=== PATIENT | male | born 1945 | race African-American/Black ===

== ENCOUNTER 2017-12-14 11:56 | Inpatient (IN) | payer OTHER ==
--- OUTSIDE RECORDS SUMMARY | 2017-12-14 11:58 | XMS REPORT | Clinical Summary ---
:[address] [facility] Address [address] [place] [address] Phone Care Team Providers Name Role Phone Unavailable Primary Care Provider Unavailable Allergies Active Allergy Reactions Severity Noted Date Comments Ciprofloxacin Other (See Comments) 02/19/2016 Blood clots per family Current Medications Prescription Sig. Disp. Refills Start Date End Date Status apixaban (ELIQUIS) 5 Take 1 tablet 60 tablet 1 03/09/2016 Active mg Tab tablet (5 mg total) by mouth 2 (two) times daily. lisinopril Take 1 tablet 60 tablet 1 03/09/2016 Active (PRINIVIL,ZESTRIL) 10 (10 mg total) MG tablet by mouth daily. lacosamide 200 mg Tab Take 1 tablet 60 tablet 1 03/09/2016 Active (200 mg total) by mouth 2 (two) times daily. levETIRAcetam Take 20 mLs 1000 mL 1 03/09/2016 Active (KEPPRA) 500 mg/5 mL (2,000 mg (5 mL) Soln oral total) by mouth solution 2 (two) times daily. atorvastatin Take 1 tablet 60 tablet 1 03/09/2016 03/09/2017 (LIPITOR) 10 MG (10 mg total) tablet by mouth nightly. topiramate (TOPAMAX) Take 3 tablets 180 tablet 1 03/09/2016 03/09/2017 50 MG tablet (150 mg total) by mouth every 12 (twelve) hours. zonisamide (ZONEGRAN) Take 1 capsule 30 capsule 1 03/09/2016 03/09/2017 100 MG capsule (100 mg total) by mouth daily. allopurinol Take 1 tablet 60 tablet 1 03/09/2016 03/09/2017 (ZYLOPRIM) 100 MG (100 mg total) tablet by mouth daily. Active Problems Problem Noted Date Hypotension 02/24/2016 Essential hypertension with goal blood pressure less than 140/90 02/23/2016 Acute encephalopathy 02/22/2016 Status epilepticus (HCC) 02/19/2016 Social History Tobacco Use Types Packs/Day Years Used Date Never Smoker Alcohol Use Drinks/Week oz/Week Comments No Sex Assigned at Date Recorded Not on file Last Filed Vital Signs Not on file Plan of Treatment Not on file Results Not on fileafter 12/13/2016
[2017-12-14] MEDS ORDERED: ACETAMINOPHEN 325 MG TABLET ONE (12:51)
[2017-12-14 12:55] LABS: Absolute Lymphocytes (CBC) 1.7 K/uL (0.7-4.9); Absolute Monocytes 0.7 K/uL (0.1-1.3); Absolute Neutrophil 2.4 K/uL (1.8-8.0); Basophils % 1.4 % (0-1.3); Eosinophils % 1.3 % (0-4.4); Hematocrit 24.9 % (39.6-49.0); Lymphocytes % 34.1 % (15.3-44.8); MCH 23.1 pg (27.0-35.0); MCV 74.5 fL (80-100); MPV 8.9 fL (7.6-11.3); RBC Red Blood Cell Count 3.35 M/uL (4.33-5.43)
[2017-12-14 12:57] LABS: Protime INR 1.56
--- NOTE | 2017-12-14 13:00 | RAD REPORT ---
EXAM DESCRIPTION: RAD - Chest Single View - 12/14/2017 12:52 pm CLINICAL HISTORY: Cough and fever COMPARISON: 05/07/2016 FINDINGS: Portable technique limits examination quality. Opacity in the right lung base may represent atelectasis, developing pneumonia or a combination of lexus th. The lungs are underinflated. The heart is normal in size. No displaced fractures.Mildly tortuous thoracic aorta.
--- NOTE | 2017-12-14 13:23 | RAD REPORT ---
EXAM DESCRIPTION: VAS - Extremity Venous Uni Ltd - 12/14/2017 1:15 pm CLINICAL HISTORY: SWELLING Leg swelling and edema. COMPARISON: EXT VENOUS UNI LTD dated 08/20/2015 FINDINGS: Right lower extremity venous system was interrogated with Doppler technique. Normal flow, compressibility and augmentation was noted. There is no DVT present. IMPRESSION: No evidence of right lower extremity deep venous thrombosis.
[2017-12-14 13:26] LABS: Albumin 3.5 g/dL (3.2-5.5); Bilirubin Direct 0.2 mg/dL (0-0.2); Bilirubin Total 0.2 mg/dL (0.3-1.2); C-Reactive Protein 169.9 mg/L (<10.0); CKMB Creatine Kinase MB 1.3 ng/ml (0.3-4.0); Potassium 4.5 mEq/L (3.6-5.0); Protein, Total 8.5 g/dL (6.0-8.3)
[2017-12-14] MEDS ORDERED: PIPER/TAZO/NS 3.375gm 3.375 GM/100 ML BAG ONE (13:53)
[2017-12-14] MEDS ORDERED: NA CHLORIDE 0.9% 1,000 ML ONE (13:53)
--- NOTE | 2017-12-14 15:11 | EDPHYS ---
Physician Documentation [facility] Name: Jairo Samson Age: 72 yrs Sex: Male : 1945 Arrival Date: 12/14/2017 Time: 11:59 Bed 23 Private MD: Karen Macario H ED Physician Phillip Carroll HPI: 12/14 14:31 This 72 yrs old Black Male presents to ER via Wheelchair with complaints of Fever. snw 14:31 The patient reports fever, that was measured at 101 degrees Fahrenheit. Onset: The snw symptoms/episode began/occurred suddenly, 3 day(s) ago. Associated signs and symptoms: Pertinent positives: cough, decreased appetite, runny nose, sinus congestion. Severity of symptoms: At their worst the symptoms were moderate in the emergency department the symptoms are unchanged. The patient has not experienced similar symptoms in the past. It is unknown whether or not the patient has recently seen a physician, Pt sees Dr. Macario. Historical: - Allergies: 12:14 Cipro; aj - Home Meds: 12:14 acetaminophen 325 mg Oral tab 1 tab every 4-6 hours [Active]; allopurinol 100 mg Oral aj tab 1 tab once daily [Active]; Eliquis 5 mg Oral tab 1 tab 2 times per day [Active]; Keppra 100 mg/mL Oral soln 5 mL 2 times per day [Active]; lacosamide 200 mg Oral 1 tab 2 times per day [Active]; Lipitor 10 mg Oral tab 1 tab once daily [Active]; lisinopril 10 mg Oral tab 1 tab once daily [Active]; Milk of Magnesia 400 mg/5 mL Oral susp 30 mL once daily [Active]; multivitamin Oral [Active]; phenobarbital 32.4 mg Oral tab every morning and 64.8 mg at bedtime [Active]; Saline 3 % nasal mist daily [Active]; simvastatin 20 mg Oral tab 1 tab once daily [Active]; Topamax 50 mg Oral tab 1 tab 2 times per day [Active]; Vimpat 200 mg Oral tab 2 times per day [Active]; Zonegran 100 mg Oral cap 1 cap once daily [Active]; - PMHx: 12:14 CVA; Hyperlipidemia; Hypertension; PE; Seizures; aj - PSHx: 12:14 Appendectomy; aj - Immunization history:: Adult Immunizations up to date. - Social history:: Smoking status: Patient/guardian denies using tobacco. - Ebola Screening: : Patient negative for fever greater than or equal to 101.5 degrees Fahrenheit, and additional compatible Ebola Virus Disease symptoms Patient denies exposure to infectious person Patient denies travel to an Ebola-affected area in the 21 days before illness onset No symptoms or risks identified at this time. ROS: 13:13 Eyes: Negative for injury, pain, redness, and discharge, ENT: Negative for injury, snw pain, and discharge, Neck: Negative for injury, pain, and swelling, Cardiovascular: Negative for chest pain, palpitations, and edema. 13:13 Abdomen/GI: Negative for abdominal pain, nausea, vomiting, diarrhea, and constipation, Back: Negative for injury and pain, : Negative for injury, bleeding, discharge, and swelling, MS/Extremity: Negative for injury and deformity, Skin: Negative for injury, rash, and discoloration, Neuro: Negative for headache, weakness, numbness, tingling, and seizure. 13:13 Constitutional: Positive for body aches, fever, malaise. 13:13 Respiratory: Positive for cough. Exam: 13:10 Head/Face: Normocephalic, atraumatic. Eyes: Pupils equal round and reactive to light, snw extra-ocular motions intact. Lids and lashes normal. Conjunctiva and sclera are non-icteric and not injected. Cornea within normal limits. Periorbital areas with no swelling, redness, or edema. ENT: Nares patent. No nasal discharge, no septal abnormalities noted. Tympanic membranes are normal and external auditory canals are clear. Oropharynx with no redness, swelling, or masses, exudates, or evidence of obstruction, uvula midline. Mucous membranes moist. Neck: Trachea midline, no thyromegaly or masses palpated, and no cervical lymphadenopathy. Supple, full range of motion without nuchal rigidity, or vertebral point tenderness. No Meningismus. Chest/axilla: Normal chest wall appearance and motion. Nontender with no deformity. No lesions are appreciated. 13:10 Respiratory: Lungs have equal breath sounds bilaterally, clear to auscultation and percussion. No rales, rhonchi or wheezes noted. No increased work of breathing, no retractions or nasal flaring. Abdomen/GI: Soft, non-tender, with normal bowel sounds. No distension or tympany. No guarding or rebound. No evidence of tenderness throughout. Back: No spinal tenderness. No costovertebral tenderness. Full range of motion. 13:10 Constitutional: The patient appears alert, awake, frail. 13:10 Cardiovascular: Rate: tachycardic, Heart sounds: normal, Edema: pedal edema, that is moderate. 13:10 Skin: Appearance: normal except for affected area, duoderm to coccyx over abrasions, right elbow with dayami per secondary to right elbow pain. 13:10 Neuro: Orientation: appropriate for stated age, seizure activity, is not displayed by the patient, pt is s/p CVA with contractures, normal neuro for pt per Spouse. Vital Signs: 12:14 BP 111 / 62; Pulse 126; Resp 20; Temp 98.9; Pulse Ox 99% on R/A; Weight 73.94 kg; aj Height 5 ft. 11 in. (180.34 cm); 14:10 BP 130 / 94; Pulse 117; Resp 21; Pulse Ox 100% ; aj 14:28 BP 137 / 89; Pulse 111; Resp 21; Temp 98.9; Pulse Ox 99% on R/A; aj 15:36 BP 102 / 64; Pulse 103; Resp 20; Pulse Ox 100% on R/A; rk2 15:45 BP 93 / 58; Pulse 100; Resp 20; Pulse Ox 100% on R/A; rk2 16:30 BP 97 / 55; Pulse 92; Resp 19; Pulse Ox 100% on R/A; rk2 17:00 BP 108 / 64; Pulse 98; Resp 19; Pulse Ox 99% on R/A; rk2 17:56 BP 101 / 62; Pulse 86; Resp 18; Pulse Ox 100% on R/A; rk2 18:28 BP 111 / 61; Pulse 86; Resp 18; Pulse Ox 100% on R/A; rk2 12:14 Body Mass Index 22.73 (73.94 kg, 180.34 cm) aj MDM: 12:29 Patient medically screened. snw 14:30 Data reviewed: vital signs, nurses notes. Data interpreted: Pulse oximetry: on room air snw is 99 %. Interpretation: acceptable. Counseling: I had a detailed discussion with the patient and/or guardian regarding: the historical points, exam findings, and any diagnostic results supporting the discharge/admit diagnosis, the presence of at least one elevated blood pressure reading (>120/80) during this emergency department visit, lab results, radiology results, the need for further work-up and treatment in the hospital. Physician consultation: Didi Sanchez MD was called at 14:30, was contacted at 14:30, regarding admission, to the telemetry unit. Admission orders: after a detailed discussion of the patient's condition and case, the admit orders are written by me. Admission orders: after a detailed discussion of the patient's condition and case, the admit orders are written by me. 12/14 12:23 Order name: Basic Metabolic Panel; Complete Time: 13:42 12/14 12:23 Order name: Blood Culture Adult (2) 12/14 12:23 Order name: BNP; Complete Time: 13:42 12/14 12:23 Order name: C-Reactive Protein; Complete Time: 13:42 12/14 12:23 Order name: CBC with Diff; Complete Time: 13:12/14 12:23 Order name: Ckmb; Complete Time: 13:42 12/14 12:23 Order name: CPK; Complete Time: 13:42 12/14 12:23 Order name: Lactate; Complete Time: 13:08 12/14 12:23 Order name: LFT's; Complete Time: 13:42 12/14 12:23 Order name: Lipase; Complete Time: 13:42 12/14 12:23 Order name: Procalcitonin; Complete Time: 13:42 12/14 12:23 Order name: Protime (+inr); Complete Time: 13:08 12/14 12:23 Order name: Ptt, Activated; Complete Time: 13:12/14 12:23 Order name: Troponin (emerg Dept Use Only); Complete Time: 13:22 12/14 12:23 Order name: Chest Single View XRAY; Complete Time: 13:08 12/14 12:23 Order name: Accucheck; Complete Time: 14:12/14 12:23 Order name: Cardiac monitoring; Complete Time: 14:/14 12:23 Order name: Urine Culture snw 12/14 12:23 Order name: Urine Microscopic Only; Complete Time: 17:22 snw 12/14 12:53 Order name: Extremity Venous Uni Ltd US; Complete Time: 13:23 aj 12/14 13:08 Order name: TS snw 12/14 16:21 Order name: Bb Add On snw 12/14 16:26 Order name: Bb Add On snw 12/14 16:51 Order name: Urine Dipstick--Ancillary (enter results) bd 12/14 17:17 Order name: Urine Dipstick-Ancillary; Complete Time: 17:17 EDMS 12/14 12:23 Order name: EKG - Nurse/Tech; Complete Time: 16:52 snw 12/14 12:23 Order name: IV Saline Lock - Large Bore; Complete Time: 14:09 snw 12/14 12:23 Order name: Labs collected and sent; Complete Time: 14:09 snw 12/14 12:23 Order name: O2 Per Protocol; Complete Time: 14:09 snw 12/14 12:23 Order name: O2 Sat Monitoring; Complete Time: 14:09 snw 12/14 12:23 Order name: Urine Dipstick-Ancillary (obtain specimen); Complete Time: 14:09 snw 12/14 16:21 Order name: Transfuse; Complete Time: 19:13 snw 12/14 16:23 Order name: Consent for Blood Transfusion; Complete Time: 16:53 snw Administered Medications: 13:05 Drug: Tylenol 650 mg Route: PO; aj 14:28 Follow up: Response: Temperature is decreased aj 14:08 Drug: Zosyn 3.375 grams Route: IVPB; Infused Over: 60 mins; Site: left antecubital; aj 14:41 Follow up: Response: No adverse reaction; IV Status: Completed infusion; IV Intake: aj 100ml 14:08 Drug: NS 0.9% 1000 ml Route: IV; Rate: 100 ml/hr; Site: left antecubital; aj 18:45 Follow up: Response: No adverse reaction; IV Status: Completed infusion rk2 15:50 Drug: NS 0.9% 500 ml Route: IV; Rate: bolus; Site: left wrist; rk2 16:20 Follow up: Response: No adverse reaction; IV Status: Completed infusion rk2 Disposition: 19:13 Co-signature as Attending Physician, Phillip Carroll MD. rn Disposition: 12/14/17 15:10 Hospitalization ordered by Didi Sanchez for Inpatient Admission. Preliminary diagnosis are Pneumonia, unspecified organism, Anemia, unspecified. - Bed requested for Telemetry/MedSurg (Inpatient). - Status is Inpatient Admission. rk2 - Condition is Stable. - Problem is new. - Symptoms are unchanged. UTI on Admission? No Signatures: Dispatcher [employer] EDNM Tyshawn Danielle Nanette Lepe RN Janice Benavidez, SUPERVISOR [employer]-C SUPERVISOR [employer]SELING [employer]-Csnw Phillip Carroll MD MD rn Kidder, Rhonda, RN RN rk2 Corrections: (The following items were deleted from the chart) 13:00 12:53 Chest Single View+RAD.RAD.BRZ ordered. [facility] 16:32 15:10 Hospitalization Ordered by Didi Sanchez MD for Inpatient Admission. Preliminary bd diagnosis is Pneumonia, unspecified organism; Anemia, unspecified. Bed requested for Telemetry/MedSurg (Inpatient). Status is Inpatient Admission. Condition is Stable. Problem is new. Symptoms are unchanged. UTI on Admission? No. snw 19:13 16:32 12/14/2017 15:10 Hospitalization Ordered by Didi Sanchez MD for Inpatient rk2 Admission. Preliminary diagnosis is Pneumonia, unspecified organism; Anemia, unspecified. Bed requested for Telemetry/MedSurg (Inpatient). Status is Inpatient Admission. Condition is Stable. Problem is new. Symptoms are unchanged. UTI on Admission? No. bd
--- NOTE | 2017-12-14 15:11 | ER ---
Nurse's Notes [facility] Name: Jairo Samson Age: 72 yrs Sex: Male : 1945 Arrival Date: 12/14/2017 Time: 11:59 Bed 23 Private MD: Karen Macario H Diagnosis: Pneumonia, unspecified organism;Anemia, unspecified Presentation: 12/14 12:11 Presenting complaint: states: C/O runny nose, cough, and fever for a few days. aj Transition of care: patient was not received from another setting of care. Onset of symptoms was December 11, 2017. Risk Assessment: Do you want to hurt yourself or someone else? Patient reports no desire to harm self or others. Care prior to arrival: None. 12:11 Method Of Arrival: Wheelchair aj 12:11 Acuity: BIJAL 3 aj 19:12 Initial Sepsis Screen: Does the patient meet any 2 criteria? Yes Does the patient have rk2 a suspected source of infection? Yes:. Triage Assessment: 12:14 General: Appears in no apparent distress. comfortable, Behavior is calm, cooperative, aj appropriate for age. Pain: Denies pain. EENT: Reports nasal congestion nasal discharge. Neuro: Level of Consciousness is awake, alert, obeys commands. Respiratory: Reports cough that is Airway is patent Respiratory effort is even, unlabored, Respiratory pattern is regular, symmetrical. Derm: Skin is intact, is healthy with good turgor, Skin is pink, warm \T\ dry. normal. Historical: - Allergies: 12:14 Cipro; aj - Home Meds: 12:14 acetaminophen 325 mg Oral tab 1 tab every 4-6 hours [Active]; allopurinol 100 mg Oral aj tab 1 tab once daily [Active]; Eliquis 5 mg Oral tab 1 tab 2 times per day [Active]; Keppra 100 mg/mL Oral soln 5 mL 2 times per day [Active]; lacosamide 200 mg Oral 1 tab 2 times per day [Active]; Lipitor 10 mg Oral tab 1 tab once daily [Active]; lisinopril 10 mg Oral tab 1 tab once daily [Active]; Milk of Magnesia 400 mg/5 mL Oral susp 30 mL once daily [Active]; multivitamin Oral [Active]; phenobarbital 32.4 mg Oral tab every morning and 64.8 mg at bedtime [Active]; Saline 3 % nasal mist daily [Active]; simvastatin 20 mg Oral tab 1 tab once daily [Active]; Topamax 50 mg Oral tab 1 tab 2 times per day [Active]; Vimpat 200 mg Oral tab 2 times per day [Active]; Zonegran 100 mg Oral cap 1 cap once daily [Active]; - PMHx: 12:14 CVA; Hyperlipidemia; Hypertension; PE; Seizures; aj - PSHx: 12:14 Appendectomy; aj - Immunization history:: Adult Immunizations up to date. - Social history:: Smoking status: Patient/guardian denies using tobacco. - Ebola Screening: : Patient negative for fever greater than or equal to 101.5 degrees Fahrenheit, and additional compatible Ebola Virus Disease symptoms Patient denies exposure to infectious person Patient denies travel to an Ebola-affected area in the 21 days before illness onset No symptoms or risks identified at this time. Screenin:46 Abuse screen: Denies threats or abuse. Denies injuries from another. Nutritional aj screening: No deficits noted. Tuberculosis screening: No symptoms or risk factors identified. Fall Risk None identified. Assessment: 14:09 Reassessment: See triage. aj 15:50 Reassessment: Noted drop in pt. BP, notified provider Elyssa and was instructed to rk2 give pt. 500 ml bolus and re-evaluate. 17:00 Reassessment: Patient appears in no apparent distress at this time. No changes from rk2 previously documented assessment. Patient and/or family updated on plan of care and expected duration. Pain level reassessed. No needs voiced \T\ this time. 18:00 Reassessment: Patient appears in no apparent distress at this time. No changes from rk2 previously documented assessment. Patient and/or family updated on plan of care and expected duration. Pain level reassessed. Family \T\ bedside... no needs voiced \T\ this time. 19:10 Reassessment: Pt. transported to room 203 by RN and Tech... PRBC infusing. Blood rk2 checked off with receiving RN. Vital Signs: 12:14 BP 111 / 62; Pulse 126; Resp 20; Temp 98.9; Pulse Ox 99% on R/A; Weight 73.94 kg; aj Height 5 ft. 11 in. (180.34 cm); 14:10 BP 130 / 94; Pulse 117; Resp 21; Pulse Ox 100% ; aj 14:28 BP 137 / 89; Pulse 111; Resp 21; Temp 98.9; Pulse Ox 99% on R/A; aj 15:36 BP 102 / 64; Pulse 103; Resp 20; Pulse Ox 100% on R/A; rk2 15:45 BP 93 / 58; Pulse 100; Resp 20; Pulse Ox 100% on R/A; rk2 16:30 BP 97 / 55; Pulse 92; Resp 19; Pulse Ox 100% on R/A; rk2 17:00 BP 108 / 64; Pulse 98; Resp 19; Pulse Ox 99% on R/A; rk2 17:56 BP 101 / 62; Pulse 86; Resp 18; Pulse Ox 100% on R/A; rk2 18:28 BP 111 / 61; Pulse 86; Resp 18; Pulse Ox 100% on R/A; rk2 12:14 Body Mass Index 22.73 (73.94 kg, 180.34 cm) aj ED Course: 11:59 Patient arrived in ED. mr 12:00 Karen Macario DO is Private Physician. mr 12:12 Triage completed. aj 12:14 Arm band placed on right wrist. Patient placed in an exam room. aj 12:19 Janice Hernandez FNP-C [facility]. snw 12:19 Phillip Carroll MD is Attending Physician. snw 12:46 Nanette Vernon, EN is Primary Nurse. aj 12:47 Inserted saline lock: 20 gauge in left antecubital area, using aseptic technique. Blood aj collected. 12:51 X-ray completed. Portable x-ray completed in exam room. Patient tolerated procedure jb2 well. 12:52 Chest Single View XRAY In Process Unspecified. EDMS 13:13 Extremity Venous Uni Ltd US In Process Unspecified. EDMS 13:13 Ultrasound completed. Patient tolerated well. aa4 14:39 IV discontinued, bleeding controlled, No redness/swelling at site. Pressure dressing aj applied. 14:39 Inserted saline lock: 22 gauge in left wrist, using aseptic technique. Blood collected. aj 15:00 Patient has correct armband on for positive identification. Bed in low position. Call rk2 light in reach. Side rails up X2. 15:08 Didi Sanchez MD is Hospitalizing Provider. snw 16:55 EKG done, by accelerator technician. reviewed by Janice DE LA O. 3 19:11 No provider procedures requiring assistance completed. rk2 Administered Medications: 13:05 Drug: Tylenol 650 mg Route: PO; aj 14:28 Follow up: Response: Temperature is decreased aj 14:08 Drug: Zosyn 3.375 grams Route: IVPB; Infused Over: 60 mins; Site: left antecubital; aj 14:41 Follow up: Response: No adverse reaction; IV Status: Completed infusion; IV Intake: aj 100ml 14:08 Drug: NS 0.9% 1000 ml Route: IV; Rate: 100 ml/hr; Site: left antecubital; aj 18:45 Follow up: Response: No adverse reaction; IV Status: Completed infusion rk2 15:50 Drug: NS 0.9% 500 ml Route: IV; Rate: bolus; Site: left wrist; rk2 16:20 Follow up: Response: No adverse reaction; IV Status: Completed infusion rk2 Intake: 14:41 IV: 100ml; Total: 100ml. aj Outcome: 15:10 Decision to Hospitalize by Provider. snw 19:11 Admitted to Med/surg rk2 19:11 Condition: improved 19:11 Instructed on the need for admit. 19:13 Patient left the ED. rk2 Signatures: Dispatcher [employer] Nanette Sotelo, RN Janice Benavidez FNP-C FNP-[facility] MayorgaCathie David Prieto jb2 Nanette Muhammad aa4 Lyudmila Jang RN RN rk2 Anna Sullivan 3
[2017-12-14] MEDS ORDERED: ONDANSETRON 4 MG/2 ML VIAL IV PRN (16:46)
[2017-12-14 17:16] LABS: Urine Blood NEGATIVE (NEG); Urine Glucose NEGATIVE (NEG); Urine Protein NEGATIVE (NEG); Urine pH 5.5 (5.0-7.0)
[2017-12-14 17:17] LABS: Urine Bacteria <20 /HPF (NONE SEEN); Urine Culture Reflex Order NOT NEEDED; Urine RBC <5 /HPF (NONE SEEN)
--- NOTE | 2017-12-14 17:21 | P.HP ---
Certification for Inpatient Patient admitted to: Observation With expected LOS: <2 Midnights Patient will require the following post-hospital care: None Practitioner: I am a practitioner with admitting privileges, knowledge of patient current condition, hospital course, and medical plan of care. Services: Services provided to patient in accordance with Admission requirements found in Title 42 Section 412.3 of the Code of Federal Regulations Patient History Date of Service: 12/15/17 Primary Care Provider: Dr MONDRAGON Reason for admission: Sepsis History of Present Illness: This is a 72-year-old male with significant past medical history of polio, CKD, hypertension presented to the ED complaining of having some fever and chills. Patient's at bedside providing most of the history as patient is a phasic due to prior stroke. Patient's stated that patient started having a low- grade fever at home of about 99.9 and 30 are the patient is found to have sepsis and thus was referred over for admission due to tachycardia elevated temperature and elevated white count. Patient does have 2 sacral bruises that his concern for sacral ulcers along with swelling of the right lower extremity. X-ray was consistent with possible lady of pneumonia. Patient was thus admitted to the hospital under upon for sepsis with possible anemia as well. Allergies ciprofloxacin Allergy (Verified 12/15/15 22:39) UNKNOWN Home Medications: Lisinopril [Prinivil*] 10 mg PO DAILY 07/25/13 Apixaban [Eliquis] 5 mg PO BID 04/01/15 Lacosamide [Vimpat] 200 mg PO BID 05/05/16 Simvastatin 20 mg PO BEDTIME 05/05/16 Topiramate 50 mg PO BEDTIME 05/05/16 Zonisamide 100 mg PO DAILY 05/05/16 Levetiracetam [Keppra] 500 mg PO BID #60 tablet 05/09/16 PHENobarbital [Phenobarbital*] 32.4 mg PO DAILY #30 tab 05/09/16 PHENobarbital [Phenobarbital*] 64.8 mg PO BEDTIME #60 tab 05/09/16 Carisoprodol 350 mg PO BID PRN 12/14/17 Multivitamin [Multivitamins] 1 each PO DAILY 12/14/17 - Past Medical/Surgical History Diabetic: No -: CVA with deficits on right side -: HTN -: Pulmonary embolism -: Seizures -: 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 -: high cholesterol -: polio -: Appendectomy - Family History Father -: Hypertension Mother -: Hypertension Brother -: Hypertension Sister -: Hypertension, Cancer - Social History Alcohol use: No CD- Drugs: No Caffeine use: No Review of Systems General: As per HPI Physical Examination - Physical Exam General: Alert, Oriented x2 HEENT: Atraumatic Neck: Supple, 2+ carotid pulse no bruit Respiratory: Normal air movement, Crackles/rales Cardiovascular: Regular rate/rhythm, Normal S1 S2 Gastrointestinal: Normal bowel sounds, No tenderness Musculoskeletal: Swelling (Right LE ), Erythema Integumentary: Skin breakdown (Sacral breakdown ) Neurological: Normal speech Lymphatics: No axilla or inguinal lymphadenopathy - Studies Laboratory Data (last 24 hrs) 12/14/17 12:37: PT 18.5 H, INR 1.56, APTT 28.2 12/14/17 12:37: WBC 4.9, Hgb 7.7 L*, Hct 24.9 L, Plt Count 320 12/14/17 12:37: B-Natriuretic Peptide 14 12/14/17 12:37: Sodium 141, Potassium 4.5, BUN 44 H, Creatinine 1.32 H, Glucose 146 H, Total Bilirubin 0.2 L, AST 31, ALT 19, Alkaline Phosphatase 91, Lipase 30 Assessment and Plan - Problems (Diagnosis) (1) Sepsis Onset Date: 12/15/17 Current Visit: Yes Status: Acute Plan: Sepsis with Unknown Source. -Pt with 2 sacral wound, right leg swelling and possible PNA on the xray -Elevated CRP, WNL procal. -On IV vanc and zosyn -IV fluids -Urine culture, Blood culture and Sputum Culture pending Qualifiers: Sepsis type: sepsis due to unspecified organism Qualified Code(s): A41.9 - Sepsis, unspecified organism (2) Chronic kidney disease Onset Date: 12/15/17 Current Visit: Yes Status: Chronic Plan: Acute on CKD. - IV fluids Qualifiers: Chronic kidney disease stage: stage 2 (mild) Qualified Code(s): N18.2 - Chronic kidney disease, stage 2 (mild) (3) Polio Onset Date: 12/15/17 Current Visit: Yes Status: Chronic Plan: Stable for now (4) Anemia, iron deficiency Onset Date: 02/17/16 Current Visit: No Status: Acute Plan: Anemia 2.2 to chronic kidney disease vs acute loss. 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 Current Visit: No Status: Chronic Plan: Stable for now (6) Hyperlipidemia Onset Date: 02/17/16 Current Visit: No Status: Chronic Plan: restart Home medication Qualifiers: Hyperlipidemia type: mixed hyperlipidemia Qualified Code(s): E78.2 - Mixed hyperlipidemia (7) Hypertension Onset Date: 02/17/16 Current Visit: No Status: Chronic Plan: Restart home medication Qualifiers: Hypertension type: essential hypertension Qualified Code(s): I10 - Essential (primary) hypertension Discharge Plan: Home Plan to discharge in: 48 Hours - Advance Directives Does patient have a Living Will: No Does patient have a Durable POA for Healthcare: No - Code Status/Comfort Care Code Status Assessed: Yes Critical Care: No
[2017-12-14] MEDS ORDERED: NA CHLORIDE 0.9% 500 ML ONE (17:47)
[2017-12-14] MEDS ORDERED: VANCOMYCIN 2 GM in NA CHLORIDE 0.9% 500 ML IVPB ONE (18:00)
[2017-12-14] MEDS: NA CHLORIDE 0.9% 1,000 ML IV SCH (20:44)
[2017-12-14] MEDS: ATORVASTATIN 10 MG TAB PO SCH (22:27)
[2017-12-14] MEDS: levETIRAcetam 500 MG TAB PO SCH (22:27)
[2017-12-14] MEDS: TOPIRAMATE 25 MG TAB PO SCH (22:27)
[2017-12-14] MEDS: APIXABAN 5 MG TABLET PO SCH (22:28)
[2017-12-14] MEDS: LACOSAMIDE 50 MG TABLET PO SCH (22:35)
[2017-12-14] MEDS: PHENOBARBITAL 32.4 MG TABLET PO SCH (22:37)
[2017-12-14 23:00] LABS: Hematocrit 24.7 % (39.6-49.0)
[2017-12-14 23:34] VITALS: BMI 22.7
[2017-12-15] MEDS: PIPER/TAZO/NS 3.375gm 3.375 GM/100 ML BAG IVPB SCH ×2 (01:48→09:21)
[2017-12-15] MEDS: NA CHLORIDE 0.9% 1,000 ML IV SCH ×3 (05:29→23:45)
[2017-12-15 05:39] LABS: Absolute Lymphocytes (CBC) 1.2 K/uL (0.7-4.9); Absolute Monocytes 0.6 K/uL (0.1-1.3); Absolute Neutrophil 2.4 K/uL (1.8-8.0); Basophils % 1.2 % (0-1.3); Eosinophils % 2.8 % (0-4.4); Hematocrit 22.5 % (39.6-49.0); Lymphocytes % 27.4 % (15.3-44.8); MCV 73.7 fL (80-100); MPV 8.4 fL (7.6-11.3); Monocytes % 14.4 % (3.3-12.3); RBC Red Blood Cell Count 3.05 M/uL (4.33-5.43)
[2017-12-15 05:45] LABS: Albumin 2.7 g/dL (3.2-5.5); Bilirubin Total 0.5 mg/dL (0.3-1.2); Potassium 4.1 mEq/L (3.6-5.0); Protein, Total 6.6 g/dL (6.0-8.3)
--- NOTE | 2017-12-15 06:16 | EKG ---
Test Date: 2017-12-14 Test Time: 16:47:10 Returns Processor: YOSHI MEASUREMENT RESULTS: Intervals: Rate: 89 IN: 154 QRSD: 90 QT: 372 QTc: 452 [place]: P: 47 IN: 154 QRS: 14 T: 34 INTERPRETIVE STATEMENTS: Normal sinus rhythm Normal ECG Compared to ECG 05/06/2016 06:53:15 Sinus tachycardia no longer present Electronically Signed On 12-15-17 06:15:31 CDT by Guillermo Hernandez
[2017-12-15] MEDS: APIXABAN 5 MG TABLET PO SCH (09:00)
[2017-12-15] MEDS: LACOSAMIDE 50 MG TABLET PO SCH ×2 (09:20→20:36)
[2017-12-15] MEDS: levETIRAcetam 500 MG TAB PO SCH ×2 (09:21→20:37)
[2017-12-15] MEDS ORDERED: CARISOPRODOL 350 MG TAB PO PRN (10:46)
[2017-12-15] MEDS ORDERED: NA CHLORIDE 0.9% 250 ML ONE (10:56)
[2017-12-15] MEDS ORDERED: Levofloxacin500mg IV 500 MG/100 ML BAG IV SCH ×2 (11:00→15:00)
--- NOTE | 2017-12-15 12:36 | P.PN ---
Subjective Date of Service: 12/15/17 Primary Care Provider: Dr MONDRAGON Chief Complaint: Sepsis Pt seen and examined at bedside. Chart Reviewed. Case DW with Family and Nursing at bedside. No Complains to offer overnight. States feels better than before. hgb is 7.1 today. Swelling on the right extermity better than before Review of Systems General: As per HPI Physical Examination - Vital Signs Temperature: 98.3 F Blood Pressure: 178/84 Pulse: 92 Respirations: 16 Pulse Ox (%): 95 - Physical Exam General: Alert, Oriented x2, Demented HEENT: Atraumatic Neck: Supple, JVD not distended Respiratory: Normal air movement, Crackles/rales Cardiovascular: Regular rate/rhythm, Normal S1 S2 Gastrointestinal: Normal bowel sounds, No tenderness Musculoskeletal: Swelling (2+ Right LE) Integumentary: Skin breakdown Neurological: Normal speech, Normal tone, Normal affect Lymphatics: No axilla or inguinal lymphadenopathy - Studies Laboratory Data (last 24 hrs) 12/15/17 04:30: Sodium 143, Potassium 4.1, BUN 39 H, Creatinine 1.27 H, Glucose 93, Total Bilirubin 0.5, AST 17, ALT 17, Alkaline Phosphatase 80 12/15/17 04:30: WBC 4.4, Hgb 7.3 L*, Hct 22.5 L, Plt Count 234 D 12/14/17 22:33: Hgb 8.0 L, Hct 24.7 L 12/14/17 12:37: PT 18.5 H, INR 1.56, APTT 28.2 12/14/17 12:37: WBC 4.9, Hgb 7.7 L*, Hct 24.9 L, Plt Count 320 12/14/17 12:37: B-Natriuretic Peptide 14 12/14/17 12:37: Sodium 141, Potassium 4.5, BUN 44 H, Creatinine 1.32 H, Glucose 146 H, Total Bilirubin 0.2 L, AST 31, ALT 19, Alkaline Phosphatase 91, Lipase 30 Medications List Reviewed: Yes Assessment & Plan - Problems (Diagnosis) (1) Anemia, iron deficiency Onset Date: 02/17/16 Current Visit: No Status: Acute Plan: Anemia 2.2 to chronic kidney disease vs acute loss. -Stool occult pending -Transfuse 1 units PRBC -Hold anticoagulation for now Qualifiers: Iron deficiency anemia type: other iron deficiency (2) Sepsis Onset Date: 12/15/17 Current Visit: Yes Status: Acute Plan: Sepsis with Unknown Source. -Pt with 2 sacral wound, right leg swelling and possible PNA on the xray -Elevated CRP, WNL procal. -On IV vanc and zosyn. Switch to IV levaquin today -IV fluids for now -Urine culture, Blood culture and Sputum Culture pending Qualifiers: Sepsis type: sepsis due to unspecified organism Qualified Code(s): A41.9 - Sepsis, unspecified organism (3) Chronic kidney disease Onset Date: 12/15/17 Current Visit: Yes Status: Chronic Plan: Acute on CKD. 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
[2017-12-15 16:35] LABS: Hematocrit 26.5 % (39.6-49.0)
[2017-12-15] MEDS ORDERED: VANCOMYCIN 1.5 GM in NA CHLORIDE 0.9% 500 ML IVPB SCH (18:00)
[2017-12-15] MEDS: ACETAMINOPHEN 500 MG TAB PO PRN (20:36)
[2017-12-15] MEDS: ATORVASTATIN 10 MG TAB PO SCH (20:40)
[2017-12-15] MEDS: TOPIRAMATE 25 MG TAB PO SCH (20:40)
[2017-12-15] MEDS: PHENOBARBITAL 32.4 MG TABLET PO SCH (20:43)
[2017-12-15] MEDS: JUVEN PACKET PO SCH (20:47)
[2017-12-16] MEDS: ACETAMINOPHEN 500 MG TAB PO PRN ×2 (01:20→07:28)
[2017-12-16 05:35] LABS: Albumin 2.5 g/dL (3.2-5.5); Bilirubin Total 0.5 mg/dL (0.3-1.2); Potassium 3.6 mEq/L (3.6-5.0); Protein, Total 6.2 g/dL (6.0-8.3)
[2017-12-16 05:48] LABS: Hematocrit 23.5 % (39.6-49.0); MCH 24.7 pg (27.0-35.0); MCV 75.5 fL (80-100); MPV 8.5 fL (7.6-11.3); RBC Red Blood Cell Count 3.11 M/uL (4.33-5.43)
[2017-12-16 06:17] LABS: Anisocytosis 2+; Blood Morphology Comment NOTED (NOT SEEN); Burr Cells 3+; Ovalocytes 1+; Platelet Estimate ADEQ; Target Cells 2+
[2017-12-16] MEDS: LACOSAMIDE 50 MG TABLET PO SCH (08:54)
[2017-12-16] MEDS: levETIRAcetam 500 MG TAB PO SCH (08:56)
[2017-12-16] MEDS: JUVEN PACKET PO SCH (08:58)
[2017-12-16] MEDS ORDERED: PHENOBARBITAL 32.4 MG TABLET PO SCH (09:00)
[2017-12-16] MEDS ORDERED: MULTIVIT W/ MINERAL TAB PO SCH (09:00)
[2017-12-16 12:06] VITALS: O2SAT 94
[2017-12-16 12:42] VITALS: BP 138/70; TEMP 99
--- NOTE | 2017-12-16 13:29 | P.DS ---
Admission Date: 12/15/17 Discharge Date: 12/16/17 Primary Care Provider: Dr MACARIO Disposition: ROUTINE DISCHARGE Discharge Condition: GOOD Reason for Admission: Sepsis - Problems (1) Sepsis Onset Date: 12/15/17 Status: Acute Qualifiers: Sepsis type: sepsis due to unspecified organism Qualified Code(s): A41.9 - Sepsis, unspecified organism (2) Chronic kidney disease Onset Date: 12/15/17 Status: Chronic Qualifiers: Chronic kidney disease stage: stage 2 (mild) Qualified Code(s): N18.2 - Chronic kidney disease, stage 2 (mild) (3) Polio Onset Date: 12/15/17 Status: Chronic (4) Anemia, iron deficiency Onset Date: 02/17/16 Status: Acute Qualifiers: Iron deficiency anemia type: other iron deficiency Qualified Code(s): D50.8 - Other iron deficiency anemias (5) 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 Patient's at bedside providing most of the history as patient is a phasic due to prior stroke. Patient's stated that patient started having a low- grade fever at home of about 99.9 and 30 are the patient is found to have sepsis and thus was referred over for admission due to tachycardia elevated temperature and elevated white count. Patient does have 2 sacral bruises that his concern for sacral ulcers along with swelling of the right lower extremity. X-ray was consistent with possible lady of pneumonia. Patient was thus admitted to the hospital under upon for sepsis with possible anemia as well. Hospital Course: Overall during the hospital stay patient remained stable Patient was initially admitted to the hospital for sepsis most likely unknown etiology. Patient however does have left lower edema along with possible pneumonia along with sacral stage I ulcer. Patient was initially started on IV vancomycin and Zosyn here in the hospital which was switched over to IV Levaquin once all the blood cultures and urine culture was negative. Patient had marked improvement in his symptoms and then was discharged home under stable condition. Patient while here in the hospital also had acute anemia which is most likely secondary to chronic anemia secondary to his chronic kidney disease. Stool occult here in the hospital was negative. No concern for acute blood loss was noted. Patient did receive 1 unit of packed RBCs while here in the hospital. Patient was more alert and oriented day 2 of hospitalization and day 3 he was back to his baseline and thus was discharged home under stable condition with a prescription of p.o. Levaquin for possible pneumonia that was seen on the x-ray. Patient's family was educated extensively to follow up with primary care provider along with a neurologist and was asked to take the patient to a clerk carrier is well. Vital Signs/Physical Exam: Temp Pulse Resp BP Pulse Ox 99.0 F 96 H 18 138/70 99 12/16/17 12:00 12/16/17 12:00 12/16/17 12:00 12/16/17 12:00 12/16/17 12:00 General: Alert, In no apparent distress HEENT: Atraumatic, PERRLA, EOMI Neck: Supple, JVD not distended Respiratory: Clear to auscultation bilaterally, Normal air movement Cardiovascular: Regular rate/rhythm, Normal S1 S2 Gastrointestinal: Normal bowel sounds, No tenderness Musculoskeletal: No tenderness Integumentary: No rashes Neurological: Normal speech, Normal tone, Normal affect Lymphatics: No axilla or inguinal lymphadenopathy Laboratory Data at Discharge: WBC 5.3 K/uL (4.3-10.9) D 12/16/17 04:26 Hgb 7.7 g/dL (13.6-17.9) L* 12/16/17 04:26 Hct 23.5 % (39.6-49.0) L 12/16/17 04:26 Plt Count 211 K/uL (152-406) 12/16/17 04:26 PT 18.5 SECONDS (9.5-12.5) H 12/14/17 12:37 INR 1.56 12/14/17 12:37 APTT 28.2 SECONDS (24.3-36.9) 12/14/17 12:37 Sodium 142 mEq/L (135-145) 12/16/17 04:26 Potassium 3.6 mEq/L (3.6-5.0) 12/16/17 04:26 BUN 32 mg/dL (6-20) H 12/16/17 04:26 Creatinine 1.22 mg/dL (0.61-1.24) 12/16/17 04:26 Glucose 85 mg/dL (65-120) 12/16/17 04:26 Total Bilirubin 0.5 mg/dL (0.3-1.2) 12/16/17 04:26 AST 30 IU/L (10-42) 12/16/17 04:26 ALT 24 IU/L (10-60) 12/16/17 04:26 Alkaline Phosphatase 78 IU/L (42-121) 12/16/17 04:26 B-Natriuretic Peptide 14 pg/ml (<=100) 12/14/17 12:37 Lipase 30 U/L (22-51) 12/14/17 12:37 Home Medications: Apixaban [Eliquis] 5 mg PO BID 04/01/15 Lacosamide [Vimpat] 200 mg PO BID 05/05/16 Simvastatin 20 mg PO BEDTIME 05/05/16 Topiramate 50 mg PO BEDTIME 05/05/16 Zonisamide 100 mg PO DAILY 05/05/16 Levetiracetam [Keppra] 500 mg PO BID #60 tablet 05/09/16 PHENobarbital [Phenobarbital*] 32.4 mg PO DAILY #30 tab 05/09/16 PHENobarbital [Phenobarbital*] 64.8 mg PO BEDTIME #60 tab 05/09/16 Carisoprodol 350 mg PO BID PRN 12/14/17 Multivitamin [Multivitamins] 1 each PO DAILY 12/14/17 levoFLOXacin [Levaquin] 500 mg PO DAILY #7 tab 12/16/17 New Medications: levoFLOXacin [Levaquin] 500 mg PO DAILY #7 tab Patient Discharge Instructions: Please f.u with PCP in 1 to 2 week post discharge. Resume all medication as prescribed except Lisinopril, which you should stop for right now due to Acute kidney injury. New medication. levaquin 500mg daily for 7 day s Diet: Regular Activity: Ad leisa Followup: Jaun Ndiaye MD [ASSOCIATE-ACTIVE - CAN ADMIT] - 1-2 Weeks (Call for appointment) Karen Macario DO, DO [Primary Care Provider] - 1-2 Weeks (Call for appointment)
== END 2017-12-16 12:59 | disposition home or self-care (01) | DRG 871 ==
LOC: ER 11:56 → INTOOBSV 15:10 → ERHOLD 15:10 → 2ND 17:17 → OBSVTOIN 12-15 11:40
PROVIDERS: ADMIT Family Medicine; ATTEND Family Medicine
PROC: 30233N1 Transfusion of Nonautologous Red Blood Cells into Peripheral Vein, Percutaneous Approach (ICD-10-PCS; principal; 2017-12-15)
DX: A41.9 Sepsis, unspecified organism (principal); J18.9 Pneumonia, unspecified organism; I69.351 Hemiplegia and hemiparesis following cerebral infarction affecting right dominant side; L89.151 Pressure ulcer of sacral region, stage 1; I12.9 Hypertensive chronic kidney disease with stage 1 through stage 4 chronic kidney disease, or unspecified chronic kidney disease; N18.2 Chronic kidney disease, stage 2 (mild); D63.1 Anemia in chronic kidney disease; Z86.12 Personal history of poliomyelitis; D50.8 Other iron deficiency anemias; E78.2 Mixed hyperlipidemia; I69.320 Aphasia following cerebral infarction; Z79.02 Long term (current) use of antithrombotics/antiplatelets; Z86.711 Personal history of pulmonary embolism
CPT/HCPCS: 36415; 71045; 80048; 80053; 80076; 81003; 81015; 82550; 82553; 83605; 83690; 83880; 84145; 84484; 85014; 85018; 85025; 85610; 85730; 86140; 86850; 86900; 86901; 87040; 87086; 87088; 93005; 93971; 96361; 96365; 99285; J2543; J7030; P9016

== ENCOUNTER 2018-04-14 13:45 | Emergency (ER) | payer OTHER ==
--- OUTSIDE RECORDS SUMMARY | 2018-04-14 13:48 | XMS REPORT | Clinical Summary ---
:1945 Author Organization [facility] Address [address] [place] [address] Phone Care Team Providers Name Role Phone Unavailable Primary Care Provider Unavailable Allergies Active Allergy Reactions Severity Noted Date Comments Ciprofloxacin Other (See Comments) 02/19/2016 Blood clots per family Current Medications Prescription Sig. Disp. Refills Start Date End Date Status apixaban (ELIQUIS) 5 mg Take 1 tablet (5 60 tablet 1 03/09/2016 Active Tab tablet mg total) by mouth 2 (two) times daily. lisinopril Take 1 tablet 60 tablet 1 03/09/2016 Active (PRINIVIL,ZESTRIL) 10 MG (10 mg total) by tablet mouth daily. lacosamide 200 mg Tab Take 1 tablet 60 tablet 1 03/09/2016 Active (200 mg total) by mouth 2 (two) times daily. levETIRAcetam (KEPPRA) Take 20 mLs 1000 mL 1 03/09/2016 Active 500 mg/5 mL (5 mL) Soln (2,000 mg total) oral solution by mouth 2 (two) times daily. Active Problems Problem Noted Date Hypotension [...] Not on file Results Not on fileafter 04/13/2017
[2018-04-14] MEDS ORDERED: LACOSAMIDE 50 MG TABLET PO SCH (14:00)
--- NOTE | 2018-04-14 14:05 | ER ---
Nurse's Notes [facility] Name: Jairo Samson Age: 72 yrs Sex: Male : 1945 Arrival Date: 04/14/2018 Time: 13:48 Bed 23 Private MD: Karen Macario H Diagnosis: Encounter for issue of repeat prescription Presentation: 04/14 13:57 Presenting complaint: states: pt here for medication refill. Transition of care: tl3 patient was not received from another setting of care. Onset of symptoms is unknown. Risk Assessment: Do you want to hurt yourself or someone else? Patient reports no desire to harm self or others. Initial Sepsis Screen: Does the patient meet any 2 criteria? No. Patient's initial sepsis screen is negative. Does the patient have a suspected source of infection? No. Patient's initial sepsis screen is negative. Care prior to arrival: None. 13:57 Method Of Arrival: Wheelchair tl3 13:57 Acuity: BIJAL 5 tl3 Triage Assessment: 13:59 General: Appears in no apparent distress. comfortable, slender, well groomed, well tl3 developed, well nourished, Behavior is calm, cooperative, appropriate for age. Pain: Denies pain. Historical: - Allergies: 13:59 Cipro; tl3 - PMHx: 13:59 CVA; Hyperlipidemia; Hypertension; PE; Seizures; tl3 - Immunization history:: Adult Immunizations up to date. - Social history:: Smoking status: unknown. - Family history:: not pertinent. - Ebola Screening: : No symptoms or risks identified at this time. Screenin:00 Abuse screen: Denies threats or abuse. Nutritional screening: No deficits noted. tl3 Tuberculosis screening: No symptoms or risk factors identified. Fall Risk Secondary diagnosis (15 points) seizures, impaired mobility, CVA. Assessment: 14:00 Reassessment: No changes from previously documented assessment. tl3 Vital Signs: 13:59 BP 105 / 73; Pulse 87; Resp 16; Pulse Ox 100% on R/A; tl3 ED Course: 13:48 Patient arrived in ED. rg4 13:48 Karen Macario DO is Private Physician. rg4 13:53 Pipo Salcedo MD is Attending Physician. [facility] 13:57 Skyland, Ashley, RN is Primary Nurse. tl3 13:58 Triage completed. tl3 13:59 Arm band placed on left wrist. tl3 14:00 Patient has correct armband on for positive identification. pt in specialty wheel chair.tl3 14:00 No provider procedures requiring assistance completed. Patient did not have IV access tl3 during this emergency room visit. 14:04 Karen Macario DO is Referral Physician. amira Administered Medications: 14:09 Not Given (pt already had his dose today): Vimpat 200 mg PO once tl3 Outcome: 14:05 Discharge ordered by . amira 14:09 Discharged to home tl3 14:09 Condition: good 14:09 Discharge instructions given to family, Instructed on medication usage, Prescriptions given X 1. 14:17 Patient left the ED. tl3 Signatures: Pipo Salcedo MD MD cha Garcia, Rubi rg4 Ashley Marin, RN RN tl3
--- NOTE | 2018-04-14 14:05 | EDPHYS ---
Physician Documentation [facility] Name: Jairo Samson Age: 72 yrs Sex: Male : 1945 Arrival Date: 04/14/2018 Time: 13:48 Bed 23 Private MD: Karen Macario H ED Physician Pipo Salcedo HPI: 04/14 13:55 This 72 yrs old Black Male presents to ER via Unassigned with complaints of Medication amira Refill. 13:55 The patient presents to the emergency department requesting refill(s) for: vimpat. amira Historical: - Allergies: 13:59 Cipro; tl3 - PMHx: 13:59 CVA; Hyperlipidemia; Hypertension; PE; Seizures; tl3 - Immunization history:: Adult Immunizations up to date. - Social history:: Smoking status: unknown. - Family history:: not pertinent. - Ebola Screening: : No symptoms or risks identified at this time. ROS: 13:55 Constitutional: Negative for fever, chills, and weight loss, Eyes: Negative for injury, amira pain, redness, and discharge, ENT: Negative for injury, pain, and discharge, Neck: Negative for injury, pain, and swelling, Cardiovascular: Negative for chest pain, palpitations, and edema, Respiratory: Negative for shortness of breath, cough, wheezing, and pleuritic chest pain, Abdomen/GI: Negative for abdominal pain, nausea, vomiting, diarrhea, and constipation, Back: Negative for injury and pain, : Negative for injury, bleeding, discharge, and swelling, MS/Extremity: Negative for injury and deformity, Skin: Negative for injury, rash, and discoloration, Neuro: Negative for headache, weakness, numbness, tingling, and seizure, Psych: Negative for depression, anxiety, suicide ideation, homicidal ideation, and hallucinations, Allergy/Immunology: Negative for hives, rash, and allergies, Endocrine: Negative for neck swelling, polydipsia, polyuria, polyphagia, and marked weight changes, Hematologic/Lymphatic: Negative for swollen nodes, abnormal bleeding, and unusual bruising. Exam: 13:55 Constitutional: This is a well developed, well nourished patient who is awake, alert, amira and in no acute distress. Head/Face: Normocephalic, atraumatic. Eyes: Pupils equal round and reactive to light, extra-ocular motions intact. Lids and lashes normal. Conjunctiva and sclera are non-icteric and not injected. Cornea within normal limits. Periorbital areas with no swelling, redness, or edema. ENT: Nares patent. No nasal discharge, no septal abnormalities noted. Tympanic membranes are normal and external auditory canals are clear. Oropharynx with no redness, swelling, or masses, exudates, or evidence of obstruction, uvula midline. Mucous membranes moist. Neck: Trachea midline, no thyromegaly or masses palpated, and no cervical lymphadenopathy. Supple, full range of motion without nuchal rigidity, or vertebral point tenderness. No Meningismus. Chest/axilla: Normal chest wall appearance and motion. Nontender with no deformity. No lesions are appreciated. Cardiovascular: Regular rate and rhythm with a normal S1 and S2. No gallops, murmurs, or rubs. Normal PMI, no JVD. No pulse deficits. Respiratory: Lungs have equal breath sounds bilaterally, clear to auscultation and percussion. No rales, rhonchi or wheezes noted. No increased work of breathing, no retractions or nasal flaring. Abdomen/GI: Soft, non-tender, with normal bowel sounds. No distension or tympany. No guarding or rebound. No evidence of tenderness throughout. Back: No spinal tenderness. No costovertebral tenderness. Full range of motion. Male : Normal genitalia with no discharge or lesions. Skin: Warm, dry with normal turgor. Normal color with no rashes, no lesions, and no evidence of cellulitis. MS/ Extremity: Pulses equal, no cyanosis. Neurovascular intact. Full, normal range of motion. Neuro: Awake and alert, GCS 15, oriented to person, place, time, and situation. Cranial nerves II-XII grossly intact. Motor strength 5/5 in all extremities. Sensory grossly intact. Cerebellar exam normal. Normal gait. Psych: Awake, alert, with orientation to person, place and time. Behavior, mood, and affect are within normal limits. Vital Signs: 13:59 BP 105 / 73; Pulse 87; Resp 16; Pulse Ox 100% on R/A; tl3 MDM: 13:54 Patient medically screened. amira Administered Medications: 14:09 Not Given (pt already had his dose today): Vimpat 200 mg PO once tl3 Disposition: 10/13/18 14:05 Discharged to Home. Impression: Encounter for issue of repeat prescription. - Condition is Stable. - Discharge Instructions: Medicine Refill at the Emergency Department. - Prescriptions for Vimpat 200 mg Oral tablet - take 1 tablet by ORAL route 2 times per day; 60 tablet. - Medication Reconciliation Form, Thank You Letter, Antibiotic Education, Prescription Opioid Use form. - Follow up: Karen Macario DO; When: 2 - 3 days; Reason: Recheck today's complaints, Continuance of care, Re-evaluation by your physician. - Problem is new. - Symptoms have improved. Signatures: Pipo Salcedo MD MD cha Lowrey, Tammy RN RN tl3 Corrections: (The following items were deleted from the chart) 14:17 14:05 04/14/2018 14:05 Discharged to Home. Impression: Encounter for issue of repeat tl3 prescription. Condition is Stable. Forms are Medication Reconciliation Form, Thank You Letter, Antibiotic Education, Prescription Opioid Use. Follow up: Karen Macario; When: 2 - 3 days; Reason: Recheck today's complaints, Continuance of care, Re-evaluation by your physician. Problem is new. Symptoms have improved. amira
[2018-04-14 14:26] VITALS: BP 105/73; O2SAT 100
== END 2018-04-14 14:17 | disposition home or self-care (01) ==
LOC: ER 13:45
DX: Z76.0 Encounter for issue of repeat prescription (principal); Z88.1 Allergy status to other antibiotic agents
CPT/HCPCS: 99281

== ENCOUNTER 2018-10-08 02:24 | Inpatient (IN) | payer OTHER ==
--- OUTSIDE RECORDS SUMMARY | 2018-10-08 02:26 | XMS REPORT | Clinical Summary ---
:1945 Author Organization [facility] Address [address] [place] [address] Care Team Providers Name Role Phone Unavailable Primary Care Provider Unavailable Allergies Active Allergy Reactions Severity Noted Date Comments Ciprofloxacin Other (See Comments) 02/19/2016 Blood clots per family Medications Medication Sig Dispensed Refills Start Date End Date Status apixaban [...] 140/90 02/23/2016 Acute encephalopathy 02/22/2016 Status epilepticus 02/19/2016 Social History Tobacco Use Types Packs/Day Years Used Date Never Smoker Alcohol Use Drinks/Week oz/Week Comments No Sex Assigned at Date Recorded Not on file Job Start Date Occupation Industry Not on file Not on file Not on file Travel History Travel Start Travel End No recent travel history available. Last Filed Vital Signs Not on file Plan of Treatment Not on file Results Not on fileafter 10/07/2017 Insurance Payer Benefit Plan / Group Subscriber ID Type Phone Address MEDICARE MEDICARE A B xxxxxxxxxxx Medicare MEDICAID MEDICAID [facility] xxxxxxxxx Medicaid Advance Directives For more information, please contact:[address] [phone] Code Status Date Activated Date Inactivated Comments Full Code 02/19/2016 8:31 PM 03/09/2016 3:08 PM This code status was determined by: Patient
[2018-10-08 03:14] LABS: Hematocrit 27.9 % (39.6-49.0); MPV 8.2 fL (7.6-11.3)
[2018-10-08 03:17] LABS: Protime INR 1.5
[2018-10-08] MEDS ORDERED: CEFTRIAXONE 1000 MG/VIAL ONE (03:25)
[2018-10-08] MEDS ORDERED: NA CHLORIDE 0.9% 100 ML IV ONE (03:25)
[2018-10-08] MEDS ORDERED: ACETAMINOPHEN 325 MG TABLET ONE (03:25)
[2018-10-08] MEDS ORDERED: VANCOMYCIN 1 GM/VIAL ONE (03:25)
[2018-10-08] MEDS ORDERED: NA CHLORIDE 0.9% 250 ML ONE (03:26)
[2018-10-08 03:33] LABS: ALT/SGPT 18 U/L (12-78); AST/SGOT 16 U/L (15-37); Albumin 3.5 g/dL (3.4-5.0); Alkaline Phosphatase 129 U/L (45-117); BUN Blood Urea Nitrogen 28 mg/dL (7-18); Bicarbonate 21 mmol/L (21-32); Bilirubin Direct 0.1 mg/dL (0-0.2); Bilirubin Total 0.3 mg/dL (0.2-1.0); Glucose Level 114 mg/dL (74-106); Lipase 139 U/L (73-393); Potassium 4.1 mmol/L (3.5-5.1); Protein, Total 8.6 g/dL (6.4-8.2); Sodium Level 137 mmol/L (136-145); Troponin (Emerg Dept Use Only) < 0.02 ng/mL (0.0-0.045); Uric Acid 9.4 mg/dL (3.5-7.2)
[2018-10-08 03:47] LABS: Blood Morphology Comment NOT SEEN (NOT SEEN); Platelet Estimate ADEQ
--- NOTE | 2018-10-08 05:30 | P.HP ---
Certification for Inpatient Patient admitted to: Inpatient With expected LOS: >2 Midnights Practitioner: I am a practitioner with admitting privileges, knowledge of patient current condition, hospital course, and medical plan of care. Services: Services provided to patient in accordance with Admission requirements found in Title 42 Section 412.3 of the Code of Federal Regulations Patient History Date of Service: 10/08/18 Reason for admission: cellulitis History of Present Illness: Mr Samson is a 73 years old male with history of polio, quadriplegic, contracted , seizure disorder, who start yesterday with left and swelling and pain. He had fever at home 100.1 F. He denied cought, nausea, vomiting or diarrhea. At arrival he was febrile, 100.7 F, lab work shows normal WBC count, normal lactate and procalcitonin level. Allergies ciprofloxacin Allergy (Verified 12/15/15 22:39) UNKNOWN Home medications list reviewed: Yes Home Medications: Apixaban [Eliquis] 5 mg PO BID 04/01/15 Lacosamide [Vimpat] 200 mg PO BID 05/05/16 Simvastatin 20 mg PO BEDTIME 05/05/16 Topiramate 50 mg PO BEDTIME 05/05/16 Zonisamide 100 mg PO DAILY 05/05/16 Levetiracetam [Keppra] 500 mg PO BID #60 tablet 05/09/16 PHENobarbital [Phenobarbital*] 32.4 mg PO DAILY #30 tab 05/09/16 PHENobarbital [Phenobarbital*] 64.8 mg PO BEDTIME #60 tab 05/09/16 Carisoprodol 350 mg PO BID PRN 12/14/17 Multivitamin [Multivitamins] 1 each PO DAILY 12/14/17 levoFLOXacin [Levaquin] 500 mg PO DAILY #7 tab 12/16/17 - Past Medical/Surgical History Diabetic: No -: 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 moist/pink, EOMI, Sclerae nonicteric Neck: 2+ carotid pulse no bruit, No LAD, Without JVD or thyroid abnormality Respiratory: Clear to auscultation bilaterally, Normal air movement Cardiovascular: Regular rate/rhythm, Normal S1 S2 Gastrointestinal: Normal bowel sounds, No tenderness Musculoskeletal: No tenderness Integumentary: No rashes Neurological: Normal speech, Normal affect, Other (quadriplegic), Abnormal strength, Abnormal tone Lymphatics: No axilla or inguinal lymphadenopathy - Studies Laboratory Data (last 24 hrs) 10/08/18 02:44: PT 17.4 H, INR 1.50 10/08/18 02:44: WBC 6.7, Hgb 9.1 L, Hct 27.9 L, Plt Count 194 10/08/18 02:44: Sodium 137, Potassium 4.1, BUN 28 H, Creatinine 1.21, Glucose 114 H, Uric Acid 9.4 H, Total Bilirubin 0.3, AST 16, ALT 18, Alkaline Phosphatase 129 H, Lipase 139 Assessment and Plan - Problems (Diagnosis) (1) Cellulitis Current Visit: Yes Status: Acute Qualifiers: Site of cellulitis: extremity Site of cellulitis of extremity: finger Laterality: left Qualified Code(s): L03.012 - Cellulitis of left finger (2) Seizure disorder Current Visit: Yes Status: Acute (3) Hypertension Onset Date: 02/17/16 Current Visit: No Status: Chronic Qualifiers: Hypertension type: essential hypertension (4) Polio Onset Date: 12/15/17 Current Visit: No Status: Chronic - Plan Will admit the patient due to right hand cellulitis, no other obvious source of infection yet. UA pending, influenza screening pending. Will start empiric antibiotic treatment. Blood cultures in process. - Advance Directives Does patient have a Living Will: No Does patient have a Durable POA for Healthcare: No - Code Status/Comfort Care Code Status Assessed: Yes Code Status: Full Code
--- NOTE | 2018-10-08 05:55 | ER ---
Nurse's Notes [facility] Name: Jairo Samson Age: 73 yrs Sex: Male : 1945 Arrival Date: 10/08/2018 Time: 02:27 Bed 19 Private MD: Karen Macario H Diagnosis: Cellulitis of other sites;Fever, unspecified Presentation: 10/08 02:35 Presenting complaint: sister states: "fever and left hand swelling since 2 days". cc3 Transition of care: patient was not received from another setting of care. Onset of symptoms was October 06, 2018. Risk Assessment: Do you want to hurt yourself or someone else? Patient reports no desire to harm self or others. Initial Sepsis Screen: Does the patient meet any 2 criteria? RR > 20 per min. HR > 90 bpm. Does the patient have a suspected source of infection? No. Patient's initial sepsis screen is negative. Care prior to arrival: None. 02:35 Method Of Arrival: Wheelchair cc3 02:35 Acuity: BIJAL 3 cc3 Triage Assessment: 02:35 General: Appears in no apparent distress. uncomfortable, Behavior is calm, cooperative, cc3 appropriate for age. Pain: Complains of pain in generalized body pain. EENT: No signs and/or symptoms were reported regarding the EENT system. Neuro: Level of Consciousness is awake, alert, obeys commands, Oriented to person, place, time, situation, Appropriate for age. Cardiovascular: Patient's skin is warm and dry. Respiratory: Airway is patent Respiratory effort is even, unlabored, Respiratory pattern is regular, symmetrical, tachypnea. GI: Abdomen is flat. : No signs and/or symptoms were reported regarding the genitourinary system. Derm: No signs and/or symptoms reported regarding the dermatologic system. Musculoskeletal: Swelling present in left hand bilateral arm rigidity and flexed for patient had polio since childhood as per sister. Historical: - Allergies: 02:35 Cipro; cc3 - Home Meds: 02:35 acetaminophen 325 mg Oral tab 1 tab every 4-6 hours [Active]; allopurinol 100 mg Oral cc3 tab 1 tab once daily [Active]; Eliquis 5 mg Oral tab 1 tab 2 times per day [Active]; Keppra 100 mg/mL Oral soln 5 mL 2 times per day [Active]; lacosamide 200 mg Oral 1 tab 2 times per day [Active]; Lipitor 10 mg Oral tab 1 tab once daily [Active]; lisinopril 10 mg Oral tab 1 tab once daily [Active]; Milk of Magnesia 400 mg/5 mL Oral susp 30 mL once daily [Active]; multivitamin Oral [Active]; phenobarbital 32.4 mg Oral tab every morning and 64.8 mg at bedtime [Active]; Saline 3 % nasal mist daily [Active]; simvastatin 20 mg Oral tab 1 tab once daily [Active]; Topamax 50 mg Oral tab 1 tab 2 times per day [Active]; Vimpat 200 mg Oral tab 2 times per day [Active]; Zonegran 100 mg Oral cap 1 cap once daily [Active]; - PMHx: 02:35 CVA; Hyperlipidemia; Hypertension; PE; Seizures; cc3 02:35 polio; cc3 - Immunization history:: Adult Immunizations up to date. - Social history:: Smoking status: Patient/guardian denies using tobacco, never smoked. - Ebola Screening: : No symptoms or risks identified at this time. Screenin:35 Abuse screen: Denies threats or abuse. Denies injuries from another. Nutritional cc3 screening: No deficits noted. Tuberculosis screening: No symptoms or risk factors identified. Fall Risk Ambulatory Aid- None/Bed Rest/Nurse Assist (0 pts). Gait- Impaired (20 pts.). Mental Status- Oriented to own ability (0 pts). Assessment: 02:35 General: see triage assessment. cc3 03:18 Reassessment: Patient appears in no apparent distress at this time. Patient and/or cc3 family updated on plan of care and expected duration. Pain level reassessed. Patient is alert, oriented x 3, equal unlabored respirations, skin warm/dry/pink. 04:04 Reassessment: Patient appears in no apparent distress at this time. Patient and/or cc3 family updated on plan of care and expected duration. Pain level reassessed. Patient is alert, oriented x 3, equal unlabored respirations, skin warm/dry/pink. 05:05 Reassessment: Patient appears in no apparent distress at this time. Patient and/or cc3 family updated on plan of care and expected duration. Pain level reassessed. Patient is alert, oriented x 3, equal unlabored respirations, skin warm/dry/pink. 06:19 Reassessment: Patient appears in no apparent distress at this time. Patient and/or cc3 family updated on plan of care and expected duration. Pain level reassessed. Patient is alert, oriented x 3, equal unlabored respirations, skin warm/dry/pink. Patient for admission and seen by Dr. Slater at bedside, awaiting admission orders. 07:05 General: Appears in no apparent distress. uncomfortable, Behavior is calm, cooperative, hj appropriate for age. Pain: Complains of pain in left hand. Neuro: Level of Consciousness is awake, alert, obeys commands, Oriented to person, place, time, situation, Appropriate for age. Cardiovascular: Capillary refill < 3 seconds Patient's skin is warm and dry. Respiratory: Airway is patent Respiratory effort is even, unlabored, Respiratory pattern is regular, symmetrical. GI: No signs and/or symptoms were reported involving the gastrointestinal system. : No signs and/or symptoms were reported regarding the genitourinary system. EENT: No signs and/or symptoms were reported regarding the EENT system. Derm: No signs and/or symptoms reported regarding the dermatologic system. Musculoskeletal: polio. Vital Signs: 02:35 BP 135 / 80; Pulse 163; Resp 24 S; Temp 100.5(O); Pulse Ox 96% on R/A; Weight 76.2 kg cc3 (R); Height 5 ft. 11 in. (180.34 cm) (R); 03:50 BP 112 / 77; Pulse 130; Resp 21 S; Pulse Ox 96% on R/A; cc3 04:15 BP 93 / 63; Pulse 128; Resp 18 S; Temp 99.3(O); Pulse Ox 97% on R/A; cc3 05:05 BP 116 / 72; Pulse 119; Resp 20 S; Pulse Ox 97% on R/A; cc3 06:19 BP 103 / 59; Pulse 110; Resp 20 S; Temp 99.4(O); Pulse Ox 97% on R/A; cc3 07:05 BP 110 / 63; Pulse 100; Resp 18; Temp 99.4(O); Pulse Ox 100% on R/A; 02:35 Body Mass Index 23.43 (76.20 kg, 180.34 cm) cc3 ED Course: 02:27 Patient arrived in ED. es 02:28 Karen Macario DO is Private Physician. es 02:31 Mika Lind MD is Attending Physician. gs 02:35 Patient has correct armband on for positive identification. Bed in low position. Call cc3 light in reach. Side rails up X2. night monitor on. Pulse ox on. NIBP on. 02:35 Arm band placed on right wrist. EKG completed in triage. Results shown to MD. cc3 02:55 Mouna Ulloa is Primary Nurse. cc3 02:58 Inserted saline lock: 22 gauge in left forearm, using aseptic technique. Blood cc3 collected. inserted by ct mri technologist Marissa. 03:05 Triage completed. cc3 03:18 X-ray completed. Portable x-ray completed in exam room. Patient tolerated procedure kw well. 03:19 Chest Single View XRAY In Process Unspecified. EDMS 03:19 Hand Left 3 View XRAY In Process Unspecified. EDMS 05:54 Jaja French MD is Hospitalizing Provider. gs 07:00 Report given to EN Edward. cc3 07:11 Wagner Webb RN is Primary Nurse. hj 07:37 No provider procedures requiring assistance completed. Patient admitted, IV remains in hj place. intact. Administered Medications: 03:15 Drug: Tylenol 650 mg Route: PO; cc3 04:15 Follow up: Response: No adverse reaction; Temperature is decreased cc3 03:20 Drug: Rocephin - (cefTRIAXone) 1 grams Route: IVPB; Infused Over: 30 mins; Site: left cc3 forearm; 03:55 Follow up: Response: No adverse reaction; IV Status: Completed infusion; IV Intake: [id number] 04:00 Drug: vancoMYCIN 1 grams Route: IVPB; Infused Over: 2 hrs; Site: left forearm; cc3 06:40 Follow up: Response: No adverse reaction; IV Status: Completed infusion; IV Intake: cc3 250ml Point of Care Testing: Blood Glucose: 02:57 Blood Glucose: 119 mg/dL; cc3 Ranges: Intake: 03:55 IV: 50ml; Total: 50ml. cc3 06:40 IV: 250ml; Total: 300ml. cc3 Outcome: 05:54 Decision to Hospitalize by Provider. gs 07:37 Admitted to Tele accompanied by tech, room 420, with chart, Report called to kb Salgado/ EN Edward 07:37 Condition: stable 07:37 Instructed on the need for admit, Demonstrated understanding of instructions. 08:07 Patient left the ED. kb Signatures: Dispatcher [employer] EDAnita Elizabeth Kimberlee kw Joaquin, Henry, RN RN hj Starr, Gregory, MD MD gs Cordel, Charlene cc3 Corrections: (The following items were deleted from the chart) 06:31 06:19 BP 103 / 59; Pulse 110bpm; Resp 20bpm; Spontaneous; Pulse Ox 97% RA; cc3 cc3
--- NOTE | 2018-10-08 05:55 | EDPHYS ---
Physician Documentation [facility] Name: Jairo Samson Age: 73 yrs Sex: Male : 1945 Arrival Date: 10/08/2018 Time: 02:27 Bed 19 Private MD: Karen Macario H ED Physician Mika Lind HPI: 10/08 05:41 This 73 yrs old Black Male presents to ER via Wheelchair with complaints of Hand gs Swelling. 05:41 The patient or guardian reports pain, swelling, tenderness. The complaints affect the gs left hand diffusely. Onset: The symptoms/episode began/occurred 2 day(s) ago, and became worse and became persistent. Modifying factors: The symptoms are alleviated by nothing, the symptoms are aggravated by movement. Associated signs and symptoms: Pertinent positives: fever. Severity of symptoms: At their worst the symptoms were severe, in the emergency department the symptoms are unchanged. The patient has experienced a previous episode. Historical: - Allergies: 02:35 Cipro; cc3 - Home Meds: 02:35 acetaminophen 325 mg Oral tab 1 tab every 4-6 hours [Active]; allopurinol 100 mg Oral cc3 tab 1 tab once daily [Active]; Eliquis 5 mg Oral tab 1 tab 2 times per day [Active]; Keppra 100 mg/mL Oral soln 5 mL 2 times per day [Active]; lacosamide 200 mg Oral 1 tab 2 times per day [Active]; Lipitor 10 mg Oral tab 1 tab once daily [Active]; lisinopril 10 mg Oral tab 1 tab once daily [Active]; Milk of Magnesia 400 mg/5 mL Oral susp 30 mL once daily [Active]; multivitamin Oral [Active]; phenobarbital 32.4 mg Oral tab every morning and 64.8 mg at bedtime [Active]; Saline 3 % nasal mist daily [Active]; simvastatin 20 mg Oral tab 1 tab once daily [Active]; Topamax 50 mg Oral tab 1 tab 2 times per day [Active]; Vimpat 200 mg Oral tab 2 times per day [Active]; Zonegran 100 mg Oral cap 1 cap once daily [Active]; - PMHx: 02:35 CVA; Hyperlipidemia; Hypertension; PE; Seizures; cc3 02:35 polio; cc3 - Immunization history:: Adult Immunizations up to date. - Social history:: Smoking status: Patient/guardian denies using tobacco, never smoked. - Ebola Screening: : No symptoms or risks identified at this time. ROS: 05:41 All other systems are negative. gs Exam: 05:41 Head/Face: Normocephalic, atraumatic. Eyes: Pupils equal round and reactive to light, gs extra-ocular motions intact. Lids and lashes normal. Conjunctiva and sclera are non-icteric and not injected. Cornea within normal limits. Periorbital areas with no swelling, redness, or edema. ENT: Nares patent. No nasal discharge, no septal abnormalities noted. Tympanic membranes are normal and external auditory canals are clear. Oropharynx with no redness, swelling, or masses, exudates, or evidence of obstruction, uvula midline. Mucous membranes moist. Neck: Trachea midline, no thyromegaly or masses palpated, and no cervical lymphadenopathy. Supple, full range of motion without nuchal rigidity, or vertebral point tenderness. No Meningismus. Chest/axilla: Normal chest wall appearance and motion. Nontender with no deformity. No lesions are appreciated. 05:41 Abdomen/GI: Soft, non-tender, with normal bowel sounds. No distension or tympany. No guarding or rebound. No evidence of tenderness throughout. Back: No spinal tenderness. No costovertebral tenderness. Full range of motion. 05:41 Constitutional: The patient appears alert, awake. 05:41 Cardiovascular: Rate: tachycardic, Rhythm: regular, Pulses: no pulse deficits are appreciated. 05:41 ECG was reviewed by the Attending Physician. 05:41 Respiratory: the patient does not display signs of respiratory distress, Breath sounds: are clear throughout. 05:41 Musculoskeletal/extremity: Extremities: noted in the left hand: erythema, swelling, tenderness, the patient is contracted, diffusely, Circulation is intact in all extremities. Pulses: are normal with no appreciated deficits. 05:41 Skin: cellulitis, that is moderate, on the left hand. 05:41 Neuro: Exam negative for acute changes. Vital Signs: 02:35 BP 135 / 80; Pulse 163; Resp 24 S; Temp 100.5(O); Pulse Ox 96% on R/A; Weight 76.2 kg cc3 (R); Height 5 ft. 11 in. (180.34 cm) (R); 03:50 BP 112 / 77; Pulse 130; Resp 21 S; Pulse Ox 96% on R/A; cc3 04:15 BP 93 / 63; Pulse 128; Resp 18 S; Temp 99.3(O); Pulse Ox 97% on R/A; cc3 05:05 BP 116 / 72; Pulse 119; Resp 20 S; Pulse Ox 97% on R/A; cc3 06:19 BP 103 / 59; Pulse 110; Resp 20 S; Temp 99.4(O); Pulse Ox 97% on R/A; cc3 07:05 BP 110 / 63; Pulse 100; Resp 18; Temp 99.4(O); Pulse Ox 100% on R/A; hj 02:35 Body Mass Index 23.43 (76.20 kg, 180.34 cm) cc3 MDM: 02:47 Patient medically screened. 05:41 Differential diagnosis: cellulitis,sepsis,flu,pneumonia. Data reviewed: vital signs, nurses notes, lab test result(s), EKG, radiologic studies. Counseling: I had a detailed discussion with the patient and/or guardian regarding: the historical points, exam findings, and any diagnostic results supporting the discharge/admit diagnosis. Response to treatment: the patient's symptoms have mildly improved after treatment. 10/08 02:48 Order name: Basic Metabolic Panel 10/08 02:48 Order name: Blood Culture Adult (2) 10/08 02:48 Order name: CBC with Diff; Complete Time: 05:14 10/08 02:48 Order name: Lactate; Complete Time: 05:14 10/08 02:48 Order name: LFT's; Complete Time: 05:14 10/08 02:48 Order name: Lipase; Complete Time: 05:14 10/08 02:48 Order name: Procalcitonin; Complete Time: 05:14 10/08 02:48 Order name: Protime (+inr); Complete Time: 05:14 10/08 02:48 Order name: Troponin (emerg Dept Use Only); Complete Time: 05:14 10/08 02:48 Order name: Urine Microscopic Only 10/08 02:48 Order name: Uric Acid; Complete Time: 05:14 10/08 02:49 Order name: Basic Metabolic Panel; Complete Time: 05:14 EDMS 10/08 03:48 Order name: Manual Differential; Complete Time: 05:14 EDMS 10/08 05:14 Order name: Flu 10/08 02:48 Order name: Chest Single View XRAY 10/08 02:48 Order name: Accucheck; Complete Time: 02:57 gs 10/08 02:48 Order name: Cardiac monitoring; Complete Time: 02:58 10/08 02:48 Order name: EKG - Nurse/Tech; Complete Time: 02:56 10/08 02:48 Order name: IV Saline Lock - Large Bore; Complete Time: 02:58 10/08 02:48 Order name: Labs collected and sent; Complete Time: 03:28 10/08 02:48 Order name: O2 Per Protocol; Complete Time: 02:58 gs 10/08 02:48 Order name: O2 Sat Monitoring; Complete Time: 02:58 10/08 02:48 Order name: Urine Dipstick-Ancillary (obtain specimen); Complete Time: 07:24 10/08 02:48 Order name: Hand Left 3 View XRAY 10/08 05:21 Order name: Flu 10/08 07:43 Order name: Urine Dipstick--Ancillary (enter results) 10/08 07:52 Order name: Urine Dipstick-Ancillary EDMS EC:41 Rate is 141 beats/min. Rhythm is regular. KS interval is normal. QRS interval is gs normal. QT interval is normal. T waves are Inverted. Clinical impression: NSR w/ Non-specific ST/T Changes and Sinus tachycardia. Interpreted by me. Administered Medications: 03:15 Drug: Tylenol 650 mg Route: PO; cc3 04:15 Follow up: Response: No adverse reaction; Temperature is decreased cc3 03:20 Drug: Rocephin - (cefTRIAXone) 1 grams Route: IVPB; Infused Over: 30 mins; Site: left cc3 forearm; 03:55 Follow up: Response: No adverse reaction; IV Status: Completed infusion; IV Intake: [id number] 04:00 Drug: vancoMYCIN 1 grams Route: IVPB; Infused Over: 2 hrs; Site: left forearm; cc3 06:40 Follow up: Response: No adverse reaction; IV Status: Completed infusion; IV Intake: cc3 250ml Point of Care Testing: Blood Glucose: 02:57 Blood Glucose: 119 mg/dL; cc3 Ranges: Critical Glucose Levels:Adult <50 mg/dl or >400 mg/dl <40 mg/dl or >180 mg/dl Disposition: 10/08/18 05:54 Hospitalization ordered by Jaja French for Inpatient Admission. Preliminary diagnosis are Cellulitis of other sites, Fever, unspecified. - Bed requested for Telemetry/MedSurg (Inpatient). - Status is Inpatient Admission. hj - Condition is Stable. - Problem is new. - Symptoms have improved. UTI on Admission? No Signatures: Dispatcher [employer] EDMS Wagner Webb RN RN Michelle Decker RN RN Mika Lind MD MD gs Cordel, Charlene cc3 Corrections: (The following items were deleted from the chart) 06:29 05:54 Hospitalization Ordered by Jaja French MD for Inpatient Admission. Preliminary cg diagnosis is Cellulitis of other sites; Fever, unspecified. Bed requested for Telemetry/MedSurg (Inpatient). Status is Inpatient Admission. Condition is Stable. Problem is new. Symptoms have improved. UTI on Admission? No. gs 08:07 06:29 10/08/2018 05:54 Hospitalization Ordered by Jaja French MD for Inpatient hj Admission. Preliminary diagnosis is Cellulitis of other sites; Fever, unspecified. Bed requested for Telemetry/MedSurg (Inpatient). Status is Inpatient Admission. Condition is Stable. Problem is new. Symptoms have improved. UTI on Admission? No. cg
[2018-10-08 07:50] VITALS: BMI 23.4
[2018-10-08 07:52] LABS: Urine Blood NEGATIVE (NEG); Urine Glucose NEGATIVE (NEG); Urine Protein NEGATIVE (NEG); Urine Specific Gravity <1.005 (1.005-1.030)
[2018-10-08 07:56] LABS: Urine RBC <5 /HPF (NONE SEEN)
[2018-10-08 07:57] LABS: Urine Bacteria <20 /HPF (NONE SEEN); Urine Culture Reflex Order NOT NEEDED
--- NOTE | 2018-10-08 08:26 | RAD REPORT ---
EXAM DESCRIPTION: RAD - Hand Left 3 View - 10/08/2018 3:19 am CLINICAL HISTORY: Fever, left hand swelling COMPARISON: Left hand March 2015 FINDINGS: Acute fracture is not identified. Patient has a chronic hyperextension of the second middl e phalanx at the PIP joint. Second middle phalanx is dislocated to the dorsal margin of the second pr oximal phalanx head. This is not a new finding but the degree of dislocation has progressed. Addition ally, bone loss changes are present to the dorsal margin of the proximal phalanx head and the ventral margin of the middle phalanx base. The bone loss changes at the second PIP joint are probably related to altered mechanics of loading of this joint. Bone loss from osteomyelitis is not excluded but not likely without additional clinical exam findings at the second PIP joint. Patient has hyperextension at the fifth PIP joint and flexion at the DIP joint likely chronic. No bon e destructive change. No acute fracture changes are seen. No bone loss changes outside of the second PIP joint. No foreign body or other soft tissue abnormality. IMPRESSION: Worsening of the hyperextension and dorsal dislocation at the second PIP joint since 201 5. Bone loss changes in the second proximal phalanx head and middle phalanx base likely related to alter ed mechanics of loading of the joint. Osteomyelitis is unlikely without additional clinical findings at the PIP joint. Additional chronic changes are detailed in the body of the report.
--- NOTE | 2018-10-08 08:27 | RAD REPORT ---
EXAM DESCRIPTION: RAD - Chest Single View - 10/08/2018 3:19 am CLINICAL HISTORY: Fever, shortness of breath COMPARISON: December 2017 TECHNIQUE: AP portable chest image was obtained 0313 hours . FINDINGS: Lung volumes remain low. Stranding in the right base has not changed. No new or progressiv e lung parenchymal process. Heart and vasculature are normal. No measurable pleural effusion and no p neumothorax. No acute bony abnormality seen. No acute aortic finding. No free air under the diaphragm . IMPRESSION: Stable chest from December 2017
[2018-10-08] MEDS ORDERED: ONDANSETRON 4 MG/2 ML VIAL IV PRN (08:39)
[2018-10-08] MEDS ORDERED: VANCOMYCIN 1 GM in NA CHLORIDE 0.9% 500 ML IVPB SCH (09:00)
[2018-10-08] MEDS: ENOXAPARIN 40 MG/0.4 ML SQ SCH ×2 (09:00→09:30)
[2018-10-08] MEDS: NA CHLORIDE 0.9% 1,000 ML IV SCH ×2 (09:29→21:46)
[2018-10-08] MEDS: Levofloxacin500mg IV 500 MG/100 ML BAG IV SCH (09:30)
[2018-10-08] MEDS ORDERED: APIXABAN 2.5 MG TABLET PO SCH (10:14)
[2018-10-08] MEDS ORDERED: CARISOPRODOL 350 MG TAB PO PRN (10:14)
[2018-10-08] MEDS: levETIRAcetam 500 MG TAB PO SCH ×2 (10:46→21:49)
[2018-10-08] MEDS: LACOSAMIDE 50 MG TABLET PO SCH ×2 (10:47→21:47)
--- NOTE | 2018-10-08 18:24 | PN ---
Date of Progress Note: 10/08/2018 Subjective: Patient is seen and examined. Case discussed with RN and reviewed with RN. Brother at the bedside. Treatment plan explained, all questions answered. The patient reports some swelling of his left hand. Medications: List reviewed. Code Status: Full. Physical Examination: Vital Signs: Temperature 98.9, heart rate 119, blood pressure 130/80, respirations 18, O2 99% on flash m air. General: Awake, alert, and oriented x3, elderly male, in some mild distress. CV: S1, S2. Peripheral pulses present. Respiratory: Moving air well bilaterally, no wheezing. Gastrointestinal: Abdomen is soft, nontender , nondistended. Positive bowel sounds. Extremities: No clubbing, cyanosis, or edema. Neuro: The patient has altered speech, which is chronic. Has contractures of the right upper extrem ity, weakness of the lower extremity secondary to polio. Musculoskeletal: Left hand swelling, minimal erythema, mild tenderness to palpation. Laboratory Data: Sodium 137, potassium 4.1, chloride 107, CO2 21, BUN 28, creatinine 1.21, glucose 1 14, lactate 0.8. Procalcitonin less than 0.05. WBC 6.7, H and H 9.1 and 27.9. Influenza screen is negative. Blood culture is pending. Hand x-ray shows worsening of the hyperextension and dorsal dis location of the second PIP joint since 2015. Bone loss changes, second proximal phalanx head and mid dle phalanx base likely related to altered mechanics of loading of the joint. Osteomyelitis is unlik jason without additional clinical findings at the PIP joint. Additional chronic changes detailed in th e body of the report. Assessment And Plan: A 73-year-old male with; 1.Left hand cellulitis. We will continue with IV antibiotics. Follow up on cultures. X-ray does n ot show any free air, doubt osteomyelitis. Possible ID consultation if not improving. 2.Seizure disorder. We will resume anticonvulsants. 3.Essential hypertension, stable on home medications. 4.Polio with residual neurological deficits. The patient follows with Dr. Jay as an outpatient. 5.History of PE, on Eliquis. The patient already received Lovenox this morning. We will resume Janet diann dose tonight. 6.History of cerebrovascular accident with deficits on the right side. 7.Functional quadriplegia. 8.Deep vein thrombosis prophylaxis. The patient is already on Eliquis. Plan: We will continue with IV antibiotics, resume home medications as appropriate. Follow up on cu ltures. Consider ID consultation. MICHAEL Voice ID: [id number] Report ID: [id number]
[2018-10-08] MEDS ORDERED: APIXABAN 5 MG TABLET PO SCH (21:00)
--- NOTE | 2018-10-08 21:09 | CON ---
History Of Present Illness: This is a 73-year-old male with significant history of polio, coming in with low-grade fevers and left hand swelling. The patient also has stroke, seizure disorder, high bl ood pressure and elevated cholesterol. Denies any headache, nausea, vomiting, chest pain, abdominal pain, constipation, or diarrhea. Past Medical History: As per HPI. Social History: Nonsmoker, nondrinker. Lives with the family. Medications: Vancomycin, Levaquin. See MARS for other medication. Allergies: CIPRO. Review of Systems: A 10-point review was performed. Physical Examination: General: This is a 73-year-old male lying in bed, not in any acute cardiopulmonary distress. Vital signs: Temperature 98, earlier it was 99.4, pulse 119, respirations 18, blood pressure 130/80. HEENT: Unremarkable. Neck: Supple. Lungs: Basal crackles. Heart: S1, S2. Regular. Abdomen: Soft. Bowel sounds present. Extremity: Contractures and deformities are noted. Laboratory Data: Shows WBC 6.7, hemoglobin 9.1, platelets are 194. Chemistry shows sodium 137, pota ssium 4.1, chloride 107, bicarb 21, BUN 28, creatinine 1.2, glucose is 114. Uric acid level is 9.4. No cultures were sent. X-ray of the hand shows worsening of hyperextension and also dislocation of the second PIP joint since 2015. 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 Additional chronic changes are in detail in the b miguel of the report. Assessment And Plan: Low-grade fevers and swelling and increased warmth in the left hand, possible c ellulitis versus joint problems. We will continue antibiotics, can be switched to oral Levaquin and Zosyn. The patient even though esquivel s allergies to Cipro, but tolerating Levaquin without any problems. We will follow the patient close ly. Thank you for consult. NF/MODL Voice ID: [id number] Report ID: [id number]
[2018-10-08] MEDS: VANCOMYCIN 1.25 GM in NA CHLORIDE 0.9% 250 ML IVPB SCH (21:46)
[2018-10-08] MEDS: PHENOBARBITAL 32.4 MG TABLET PO SCH (21:46)
[2018-10-08] MEDS: ATORVASTATIN 10 MG TAB PO SCH (21:49)
[2018-10-08] MEDS: TOPIRAMATE 25 MG TAB PO SCH (21:49)
[2018-10-09 04:38] LABS: Magnesium 1.7 mg/dL (1.8-2.4); Potassium 4.2 mmol/L (3.5-5.1)
[2018-10-09 04:49] LABS: Hematocrit 24.3 % (39.6-49.0); MPV 8.1 fL (7.6-11.3); RBC Red Blood Cell Count 3.31 M/uL (4.33-5.43)
[2018-10-09] MEDS ORDERED: MAGNESIUM SULFATE 1 gm IVPB 1 GM/100 ML BAG IV ONE (05:08)
[2018-10-09 05:56] LABS: Blood Morphology Comment NOTED (NOT SEEN); Platelet Estimate ADEQ; Target Cells 1+
[2018-10-09] MEDS: levETIRAcetam 500 MG TAB PO SCH ×2 (08:16→21:32)
[2018-10-09] MEDS: LISINOPRIL 10 MG TAB PO SCH (08:17)
[2018-10-09] MEDS: LACOSAMIDE 50 MG TABLET PO SCH ×2 (09:17→21:32)
[2018-10-09] MEDS: Levofloxacin500mg IV 500 MG/100 ML BAG IV SCH (09:19)
[2018-10-09] MEDS ORDERED: NA CHLORIDE 0.9% 250 ML ONE (09:22)
[2018-10-09] MEDS ORDERED: ZONISAMIDE 100 MG PO SCH (10:14)
--- NOTE | 2018-10-09 11:34 | EKG ---
Test Date: 2018-10-08 Test Time: 02:47:12 Head Baggage Porter: EN MEASUREMENT RESULTS: Intervals: Rate: 141 WA: 174 QRSD: 94 QT: 274 QTc: 419 Jelm: P: 16 WA: 174 QRS: -22 T: 55 INTERPRETIVE STATEMENTS: Sinus tachycardia Minimal voltage criteria for LVH, may be normal variant Nonspecific ST and T wave abnormality Abnormal ECG Compared to ECG 12/14/2017 16:47:10 Left ventricular hypertrophy now present ST (T wave) deviation now present Sinus rhythm no longer present Electronically Signed On 10-08-18 10:48:40 CDT by Guillermo Hernandez
[2018-10-09] MEDS: NA CHLORIDE 0.9% 1,000 ML IV SCH ×2 (14:39→21:31)
[2018-10-09] MEDS: VANCOMYCIN 1.25 GM in NA CHLORIDE 0.9% 250 ML IVPB SCH (15:32)
[2018-10-09 16:14] LABS: Hematocrit 28.3 % (39.6-49.0)
--- NOTE | 2018-10-09 21:06 | PN ---
Subjective: The patient lying in bed. Not in any acute distress. The family is by the bedside. Objective: Vital Signs: Temperature 98, pulse 120, respiration 18, blood pressure 117/73. Lungs: Clear to auscultation. Heart: S1, S2. Regular. Extremities: Examination of hand shows slightly increased warmth and mild swelling, better than yest raay. Laboratory Data: Shows WBC 5.8, hemoglobin 7.8, platelets 129. Chemistry shows sodium 139, potassiu m 4.2, chloride 109, bicarb 21, BUN 34, creatinine 1.6, glucose is 103. Currently patient on Levaqui n and vancomycin. Microdata is negative for 24 hours. No blood cultures growth. Assessment And Plan: Currently on broad-spectrum antibiotic. Recommend to discontinue vancomycin. Cellulitis of left arm. Continue Levaquin. Monitor kidney function. Continue supportive care and w e will follow the patient as needed. NF/MODL Voice ID: [id number] Report ID: [id number]
[2018-10-09] MEDS: ATORVASTATIN 10 MG TAB PO SCH (21:32)
[2018-10-09] MEDS: PHENOBARBITAL 32.4 MG TABLET PO SCH (21:33)
[2018-10-09] MEDS: TOPIRAMATE 25 MG TAB PO SCH (21:33)
[2018-10-09] MEDS: ACETAMINOPHEN 500 MG TAB PO PRN (21:36)
--- NOTE | 2018-10-09 23:21 | P.PN ---
Subjective Date of Service: 10/09/18 Chief Complaint: cellulitis Patient is seen and examined. Case discussed with RN and reviewed with RN. Family at the bedside. Treatment plan explained, all questions answered. The patient reports some swelling of his left hand. Pain has improved. Review of Systems 10-point ROS is otherwise unremarkable Physical Examination - Vital Signs Temperature: 100.5 F Blood Pressure: 126/69 Pulse: 116 Respirations: 20 Pulse Ox (%): 96 - Physical Exam General: Alert, In no apparent distress HEENT: Atraumatic, PERRLA, EOMI Neck: Supple, JVD not distended Respiratory: Clear to auscultation bilaterally, Normal air movement Cardiovascular: Regular rate/rhythm, Normal S1 S2 Gastrointestinal: Normal bowel sounds, No tenderness Musculoskeletal: No tenderness Integumentary: No rashes Neurological: Other (The patient has altered speech, which is chronic. Has contractures of the right upper extremity, weakness of the lower extremity secondary to polio. ) Assessment And Plan - Plan A 73-year-old male with; 1. Left hand cellulitis. We will continue with IV antibiotics. Follow up on cultures. X-ray does not show any free air, doubt osteomyelitis. ID consulted. Recommendations appreciated. 2. Seizure disorder. We will resume anticonvulsants. 3. Essential hypertension, stable on home medications. 4. Polio with residual neurological deficits. The patient follows with Dr. Jay as an outpatient. 5. History of PE, on Eliquis. The patient already received Lovenox this morning. We will resume Eliquis dose tonight. 6. History of cerebrovascular accident with deficits on the right side. 7. Functional quadriplegia. 8. Deep vein thrombosis prophylaxis. The patient is already on Eliquis. Plan: We will continue with IV antibiotics, resume home medications as appropriate. Follow up on cultures. Pending symptomatic improvement.
[2018-10-10] MEDS: LACOSAMIDE 50 MG TABLET PO SCH ×2 (09:00→21:00)
[2018-10-10] MEDS: LISINOPRIL 10 MG TAB PO SCH (09:23)
[2018-10-10] MEDS: levETIRAcetam 500 MG TAB PO SCH ×2 (09:24→21:24)
[2018-10-10] MEDS: Levofloxacin500mg IV 500 MG/100 ML BAG IV SCH (09:25)
[2018-10-10] MEDS: ZONISAMIDE 100 MG PO SCH (09:25)
[2018-10-10] MEDS: NA CHLORIDE 0.9% 1,000 ML IV SCH ×3 (10:39→20:39)
--- NOTE | 2018-10-10 16:53 | PN ---
Subjective: The patient is lying in bed. No new acute event. Chart reviewed. Objective: Vital Signs: Temperature 98.4, pulse 94, respiration 18, blood pressure 130/64. Lungs: Clear to auscultation. Heart: S1 and S2, regular. Abdomen: Soft and nontender. Bowel sounds present. Extremities: Left hand edema is resolving. Laboratory Data: No new lab data is available at this time. Assessment And Plan: Left hand cellulitis. Continue antibiotic. Can be switched to oral on dischar ge to Levaquin 500 mg p.o. q.24 hours, total course of 2 weeks. Continue supportive care and monitor the patient kidney function. NF/MODL Voice ID: [id number] Report ID: [id number]
--- NOTE | 2018-10-10 18:07 | P.PN ---
Subjective Date of Service: 10/10/18 Chief Complaint: cellulitis Subjective: Improving Patient is seen and examined. Case discussed with RN and reviewed with RN. Family at the bedside. Treatment plan explained, all questions answered. The patient reports some swelling of his left hand. Pain has improved. Patient doing better. Redness and pain improves. Swelling also improved Review of Systems 10-point ROS is otherwise unremarkable Physical Examination - Vital Signs Temperature: 99.7 F Blood Pressure: 142/66 Pulse: 96 Respirations: 24 Pulse Ox (%): 98 - Physical Exam General: In no apparent distress HEENT: Atraumatic, PERRLA, EOMI Neck: Supple, JVD not distended Respiratory: Clear to auscultation bilaterally, Normal air movement Cardiovascular: Regular rate/rhythm, Normal S1 S2 Gastrointestinal: Normal bowel sounds, No tenderness Musculoskeletal: Swelling, Contractures, Erythema Integumentary: No rashes Neurological: Normal speech, Normal tone, Normal affect Lymphatics: No axilla or inguinal lymphadenopathy Assessment And Plan - Plan A 73-year-old male with; 1. Left hand cellulitis. We will switch to oral antibiotics. Oral Levaquin 500 q 12 for 12 weeks. X-ray does not show any free air, doubt osteomyelitis. ID consulted. Recommendations appreciated. 2. Seizure disorder. We will resume anticonvulsants. 3. Essential hypertension, stable on home medications. 4. Polio with residual neurological deficits. The patient follows with Dr. Jay as an outpatient. 5. History of PE, on Eliquis. The patient already received Lovenox this morning. We will resume Eliquis dose tonight. 6. History of cerebrovascular accident with deficits on the right side. 7. Functional quadriplegia. 8. Deep vein thrombosis prophylaxis. The patient is already on Eliquis. Plan: We will switch to oral antibiotics, continue home medications as appropriate. Likely discharge home in the next 24 hr on oral antibiotics.
[2018-10-10] MEDS: TOPIRAMATE 25 MG TAB PO SCH (21:24)
[2018-10-10] MEDS: ATORVASTATIN 10 MG TAB PO SCH (21:24)
[2018-10-10] MEDS: PHENOBARBITAL 32.4 MG TABLET PO SCH (21:24)
[2018-10-11 04:39] LABS: Absolute Lymphocytes (CBC) 0.5 K/uL (0.7-4.9); Absolute Monocytes 1.4 K/uL (0.1-1.3); Absolute Neutrophil 5.1 K/uL (1.8-8.0); Basophils % 0.7 % (0-1.3); Eosinophils % 0.8 % (0-4.4); Hematocrit 23.1 % (39.6-49.0); Lymphocytes % 7.2 % (15.3-44.8); Monocytes % 19.1 % (3.3-12.3); RBC Red Blood Cell Count 3.11 M/uL (4.33-5.43)
[2018-10-11] MEDS: NA CHLORIDE 0.9% 1,000 ML IV SCH ×3 (05:25→20:33)
[2018-10-11] MEDS: ZONISAMIDE 100 MG PO SCH (08:50)
[2018-10-11] MEDS: levoFLOXacin 500 MG TAB PO SCH (08:51)
[2018-10-11] MEDS: LACOSAMIDE 50 MG TABLET PO SCH ×2 (08:51→20:30)
[2018-10-11] MEDS: levETIRAcetam 500 MG TAB PO SCH ×2 (08:52→20:32)
[2018-10-11] MEDS: LISINOPRIL 10 MG TAB PO SCH (08:52)
[2018-10-11] MEDS ORDERED: NA CHLORIDE 0.9% 250 ML ONE (14:58)
--- NOTE | 2018-10-11 17:01 | P.PN ---
Subjective Date of Service: 10/11/18 Chief Complaint: cellulitis Subjective: No C/O voiced Patient is seen and examined. Case discussed with RN and reviewed with RN. Family at the bedside. Treatment plan explained, all questions answered. The patient reports some swelling of his left hand. Pain has improved. Patient doing better. Redness and pain improves. Swelling also improved Review of Systems 10-point ROS is otherwise unremarkable Physical Examination - Vital Signs Temperature: 99.3 F Blood Pressure: 130/69 Pulse: 101 Respirations: 16 Pulse Ox (%): 97 - Physical Exam General: In no apparent distress HEENT: Atraumatic, PERRLA, EOMI Neck: Supple, JVD not distended Respiratory: Clear to auscultation bilaterally, Normal air movement Cardiovascular: Regular rate/rhythm, Normal S1 S2 Gastrointestinal: Normal bowel sounds, No tenderness Musculoskeletal: No tenderness Integumentary: Tenderness/swelling (Improved), Erythema Neurological: Normal speech, Normal tone, Normal affect Lymphatics: No axilla or inguinal lymphadenopathy Assessment And Plan - Plan A 73-year-old male with; 1. Left hand cellulitis. Continue Oral Levaquin 500 q 12 for 12 weeks. X- ray does not show any free air, doubt osteomyelitis. ID consulted. Recommendations appreciated. 2. Seizure disorder. We will resume anticonvulsants. 3. Essential hypertension, stable on home medications. 4. Polio with residual neurological deficits. The patient follows with Dr. Jay as an outpatient. 5. Anemia: Chronic disease vs acute blood loss; occult blood pending though family states no evidence of active bleed. Hold anticoagulation at this time. He is s/p 1 units PRBC. Pending another unit this am. 2 hr post transfusion check. 6. History of PE, on Eliquis. Hold elliquis at this time d/t possible acute blood loss anemia 7. History of cerebrovascular accident with deficits on the right side. 8. Functional quadriplegia. 9. Deep vein thrombosis prophylaxis: Hold at this time. Plan: We will switch to oral antibiotics, continue home medications as appropriate. Likely discharge home in the next 24-48 hr on oral antibiotics.
[2018-10-11] MEDS: PHENOBARBITAL 32.4 MG TABLET PO SCH (20:31)
[2018-10-11] MEDS: ACETAMINOPHEN 500 MG TAB PO PRN (20:31)
[2018-10-11] MEDS: TOPIRAMATE 25 MG TAB PO SCH (20:31)
[2018-10-11] MEDS: ATORVASTATIN 10 MG TAB PO SCH (20:32)
[2018-10-12] MEDS: NA CHLORIDE 0.9% 1,000 ML IV SCH ×2 (02:39→22:39)
[2018-10-12 08:30] LABS: Absolute Lymphocytes (CBC) 0.6 K/uL (0.7-4.9); Absolute Monocytes 1.2 K/uL (0.1-1.3); Absolute Neutrophil 4.6 K/uL (1.8-8.0); Basophils % 0.6 % (0-1.3); Eosinophils % 0.8 % (0-4.4); Hematocrit 25.2 % (39.6-49.0); Lymphocytes % 9.1 % (15.3-44.8); MPV 8.3 fL (7.6-11.3); Monocytes % 18.9 % (3.3-12.3); RBC Red Blood Cell Count 3.29 M/uL (4.33-5.43)
[2018-10-12 08:49] LABS: Potassium 3.8 mmol/L (3.5-5.1)
[2018-10-12] MEDS: ZONISAMIDE 100 MG PO SCH (09:00)
[2018-10-12] MEDS: levoFLOXacin 500 MG TAB PO SCH (09:43)
[2018-10-12] MEDS: levETIRAcetam 500 MG TAB PO SCH ×2 (09:43→20:20)
[2018-10-12] MEDS: LACOSAMIDE 50 MG TABLET PO SCH ×2 (09:44→20:17)
[2018-10-12] MEDS: LISINOPRIL 10 MG TAB PO SCH (09:44)
--- NOTE | 2018-10-12 16:04 | PN ---
Subjective: The patient had low-grade fever of 100. Feeling much better now, temperature 98.8. Con tinue to have a little bit of swelling and warmth on his left hand. Otherwise, good appetite. No ot her complaints. Objective: Vital Signs: Temperature 98.8, pulse 89, respiration 18, blood pressure 107/78. Lungs: Clear to auscultation. Heart: S1, S2. Regular. Abdomen: Soft, nontender. Extremities: Left hand with slightly increased warmth and swelling noted. Laboratory Data: WBC 6.6, hemoglobin 8.2, platelets 233. Chemistries showed sodium 146, potassium 3 .8, chloride 117, bicarb 19, BUN 33, creatinine 1.1, glucose is 80. Medication: Include the patient currently on Levaquin oral. Assessment And Plan: Left hand cellulitis, fevers. Repeat blood cultures if temperature goes 100 x2 . Continue supportive care. Antibiotic for total course of 2 more weeks. AURORA/KOREY Voice ID: [id number] Report ID: [id number]
--- NOTE | 2018-10-12 16:49 | P.PN ---
Subjective Date of Service: 10/12/18 Chief Complaint: cellulitis Subjective: No C/O voiced Patient is seen and examined. Case discussed with RN and reviewed with RN. Family at the bedside. Treatment plan explained, all questions answered. Swelling and pain of the hands improved The patient stasis doing well. No acute events noted overnight Review of Systems 10-point ROS is otherwise unremarkable Physical Examination - Vital Signs Temperature: 98.0 F Blood Pressure: 117/64 Pulse: 91 Respirations: 18 Pulse Ox (%): 96 - Physical Exam General: Alert, In no apparent distress Musculoskeletal: Contractures (Chronic) Integumentary: Tenderness/swelling (Improved), Erythema Assessment And Plan - Plan A 73-year-old male with; 1. Left hand cellulitis. Continue Oral Levaquin 500 q 12 for 2 weeks. X-ray does not show any free air, doubt osteomyelitis. ID consulted. Recommendations appreciated. 2. Seizure disorder. We will resume anticonvulsants. 3. Essential hypertension, stable on home medications. 4. Polio with residual neurological deficits. The patient follows with Dr. Jay as an outpatient. 5. Anemia: Chronic disease vs acute blood loss; occult blood negative. Hold anticoagulation at this time. He is s/p 2 units PRBC. Appropriate response to transfusion. Will repeat CBC in the morning. If hemoglobin remained stable, will discharge home. 6. History of PE, on Eliquis. Hold elliquis at this time d/t possible acute blood loss anemia 7. History of cerebrovascular accident with deficits on the right side. 8. Functional quadriplegia. 9. Deep vein thrombosis prophylaxis: Hold at this time. Plan: We will switch to oral antibiotics, continue home medications as appropriate. Likely discharge home in the next 24-48 hr on oral antibiotics.
[2018-10-12] MEDS: PHENOBARBITAL 32.4 MG TABLET PO SCH (20:17)
[2018-10-12] MEDS: TOPIRAMATE 25 MG TAB PO SCH (20:18)
[2018-10-12] MEDS: ATORVASTATIN 10 MG TAB PO SCH (20:18)
[2018-10-13] MEDS: ACETAMINOPHEN 500 MG TAB PO PRN ×3 (00:04→23:50)
[2018-10-13] MEDS: Levofloxacin500mg IV 500 MG/100 ML BAG IV SCH (01:45)
[2018-10-13 01:55] LABS: Magnesium 1.6 mg/dL (1.8-2.4); Potassium 3.7 mmol/L (3.5-5.1)
[2018-10-13] MEDS ORDERED: POTASSIUM CL SA 10 MEQ TAB PO ONE (05:00)
[2018-10-13] MEDS ORDERED: MAGNESIUM SULFATE 1 gm IVPB 1 GM/100 ML BAG IV ONE (05:00)
[2018-10-13 06:20] LABS: Absolute Lymphocytes (CBC) 0.6 K/uL (0.7-4.9); Absolute Neutrophil 4.2 K/uL (1.8-8.0); Basophils % 0.4 % (0-1.3); Eosinophils % 0.5 % (0-4.4); Hematocrit 23.9 % (39.6-49.0); Lymphocytes % 9.5 % (15.3-44.8); MPV 7.6 fL (7.6-11.3); Monocytes % 17.8 % (3.3-12.3); RBC Red Blood Cell Count 3.12 M/uL (4.33-5.43)
[2018-10-13] MEDS: NA CHLORIDE 0.9% 1,000 ML IV SCH ×3 (08:39→20:30)
[2018-10-13] MEDS: LISINOPRIL 10 MG TAB PO SCH (09:50)
[2018-10-13] MEDS: levETIRAcetam 500 MG TAB PO SCH ×2 (09:50→20:30)
[2018-10-13] MEDS: ZONISAMIDE 100 MG PO SCH (09:52)
[2018-10-13] MEDS: LACOSAMIDE 50 MG TABLET PO SCH ×2 (09:53→20:28)
[2018-10-13] MEDS ORDERED: NA CHLORIDE 0.9% 250 ML ONE (13:36)
[2018-10-13] MEDS: PHENOBARBITAL 32.4 MG TABLET PO SCH (20:27)
[2018-10-13] MEDS: ATORVASTATIN 10 MG TAB PO SCH (20:30)
[2018-10-13] MEDS: TOPIRAMATE 25 MG TAB PO SCH (20:30)
--- NOTE | 2018-10-13 22:37 | P.PN ---
Subjective Date of Service: 10/13/18 Chief Complaint: cellulitis Patient is seen and examined. Case discussed with RN and reviewed with RN. Family at the bedside. Treatment plan explained, all questions answered. Swelling and pain of the hands improved The patient stasis doing well. No acute events noted overnight His hemoglobin was low, the 2 units of PRBCs ordered. Have not been started yet sister wanted to wait to speak to physician prior to getting transfusion. Review of Systems 10-point ROS is otherwise unremarkable Physical Examination - Vital Signs Temperature: 101.3 F Blood Pressure: 114/58 Pulse: 98 Respirations: 20 Pulse Ox (%): 98 - Physical Exam General: In no apparent distress Neck: Supple, JVD not distended Respiratory: Clear to auscultation bilaterally, Normal air movement Cardiovascular: Regular rate/rhythm, Normal S1 S2 Musculoskeletal: Contractures Integumentary: No tenderness/swelling (Tenderness/swelling resolved), No erythema - Studies Microbiology Data (last 24 hrs): 10/08/18 03:30 Blood - Blood Aerobic Blood Culture - Final No growth in 5 days. 10/08/18 02:44 Blood - Blood Aerobic Blood Culture - Final No growth in 5 days. 10/08/18 02:44 Blood - Blood Anaerobic Blood Culture - Final No growth in 5 days. Assessment And Plan - Plan A 73-year-old male with; 1. Left hand cellulitis. Continue Oral Levaquin 500 q 12 for 2 weeks. X-ray does not show any free air, doubt osteomyelitis. ID consulted. Recommendations appreciated. 2. Seizure disorder. We will resume anticonvulsants. 3. Essential hypertension, stable on home medications. 4. Polio with residual neurological deficits. The patient follows with Dr. Jay as an outpatient. 5. Anemia: Chronic disease vs acute blood loss; occult blood negative. Hold anticoagulation at this time. He is s/p 4 units PRBC during this stay. Appropriate response to transfusion. We will start iron. He will need a prescription for this upon discharge. 6. History of PE, on Eliquis. Hold elliquis at this time d/t possible acute blood loss anemia 7. History of cerebrovascular accident with deficits on the right side. 8. Functional quadriplegia. 9. Deep vein thrombosis prophylaxis: Hold at this time. Plan: We will switch to oral antibiotics, continue home medications as appropriate. Likely discharge home in the next 24-48 hr on oral antibiotics.
[2018-10-13 22:47] VITALS: O2SAT 99
[2018-10-14] MEDS: Levofloxacin500mg IV 500 MG/100 ML BAG IV SCH (02:04)
[2018-10-14] MEDS ORDERED: NA CHLORIDE 0.9% 250 ML ONE (02:11)
[2018-10-14] MEDS: NA CHLORIDE 0.9% 1,000 ML IV SCH (02:19)
[2018-10-14 07:45] LABS: Hematocrit 28.8 % (39.6-49.0)
[2018-10-14 07:56] LABS: Magnesium 1.7 mg/dL (1.8-2.4); Potassium 3.8 mmol/L (3.5-5.1)
[2018-10-14] MEDS: ZONISAMIDE 100 MG PO SCH (09:25)
[2018-10-14] MEDS: levETIRAcetam 500 MG TAB PO SCH (09:26)
[2018-10-14] MEDS: LISINOPRIL 10 MG TAB PO SCH (09:26)
[2018-10-14] MEDS: LACOSAMIDE 50 MG TABLET PO SCH (09:27)
[2018-10-14 12:02] VITALS: BP 114/58; TEMP 101.3
--- NOTE | 2018-10-14 12:08 | P.DS ---
Admission Date: 10/08/18 Discharge Date: 10/14/18 Disposition: ROUTINE DISCHARGE Discharge Condition: FAIR Reason for Admission: cellulitis Consultations: Infectious disease Brief History of Present Illness: Mr Samson is a 73 years old male with history of polio, quadriplegic, contracted , seizure disorder, who start yesterday with left and swelling and pain. He had fever at home 100.1 F. He denied cought, nausea, vomiting or diarrhea. At arrival he was febrile, 100.7 F, lab work shows normal WBC count, normal lactate and procalcitonin level. Hospital Course: Patient was admitted to the floor. He was started on IV antibiotics for his left hand cellulitis. X-ray was done, which did not show any free air or osteomyelitis. ID was consulted. He was eventually switched to oral antibiotics. It was recommended by ID that antibiotics be continued for 2 weeks. He he was recommended to follow up with infectious disease in 2 weeks. He did have a fever. Prior to discharge, afebrile, vital signs were stable and the patient and family wanting to go home. For his seizure disorder, his home medications were continued. He did not have any active seizures at this hospitalization. He does have a history of polio with residual neurological deficits for which he follows up Dr. Jay. He was recommended to follow up with Dr. Jay as an outpatient. Throughout the stay, patient did have a drop in hemoglobin. He has had previous episodes like this before. It is possible that this anemia may be secondary to chronic kidney disease versus acute blood loss. A blood alcohol was done, which was negative. His anticoagulation was held. He did receive 4 units of PRBCs throughout the stay. He had adequate response to transfusion. At the time of discharge, his hemoglobin was stable. He was recommended to follow up with his primary care physician in 2-3 days for repeat blood work. He was also provided with a prescription for iron. He was also recommended that he follow up with outpatient GI for possible GI workup with a EGD/ colonoscopy. It would also be beneficial for the patient to follow up with nephrology as an outpatient. His Eliquis was to be held at discharge until further follow up with primary care physician. He otherwise remained hemodynamically stable throughout the stay. Follow up: Primary care physician in 2-3 days. GI in 1-2 weeks. Nephrology in 1-2 weeks. Infectious disease in 2 weeks. New Discharge medications: Iron, Levaquin Vital Signs/Physical Exam: Temp Pulse Resp BP Pulse Ox 98.0F 98 H 20 114/58 L 98 10/14/18 12:01 10/14/18 12:01 10/14/18 12:01 10/14/18 12:01 10/14/18 12:01 General: Alert, In no apparent distress HEENT: Atraumatic, PERRLA, EOMI Neck: Supple, JVD not distended Respiratory: Clear to auscultation bilaterally, Normal air movement Cardiovascular: Regular rate/rhythm, Normal S1 S2 Musculoskeletal: Contractures Integumentary: No tenderness/swelling, No erythema, No warmth Laboratory Data at Discharge: WBC 5.8 K/uL (4.3-10.9) 10/13/18 05:59 Hgb 9.6 g/dL (13.6-17.9) L 10/14/18 07:26 Hct 28.8 % (39.6-49.0) L D 10/14/18 07:26 Plt Count 220 K/uL (152-406) 10/13/18 05:59 PT 17.4 SECONDS (9.5-12.5) H 10/08/18 02:44 INR 1.50 10/08/18 02:44 Sodium 143 mmol/L (136-145) 10/14/18 07:26 Potassium 3.8 mmol/L (3.5-5.1) 10/14/18 07:26 BUN 28 mg/dL (7-18) H 10/14/18 07:26 Creatinine 1.03 mg/dL (0.55-1.3) 10/14/18 07:26 Glucose 89 mg/dL (74-106) 10/14/18 07:26 Uric Acid 9.4 mg/dL (3.5-7.2) H 10/08/18 02:44 Magnesium 1.7 mg/dL (1.8-2.4) L 10/14/18 07:26 Total Bilirubin 0.3 mg/dL (0.2-1.0) 10/08/18 02:44 AST 16 U/L (15-37) 10/08/18 02:44 ALT 18 U/L (12-78) 10/08/18 02:44 Alkaline Phosphatase 129 U/L (45-117) H 10/08/18 02:44 Lipase 139 U/L (73-393) 10/08/18 02:44 Home Medications: Carisoprodol [Soma*] 350 mg PO BID PRN 10/08/18 Lacosamide [Vimpat*] 200 mg PO BID 10/08/18 Levetiracetam [Keppra] 500 mg PO BID 10/08/18 Lisinopril [Zestril] 10 mg PO DAILY 10/08/18 Multivit-Min/Folic/Vit K/Lycop [Men's 50 Plus Multivitamin Tab] 1 each PO DAILY 10/08/18 PHENobarbital [Phenobarbital*] 64.8 mg PO BEDTIME 10/08/18 Simvastatin 20 mg PO BEDTIME 10/08/18 Topiramate 50 mg PO BEDTIME 10/08/18 Zonisamide [Zonegran] 100 mg PO DAILY 10/08/18 Ferrous Gluconate [Iron] 236 mg PO BID #60 tablet 10/14/18 levoFLOXacin [Levaquin] 500 mg PO DAILY #14 tab 10/14/18 New Medications: Ferrous Gluconate [Iron] 236 mg PO BID #60 tablet levoFLOXacin [Levaquin] 500 mg PO DAILY #14 tab Patient Discharge Instructions: Please follow up with your primary care physician in 2-3 days. Please follow up with Gastroenterology in 1-2 weeks. Information provided to you. Please follow up with Nephrology in 1-2 weeks. Information provided to you. Also follow up with infectious disease doctor in 2 -3 weeks. Please return to the emergency room for worsening symptoms. Diet: AHA Activity: Ad leisa Followup: Aries Norris DO [ACTIVE - CAN ADMIT] - Karen Macario DO, DO [Primary Care Provider] - Raymundo Sims MD [ACTIVE - CAN ADMIT] - Rene Miles MD [ASSOCIATE-ACTIVE - CAN ADMIT] - Time spent managing pt's care (in minutes): 55
== END 2018-10-14 13:50 | disposition home or self-care (01) | DRG 602 ==
LOC: ER 02:24 → ERHOLD 05:18 → 4TH 07:38
PROVIDERS: ADMIT Internal Medicine; ATTEND Family Medicine
PROC: 30233N1 Transfusion of Nonautologous Red Blood Cells into Peripheral Vein, Percutaneous Approach (ICD-10-PCS; principal; 2018-10-09)
DX: L03.114 Cellulitis of left upper limb (principal); R53.2 Functional quadriplegia; I69.351 Hemiplegia and hemiparesis following cerebral infarction affecting right dominant side; G40.909 Epilepsy, unspecified, not intractable, without status epilepticus; I10 Essential (primary) hypertension; A80.9 Acute poliomyelitis, unspecified; Z86.711 Personal history of pulmonary embolism; Z79.01 Long term (current) use of anticoagulants; D63.8 Anemia in other chronic diseases classified elsewhere; R29.818 Other symptoms and signs involving the nervous system
CPT/HCPCS: 36415; 36430; 71045; 80048; 80076; 81003; 81015; 82274; 82962; 83605; 83690; 83735; 84145; 84484; 84550; 85014; 85018; 85025; 85610; 86850; 86900; 86901; 87040; 87205; 87804; 93005; 96365; 96366; 96367; 99285; J1650; J3475; J7030; P9016

== ENCOUNTER 2018-10-29 12:14 | Observation (INO) | payer OTHER ==
--- OUTSIDE RECORDS SUMMARY | 2018-10-29 12:16 | XMS REPORT | Clinical Summary ---
:1945 Author Organization [facility] Address [address] [place] [address] Care Team Providers Name Role Phone Unavailable [...] Not on file Results Not on fileafter 10/28/2017 Insurance Payer Benefit Plan / Group Subscriber ID Type Phone Address MEDICARE MEDICARE A B xxxxxxxxxxx Medicare MEDICAID MEDICAID [facility] xxxxxxxxx Medicaid Advance Directives For more information, please contact:[address] [phone] Code Status Date Activated Date Inactivated Comments Full Code 02/19/2016 8:31 PM 03/09/2016 3:08 PM This code status was determined by: Patient
[2018-10-29] MEDS ORDERED: Nicardipine/NS 25 MG/250 ML KIT IV ONE ×2 (13:11→14:33)
--- NOTE | 2018-10-29 13:18 | RAD REPORT ---
EXAM DESCRIPTION: RAD - Chest Single View - 10/29/2018 1:12 pm CLINICAL HISTORY: FEVER Chest pain. COMPARISON: Chest Single View dated 10/08/2018; Chest Single View dated 12/14/2017; Chest Single View d ated 05/07/2016; Chest Single View dated 05/06/2016 FINDINGS: Portable technique limits examination quality. The lungs are underinflated resulting in vascular crowding. Atelectasis is present in right lung base . The heart is normal in size. Tortuous thoracic aorta. IMPRESSION: Underinflated lungs.
[2018-10-29 13:19] LABS: Absolute Lymphocytes (CBC) 0.5 K/uL (0.7-4.9); Absolute Monocytes 0.5 K/uL (0.1-1.3); Absolute Neutrophil 2.8 K/uL (1.8-8.0); Basophils % 1.6 % (0-1.3); Eosinophils % 0.7 % (0-4.4); Hematocrit 36.3 % (39.6-49.0); Lymphocytes % 13.1 % (15.3-44.8); MPV 7.5 fL (7.6-11.3); Monocytes % 13.4 % (3.3-12.3); RBC Red Blood Cell Count 4.71 M/uL (4.33-5.43)
[2018-10-29 13:22] LABS: Protime INR 1.31
[2018-10-29 13:36] LABS: Urine Blood NEGATIVE (NEG); Urine Glucose NEGATIVE (NEG); Urine Protein NEGATIVE (NEG); Urine Specific Gravity 1.015 (1.005-1.030)
[2018-10-29 13:36] LABS: ALT/SGPT 21 U/L (12-78); AST/SGOT 22 U/L (15-37); Albumin 3.3 g/dL (3.4-5.0); Alkaline Phosphatase 118 U/L (45-117); BUN Blood Urea Nitrogen 40 mg/dL (7-18); Bicarbonate 25 mmol/L (21-32); Bilirubin Direct 0.1 mg/dL (0-0.2); Bilirubin Total 0.3 mg/dL (0.2-1.0); Glucose Level 106 mg/dL (74-106); Lipase 208 U/L (73-393); Potassium 4.4 mmol/L (3.5-5.1); Protein, Total 8.8 g/dL (6.4-8.2); Sodium Level 139 mmol/L (136-145); Troponin (Emerg Dept Use Only) < 0.02 ng/mL (0.0-0.045)
[2018-10-29 15:22] LABS: Urine Bacteria <20 /HPF (NONE SEEN); Urine Culture Reflex Order NOT NEEDED; Urine RBC NONE SEEN /HPF (NONE SEEN)
[2018-10-29] MEDS ORDERED: NA CHLORIDE 0.9% 500 ML ONE (16:47)
[2018-10-29] MEDS ORDERED: ACETAMINOPHEN 325 MG TABLET ONE (18:01)
--- NOTE | 2018-10-29 18:38 | ER ---
Nurse's Notes [facility] Name: Jairo Samson Age: 73 yrs Sex: Male : 1945 Arrival Date: 10/29/2018 Time: 12:17 Bed 5 Private MD: Karen Macario H Diagnosis: Fever, unspecified;Tachycardia, unspecified;Dehydration Presentation: 10/29 12:24 Presenting complaint: Pt's caregiver states "his temperature went up to 99.8 and his aa5 heart rate was up to 140 and it would go up and down". Pt's caregiver reports symptoms began today, reports pt was seen here and admitted recently. Transition of care: patient was not received from another setting of care. Onset of symptoms was October 29, 2018. Care prior to arrival: None. 12:24 Method Of Arrival: Wheelchair aa5 12:24 Acuity: BIJAL 2 aa5 12:44 Initial Sepsis Screen: Does the patient meet any 2 criteria? HR > 90 bpm. No. Patient's hb initial sepsis screen is negative. Does the patient have a suspected source of infection? No. Patient's initial sepsis screen is negative. 13:00 Risk Assessment: Do you want to hurt yourself or someone else? Patient reports no hb desire to harm self or others. Historical: - Allergies: 12:25 Cipro; aa5 - Home Meds: 18:58 acetaminophen 325 mg Oral tab 1 tab every 4-6 hours [Active]; allopurinol 100 mg Oral hb tab 1 tab once daily [Active]; Eliquis 5 mg Oral tab 1 tab 2 times per day [Active]; Keppra 100 mg/mL Oral soln 5 mL 2 times per day [Active]; lacosamide 200 mg Oral 1 tab 2 times per day [Active]; Lipitor 10 mg Oral tab 1 tab once daily [Active]; lisinopril 10 mg Oral tab 1 tab once daily [Active]; Milk of Magnesia 400 mg/5 mL Oral susp 30 mL once daily [Active]; multivitamin Oral [Active]; phenobarbital 32.4 mg Oral tab every morning and 64.8 mg at bedtime [Active]; Saline 3 % nasal mist daily [Active]; simvastatin 20 mg Oral tab 1 tab once daily [Active]; Topamax 50 mg Oral tab 1 tab 2 times per day [Active]; Vimpat 200 mg Oral tab 2 times per day [Active]; Zonegran 100 mg Oral cap 1 cap once daily [Active]; - PMHx: 12:25 CVA; Hyperlipidemia; Hypertension; PE; Polio; Seizures; aa5 - Immunization history:: Adult Immunizations up to date. - Social history:: Smoking status: Patient/guardian denies using tobacco. - Ebola Screening: : No symptoms or risks identified at this time. Screenin:44 Abuse screen: Denies threats or abuse. Denies injuries from another. Nutritional hb screening: No deficits noted. Tuberculosis screening: No symptoms or risk factors identified. Fall Risk Total Friedman Fall Scale indicates Low Risk Score (25-44 pts). Fall prevention measures have been instituted. Side Rails Up X 2 Frequent Obs/Assesments occuring Family Present and informed to notify staff if they need to leave bedside As available Patient and Family Educated on Fall Prevention Program and strategies. Assessment: 12:45 General: Appears in no apparent distress. Behavior is calm, cooperative. Pain: Denies hb pain. Neuro: Level of Consciousness is awake, alert, obeys commands, Oriented to person, place, time, situation. Cardiovascular: Heart tones S1 S2 present Capillary refill < 3 seconds Patient's skin is warm and dry. Rhythm is sinus tachycardia. Respiratory: Airway is patent Respiratory effort is even, unlabored, Respiratory pattern is regular, symmetrical, Breath sounds are clear bilaterally. GI: No signs and/or symptoms were reported involving the gastrointestinal system. : No signs and/or symptoms were reported regarding the genitourinary system. EENT: No signs and/or symptoms were reported regarding the EENT system. Derm: Skin is intact, is healthy with good turgor. Musculoskeletal: No signs and/or symptoms reported regarding the musculoskeletal system. 13:45 Reassessment: Patient appears in no apparent distress at this time. No changes from hb previously documented assessment. Patient and/or family updated on plan of care and expected duration. Pain level reassessed. Patient is alert, oriented x 3, equal unlabored respirations, skin warm/dry/pink. 14:45 Reassessment: Patient appears in no apparent distress at this time. No changes from hb previously documented assessment. Patient and/or family updated on plan of care and expected duration. Pain level reassessed. Patient is alert, oriented x 3, equal unlabored respirations, skin warm/dry/pink. 15:32 Reassessment: Patient appears in no apparent distress at this time. No changes from hb previously documented assessment. Patient and/or family updated on plan of care and expected duration. Pain level reassessed. Patient is alert, oriented x 3, equal unlabored respirations, skin warm/dry/pink. 16:30 Reassessment: Patient appears in no apparent distress at this time. Patient and/or hb family updated on plan of care and expected duration. Pain level reassessed. Patient is alert, oriented x 3, equal unlabored respirations, skin warm/dry/pink. 17:30 Reassessment: Patient appears in no apparent distress at this time. No changes from hb previously documented assessment. Patient and/or family updated on plan of care and expected duration. Pain level reassessed. Patient is alert, oriented x 3, equal unlabored respirations, skin warm/dry/pink. 18:05 Reassessment: T100.3, DR LIND NOTIFIED AT BEDSIDE, TYLENOL ADMINISTERED ORDERED. hb 18:30 Reassessment: Patient appears in no apparent distress at this time. Patient and/or hb family updated on plan of care and expected duration. Pain level reassessed. Patient is alert, oriented x 3, equal unlabored respirations, skin warm/dry/pink. 19:15 General: Appears in no apparent distress. comfortable, Behavior is calm, cooperative. tl2 Pain: Denies pain. Neuro: Level of Consciousness is awake, alert, obeys commands, Oriented to person, place, time, situation. Cardiovascular: Denies chest pain, Heart tones S1 S2 present Rhythm is sinus tachycardia. Respiratory: Airway is patent Respiratory effort is even, unlabored, Respiratory pattern is regular, symmetrical. GI: No signs and/or symptoms were reported involving the gastrointestinal system. : No signs and/or symptoms were reported regarding the genitourinary system. Derm: Skin is pink, warm \\T\\ dry. Vital Signs: 12:25 BP 120 / 74; Pulse 132; Resp 16 S; Temp 98.8(O); Pulse Ox 100% on R/A; Pain 0/10; aa5 13:45 BP 118 / 71; Pulse 104; Resp 16; Pulse Ox 100% on R/A; Pain 0/10; hb 15:34 BP 111 / 72; Pulse 106; Resp 15; Pulse Ox 100% on R/A; hb 16:43 BP 123 / 76; Pulse 130; Resp 15; Pulse Ox 100% ; hb 17:41 BP 120 / 89; Pulse 118; Resp 18; Pulse Ox 100% on R/A; hb 17:42 Temp 100.3(O); hb 19:24 BP 108 / 70; Pulse 122; Resp 20; Temp 99.3(O); Pulse Ox 98% on R/A; tl2 ED Course: 12:17 Patient arrived in ED. as 12:17 Karen Macario DO is Private Physician. as 12:24 Arm band placed on. aa5 12:25 Triage completed. aa5 12:28 EKG completed in triage. Results shown to MD. aa5 12:33 Mika Lind MD is Attending Physician. gs 12:54 Alexia Real, EN is Primary Nurse. hb 12:55 Patient has correct armband on for positive identification. Call light in reach. hb 13:05 Initial lab(s) drawn, by me, sent to lab. First set of blood cultures drawn by me. dh3 Inserted saline lock: 22 gauge in left forearm, using aseptic technique. Blood collected. 13:11 X-ray completed. Portable x-ray completed in exam room. Patient tolerated procedure sw well. 13:12 Chest Single View XRAY In Process Unspecified. EDMS 13:20 Second set of blood cultures drawn by me. dh3 18:37 Jaja French MD is Hospitalizing Provider. gs 19:15 IV is patent, with good blood return. tl2 20:19 No provider procedures requiring assistance completed. Patient admitted, IV remains in tl2 place. Administered Medications: 13:22 Drug: NS 0.9% 1000 ml Route: IV; Rate: 1 bolus; Site: left forearm; hb 14:32 Follow up: Response: No adverse reaction; IV Status: Completed infusion; IV Intake: hb 1000ml 16:30 Drug: NS 0.9% 500 ml Route: IV; Rate: bolus; Site: left hand; sg 17:15 Follow up: Response: No adverse reaction; IV Status: Completed infusion; IV Intake: hb 500ml 18:00 Drug: Tylenol 650 mg Route: PO; hb 19:24 Follow up: Response: No adverse reaction; Temperature is decreased tl2 Intake: 14:32 IV: 1000ml; Total: 1000ml. hb 17:15 IV: 500ml; Total: 1500ml. hb Outcome: 18:38 Decision to Hospitalize by Provider. gs 20:19 Admitted to Tele accompanied by tech, via stretcher, room 428, with chart, Report tl2 called to EN Mariano 20:19 Condition: stable 20:19 Discharge instructions given to patient, family, Instructed on the need for admit. 20:48 Patient left the ED. tl2 Signatures: Dispatcher [employer] EDMS Nelson Anderson RN RN Janay Gonsalves Audri, RN RN aa5 Myra Evans Heather, RN RN Dianne Sinhg RN RN tl2 Liliana Jc [facility] Mika Lind MD MD gs
--- NOTE | 2018-10-29 18:39 | EDPHYS ---
Physician Documentation [facility] Name: Jairo Samson Age: 73 yrs Sex: Male : 1945 Arrival Date: 10/29/2018 Time: 12:17 Bed 5 Private MD: Karen Macario H ED Physician Mika Lind HPI: 10/29 20:41 This 73 yrs old Black Male presents to ER via Wheelchair with complaints of Fever, gs Elevated Heart Rate. 20:41 Onset: The symptoms/episode began/occurred today. Modifying factors: there are no gs obvious modifying factors. Associated signs and symptoms: Pertinent negatives: abdominal pain, altered mental status, chest pain, chills, cough, runny nose, sinus congestion, shortness of breath, vomiting. Severity of symptoms: At their worst the symptoms were moderate in the emergency department the symptoms are unchanged. The patient has experienced similar episodes in the past, a few times. The patient has been recently been admitted at [facility], was discharged a couple of weeks ago. Historical: - Allergies: 12:25 Cipro; aa5 - Home Meds: 18:58 acetaminophen 325 mg Oral tab 1 tab every 4-6 hours [Active]; allopurinol 100 mg Oral hb tab 1 tab once daily [Active]; Eliquis 5 mg Oral tab 1 tab 2 times per day [Active]; Keppra 100 mg/mL Oral soln 5 mL 2 times per day [Active]; lacosamide 200 mg Oral 1 tab 2 times per day [Active]; Lipitor 10 mg Oral tab 1 tab once daily [Active]; lisinopril 10 mg Oral tab 1 tab once daily [Active]; Milk of Magnesia 400 mg/5 mL Oral susp 30 mL once daily [Active]; multivitamin Oral [Active]; phenobarbital 32.4 mg Oral tab every morning and 64.8 mg at bedtime [Active]; Saline 3 % nasal mist daily [Active]; simvastatin 20 mg Oral tab 1 tab once daily [Active]; Topamax 50 mg Oral tab 1 tab 2 times per day [Active]; Vimpat 200 mg Oral tab 2 times per day [Active]; Zonegran 100 mg Oral cap 1 cap once daily [Active]; - PMHx: 12:25 CVA; Hyperlipidemia; Hypertension; PE; Polio; Seizures; aa5 - Immunization history:: Adult Immunizations up to date. - Social history:: Smoking status: Patient/guardian denies using tobacco. - Ebola Screening: : No symptoms or risks identified at this time. ROS: 20:41 All other systems are negative. gs Exam: 20:13 ECG was reviewed by the Attending Physician. gs 20:41 Head/Face: Normocephalic, atraumatic. Eyes: Pupils equal round and reactive to light, gs extra-ocular motions intact. Lids and lashes normal. Conjunctiva and sclera are non-icteric and not injected. Cornea within normal limits. Periorbital areas with no swelling, redness, or edema. ENT: Nares patent. No nasal discharge, no septal abnormalities noted. Tympanic membranes are normal and external auditory canals are clear. Oropharynx with no redness, swelling, or masses, exudates, or evidence of obstruction, uvula midline. Mucous membranes moist. Neck: Trachea midline, no thyromegaly or masses palpated, and no cervical lymphadenopathy. Supple, full range of motion without nuchal rigidity, or vertebral point tenderness. No Meningismus. Chest/axilla: Normal chest wall appearance and motion. Nontender with no deformity. No lesions are appreciated. Respiratory: Lungs have equal breath sounds bilaterally, clear to auscultation and percussion. No rales, rhonchi or wheezes noted. No increased work of breathing, no retractions or nasal flaring. 20:41 Abdomen/GI: Soft, non-tender, with normal bowel sounds. No distension or tympany. No guarding or rebound. No evidence of tenderness throughout. Back: No spinal tenderness. No costovertebral tenderness. Full range of motion. Skin: Warm, dry with normal turgor. Normal color with no rashes, no lesions, and no evidence of cellulitis. 20:41 Constitutional: The patient appears alert, awake. 20:41 Cardiovascular: Rate: tachycardic, Rhythm: regular, Pulses: no pulse deficits are appreciated. 20:41 Musculoskeletal/extremity: Exam is negative for acute changes. 20:41 Neuro: Exam negative for acute changes. Vital Signs: 12:25 BP 120 / 74; Pulse 132; Resp 16 S; Temp 98.8(O); Pulse Ox 100% on R/A; Pain 0/10; aa5 13:45 BP 118 / 71; Pulse 104; Resp 16; Pulse Ox 100% on R/A; Pain 0/10; hb 15:34 BP 111 / 72; Pulse 106; Resp 15; Pulse Ox 100% on R/A; hb 16:43 BP 123 / 76; Pulse 130; Resp 15; Pulse Ox 100% ; hb 17:41 BP 120 / 89; Pulse 118; Resp 18; Pulse Ox 100% on R/A; hb 17:42 Temp 100.3(O); hb 19:24 BP 108 / 70; Pulse 122; Resp 20; Temp 99.3(O); Pulse Ox 98% on R/A; tl2 MDM: 12:48 Patient medically screened. gs 20:41 Differential diagnosis: viral Infection, bacterial infection, URI, pneumonia. Data gs reviewed: vital signs, nurses notes, old medical records, lab test result(s), EKG, radiologic studies. Counseling: I had a detailed discussion with the patient and/or guardian regarding: the historical points, exam findings, and any diagnostic results supporting the discharge/admit diagnosis, lab results, radiology results, the need for further work-up and treatment in the hospital. Response to treatment: the patient's symptoms have mildly improved after treatment, and as a result, I will admit patient. 10/29 12:50 Order name: Basic Metabolic Panel; Complete Time: 13:39 10/29 12:50 Order name: Blood Culture Adult (2) 10/29 12:50 Order name: CBC with Diff; Complete Time: 13:39 10/29 12:50 Order name: Lactate; Complete Time: 13:39 10/29 12:50 Order name: LFT's; Complete Time: 13:39 10/29 12:50 Order name: Lipase; Complete Time: 13:39 10/29 12:50 Order name: Procalcitonin; Complete Time: 14:20 10/29 12:50 Order name: Protime (+inr); Complete Time: 13:39 10/29 12:50 Order name: Troponin (emerg Dept Use Only); Complete Time: 13:39 10/29 12:50 Order name: Urine Microscopic Only; Complete Time: 15:40 10/29 13:22 Order name: Glucose, Ancillary Testing; Complete Time: 13:39 EDAL 10/29 13:25 Order name: Urine Dipstick--Ancillary (enter results); Complete Time: 13:39 bd 10/29 16:43 Order name: TSH; Complete Time: 18:38 10/29 16:43 Order name: Urine Drug Screen 10/29 12:50 Order name: Chest Single View XRAY; Complete Time: 13:39 10/29 12:50 Order name: Accucheck; Complete Time: 12:56 10/29 12:50 Order name: Cardiac monitoring; Complete Time: 12:56 10/29 12:50 Order name: EKG - Nurse/Tech; Complete Time: 12:56 10/29 12:50 Order name: IV Saline Lock - Large Bore; Complete Time: 13:11 10/29 12:50 Order name: Labs collected and sent; Complete Time: 13:11 10/29 12:50 Order name: O2 Per Protocol; Complete Time: 12:56 10/29 12:50 Order name: O2 Sat Monitoring; Complete Time: 12:56 10/29 12:50 Order name: Urine Dipstick-Ancillary (obtain specimen); Complete Time: 13:23 10/29 13:53 Order name: EKG Electrocardiogram [facility] 10/29 17:43 Order name: Flu; Complete Time: 18:28 hb EC:13 Rate is 136 beats/min. Rhythm is regular, Sinus tachycardia. CA interval is normal. QRS gs interval is normal. QT interval is normal. Clinical impression: Abnormal EKG without significant change. Interpreted by me. Administered Medications: 13:22 Drug: NS 0.9% 1000 ml Route: IV; Rate: 1 bolus; Site: left forearm; hb 14:32 Follow up: Response: No adverse reaction; IV Status: Completed infusion; IV Intake: hb 1000ml 16:30 Drug: NS 0.9% 500 ml Route: IV; Rate: bolus; Site: left hand; sg 17:15 Follow up: Response: No adverse reaction; IV Status: Completed infusion; IV Intake: hb 500ml 18:00 Drug: Tylenol 650 mg Route: PO; hb 19:24 Follow up: Response: No adverse reaction; Temperature is decreased tl2 Disposition: 10/29/18 18:38 Hospitalization ordered by Divinski, Ianir for Observation. Preliminary diagnosis are Fever, unspecified, Tachycardia, unspecified, Dehydration. - Bed requested for Telemetry/MedSurg (observation). - Status is Observation. tl2 - Condition is Stable. - Problem is new. - Symptoms have improved. UTI on Admission? No Signatures: Dispatcher [employer] EDAL Angelqiue Martin RN RN Nelson Anderson, RN RN Carrie Kay, RN RN aa5 Alexia Real RN EN Dianne Mazariegos RN RN tl2 Mika Lind MD MD Corrections: (The following items were deleted from the chart) 17:45 17:44 Influenza Screen (A \T\ B)+[id number].LAB.BRZ ordered. EDAL EDAL 19:44 18:38 Hospitalization Ordered by Jaja French MD for Observation. Preliminary diagnosis is Fever, unspecified; Tachycardia, unspecified; Dehydration. Bed requested for Telemetry/MedSurg (observation). Status is Observation. Condition is Stable. Problem is new. Symptoms have improved. UTI on Admission? No. gs 20:48 19:44 10/29/2018 18:38 Hospitalization Ordered by Jaja French MD for Observation. tl2 Preliminary diagnosis is Fever, unspecified; Tachycardia, unspecified; Dehydration. Bed requested for Telemetry/MedSurg (observation). Status is Observation. Condition is Stable. Problem is new. Symptoms have improved. UTI on Admission? No. mw
--- NOTE | 2018-10-29 19:51 | P.HP ---
Certification for Inpatient Patient admitted to: Observation With expected LOS: <2 Midnights Practitioner: I am a practitioner with admitting privileges, knowledge of patient current condition, hospital course, and medical plan of care. Services: Services provided to patient in accordance with Admission requirements found in Title 42 Section 412.3 of the Code of Federal Regulations Patient History Date of Service: 10/29/18 Reason for admission: fever, acute renal injury History of Present Illness: Mr Samson is a 73 years old male with history of Polio, CVA, PE, seizure disorder , wheelchair bound, who start complaining this morning with weakness and malaise. His caregiver, checked his temp and it was 99.5 F, HR was elevated up to 140's bpm. He denied any SOB, cough, chest pain, nausea,vomiting, diarrhea, abdominal pain or painful urination. He has a stage 1 pressure ulcer in his bottom, without changes. At arrival temp was normal, but then spike to 100.3 F. EKG shows sinus tachycardia at 140 bpm, O2 sat 100% on RA. Lab work remarkable for WBC 3.9, BUN 40 and creatinine 1.39. CXR shows no acute infiltrate. Allergies ciprofloxacin Allergy (Verified 12/15/15 22:39) UNKNOWN Home Medications: Carisoprodol [Soma*] 350 mg PO BID PRN 10/08/18 Lacosamide [Vimpat*] 200 mg PO BID 10/08/18 Levetiracetam [Keppra] 500 mg PO BID 10/08/18 Lisinopril [Zestril] 10 mg PO DAILY 10/08/18 Multivit-Min/Folic/Vit K/Lycop [Men's 50 Plus Multivitamin Tab] 1 each PO DAILY 10/08/18 PHENobarbital [Phenobarbital*] 64.8 mg PO BEDTIME 10/08/18 Simvastatin 20 mg PO BEDTIME 10/08/18 Topiramate 50 mg PO BEDTIME 10/08/18 Zonisamide [Zonegran] 100 mg PO DAILY 10/08/18 Ferrous Gluconate [Iron] 236 mg PO BID #60 tablet 10/14/18 levoFLOXacin [Levaquin] 500 mg PO DAILY #14 tab 10/14/18 - Past Medical/Surgical History Diabetic: No -: CVA with deficits on right side -: HTN -: Pulmonary embolism -: Seizures -: 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 moist/pink, EOMI, Sclerae nonicteric Neck: Supple, 2+ carotid pulse no bruit, No LAD, Without JVD or thyroid abnormality Respiratory: Clear to auscultation bilaterally, Normal air movement Cardiovascular: Regular rate/rhythm, Normal S1 S2 Gastrointestinal: Normal bowel sounds, No tenderness Musculoskeletal: Swelling (left leg ) Integumentary: No rashes Neurological: Normal speech, Normal affect, Other (quadriplegic), Abnormal tone (contracted) Lymphatics: No axilla or inguinal lymphadenopathy - Studies Laboratory Data (last 24 hrs) 10/29/18 13:05: PT 15.3 H, INR 1.31 10/29/18 13:05: WBC 3.9 L, Hgb 11.6 L, Hct 36.3 L, Plt Count 347 10/29/18 13:05: Sodium 139, Potassium 4.4, BUN 40 H, Creatinine 1.39 H, Glucose 106, Total Bilirubin 0.3, AST 22, ALT 21, Alkaline Phosphatase 118 H, Lipase 208 Microbiology Data (last 24 hrs): 10/29/18 17:50 Nasopharnyx Influenza Type A Antigen Screen - Final 10/29/18 17:50 Nasopharnyx Influenza Type B Antigen Screen - Final Assessment and Plan - Problems (Diagnosis) (1) Acute renal injury Current Visit: Yes Status: Acute (2) Dehydration Current Visit: No Status: Active (3) Seizure disorder Current Visit: No Status: Acute (4) Tachycardia Onset Date: 04/02/15 Current Visit: No Status: Acute (5) Weakness Onset Date: 12/16/15 Current Visit: No Status: Acute (6) Polio Onset Date: 12/15/17 Current Visit: No Status: Chronic - Plan The patient will be admitted to the hospital due to weakness and fever, without obvious source. CXR and UA without acute abnormalities. Differential diagnosis are broad including viral infection, thrombotic episode, cultures in process. Continue monitoring. Will order lower extremity venous doppler. - Advance Directives Does patient have a Living Will: Yes Does patient have a Durable POA for Healthcare: No - Code Status/Comfort Care Code Status Assessed: Yes Code Status: Full Code
[2018-10-29] MEDS ORDERED: ONDANSETRON 4 MG/2 ML VIAL IV PRN (20:56)
[2018-10-29] MEDS: NA CHLORIDE 0.9% 1,000 ML IV SCH (22:21)
[2018-10-30 00:23] LABS: Barbiturates POSITIVE (NEGATIVE); Benzodiazepines NEGATIVE (NEGATIVE); Cocaine NEGATIVE (NEGATIVE); METHAMPHETAM NEGATIVE (NEGATIVE); Methadone NEGATIVE (NEGATIVE); Opiates NEGATIVE (NEGATIVE); Phencyclidine NEGATIVE (NEGATIVE); THC Cannibis NEGATIVE (NEGATIVE)
[2018-10-30 00:32] VITALS: BMI 21.8
[2018-10-30 05:02] LABS: Absolute Lymphocytes (CBC) 0.3 K/uL (0.7-4.9); Absolute Monocytes 0.7 K/uL (0.1-1.3); Absolute Neutrophil 3.2 K/uL (1.8-8.0); Basophils % 0.5 % (0-1.3); Eosinophils % 0.4 % (0-4.4); Hematocrit 33.8 % (39.6-49.0); Lymphocytes % 8.1 % (15.3-44.8); MPV 7.9 fL (7.6-11.3); Monocytes % 16.3 % (3.3-12.3); RBC Red Blood Cell Count 4.39 M/uL (4.33-5.43)
[2018-10-30 05:08] LABS: Magnesium 1.9 mg/dL (1.8-2.4); Potassium 4.1 mmol/L (3.5-5.1)
--- NOTE | 2018-10-30 06:36 | RAD REPORT ---
EXAM DESCRIPTION: US - Extrem Venous W Compress Silvio - 10/29/2018 9:45 pm CLINICAL HISTORY: Bilateral leg pain and swelling COMPARISON: None. TECHNIQUE: Real-time sonographic evaluation of the bilateral lower extremity common femoral, superfi cial femoral, popliteal and posterior tibial veins was performed. FINDINGS: Normal compressibility, flow augmentation, phasic flow and spontaneous flow are identified in the left and right lower extremity common femoral, superficial femoral, popliteal and posterior t ibial veins. No intraluminal filling defects seen. IMPRESSION: No DVT in either lower extremity.
[2018-10-30] MEDS: NA CHLORIDE 0.9% 1,000 ML IV SCH (06:38)
--- NOTE | 2018-10-30 07:15 | EKG ---
Test Date: 2018-10-29 Test Time: 12:24:[address]: [place] MEASUREMENT RESULTS: Intervals: Rate: 136 NC: 144 QRSD: 88 QT: 276 QTc: 415 [place]: P: 46 NC: 144 QRS: -15 T: 68 INTERPRETIVE STATEMENTS: Sinus tachycardia Possible Left atrial enlargement Borderline ECG Compared to ECG 10/08/2018 02:47:12 Left ventricular hypertrophy no longer present ST (T wave) deviation no longer present Electronically Signed On 10-30-18 07:14:50 CDT by Guillermo Hernandez
[2018-10-30] MEDS ORDERED: CARISOPRODOL 350 MG TAB PO PRN (07:42)
[2018-10-30] MEDS ORDERED: PNEUMOCOCCAL VACCINE 0.5 ML IMVAC ONE (08:00)
[2018-10-30] MEDS ORDERED: ENOXAPARIN 40 MG/0.4 ML SQ SCH (09:00)
[2018-10-30] MEDS: ZONISAMIDE 100 MG PO SCH (09:00)
[2018-10-30] MEDS: levETIRAcetam 500 MG TAB PO SCH ×2 (09:11→20:46)
[2018-10-30] MEDS: METOPROLOL TAR 25 MG TAB PO SCH ×2 (09:11→20:47)
[2018-10-30] MEDS: FERROUS GLUCONATE 324 MG TAB PO SCH ×2 (09:11→20:47)
[2018-10-30] MEDS: MULTIVIT W/ MINERAL TAB PO SCH (09:11)
[2018-10-30] MEDS: LACOSAMIDE 50 MG TABLET PO SCH ×2 (09:11→20:46)
[2018-10-30] MEDS: APIXABAN 2.5 MG TABLET PO SCH ×2 (09:12→20:46)
--- NOTE | 2018-10-30 13:44 | P.PN ---
Subjective Date of Service: 10/30/18 Chief Complaint: fever, acute renal injury Subjective: Improving Physical Examination - Vital Signs Temperature: 99.1 F Blood Pressure: 119/66 Pulse: 88 Respirations: 18 Pulse Ox (%): 98 - Physical Exam General: Alert, Cooperative HEENT: Atraumatic Neck: Supple Respiratory: Clear to auscultation bilaterally, Normal air movement Cardiovascular: Normal pulses, Regular rate/rhythm Gastrointestinal: Normal bowel sounds, Soft and benign, Non-distended Musculoskeletal: Contractures (the upper and lower extremity), Other (Mild swelling to the left upper extremity. No significant erythema. No warmth.) Neurological: Other (Patient wheelchair-bound.) - Studies Microbiology Data (last 24 hrs): 10/29/18 17:50 Nasopharnyx Influenza Type A Antigen Screen - Final 10/29/18 17:50 Nasopharnyx Influenza Type B Antigen Screen - Final Medications List Reviewed: Yes Assessment & Plan Discharge Plan: Home Plan to discharge in: 24 Hours Physician Review Additional Text: Impression: Fever likely viral illness with acute renal injury secondary to dehydration Hypertension History of polio History of seizure disorder Hyperlipidemia History of pulmonary embolus on chronic anti coagulation therapy Swelling to the left upper extremity Anemia likely of chronic disease and iron deficiency Plan: Fever likely viral illness with acute renal injury secondary to dehydration: Continue IV fluids. Will monitor closely. Will recheck lab. Anticipate discharge in the next 24 hr once fever has resolved. Hypertension: Medications adjusted. Will discontinue lisinopril due to acute renal injury. Will add metoprolol for better blood pressure control. Patient with slightly tachycardic. Improved with metoprolol. History of polio: Continue with his medication. Patient is wheelchair-bound. History of seizure disorder: Continue medication Hyperlipidemia: Continue medication. History of pulmonary embolus on chronic anti coagulation therapy: Continue and verify home medication. Swelling to the left upper extremity: This is likely from IV infiltration. Will remove IV fluids. Will check venous Doppler to rule out DVT. Anemia of chronic disease and likely iron deficiency: Will check iron and B12 levels. Will monitor hemoglobin. Time Spent Managing Pts Care (In Minutes): 55
--- NOTE | 2018-10-30 19:46 | RAD REPORT ---
EXAM DESCRIPTION: - UPPER EXTREMITY VENOUS UNILATE - 10/30/2018 7:38 pm US - UPPER EXTREMITY VENOUS UNILATE - 10/30/2018 7:38 pm CLINICAL HISTORY: Left arm pain and swelling COMPARISON: None. TECHNIQUE: Real-time sonographic evaluation of the left upper extremity deep venous systems was perf ormed. FINDINGS: Normal compressibility, flow augmentation, phasic flow and spontaneous flow are identified in the left upper extremity deep venous system. No intraluminal filling defects seen. Internal jugul ar and subclavian veins are normal as well. IMPRESSION: No DVT in the left upper extremity.
[2018-10-30] MEDS: PHENOBARBITAL 32.4 MG TABLET PO SCH (20:45)
[2018-10-30] MEDS: TOPIRAMATE 25 MG TAB PO SCH (20:46)
[2018-10-30] MEDS: ATORVASTATIN 10 MG TAB PO SCH (20:47)
[2018-10-30] MEDS: ACETAMINOPHEN 500 MG TAB PO PRN (20:48)
[2018-10-31 04:23] LABS: MPV 7.2 fL (7.6-11.3); RBC Red Blood Cell Count 4.27 M/uL (4.33-5.43)
[2018-10-31 04:35] LABS: Magnesium 1.9 mg/dL (1.8-2.4); Potassium 4.5 mmol/L (3.5-5.1)
[2018-10-31 05:12] LABS: Blood Morphology Comment NOTED (NOT SEEN); Burr Cells 1+; Platelet Estimate ADEQ
[2018-10-31] MEDS: MULTIVIT W/ MINERAL TAB PO SCH (08:18)
[2018-10-31] MEDS: FERROUS GLUCONATE 324 MG TAB PO SCH ×2 (08:18→21:32)
[2018-10-31] MEDS: levETIRAcetam 500 MG TAB PO SCH ×2 (08:19→21:32)
[2018-10-31] MEDS: APIXABAN 2.5 MG TABLET PO SCH ×2 (08:19→21:34)
[2018-10-31] MEDS: LACOSAMIDE 50 MG TABLET PO SCH ×2 (08:19→21:00)
[2018-10-31] MEDS: METOPROLOL TAR 25 MG TAB PO SCH ×2 (08:20→21:33)
[2018-10-31] MEDS: ZONISAMIDE 100 MG PO SCH (08:24)
--- NOTE | 2018-10-31 09:01 | RAD REPORT ---
EXAM DESCRIPTION: RAD - Chest Single View - 10/31/2018 8:54 am CLINICAL HISTORY: Atelectasis, shortness of breath COMPARISON: October 29October 08 TECHNIQUE: AP portable chest image was obtained 0851 hours . FINDINGS: Lung volumes remain low. Interstitial opacification appears slightly increased probably du e to a more shallow inspiratory effort. Mild interstitial edema or infiltrate are possible. Right hem idiaphragm elevation again noted. Heart size and vasculature are stable. No measurable pleural effusi on and no pneumothorax. No acute bony abnormality seen. No acute aortic findings suspected. IMPRESSION: Suspect slight increase in interstitial edema or infiltrate. No dense consolidation or m ass.
[2018-10-31] MEDS: NA CHLORIDE 0.9% 1,000 ML IV SCH ×2 (11:44→21:45)
--- NOTE | 2018-10-31 14:13 | P.PN ---
Subjective Date of Service: 10/31/18 Primary Care Provider: Dr. Macario Chief Complaint: fever, acute renal injury Subjective: Other (Patient had fever last night. Patient with poor oral intake. ) Physical Examination - Vital Signs Temperature: 99.4 F Blood Pressure: 123/72 Pulse: 89 Respirations: 18 Pulse Ox (%): 98 - Physical Exam General: Alert, In no apparent distress, Oriented x3, Cooperative HEENT: Atraumatic Neck: Supple Respiratory: Clear to auscultation bilaterally, Normal air movement Cardiovascular: Normal pulses, Regular rate/rhythm Gastrointestinal: Normal bowel sounds, Soft and benign, Non-distended Neurological: Normal affect - Studies Medications List Reviewed: Yes Assessment & Plan Discharge Plan: Home Plan to discharge in: 24 Hours Physician Review Additional Text: Impression: Fever likely viral illness with acute renal injury secondary to dehydration Hypertension History of polio History of seizure disorder Hyperlipidemia History of pulmonary embolus on chronic anti coagulation therapy Swelling to the left upper extremity Anemia likely of chronic disease and iron deficiency Plan: Fever likely viral illness with acute renal injury secondary to dehydration: Restart IV fluids. Encourage oral intake. Will provide incentive spirometer. Still suspect viral illness. Will continue to monitor. Await blood culture results. Anticipate discharge once patient without fever for at least 24 hr, due to his multiple medical issues. Hypertension: Medications adjusted. Blood pressure better controlled. Lisinopril discontinued due to acute renal injury. Now on metoprolol, continue to adjust. History of polio: Continue with his medication. Patient is wheelchair-bound. History of seizure disorder: Continue medication Hyperlipidemia: Continue medication. History of pulmonary embolus on chronic anti coagulation therapy: Continue and verify home medication. Swelling to the left upper extremity: This has improved. Venous Doppler negative Anemia of chronic disease and likely iron deficiency: Will check iron and B12 levels. Will monitor hemoglobin. Time Spent Managing Pts Care (In Minutes): 55
[2018-10-31] MEDS: ACETAMINOPHEN 500 MG TAB PO PRN ×2 (15:42→23:39)
[2018-10-31 15:59] LABS: Ferritin 1155.1 ng/mL (26-388)
[2018-10-31] MEDS: PHENOBARBITAL 32.4 MG TABLET PO SCH (21:31)
[2018-10-31] MEDS: TOPIRAMATE 25 MG TAB PO SCH (21:32)
[2018-10-31] MEDS: ATORVASTATIN 10 MG TAB PO SCH (21:32)
[2018-11-01 04:47] LABS: Magnesium 1.6 mg/dL (1.8-2.4); Potassium 3.9 mmol/L (3.5-5.1)
[2018-11-01 04:48] LABS: Absolute Lymphocytes (CBC) 0.3 K/uL (0.7-4.9); Absolute Monocytes 0.3 K/uL (0.1-1.3); Absolute Neutrophil 2.2 K/uL (1.8-8.0); Basophils % 1.2 % (0-1.3); Hematocrit 30.4 % (39.6-49.0); Lymphocytes % 11.5 % (15.3-44.8); MPV 7.5 fL (7.6-11.3); Monocytes % 10.2 % (3.3-12.3); RBC Red Blood Cell Count 3.94 M/uL (4.33-5.43)
[2018-11-01 05:01] LABS: Blood Morphology Comment NOT SEEN (NOT SEEN); Platelet Estimate ADEQ; Urine White Blood Cell Casts OK
[2018-11-01] MEDS ORDERED: MAGNESIUM SULFATE 1 gm IVPB 1 GM/100 ML BAG IV ONE (05:29)
[2018-11-01] MEDS ORDERED: POTASSIUM 25 MEQ EFFERV TAB PO ONE (05:29)
[2018-11-01] MEDS: NA CHLORIDE 0.9% 1,000 ML IV SCH ×2 (08:00→15:35)
[2018-11-01] MEDS: ZONISAMIDE 100 MG PO SCH (08:40)
[2018-11-01] MEDS: METOPROLOL TAR 25 MG TAB PO SCH ×2 (08:40→20:43)
[2018-11-01] MEDS: FERROUS GLUCONATE 324 MG TAB PO SCH (08:41)
[2018-11-01] MEDS: APIXABAN 2.5 MG TABLET PO SCH ×2 (08:41→20:45)
[2018-11-01] MEDS: MULTIVIT W/ MINERAL TAB PO SCH (08:41)
[2018-11-01] MEDS: levETIRAcetam 500 MG TAB PO SCH ×2 (08:41→20:51)
[2018-11-01] MEDS: LACOSAMIDE 50 MG TABLET PO SCH ×2 (08:43→20:56)
--- NOTE | 2018-11-01 09:21 | RAD REPORT ---
EXAM DESCRIPTION: RAD - Chest Single View - 11/01/2018 8:44 am CLINICAL HISTORY: follow up, suspect pneumonia. Has fever Chest pain. COMPARISON: Chest Single View dated 10/31/2018; Chest Single View dated 10/29/2018; Chest Single View d ated 10/08/2018; Chest Single View dated 12/14/2017 FINDINGS: Portable technique limits examination quality. Elevated right hemidiaphragm is seen with right lung base atelectasis again noted. Early pneumonia in this region cannot be ruled out. The heart is normal in size. Tortuous thoracic aorta.
[2018-11-01 10:20] VITALS: O2SAT 98
--- NOTE | 2018-11-01 11:00 | P.PN ---
Subjective Date of Service: 11/01/18 Primary Care Provider: Dr. Macario Chief Complaint: fever, acute renal injury Subjective: Other (Still with fever. Tmax 101.9. Slight fatigue) Physical Examination - Vital Signs Temperature: 100 F Blood Pressure: 118/62 Pulse: 89 Respirations: 20 Pulse Ox (%): 97 - Physical Exam General: Alert, In no apparent distress, Cooperative HEENT: Atraumatic Neck: Supple Respiratory: Other (decreased to the right side with poor effort) Cardiovascular: Normal pulses, Regular rate/rhythm Gastrointestinal: Normal bowel sounds, Soft and benign, Non-distended Musculoskeletal: Contractures - Studies Medications List Reviewed: Yes Assessment & Plan Discharge Plan: Home Plan to discharge in: 48 Hours Physician Review Additional Text: Impression: Fever likely related to early right lower lobe pneumonia with acute renal injury and dehydration Hypertension History of polio History of seizure disorder Hyperlipidemia History of pulmonary embolus on chronic anti coagulation therapy Swelling to the left upper extremity Anemia likely of chronic disease and iron deficiency Plan: Fever likely related to early right lower lobe pneumonia with acute renal injury and dehydration: Continue IV fluids. Encourage oral intake. Patient still with fever. T-max 101.9. Repeat x-ray shows possible early pneumonia. Will start Rocephin and Zithromax. Encourage incentive spirometer. Continue to reassess. Likely discharge once patient is without fever for over 24 hr. Will check sputum culture. Blood cultures so far negative. Influenza test negative. Will also evaluate for wounds or ulcers. Hypertension: Blood pressure improved with adjustment in medication. Lisinopril discontinued due to acute renal injury. Now on metoprolol, continue to adjust. History of polio: Continue with his medication. Patient is wheelchair-bound. History of seizure disorder: Continue medication Hyperlipidemia: Continue medication. History of pulmonary embolus on chronic anti coagulation therapy: Continue medication. Swelling to the left upper extremity: This has resolved. Venous Doppler negative Anemia of chronic disease and likely iron deficiency: Patient with iron deficiency. Will start iron supplementation.. Time Spent Managing Pts Care (In Minutes): 55
[2018-11-01] MEDS: AZITHROMYCIN IV 500 MG in NA CHLORIDE 0.9% 250 ML IVPB SCH (11:30)
[2018-11-01] MEDS: CEFTRIAXONE/SWI 1gm 1 GM/10 ML SYR IV SCH (12:26)
[2018-11-01] MEDS: ACETAMINOPHEN 500 MG TAB PO PRN ×2 (16:36→23:49)
--- NOTE | 2018-11-01 17:16 | ECHO ---
HEIGHT: 5 ft 9 in WEIGHT: 147 lb 9.6 oz DATE OF STUDY: 11/01/[address]: Jaja Slater MD 2-DIMENSIONAL: YES M.MODE: YES DOPPLER: YES COLOR FLOW: YES TDS: PORTABLE: DEFINITY: BUBBLE STUDY: DIAGNOSIS: RULE OUT VEGETATION CARDIAC HISTORY: CATHERIZATION: NO SURGERY: NO PROSTHETIC VALVE: NO PACEMAKER: NO MEASUREMENTS (cm) DIASTOLIC (NORMALS) SYSTOLIC (NORMALS) IVSd 0.9 (0.6-1.2) LA Diam 4.2 (1.9-4.0) LVEF 66% LVIDd 4.0 (3.5-5.7) LVIDs 2.6 (2.0-3.5) %FS 36% LVPWd 0.9 (0.6-1.2) Ao Diam 3.4 (2.0-3.7) 2 DIMENSIONAL ASSESSMENT: RIGHT ATRIUM: NORMAL LEFT ATRIUM: DILATED RIGHT VENTRICLE: NORMAL LEFT VENTRICLE: NORMAL TRICUSPID VALVE: NORMAL MITRAL VALVE: NORMAL PULMONIC VALVE: NORMAL AORTIC VALVE: 3 LEAFLET PERICARDIAL EFFUSION: NONE AORTIC ROOT: NORMAL LEFT VENTRICULAR WALL MOTION: NORMAL DOPPLER/COLOR FLOW: MILD AORTIC REGURGITATION, MITRAL REGURGITATION AND TRICUSPID REGURGITATION. MILD PULMONARY HYPERTENSION. ESTIMATED RIGHT VENTRICULAR SYSTOLIC PRESSURE 40 mmHg. COMMENTS: NORMAL LEFT VENTRICULAR EJECTION FRACTION. DILATED LEFT ATRIUM. MILD AORTIC REGURGITATION, MITRAL REGURGITATION AND TRICUSPID REGURGITATION. MILD PULMONARY HYPERTENSION. TECHNOLOGIST: FAHAD ABBOTT
[2018-11-01] MEDS: PHENOBARBITAL 32.4 MG TABLET PO SCH (20:44)
[2018-11-01] MEDS: ATORVASTATIN 10 MG TAB PO SCH (20:44)
[2018-11-01] MEDS: TOPIRAMATE 25 MG TAB PO SCH (20:45)
[2018-11-02] MEDS: NA CHLORIDE 0.9% 1,000 ML IV SCH (03:32)
[2018-11-02 06:25] LABS: Absolute Lymphocytes (CBC) 0.8 K/uL (0.7-4.9); Absolute Monocytes 0.3 K/uL (0.1-1.3); Absolute Neutrophil 1.4 K/uL (1.8-8.0); Hematocrit 29.3 % (39.6-49.0); Lymphocytes % 33.7 % (15.3-44.8); MPV 7.7 fL (7.6-11.3); Monocytes % 10.8 % (3.3-12.3); RBC Red Blood Cell Count 3.86 M/uL (4.33-5.43)
[2018-11-02 06:33] LABS: Magnesium 1.7 mg/dL (1.8-2.4); Potassium 3.8 mmol/L (3.5-5.1)
[2018-11-02] MEDS: APIXABAN 2.5 MG TABLET PO SCH (08:53)
[2018-11-02] MEDS: MULTIVIT W/ MINERAL TAB PO SCH (08:54)
[2018-11-02] MEDS: levETIRAcetam 500 MG TAB PO SCH (08:54)
[2018-11-02] MEDS: METOPROLOL TAR 25 MG TAB PO SCH (08:54)
[2018-11-02] MEDS: ZONISAMIDE 100 MG PO SCH (08:55)
[2018-11-02] MEDS: AZITHROMYCIN IV 500 MG in NA CHLORIDE 0.9% 250 ML IVPB SCH (08:56)
[2018-11-02] MEDS: CEFTRIAXONE/SWI 1gm 1 GM/10 ML SYR IV SCH (08:57)
[2018-11-02] MEDS ORDERED: MAGNESIUM SULFATE 1 gm IVPB 1 GM/100 ML BAG IV ONE (09:00)
[2018-11-02] MEDS ORDERED: SOD FERRIC GLUC COMPLX/SUCROSE 125 MG in NA CHLORIDE 0.9% 100 ML IV SCH (09:00)
[2018-11-02] MEDS ORDERED: POTASSIUM 25 MEQ EFFERV TAB PO ONE (09:00)
[2018-11-02] MEDS ORDERED: CEFTRIAXONE 1 GM/NS 50 ML 1 GM/50 ML BAG IV SCH (09:00)
[2018-11-02] MEDS ORDERED: AZITHROMYCIN IV 500 MG in NA CHLORIDE 0.9% 250 ML IVPB SCH (09:00)
[2018-11-02] MEDS: LACOSAMIDE 50 MG TABLET PO SCH (10:12)
--- NOTE | 2018-11-02 12:06 | P.DS ---
Admission Date: 10/29/18 Discharge Date: 11/02/18 Primary Care Provider: Dr. Macario Disposition: DC HOME/HOME HEALTH CARE Discharge Condition: GOOD Reason for Admission: fever, acute renal injury Consultations: none Procedures: ECHO: EF 56% LEFT VENTRICULAR WALL MOTION: NORMAL DOPPLER/COLOR FLOW: MILD AORTIC REGURGITATION, MITRAL REGURGITATION AND TRICUSPID REGURGITATION. MILD PULMONARY HYPERTENSION. ESTIMATED RIGHT VENTRICULAR SYSTOLIC PRESSURE 40 mmHg. COMMENTS: NORMAL LEFT VENTRICULAR EJECTION FRACTION. DILATED LEFT ATRIUM. MILD AORTIC REGURGITATION, MITRAL REGURGITATION AND TRICUSPID REGURGITATION. MILD PULMONARY HYPERTENSION. Follow up CXR: COMPARISON: Chest Single View dated 10/31/2018; Chest Single View dated 10/29/2018 ; Chest Single View dated 10/08/2018; Chest Single View dated 12/14/2017 FINDINGS: Portable technique limits examination quality. Elevated right hemidiaphragm is seen with right lung base atelectasis again noted. Early pneumonia in this region cannot be ruled out. The heart is normal in size. Tortuous thoracic aorta. Medical Problem List: Fever likely related to early right lower lobe pneumonia with acute renal injury and dehydration Mild pulmonary Hypertension History of polio History of seizure disorder Hyperlipidemia History of pulmonary embolus on chronic anti coagulation therapy Swelling to the left upper extremity due to IV infiltration Anemia likely of chronic disease and iron deficiency Brief History of Present Illness: 73-year-old male presented to the emergency room with fatigue. Caregiver noted fever. Patient appeared to be dehydrated. Patient was admitted for further evaluation and treatment. Hospital Course: Patient presented with fever, fatigue. Initial evaluation indicated acute renal injury likely from dehydration. No clear evidence of infection initially. Influenza test negative. Pro calcitonin negative. Blood cultures negative. Urinalysis unremarkable. Patient continued to have fevers. Repeat x -ray showed possible atelectasis versus pneumonia. Patient was monitored closely. Due to recurrent fever patient was placed on antibiotic therapy. Patient seemed to have improved. At discharge suspect right lower lobe pneumonia. Patient without significant shortness of breath. At discharge patient will continue with Augmentin 500 mg 1 pill twice daily for 7 days. Recommend to follow up with his PCP in 1 week to follow up this hospitalization. Recommend recheck chest x-ray in 2-4 weeks to monitor resolution. Recommend to continue with incentive spirometer. Encourage oral intake. Patient with hypertension. Medications adjusted during his stay. Lisinopril was discontinued due to acute renal insufficiency. Patient was also slightly tachycardic. Patient was transition to metoprolol with good improvement. At discharge patient will continue with metoprolol 12.5 mg 1 pill twice daily. Further adjustment can be done by his PCP. Patient with history of polio and seizure disorder. Patient is wheelchair- bound. Patient will continue with his medications-Vimpat 200 mg 1 pill twice daily, Keppra 500 mg 1 pill twice daily, phenobarbital 64.8 mg 1 p.o. every bedtime, Zonegran 100 mg once daily, and Topamax 50 mg 1 pill at bedtime. Recommend to follow up with neurology as directed. Patient with history of hyperlipidemia. Patient will continue with his medication-Zocor 20 mg daily. Patient with history of pulmonary embolism on chronic anti coagulation therapy. Patient had mild swelling to the left upper extremity. Venous Doppler negative. This was related to infiltrated IV. This was removed. Patient has done well. At discharge patient will continue with his medication-Eliquis 2.5 mg 1 pill twice daily. Patient with anemia of chronic disease and iron deficiency. At discharge he will continue with iron supplementation-iron 325 mg 1 pill twice daily. Recommend to recheck CBC in 2-4 weeks to monitor his progress. Vital Signs/Physical Exam: Temp Pulse Resp BP Pulse Ox 98.5 F 74 20 120/57 L 98 11/02/18 08:00 11/02/18 08:54 11/02/18 08:00 11/02/18 08:54 11/02/18 08:00 General: Alert, In no apparent distress, Oriented x3, Cooperative HEENT: Atraumatic Neck: Supple Respiratory: Clear to auscultation bilaterally, Normal air movement Cardiovascular: Normal pulses, Regular rate/rhythm Gastrointestinal: Normal bowel sounds, Soft and benign, Non-distended, No masses , No rebound, No guarding Musculoskeletal: Contractures Neurological: Normal speech Laboratory Data at Discharge: WBC 2.5 K/uL (4.3-10.9) L 11/02/18 06:10 Hgb 9.7 g/dL (13.6-17.9) L 11/02/18 06:10 Hct 29.3 % (39.6-49.0) L 11/02/18 06:10 Plt Count 174 K/uL (152-406) 11/02/18 06:10 PT 15.3 SECONDS (9.5-12.5) H 10/29/18 13:05 INR 1.31 10/29/18 13:05 Sodium 138 mmol/L (136-145) 11/02/18 06:10 Potassium 3.8 mmol/L (3.5-5.1) 11/02/18 06:10 BUN 35 mg/dL (7-18) H 11/02/18 06:10 Creatinine 1.10 mg/dL (0.55-1.3) 11/02/18 06:10 Glucose 81 mg/dL (74-106) 11/02/18 06:10 Magnesium 1.7 mg/dL (1.8-2.4) L 11/02/18 06:10 Total Bilirubin 0.3 mg/dL (0.2-1.0) 10/29/18 13:05 AST 22 U/L (15-37) 10/29/18 13:05 ALT 21 U/L (12-78) 10/29/18 13:05 Alkaline Phosphatase 118 U/L (45-117) H 10/29/18 13:05 Lipase 208 U/L (73-393) 10/29/18 13:05 Home Medications: Carisoprodol [Soma*] 350 mg PO BID PRN 10/08/18 Lacosamide [Vimpat*] 200 mg PO BID 10/08/18 Levetiracetam [Keppra] 500 mg PO BID 10/08/18 Multivit-Min/Folic/Vit K/Lycop [Men's 50 Plus Multivitamin Tab] 1 each PO DAILY 10/08/18 PHENobarbital [Phenobarbital*] 64.8 mg PO BEDTIME 10/08/18 Simvastatin 20 mg PO BEDTIME 10/08/18 Topiramate 50 mg PO BEDTIME 10/08/18 Zonisamide [Zonegran] 100 mg PO DAILY 10/08/18 Apixaban [Eliquis *] 1 tab PO BID 10/30/18 Ferrous Gluconate [Iron] 240 mg PO BID 10/30/18 Amoxicillin/Potassium Clav [Augmentin 500-125 Tablet] 1 each PO BID #14 tablet 11/02/18 Metoprolol Tartrate [Lopressor*] 12.5 mg PO BID #60 tab 11/02/18 New Medications: Amoxicillin/Potassium Clav [Augmentin 500-125 Tablet] 1 each PO BID #14 tablet Metoprolol Tartrate [Lopressor*] 12.5 mg PO BID #60 tab Patient Discharge Instructions: 1. Recommend to follow up with his PCP in 1 week to follow up this hospitalization. 2. Patient presented with fever, fatigue. Initial evaluation indicated acute renal injury likely from dehydration. No clear evidence of infection initially. Influenza test negative. Pro calcitonin negative. Blood cultures negative. Urinalysis unremarkable. Patient continued to have fevers. Repeat x-ray showed possible atelectasis versus pneumonia. Patient was monitored closely. Due to recurrent fever patient was placed on antibiotic therapy. Patient seemed to have improved. At discharge suspect right lower lobe pneumonia. Patient without significant shortness of breath. At discharge patient will continue with Augmentin 500 mg 1 pill twice daily for 7 days. Recommend to follow up with his PCP in 1 week to follow up this hospitalization. Recommend recheck chest x- ray in 2-4 weeks to monitor resolution. Recommend to continue with incentive spirometer. Encourage oral intake. 3. Patient with hypertension. Medications adjusted during his stay. Lisinopril was discontinued due to acute renal insufficiency. Patient was also slightly tachycardic. Patient was transition to metoprolol with good improvement. At discharge patient will continue with metoprolol 12.5 mg 1 pill twice daily. Further adjustment can be done by his PCP. 4. Patient with history of polio and seizure disorder. Patient is wheelchair-bound. Patient will continue with his medications-Vimpat 200 mg 1 pill twice daily, Keppra 500 mg 1 pill twice daily, phenobarbital 64.8 mg 1 p.o. every bedtime, Zonegran 100 mg once daily, and Topamax 50 mg 1 pill at bedtime. Recommend to follow up with neurology as directed. 5. Patient with history of hyperlipidemia. Patient will continue with his medication- Zocor 20 mg daily. 6. Patient with history of pulmonary embolism on chronic anti coagulation therapy. Patient had mild swelling to the left upper extremity. Venous Doppler negative. This was related to infiltrated IV. This was removed. Patient has done well. At discharge patient will continue with his medication-Eliquis 2.5 mg 1 pill twice daily. 7. Patient with anemia of chronic disease and iron deficiency. At discharge he will continue with iron supplementation-iron 325 mg 1 pill twice daily. Recommend to recheck CBC in 2- 4 weeks to monitor his progress. Diet: AHA Activity: Fall precautions Time spent managing pt's care (in minutes): 55
[2018-11-02 12:50] VITALS: BP 119/62; TEMP 98.9
== END 2018-11-02 15:53 | disposition home or self-care (01) ==
LOC: ER 12:14 → ERHOLD 19:39 → 4TH 20:13
PROVIDERS: ADMIT Internal Medicine; ATTEND Internal Medicine
DX: R50.9 Fever, unspecified (principal); N17.9 Acute kidney failure, unspecified; E86.0 Dehydration; I27.20 Pulmonary hypertension, unspecified; G40.909 Epilepsy, unspecified, not intractable, without status epilepticus; D50.9 Iron deficiency anemia, unspecified; R00.0 Tachycardia, unspecified; E78.5 Hyperlipidemia, unspecified; Z99.3 Dependence on wheelchair; Z86.12 Personal history of poliomyelitis; Z79.01 Long term (current) use of anticoagulants; Z86.711 Personal history of pulmonary embolism
CPT/HCPCS: 96361; 93005; 93306; 87040 ×2; 85025 ×5; 80048 ×5; 36415 ×4; 83735 ×4; 85610; 82962; 80076; 80307 ×8; 83605 ×3; 85652; 84443; 84484; 82728; 82607; 83690; 83540; 84145 ×3; 84466; 86140; 87804 ×2; 71045 ×3; 93971; 93970; 94760 ×7; 96360; 99285; J0456; J3475 ×2; J2916; J0696 ×2; J7030 ×5; G0378 ×2; 81003; 81015; J1650

== ENCOUNTER 2019-07-19 10:23 | Emergency (ER) | payer OTHER ==
--- OUTSIDE RECORDS SUMMARY | 2019-07-19 10:25 | XMS REPORT ---
:1945 Author Organization [employer] Care Team Providers Name Role Phone SanchezSheldon Provider Role Unavailable Allergies, Adverse Reactions, Alerts Substance Reaction Event Type N.K.D.A. Info Not Available Non Drug Allergy Problems Problem Type Condition Code Onset Dates Condition Status Problem Sinus problem J34.9 Active Problem Anticoagulant long-term use Z79.01 Active Problem Seasonal allergies J30.2 Active Problem Essential hypertension I10 Active Assessment History of pulmonary embolism Z86.711 Active Problem Stroke I63.9 Active Assessment Long-term (current) use of Z79.01 Active anticoagulants, INR goal 2.0-3.0 Assessment History of poliomyelitis Z86.12 Active Problem Wheelchair confinement Z99.3 Active Problem History of CVA (cerebrovascular Z86.73 Active accident) Problem Seizures R56.9 Active Problem Seizure disorder G40.909 Active Problem History of pulmonary embolism Z86.711 Active Assessment Hyperlipidemia, unspecified E78.5 Active hyperlipidemia type Assessment Essential hypertension I10 Active Assessment History of CVA (cerebrovascular Z86.73 Active accident) Assessment Seizure disorder G40.909 Active Problem High blood pressure I10 Active Problem Hyperlipidemia, unspecified E78.5 Active hyperlipidemia type Problem History of poliomyelitis Z86.12 Active Assessment Wheelchair confinement Z99.3 Active Problem Long-term (current) use of Z79.01 Active anticoagulants, INR goal 2.0-3.0 Problem High cholesterol E78.00 Active Medications Medication Code Code Instructions Start End Status Dosage System Date Date Stool Softener ND 68653224718 100 MG Orally Active 1 capsule as Twice a day needed Triamcinolone ND 17605626981 0.5 % Sept Active 1 application Acetonide Externally 12, to affected Twice a day 2019 area Levetiracetam ND 35506959497 500 MG Orally Active 1 tablet Twice a day Metoprolol ND 06613612266 25 MG Orally Inactive 1 tablet Succinate ER twice a day Centrum Silver [facility] 91130592139 - Orally Active as directed 50+Men Topiramate [facility] 59925264508 50 MG Orally Active 1 tablet Once a day Iron 27 [facility] 09318648107 240 (27 Fe) MG Active 1 tablet with Orally Once a water or day juice between meals Lisinopril [facility] 56555754230 10 MG Orally Active 1 tablet Once a day Eliquis [facility] 97120970462 5 MG Orally Active 1 tablet BID Zonisamide [facility] 47348811480 100 MG Orally Active 1 capsule Once a day Metoprolol [facility] 91311459103 25 MG Orally May 02, Active 1 tablet with Tartrate Twice a day 2018 food Keppra [facility] 58837494813 500 MG Orally Active 1 tablet Twice a day Phenobarbital [facility] 19264253847 64.8 MG Orally Active 1 tablet Once a day Vimpat [facility] 31522488506 200 MG Orally Active 1 tablet Twice a day Simvastatin [facility] 57769818838 20 MG Orally Active 1 tablet in Once a day the evening Results No Known Results Summary Purpose [employer] Submission
--- OUTSIDE RECORDS SUMMARY | 2019-07-19 10:25 | XMS REPORT ---
:1945 Author Organization eClinicalWorks Care Team Providers Name Role Phone DanielSheldon Provider Role Unavailable Allergies, Adverse Reactions, Alerts Substance Reaction Event Type N.K.D.A. Info Not Available Non Drug Allergy Problems Problem Type Condition Code Onset Dates Condition Status Assessment Hemiparesis affecting right side as I69.351 Active late effect of cerebrovascular accident (CVA) Assessment Chronic anemia D64.9 Active Assessment Wheelchair confinement Z99.3 Active Assessment History of poliomyelitis Z86.12 Active Assessment Long-term (current) use of Z79.01 Active anticoagulants, INR goal 2.0-3.0 Problem History of pulmonary embolism Z86.711 Active Assessment History of pulmonary embolism Z86.711 Active Problem Seizure disorder G40.909 Active Assessment History of CVA (cerebrovascular Z86.73 Active accident) Problem Stroke I63.9 Active Problem High blood pressure I10 Active Problem Essential hypertension I10 Active Problem History of CVA with residual I69.30 Active deficit Problem Hemiparesis affecting right side as I69.351 Active late effect of cerebrovascular accident (CVA) Assessment Medicare annual wellness visit, Z00.00 Active subsequent Assessment Hyperlipidemia, unspecified E78.5 Active hyperlipidemia type Problem Chronic anemia D64.9 Active Assessment Seizure disorder G40.909 Active Problem History of poliomyelitis Z86.12 Active Problem Hyperlipidemia, unspecified E78.5 Active hyperlipidemia type Problem Wheelchair confinement Z99.3 Active Problem Long-term (current) use of Z79.01 Active anticoagulants, INR goal 2.0-3.0 Problem High cholesterol E78.00 Active Problem Sinus problem J34.9 Active Assessment Essential hypertension I10 Active Problem Seizures R56.9 Active Problem History of CVA (cerebrovascular Z86.73 Active accident) Problem Seasonal allergies J30.2 Active Problem Anticoagulant long-term use Z79.01 Active Medications Medication Code Code Instructions Start End Status Dosage System Date Date Centrum Silver [facility] 59504333133 - Orally Active as directed 50+Men Keppra [facility] 46611306442 500 MG Orally Active 1 tablet Twice a day Metoprolol [facility] 69095779867 25 MG Orally Oct 31, Active 1 tablet with Tartrate Twice a day 2019 food Metoprolol [facility] 37228311828 25 MG Orally Active 1 tablet with Tartrate Twice a day food Levetiracetam [facility] 64656465364 500 MG Orally Active 1 tablet Twice a day Eliquis [facility] 39464280100 5 MG Orally BID Active 1 tablet Topiramate [facility] 75898337685 50 MG Orally Active 1 tablet Once a day Iron 27 [facility] 49599435925 240 (27 Fe) MG Active 1 tablet with Orally Once a water or day juice between meals Stool Softener [facility] 09710332049 100 MG Orally Active 1 capsule as Twice a day needed Triamcinolone [facility] 92460605250 0.5 % Sept Active 1 application Acetonide Externally 12, to affected Twice a day 2018 area Simvastatin [facility] 00476528693 20 MG Orally Active 1 tablet in Once a day the evening Vimpat [facility] 95617532344 200 MG Orally Active 1 tablet Twice a day Zonisamide [facility] 22281832815 100 MG Orally Active 1 capsule Once a day Phenobarbital [facility] 25451437197 64.8 MG Orally Active 1 tablet Once a day Results No Known Results Summary Purpose eClinicalWorks Submission
--- OUTSIDE RECORDS SUMMARY | 2019-07-19 10:26 | XMS REPORT ---
:1945 Author Organization [employer]Works Care Team Providers Name Role Phone Daniel Sheldon Provider Role Unavailable Allergies No Known Allergies Problems Problem Type Condition Code Onset Dates Condition Status Problem Stroke I63.9 Active Problem High blood pressure I10 Active Problem Essential hypertension I10 Active Problem History of CVA with residual I69.30 Active deficit Problem Hemiparesis affecting right side as I69.351 Active late effect of cerebrovascular accident (CVA) Problem Chronic anemia D64.9 Active Problem History of poliomyelitis Z86.12 Active Problem Hyperlipidemia, unspecified E78.5 Active hyperlipidemia type Problem Wheelchair confinement Z99.3 Active Problem Long-term (current) use of Z79.01 Active anticoagulants, INR goal 2.0-3.0 Problem High cholesterol E78.00 Active Problem Sinus problem J34.9 Active Problem Seizures R56.9 Active Problem History of CVA (cerebrovascular Z86.73 Active accident) Problem Seasonal allergies J30.2 Active Problem History of pulmonary embolism Z86.711 Active Problem Anticoagulant long-term use Z79.01 Active Problem Seizure disorder G40.909 Active Medications Medication Code Code Instructions Start End Status Dosage System Date Date Eliquis [facility] 12948210017 5 MG Orally BID Active 1 tablet Keppra [facility] 61304243364 500 MG Orally Active 1 tablet Twice a day Iron 27 [facility] 65[address]-154[address] 240 (27 Fe) MG Active 1 tablet with Orally twice a water or day juice between meals Metoprolol ND 24301420406 25 MG Orally Active 1 tablet with Tartrate Twice a day food Zonisamide ND 86948625146 100 MG Orally Active 1 capsule Once a day Centrum Silver [facility] 27101396137 - Orally Active as directed 50+Men Topiramate [facility] 87034456197 50 MG Orally Active 1 tablet Once a day Triamcinolone [facility] 17627545660 0.5 % Sept Active 1 application Acetonide Externally 12, to affected Twice a day 2019 area Stool Softener [facility] 57938761238 100 MG Orally Active 1 capsule as Twice a day needed Metoprolol [facility] 93586299507 25 MG Orally May 02, Active 1 tablet with Tartrate Twice a day 2018 food Simvastatin [facility] 79959971888 20 MG Orally Active 1 tablet in Once a day the evening Vimpat [facility] 09857339329 200 MG Orally Active 1 tablet Twice a day Levetiracetam [facility] 68669007333 500 MG Orally Active 1 tablet Twice a day Phenobarbital [facility] 90042141588 64.8 MG Orally Active 1 tablet Once a day Results No Known Results Summary Purpose eClinicalWorks Submission
--- NOTE | 2019-07-19 12:22 | RAD REPORT ---
EXAM DESCRIPTION: US - UPPER EXTREMITY VENOUS UNILATE - 07/19/2019 12:15 pm CLINICAL HISTORY: left arm swelling. COMPARISON: None. FINDINGS: Left internal jugular vein, left subclavian vein, left axillary vein, left brachial vein, left cephalic, left basilic, left ulnar and left radial veins demonstrate phasic signal. The veins ar e compressible. Doppler demonstrates good flow. . IMPRESSION: No sonographic evidence of thrombus involving the left upper extremity veins.
--- NOTE | 2019-07-19 13:28 | RAD REPORT ---
EXAM DESCRIPTION: RAD -Hand Left 3 View - 07/19/2019 1:20 pm CLINICAL HISTORY: Left hand pain and swelling FINDINGS: The bones are osteoporotic. No fracture seen Chronic dislocation involves the second middle phalanx. Flexion and extension deformities involve sev eral phalanges without significant change. Erosions involve fifth PIP joint.
--- NOTE | 2019-07-19 13:41 | RAD REPORT ---
EXAM DESCRIPTION: RAD - Elbow Left 3 View - 07/19/2019 1:28 pm CLINICAL HISTORY: Left elbow pain FINDINGS: No fracture or dislocation is seen. The bones are osteoporotic. Mild osteoarthritis is noted
--- NOTE | 2019-07-19 13:47 | EDPHYS ---
Physician Documentation [facility] Name: Jairo Samson Age: 74 yrs Sex: Male : 1945 Arrival Date: 07/19/2019 Time: 10:27 Bed 2 Private MD: Diego Sanchezh ED Physician Pipo Salcedo HPI: 07/19 12:48 This 74 yrs old Black Male presents to ER via Wheelchair with complaints of Hand pm1 Swelling. 12:48 This 74 yrs old Black Male presents to ER via Wheelchair with complaints of Left Hand pm1 Swelling and Left Elbow Pain. 12:48 The patient or guardian reports swelling. The complaints affect the left hand. Context: pm1 The problem was sustained at home, resulted from an unknown cause. Onset: The symptoms/episode began/occurred yesterday. Modifying factors: The symptoms are alleviated by nothing, the symptoms are aggravated by nothing. Associated signs and symptoms: Pertinent negatives: cyanosis distally, decreased sensation distally, fever, numbness distally, tingling distally. Severity of symptoms: in the emergency department the symptoms are unchanged. once in the past but the swelling was th whole left arm when he was diagnosed with DVT. It is unknown whether or not the patient has recently seen a physician. 12:48 No chest pain or shortness of breath. pm1 Historical: - Allergies: 10:57 Cipro; aj1 - Home Meds: 10:57 acetaminophen 325 mg Oral tab 1 tab every 4-6 hours [Active]; allopurinol 100 mg Oral aj1 tab 1 tab once daily [Active]; Eliquis 5 mg Oral tab 1 tab 2 times per day [Active]; Keppra 100 mg/mL Oral soln 5 mL 2 times per day [Active]; lacosamide 200 mg Oral 1 tab 2 times per day [Active]; Lipitor 10 mg Oral tab 1 tab once daily [Active]; lisinopril 10 mg Oral tab 1 tab once daily [Active]; Milk of Magnesia 400 mg/5 mL Oral susp 30 mL once daily [Active]; multivitamin Oral [Active]; phenobarbital 32.4 mg Oral tab every morning and 64.8 mg at bedtime [Active]; Saline 3 % nasal mist daily [Active]; simvastatin 20 mg Oral tab 1 tab once daily [Active]; Topamax 50 mg Oral tab 1 tab 2 times per day [Active]; Vimpat 200 mg Oral tab 2 times per day [Active]; Zonegran 100 mg Oral cap 1 cap once daily [Active]; - PMHx: 10:57 CVA; Hyperlipidemia; Hypertension; PE; Polio; Seizures; DVT; aj1 - Immunization history:: Flu vaccine is up to date. - Social history:: Smoking status: Patient/guardian denies using tobacco. - Ebola Screening: : Patient denies travel to an Ebola-affected area in the 21 days before illness onset. ROS: 12:48 Constitutional: Negative for fever, chills, and weight loss, Eyes: Negative for injury, pm1 pain, redness, and discharge, ENT: Negative for injury, pain, and discharge, Neck: Negative for injury, pain, and swelling, Cardiovascular: Negative for chest pain, palpitations, and edema, Respiratory: Negative for shortness of breath, cough, wheezing, and pleuritic chest pain, Abdomen/GI: Negative for abdominal pain, nausea, vomiting, diarrhea, and constipation, Back: Negative for injury and pain. 12:48 Skin: Negative for injury, rash, and discoloration, Neuro: Negative for headache, weakness, numbness, tingling, and seizure. 12:48 MS/extremity: Positive for Pain to left elbow. Swelling to left hand. Exam: 12:48 Constitutional: This is a well developed, well nourished patient who is awake, alert, pm1 and in no acute distress. Head/Face: Normocephalic, atraumatic. Chest/axilla: Normal chest wall appearance and motion. Nontender with no deformity. No lesions are appreciated. Cardiovascular: Regular rate and rhythm with a normal S1 and S2. No gallops, murmurs, or rubs. Normal PMI, no JVD. No pulse deficits. Respiratory: Lungs have equal breath sounds bilaterally, clear to auscultation and percussion. No rales, rhonchi or wheezes noted. No increased work of breathing, no retractions or nasal flaring. Back: No spinal tenderness. No costovertebral tenderness. Full range of motion. Skin: Warm, dry with normal turgor. Normal color with no rashes, no lesions, and no evidence of cellulitis. 12:48 Musculoskeletal/extremity: Extremities: grossly normal except: noted in the left elbow: tenderness, There is no evidence of decreased ROM, deformity, swelling, noted in the left hand: swelling, no evidence of tenderness, noted in the forearm: no evidence of pain, swelling, tenderness. Vital Signs: 10:57 BP 142 / 86; Pulse 73; Resp 18; Temp 99.1; Pulse Ox 100% on R/A; Weight 61.69 kg (R); aj1 Height 5 ft. 9 in. (175.26 cm) (R); 13:15 BP 140 / 85; Pulse 70; Resp 16 S; Pulse Ox 100% on R/A; jl7 10:57 Body Mass Index 20.08 (61.69 kg, 175.26 cm) aj1 MDM: 11:01 Patient medically screened. pm1 13:44 Data reviewed: vital signs. Data interpreted: Pulse oximetry: on room air is 100 %. pm1 Interpretation: normal. Counseling: I had a detailed discussion with the patient and/or guardian regarding: the historical points, exam findings, and any diagnostic results supporting the discharge/admit diagnosis, radiology results, the need for outpatient follow up, to return to the emergency department if symptoms worsen or persist or if there are any questions or concerns that arise at home. 07/19 11:17 Order name: UPPER EXTREMITY VENOUS UNILATE; Complete Time: 12:25 EDMS 07/19 12:44 Order name: Elbow Left 3 View XRAY; Complete Time: 13:44 pm1 07/19 12:47 Order name: Hand Left 3 View XRAY; Complete Time: 13:44 pm1 Administered Medications: No medications were administered Disposition: 15:15 Co-signature as Attending Physician, Pipo Salcedo MD I agree with the assessment and amira plan of care. Disposition: 07/19/19 13:45 Discharged to Home. Impression: Localized swelling, mass and lump, left upper limb - left hand swelling, Pain in left elbow. - Condition is Stable. - Discharge Instructions: Joint Pain, Peripheral Edema. - Medication Reconciliation Form, Thank You Letter, Antibiotic Education, Prescription Opioid Use form. - Follow up: Emergency Department; When: As needed; Reason: Worsening of condition. Follow up: Private Physician; When: 2 - 3 days; Reason: Recheck today's complaints, Continuance of care, Re-evaluation by your physician. - Problem is new. - Symptoms have improved. Signatures: Dispatcher [employer] EDTN Diane Wasserman RN RN aj1 Pipo Salcedo MD MD cha Marinas, Patrick, PIERCER PIERCER pm1 Merle Mai, RN RN jl7 Corrections: (The following items were deleted from the chart) 11:17 11:06 Extremity Venous [employer]+US.RAD.BRZ ordered. [facility] 13:54 13:45 07/19/2019 13:45 Discharged to Home. Impression: Localized swelling, mass and jl7 lump, left upper limb - left hand swellingPain in left elbow. Condition is Stable. Forms are Medication Reconciliation Form, Thank You Letter, Antibiotic Education, Prescription Opioid Use. Follow up: Emergency Department; When: As needed; Reason: Worsening of condition. Follow up: Private Physician; When: 2 - 3 days; Reason: Recheck today's complaints, Continuance of care, Re-evaluation by your physician. Problem is new. Symptoms have improved. pm1
--- NOTE | 2019-07-19 13:47 | ER ---
Nurse's Notes [facility] Name: Jairo Samson Age: 74 yrs Sex: Male : 1945 Arrival Date: 07/19/2019 Time: 10:27 Bed 2 Private MD: Sheldon Sanchez Diagnosis: Pain in left elbow;Localized swelling, mass and lump, left upper limb-left hand swelling Presentation: 07/19 10:45 Presenting complaint: Significant other states: She noticed swelling in his left hand aj1 last night. Patient is reporting pain to left elbow, states that he has a history of blood clots in that arm and he currently is taking Eliquis. Transition of care: patient was not received from another setting of care. Onset of symptoms was July 19, 2019. Risk Assessment: Do you want to hurt yourself or someone else? Patient reports no desire to harm self or others. Initial Sepsis Screen: Does the patient meet any 2 criteria? No. Patient's initial sepsis screen is negative. Does the patient have a suspected source of infection? No. Patient's initial sepsis screen is negative. Care prior to arrival: None. 10:45 Method Of Arrival: Wheelchair aj1 10:45 Acuity: BIJAL 3 aj1 Triage Assessment: 10:57 General: Appears in no apparent distress. comfortable, Behavior is calm, cooperative, aj1 appropriate for age. Pain: Complains of pain in left elbow. Neuro: Level of Consciousness is awake, alert, obeys commands. Cardiovascular: Patient's skin is warm and dry. Respiratory: Airway is patent Respiratory effort is even, unlabored, Respiratory pattern is regular, symmetrical. Historical: - Allergies: 10:57 Cipro; aj1 - Home Meds: 10:57 acetaminophen 325 mg Oral tab 1 tab every 4-6 hours [Active]; allopurinol 100 mg Oral aj1 tab 1 tab once daily [Active]; Eliquis 5 mg Oral tab 1 tab 2 times per day [Active]; Keppra 100 mg/mL Oral soln 5 mL 2 times per day [Active]; lacosamide 200 mg Oral 1 tab 2 times per day [Active]; Lipitor 10 mg Oral tab 1 tab once daily [Active]; lisinopril 10 mg Oral tab 1 tab once daily [Active]; Milk of Magnesia 400 mg/5 mL Oral susp 30 mL once daily [Active]; multivitamin Oral [Active]; phenobarbital 32.4 mg Oral tab every morning and 64.8 mg at bedtime [Active]; Saline 3 % nasal mist daily [Active]; simvastatin 20 mg Oral tab 1 tab once daily [Active]; Topamax 50 mg Oral tab 1 tab 2 times per day [Active]; Vimpat 200 mg Oral tab 2 times per day [Active]; Zonegran 100 mg Oral cap 1 cap once daily [Active]; - PMHx: 10:57 CVA; Hyperlipidemia; Hypertension; PE; Polio; Seizures; DVT; aj1 - Immunization history:: Flu vaccine is up to date. - Social history:: Smoking status: Patient/guardian denies using tobacco. - Ebola Screening: : Patient denies travel to an Ebola-affected area in the 21 days before illness onset. Screenin:07 Abuse screen: Denies threats or abuse. Denies injuries from another. Nutritional jl7 screening: No deficits noted. Tuberculosis screening: No symptoms or risk factors identified. 13:15 Fall Risk None identified. jl7 Assessment: 11:07 General: Appears in no apparent distress. uncomfortable, Behavior is calm, cooperative, jl7 appropriate for age. Pain: Complains of pain in left elbow. Neuro: Level of Consciousness is awake, alert, obeys commands. Cardiovascular: Patient's skin is warm and dry. Respiratory: Airway is patent Respiratory effort is even, unlabored, Respiratory pattern is regular, symmetrical. Derm: Skin is dry, Skin is normal, Skin temperature is warm. Musculoskeletal: Swelling present in left hand. 12:10 Reassessment: Patient appears in no apparent distress at this time. No changes from jl7 previously documented assessment. Patient and/or family updated on plan of care and expected duration. Pain level reassessed. Patient is alert, oriented x 3, equal unlabored respirations, skin warm/dry/pink. Pt returned from US. 13:15 Reassessment: Patient appears in no apparent distress at this time. No changes from jl7 previously documented assessment. Patient and/or family updated on plan of care and expected duration. Pain level reassessed. Patient is alert, oriented x 3, equal unlabored respirations, skin warm/dry/pink. Vital Signs: 10:57 BP 142 / 86; Pulse 73; Resp 18; Temp 99.1; Pulse Ox 100% on R/A; Weight 61.69 kg (R); aj1 Height 5 ft. 9 in. (175.26 cm) (R); 13:15 BP 140 / 85; Pulse 70; Resp 16 S; Pulse Ox 100% on R/A; jl7 10:57 Body Mass Index 20.08 (61.69 kg, 175.26 cm) aj1 ED Course: 10:27 Patient arrived in ED. mr 10:28 Sheldon Sanchez DO is Private Physician. mr 10:54 Triage completed. aj1 10:57 Arm band placed on Patient placed in an exam room. aj1 11:00 Vic Harrell, BETINA is PHCP. pm1 11:00 Pipo Salcedo MD is Attending Physician. pm1 11:03 Merle Mai, EN is Primary Nurse. jl7 11:07 Patient has correct armband on for positive identification. Call light in reach. pt jl7 remains in personal wheelchair with sitting in the chair near him. 12:15 UPPER EXTREMITY VENOUS UNILATE In Process Unspecified. EDMS 13:20 Elbow Left 3 View XRAY In Process Unspecified. EDMS 13:20 Hand Left 3 View XRAY In Process Unspecified. EDMS 13:53 No provider procedures requiring assistance completed. Patient did not have IV access jl7 during this emergency room visit. Administered Medications: No medications were administered Outcome: 13:45 Discharge ordered by MD. pm1 13:53 Discharged to home via wheelchair, with family. jl7 13:53 Condition: stable 13:53 Discharge instructions given to patient, family, Instructed on discharge instructions, follow up and referral plans. Demonstrated understanding of instructions, follow-up care. 13:54 Patient left the ED. jl7 Signatures: Dispatcher [employer] EDMS Diane Wasserman, EN RN [employer] Sow mr Vic Harrell, BETINA FURNITURE REST[employer]ER pm1 Merle Mai, EN [email or web address]
[2019-07-19 13:59] VITALS: TEMP 99.1; O2SAT 100
[2019-07-19 14:00] VITALS: BP 140/85
== END 2019-07-19 13:54 | disposition home or self-care (01) ==
LOC: ER 10:23
DX: M25.522 Pain in left elbow (principal); I10 Essential (primary) hypertension; E78.5 Hyperlipidemia, unspecified; G40.909 Epilepsy, unspecified, not intractable, without status epilepticus; Z79.01 Long term (current) use of anticoagulants; Z88.1 Allergy status to other antibiotic agents; Z86.718 Personal history of other venous thrombosis and embolism
CPT/HCPCS: 93971; 99283

== ENCOUNTER 2021-11-25 12:11 | Observation (INO) | payer OTHER ==
--- OUTSIDE RECORDS SUMMARY | 2021-11-25 12:14 | XMS REPORT | Continuity of Care Document ---
:1945 Author Organization [facility] t Address [address] [place] [address] Care Team Providers Name Role Phone Darlene Sanchez Attending Clinician Unavailable Problems This patient has no known problems. Allergies, Adverse Reactions, Alerts This patient has no known allergies or adverse reactions. Medications Ordered Filled Start Stop Current Ordering Indication Dosage Frequency Signature Comments Components Source Medication Medication Date Date Medication? Clinician (SIG) Name Name Metoprolol Metoprolol 2018-07 Yes Sheldon 1 tablet Common Tartrate Tartrate 0-31 Sanchez with food S pirit 00:00: - [facility] 00 [facility] Yes Sheldon 1 Common ne ne 9-12 Sanchez applicatio Spirit Acetonide Acetonide 00:00: n to - C HI 00 affected [facility] Topiramate Topiramate Yes Sheldon 1 tablet Common Sanchez [facility] Stool Stool Yes Sheldon 1 capsule Common Softener Softener Sanchez as needed S pirit [facility] Keppra Keppra Yes Sheldon 1 tablet Commo n Sanchez [facility] Simvastatin Simvastatin Yes Sheldon 1 tablet Common Sanchez in the [facility] evening [facility] Zonisamide Zonisamide Yes Sheldon 1 capsule Common Sanchez [facility] Eliquis Eliquis Yes Sheldon 1 tablet Com mon Sanchez [facility] Phenobarbit Phenobarbit Yes Sheldon 1 tablet Common al al Sanchez [facility] Centrum Centrum Yes Sheldon as Common Silver Silver Sanchez directed Spirit 50+Men 50+Men - [facility] Iron 27 Iron 27 Yes Sheldon 1 tablet Com mon Sanchez with water Spirit or juice - [facility] between [facility] Levetiracet Levetiracet Yes Sheldon 1 tablet Common am am Sanchez [facility] Vimpat Vimpat Yes Sheldon 1 tablet Commo n Sanchez [facility] Procedures This patient has no known procedures. Encounters Start End Encounter Admission Attending Care Care Encounter Source Date/Time Date/Time Type Type Clinicians Facility Department ID 2021-09-06 Outpatient Sanchez, STLMLC [facility] [id number] Common 11:37:00 Sheldon [facility] 2021-08-03 Outpatient Sanchez, STLMLC [facility] [id number] Common 13:38:01 Sheldon [facility] 2021-07-28 Outpatient Sanchez, STLC [facility] [id number] Common 14:19:15 Sheldon 24856 [facility] 2021-07-28 Outpatient Sanchez, STLC [facility] [id number] Common 13:47:30 Sheldon 34471 [facility] 2021-07-28 Outpatient Sanchez, STLMLC [facility] Common 12:53:49 Sheldon 41813 [facility] 2021-07-28 Outpatient Sanchez, STLMLC [facility] [id number] Common 12:22:30 Sheldon 58327 [facility] 2021-07-28 Outpatient Sanchez, STLMLC [facility] [id number] Common 11:53:43 Sheldon 56568 [facility] 2021-07-28 Outpatient Sanchez, STLMLC [facility] [id number] Common 11:53:10 Sheldon 413[address] [facility] 2021-07-28 Outpatient Sanchez, STLMLC [facility] [id number] Common 11:37:14 Sheldon 536[address] [facility] 2021-07-28 Outpatient Sanchez, STLC [facility] [id number] Common 11:17:26 [facility] [address] [facility] 2021-07-28 Outpatient Sanchez, STLMLC [facility] [id number] Common 11:17:06 [facility] [address] [facility] 2021-09-07 2021-09-07 ambulatory STLMLC ST[facility] [id number] Common 00:00:00 00:00:00 [facility] 2021-09-07 2021-09-07 ambulatory STLMLC STL[facility]C [id number] Common 00:00:00 00:00:00 [facility] 2021-09-02 2021-09-02 ambulatory STLMLC STL[facility] [id number] Common 00:00:00 00:00:00 [facility] 2021-06-09 2021-06-09 ambulatory STLMLC STL[facility]C [id number] Common 00:00:00 00:00:00 [facility] 2021-06-04 2021-06-04 ambulatory STLMLC STLMLC [id number] Common 00:00:00 00:00:00 [facility] 2021-06-02 2021-06-02 ambulatory STLMLC STLMLC [id number] Common 00:00:00 00:00:00 [facility] 2021-06-02 2021-06-02 ambulatory STLMLC STLMLC [id number] Common 00:00:00 00:00:00 [facility] 2021-05-24 2021-05-24 ambulatory STLMLC STLMLC [id number] Common 00:00:00 00:00:00 [facility] 2021-03-11 2021-03-11 Outpatient STLMLC STL[facility] [id number] Common 00:00:00 00:00:00 [facility] 2021-01-08 2021-01-08 Outpatient STLMLC STL[facility]C [id number] Common 00:00:00 00:00:00 [facility] 2020-10-19 2020-10-19 Outpatient STLMLC STLMLC [id number] Common 00:00:00 00:00:00 [facility] 2020-07-23 2020-07-23 Outpatient STLMLC STLMLC [id number] Common 00:00:00 00:00:00 [facility] 2020-07-21 2020-07-21 Outpatient STLMLC STLMLC [id number] Common 00:00:00 00:00:00 [facility] 2020-07-10 2020-07-10 Outpatient STLMLC STLMLC [id number] Common 00:00:00 00:00:00 [facility] 2020-04-22 2020-04-22 Outpatient STLMLC STLMLC [id number] Common 00:00:00 00:00:00 [facility] 2020-04-16 2020-04-16 Outpatient STLMLC STLMLC [id number] Common 00:00:00 00:00:00 [facility] 2020-04-10 2020-04-10 Outpatient STLMLC STLMLC [id number] Common 00:00:00 00:00:00 [facility] 2020-04-09 2020-04-09 Outpatient STLMLC STLMLC [id number] Common 00:00:00 00:00:00 [facility] 2020-03-30 2020-03-30 Outpatient STLMLC STLMLC [id number] Common 00:00:00 00:00:00 [facility] 2020-02-12 2020-02-12 [id number] Common 15:30:00 15:30:00 [place] [address] [facility] 2020-01-07 2020-01-07 [facility] [id number] Common 09:30:00 09:30:00 [place] [address] [facility] 2019-11-26 2019-11-26 [facility] [id number] Common 10:50:00 10:50:00 [place] [address] [facility] 2019-11-05 2019-11-05 [facility] [id number] Common 09:35:00 09:35:00 [place] [address] [facility] 2019-10-07 2019-10-07 [facility] [id number] Common 14:30:00 14:30:00 [place] [address] [facility] 2019-08-22 2019-08-22 [facility] [id number] Common 08:12:00 08:12:00 [place] [address] [facility] 2019-08-12 2019-08-12 [facility] [id number] Common 16:46:00 16:46:00 [place] [address] [facility] 2019-06-17 2019-06-17 [facility] [id number] Common 09:27:00 09:27:00 [place] [address] [facility] 2019-06-13 2019-06-13 [facility] [id number] Common 09:45:00 09:45:00 [place] [address] [facility] 2019-05-02 2019-05-02 [facility] [id number] Common 10:14:00 10:14:00 [place] [address] [facility] 2019-05-02 2019-05-02 [facility] [id number] Common 08:30:00 08:30:00 [place] [address] [facility] 2019-04-19 2019-04-19 [facility] [id number] Common 11:53:00 11:53:00 t [facility] [address] [facility] 2019-03-07 2019-03-07 [facility] [id number] Common 14:00:00 14:00:[address] [facility] Results This patient has no known results.
[2021-11-25 13:16] LABS: Absolute Lymphocytes (CBC) 1.4 K/uL (0.7-4.9); Lymphocytes % 24.2 % (15.3-44.8); MPV 7.7 fL (7.6-11.3); RBC Red Blood Cell Count 3.43 M/uL (4.33-5.43)
[2021-11-25] MEDS ORDERED: ACETAMINOPHEN 325 MG TABLET ONE (13:21)
[2021-11-25] MEDS ORDERED: NA CHLORIDE 0.9% 100 ML ONE ×3 (13:22→22:23)
[2021-11-25] MEDS ORDERED: NA CHLORIDE 0.9% 1,000 ML ONE (13:22)
[2021-11-25] MEDS ORDERED: PIPERACIL/TAZO 3.375 GM VIAL IV ONE ×3 (13:22→22:23)
[2021-11-25 13:26] LABS: Protime INR 1.64
[2021-11-25 13:34] LABS: Albumin 2.7 g/dL (3.4-5.0); Bilirubin Total 0.3 mg/dL (0.2-1.0); Potassium 3.9 mmol/L (3.5-5.1); Protein, Total 8.6 g/dL (6.4-8.2)
[2021-11-25 13:57] LABS: Urine Appearance Cloudy (Clear); Urine Bilirubin Negative (Negative); Urine Blood 2+ (Negative); Urine Color Yellow (Yellow); Urine Glucose Negative (Negative); Urine Protein 2+ (Negative); Urine Urobilinogen 0.2 mg/dL (0.2-1.0); Urine pH 5.5 (5.0-7.0)
[2021-11-25 14:00] LABS: Urine Microscopic Reflex NO UMIC
[2021-11-25 14:03] LABS: Urine Bacteria >50 /HPF (NONE SEEN)
[2021-11-25] MEDS ORDERED: PANTOPRAZOLE 40 MG INJ ONE (14:13)
--- NOTE | 2021-11-25 14:34 | RAD REPORT ---
EXAM DESCRIPTION: Feliberto Single View11/25/2021 2:02 pm CLINICAL HISTORY: Fever COMPARISON: 2018 FINDINGS: Chronic elevation of the right hemidiaphragm with mild right basilar atelectasis/scarring. Remainder of the lungs appear clear of acute infiltrate. The heart is normal size. Aorta is tortuous/ectatic
--- NOTE | 2021-11-25 14:51 | ER ---
Nurse's Notes [facility] Name: Jairo Samson Age: 76 yrs Sex: Male : 1945 Arrival Date: 11/25/2021 Time: 12:14 Bed 25 Private MD: Diagnosis: Fever, unspecified;UTI/ Urinary tract infection, site not specified;Anemia, unspecified;Tachycardia, unspecified Presentation: 11/25 12:34 Chief complaint: Spouse and/or significant other states: BP was low and heart rate was iw 100 this morning, is not acting like his normal self , [id number] in triage. Coronavirus screen: Client presents with at least one sign or symptom that may indicate coronavirus-19. Ebola Screen: Patient negative for fever greater than or equal to 101.5 degrees Fahrenheit, and additional compatible Ebola Virus Disease symptoms Patient denies exposure to infectious person. Patient denies travel to an Ebola-affected area in the 21 days before illness onset. No symptoms or risks identified at this time. Initial Sepsis Screen: Does the patient meet any 2 criteria? Temp <36.0*C (96.8*F)) or > 38.3*C (100.9*F). HR > 90 bpm. Does the patient have a suspected source of infection? No. Patient's initial sepsis screen is negative. Risk Assessment: Do you want to hurt yourself or someone else? Patient reports no desire to harm self or others. Onset of symptoms was November 25, 2021. 12:34 Method Of Arrival: Wheelchair iw 12:34 Acuity: BIJAL 3 iw Historical: - Allergies: 13:14 Cipro; ll1 - PMHx: 13:14 Hyperlipidemia; PE; Polio; Hypertension; DVT; Seizures; CVA; ll1 - Immunization history:: Adult Immunizations up to date. - Family history:: not pertinent. - Social history:: Smoking status: Patient denies any tobacco usage or history of. Screenin:37 Abuse screen: Denies threats or abuse. Nutritional screening: No deficits noted. ll1 Tuberculosis screening: No symptoms or risk factors identified. Fall Risk IV access (20 points). Ambulatory Aid- Crutches/Cane/Walker (15 pts). Gait- Impaired (20 pts.). Total Friedman Fall Scale indicates High Risk Score (45 or more points). Fall prevention measures have been instituted. Side Rails Up X 2 Placed Close to Nursing Station Frequent Obs/Assessments Occuring Family Present and informed to notify staff if the need to leave the bedside As available patient and family educated on Fall Prevention Program and Strategies. Assessment: 12:35 General: Appears ill, Behavior is cooperative, appropriate for age. General: fever. ll1 Pain: Denies pain. Cardiovascular: Parent/caregiver reports patient has had chest pain, fatigue, palpitations, high BP. Respiratory: No deficits noted. EENT: Reports nasal congestion. 13:30 Reassessment: No changes from previously documented assessment. Patient and/or family ll1 updated on plan of care and expected duration. Pain level reassessed. Patient is alert, oriented x 3, equal unlabored respirations, skin warm/dry/pink. 14:31 Reassessment: No changes from previously documented assessment. Patient and/or family ll1 updated on plan of care and expected duration. Pain level reassessed. Patient is alert, oriented x 3, equal unlabored respirations, skin warm/dry/pink. 15:30 Reassessment: Patient appears in no apparent distress at this time. No changes from ll1 previously documented assessment. Patient and/or family updated on plan of care and expected duration. Pain level reassessed. 16:30 Reassessment: No changes from previously documented assessment. Patient and/or family ll1 updated on plan of care and expected duration. Pain level reassessed. Patient is alert, oriented x 3, equal unlabored respirations, skin warm/dry/pink. 17:30 Reassessment: No changes from previously documented assessment. Patient and/or family ll1 updated on plan of care and expected duration. Pain level reassessed. Patient is alert, oriented x 3, equal unlabored respirations, skin warm/dry/pink. Vital Signs: 12:34 BP 116 / 56; Pulse 117; Resp 18 S; Temp 101.5(O); Pulse Ox 97% on R/A; iw 13:13 BP 176 / 76; Pulse 110; Resp 18; Pulse Ox 98% on R/A; ll1 14:31 BP 179 / 65; Pulse 102; Resp 17; Pulse Ox 100% ; ll1 16:07 BP 141 / 56; Pulse 104; Resp 19; Temp 98.0; Pulse Ox 97% on R/A; ll1 18:06 BP 156 / 62; Pulse 93; Resp 18; Temp 97.5; Pulse Ox 99% on R/A; Pain 0/10; ll1 16:07 1st unit of blood started ll1 ED Course: 12:14 Patient arrived in ED. rg4 12:36 Triage completed. iw 12:37 Marcella Machado, RN is Primary Nurse. ll1 12:37 Arm band placed on Patient placed in an exam room, on a stretcher. ll1 12:40 Pipo Salcedo MD is Attending Physician. amira 13:13 Patient has correct armband on for positive identification. Bed in low position. Call ll1 light in reach. Side rails up X2. Pulse ox on. NIBP on. 14:04 Chest Single View XRAY In Process Unspecified. EDMS 14:50 Lizandro Carroll MD is Hospitalizing Provider. amira 18:06 No provider procedures requiring assistance completed. Patient admitted, IV remains in ll1 place. Administered Medications: 13:23 Drug: NS 0.9% 1000 ml Route: IV; Rate: 1 bolus; Site: left forearm; ll1 14:28 Follow up: Response: No adverse reaction; IV Status: Completed infusion; IV Intake: ll1 1000ml 13:23 Drug: Tylenol Suppository 650 mg Route: HI; ll1 14:28 Follow up: Response: No adverse reaction; Temperature is decreased ll1 13:48 Drug: Zosyn (piperacillin-tazobactam) 3.375 grams Route: IVPB; Infused Over: 60 mins; ll1 Site: left antecubital; 14:28 Follow up: Response: No adverse reaction; IV Status: Completed infusion; IV Intake: ll1 100ml 14:24 Drug: ProTONIX (pantoprazole) 40 mg Route: IVP; Site: left forearm; ll1 14:29 Follow up: Response: No adverse reaction ll1 16:20 Drug: NS 0.9% 1000 ml Route: IV; Rate: 125 ml/hr; Site: left forearm; iw 18:07 Follow up: Response: No adverse reaction; IV Status: Completed infusion; IV Intake: ll1 200ml Medication: 12:38 VIS not applicable for this client. ll1 Intake: 14:28 IV: 100ml; Total: 100ml. ll1 14:28 IV: 1000ml; Total: 1100ml. ll1 18:07 IV: 200ml; Total: 1300ml. ll1 Outcome: 14:51 Decision to Hospitalize by Provider. amira 18:06 Admitted to ER Hold. Please see [facility] for further documentation. 1 18:06 Condition: stable 18:06 Instructed on the need for admit. 11/26 14:36 Patient left the ED. Signatures: Dispatcher [employer] Pipo Coles MD MD cha Williams, Irene, RN RN Jamila Isidro Lynsay, RN RN [facility]
--- NOTE | 2021-11-25 14:51 | EDPHYS ---
Physician Documentation [facility] Name: Jairo Samson Age: 76 yrs Sex: Male : 1945 Arrival Date: 11/25/2021 Time: 12:14 Bed 25 Private MD: ED Physician Pipo Salcedo HPI: 11/25 13:06 This 76 yrs old Black Male presents to ER via Wheelchair with complaints of amira Palpitations, Blood Pressure Problem. 13:06 The patient presents with a history of irregular heart beat, heart racing. Context: The amira symptoms occur at rest, during sleep. Onset: The symptoms/episode began/occurred today. Duration: The patient or guardian reports a single episode, that is still ongoing. Modifying factors: The symptoms are aggravated by nothing. The symptoms are alleviated by nothing. Associated signs and symptoms: Pertinent positives: cough, fever. Severity of symptoms: At their worst the symptoms were mild in the emergency department the symptoms are unchanged. The patient has not experienced similar symptoms in the past. Historical: - Allergies: 13:14 Cipro; ll1 - PMHx: 13:14 Hyperlipidemia; PE; Polio; Hypertension; DVT; Seizures; CVA; ll1 - Immunization history:: Adult Immunizations up to date. - Family history:: not pertinent. - Social history:: Smoking status: Patient denies any tobacco usage or history of. ROS: 13:06 Eyes: Negative for injury, pain, redness, and discharge, ENT: Negative for injury, amira pain, and discharge, Neck: Negative for injury, pain, and swelling, Cardiovascular: Negative for chest pain, palpitations, and edema, Respiratory: Negative for shortness of breath, cough, wheezing, and pleuritic chest pain, Abdomen/GI: Negative for abdominal pain, nausea, vomiting, diarrhea, and constipation, Back: Negative for injury and pain, : Negative for injury, bleeding, discharge, and swelling, MS/Extremity: Negative for injury and deformity, Skin: Negative for injury, rash, and discoloration, Neuro: Negative for headache, weakness, numbness, tingling, and seizure, Psych: Negative for depression, anxiety, suicide ideation, homicidal ideation, and hallucinations, Allergy/Immunology: Negative for hives, rash, and allergies, Endocrine: Negative for neck swelling, polydipsia, polyuria, polyphagia, and marked weight changes, Hematologic/Lymphatic: Negative for swollen nodes, abnormal bleeding, and unusual bruising. 13:06 Constitutional: Positive for body aches, chills, fatigue, poor PO intake. Exam: 13:06 Head/Face: Normocephalic, atraumatic. Eyes: Pupils equal round and reactive to light, amira extra-ocular motions intact. Lids and lashes normal. Conjunctiva and sclera are non-icteric and not injected. Cornea within normal limits. Periorbital areas with no swelling, redness, or edema. ENT: Nares patent. No nasal discharge, no septal abnormalities noted. Tympanic membranes are normal and external auditory canals are clear. Oropharynx with no redness, swelling, or masses, exudates, or evidence of obstruction, uvula midline. Mucous membranes moist. Neck: Trachea midline, no thyromegaly or masses palpated, and no cervical lymphadenopathy. Supple, full range of motion without nuchal rigidity, or vertebral point tenderness. No Meningismus. Chest/axilla: Normal chest wall appearance and motion. Nontender with no deformity. No lesions are appreciated. Cardiovascular: Regular rate and rhythm with a normal S1 and S2. No gallops, murmurs, or rubs. Normal PMI, no JVD. No pulse deficits. Respiratory: Lungs have equal breath sounds bilaterally, clear to auscultation and percussion. No rales, rhonchi or wheezes noted. No increased work of breathing, no retractions or nasal flaring. Abdomen/GI: Soft, non-tender, with normal bowel sounds. No distension or tympany. No guarding or rebound. No evidence of tenderness throughout. Back: No spinal tenderness. No costovertebral tenderness. Full range of motion. Male : Normal genitalia with no discharge or lesions. Skin: Warm, dry with normal turgor. Normal color with no rashes, no lesions, and no evidence of cellulitis. 13:06 Constitutional: The patient appears febrile. 13:06 Cardiovascular: Rate: tachycardic, Rhythm: regular, Pulses: Pulses are 4+ in bilateral radial, brachial, femoral, popliteal, posterior tibial and and dorsalis pedis arteries.. Heart sounds: murmur, Edema: 1+ edema to level of right forearm, left midcalf, left forearm and right midcalf. 13:06 ECG was reviewed by the Attending Physician. 14:45 Abdomen/GI: Rectal exam: is unremarkable, Prostate: normal, rectal tone normal, Stool: amira guaiac negative, hemorrhoid(s), are not appreciated, mass, is not appreciated, swelling, is not appreciated. Vital Signs: 12:34 BP 116 / 56; Pulse 117; Resp 18 S; Temp 101.5(O); Pulse Ox 97% on R/A; iw 13:13 BP 176 / 76; Pulse 110; Resp 18; Pulse Ox 98% on R/A; ll1 14:31 BP 179 / 65; Pulse 102; Resp 17; Pulse Ox 100% ; ll1 16:07 BP 141 / 56; Pulse 104; Resp 19; Temp 98.0; Pulse Ox 97% on R/A; ll1 18:06 BP 156 / 62; Pulse 93; Resp 18; Temp 97.5; Pulse Ox 99% on R/A; Pain 0/10; ll1 16:07 1st unit of blood started ll1 MDM: 12:41 Patient medically screened. amira 13:09 JAMES Risk Score: 1 - Patient's age is greater or equal to 65, 1 - 3 or more CAD risk amira factors, 1 - Known CAD, 1 - ASA use in past 7 days, Total Score = 4. Differential diagnosis: arrythmia, dehydration, stress disorder. Data reviewed: vital signs, nurses notes, lab test result(s), EKG, radiologic studies, doppler, plain films. Data interpreted: Pulse oximetry: on room air is 97 %. Test interpretation: by ED physician or midlevel provider: ECG, plain radiologic studies. Counseling: I had a detailed discussion with the patient and/or guardian regarding: the historical points, exam findings, and any diagnostic results supporting the discharge/admit diagnosis, lab results, radiology results, the need for further work-up and treatment in the hospital. 11/25 12:48 Order name: Blood Culture Adult (2) formerly [facility] 11/25 12:48 Order name: CBC with Diff; Complete Time: 13:58 [facility] 11/25 12:48 Order name: CMP; Complete Time: 13:58 [facility] 11/25 12:48 Order name: Lactate; Complete Time: 13:58 [facility] 11/25 12:48 Order name: Protime (+inr); Complete Time: 13:58 [facility] 11/25 12:48 Order name: Ptt, Activated; Complete Time: 13:58 [facility] 11/25 12:48 Order name: Urine Culture [facility] 11/25 12:48 Order name: Urine Microscopic Only; Complete Time: 14:46 [facility] 11/25 12:50 Order name: Troponin HS; Complete Time: 13:58 [facility] 11/25 12:53 Order name: SARS-COV-2 RT PCR (Document "Date of Onset" if Symptomatic); Complete Time: [facility] 14:46 11/25 12:53 Order name: Flu; Complete Time: 13:58 [facility] 11/25 13:09 Order name: Glucose, Ancillary Testing; Complete Time: 13:58 [facility] 11/25 12:48 Order name: Chest Single View XRAY; Complete Time: 14:46 [facility] 11/25 12:48 Order name: Accucheck; Complete Time: 13:23 [facility] 11/25 12:50 Order name: EKG; Complete Time: 12:51 [facility] 11/25 13:57 Order name: Urinalysis; Complete Time: 14:46 [facility] 11/25 13:59 Order name: Type And Screen [facility] 11/25 15:03 Order name: Packed RBC Leukored [facility] 11/25 17:58 Order name: Diet Heart Healthy; Complete Time: 17:59 ll1 11/26 04:26 Order name: CBC with Automated Diff [facility] 11/26 04:38 Order name: Basic Metabolic Panel [facility] 11/26 04:38 Order name: Magnesium [facility] 11/26 07:46 Order name: Gram Stain--Aerobic Bottle [facility] 11/25 12:48 Order name: Cardiac monitoring; Complete Time: 13:23 [facility] 11/25 12:48 Order name: EKG - Nurse/Tech; Complete Time: 13:24 [facility] 11/25 12:48 Order name: IV Saline Lock - Large Bore; Complete Time: 12:53 [facility] 11/25 12:48 Order name: Labs collected and sent; Complete Time: 12:53 [facility] 11/25 12:48 Order name: O2 Per Protocol; Complete Time: 12:53 [facility] 11/25 12:48 Order name: O2 Sat Monitoring; Complete Time: 12:53 [facility] 11/25 12:48 Order name: Urine Dipstick-Ancillary (obtain specimen); Complete Time: 13:48 3 11/25 12:50 Order name: IV Saline Lock; Complete Time: 12:53 amira 11/25 12:50 Order name: Cath; Complete Time: 13:38 dh3 EC:06 Rate is 116 beats/min. Rhythm is regular. QRS [place] is Normal. [place] interval is normal. amira QRS interval is normal. QT interval is normal. No Q waves. T waves are Normal. No ST changes noted. Clinical impression: Sinus tachycardia. Interpreted by me. Reviewed by me. Administered Medications: 13:23 Drug: NS 0.9% 1000 ml Route: IV; Rate: 1 bolus; Site: left forearm; ll1 14:28 Follow up: Response: No adverse reaction; IV Status: Completed infusion; IV Intake: ll1 1000ml 13:23 Drug: Tylenol Suppository 650 mg Route: UT; ll1 14:28 Follow up: Response: No adverse reaction; Temperature is decreased [facility] 13:48 Drug: Zosyn (piperacillin-tazobactam) 3.375 grams Route: IVPB; Infused Over: 60 mins; 1 Site: left antecubital; 14:28 Follow up: Response: No adverse reaction; IV Status: Completed infusion; IV Intake: ll1 100ml 14:24 Drug: ProTONIX (pantoprazole) 40 mg Route: IVP; Site: left forearm; ll1 14:29 Follow up: Response: No adverse reaction 1 16:20 Drug: NS 0.9% 1000 ml Route: IV; Rate: 125 ml/hr; Site: left forearm; iw 18:07 Follow up: Response: No adverse reaction; IV Status: Completed infusion; IV Intake: ll1 200ml Disposition Summary: 11/25/21 14:51 Hospitalization Ordered Hospitalization Status: Inpatient Admission amira Provider: Lizandro Carroll amira Condition: Fair amira Problem: new amira Symptoms: have improved amira Bed/Room Type: Standard amira Location: Telemetry/MedSurg (Inpatient)(11/26/21 11:03) delia Room Assignment: (11/26/21 11:52) jaCamilla Diagnosis - Fever, unspecified amira - UTI/ Urinary tract infection, site not specified amira - Anemia, unspecified amira - Tachycardia, unspecified amira Forms: - Medication Reconciliation Form amira - SBAR form amira Signatures: Dispatcher [employer] EDMS Pipo Salcedo MD MD cha Williams, Irene, RN RN Michelle Decker, RN RN Liliana Jc 3 Felipe Rubio RN RN Marcella Rizzo RN RN ll1 Ashley Samson, AMY PA sb3 Corrections: (The following items were deleted from the chart) 13:15 12:51 BASIC METABOLIC PANEL+C.LAB.BRZ ordered. EDMS EDMS 14:03 13:39 URINALYSIS+U.LAB.BRZ ordered. EDMS EDMS 19:18 14:51 Telemetry/MedSurg (Inpatient) [facility] 19:18 14:51 [facility] 11/26 11:03 11/25 19:18 [facility] ER HOLD [facility] 11/26 11:03 11/25 19:18 ERHOLD- c[facility] 11/26 11:52 11:[address] [place] [address]
[2021-11-25] MEDS ORDERED: DIPHENHYDRAMINE 50 MG/ML VIAL ONE (15:56)
[2021-11-25] MEDS ORDERED: NA CHLORIDE 0.9% 500 ML ONE (15:56)
--- NOTE | 2021-11-25 16:34 | P.HP ---
Certification for Inpatient Patient admitted to: Inpatient With expected LOS: <2 Midnights Patient will require the following post-hospital care: None Practitioner: I am a practitioner with admitting privileges, knowledge of patient current condition, hospital course, and medical plan of care. 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 Patient was noted to be febrile during triage at 101.5 and slightly tachycardic but normotensive. Workup revealed UTI, hgb 7.9, hct 25. He was given Tylenol, Z osyn, Protonix in the ED. 2 units of PRBC ordered. Patient is nonverbal and cannot answer questions but is alert and in no apparent distress during my assessment. ED provider wishes to admit patient for further evaluation and treatment. Allergies ciprofloxacin Allergy (Verified 12/15/15 22:39) UNKNOWN Home medications list reviewed: Yes Home Medications: Lacosamide [Vimpat*] 200 mg PO BID 10/08/18 Levetiracetam [Keppra] 500 mg PO BID 10/08/18 Multivit-Min/Folic/Vit K/Lycop [Men's 50 Plus Multivitamin Tab] 1 each PO DAILY 10/08/18 PHENobarbitaL [Phenobarbital*] 64.8 mg PO BEDTIME 10/08/18 Simvastatin 20 mg PO BEDTIME 10/08/18 Topiramate 50 mg PO BEDTIME 10/08/18 Zonisamide [Zonegran] 100 mg PO DAILY 10/08/18 carisoprodoL [Soma*] 350 mg PO BID PRN 10/08/18 Apixaban [Eliquis *] 1 tab PO BID 10/30/18 Ferrous Gluconate [Iron] 240 mg PO BID 10/30/18 Amoxicillin/Potassium Clav [Augmentin 500-125 Tablet] 1 each PO BID #14 tablet 11/02/18 Metoprolol Tartrate [Lopressor*] 12.5 mg PO BID #60 tab 11/02/18 - Past Medical/Surgical History Diabetic: No -: CVA with deficits on right side -: HTN -: Pulmonary embolism -: Seizures -: 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 - Family History Father -: Hypertension Mother -: Hypertension Brother -: Hypertension Sister -: Hypertension, Cancer - Social History Smoking Status: Never smoker Alcohol use: No CD- Drugs: No Caffeine use: No Place of Residence: Home Review of Systems is unable to be obtained Physical Examination - Physical Exam General: Alert, In no apparent distress HEENT: Atraumatic, Normocephalic, Sclerae nonicteric Neck: Supple, 2+ carotid pulse no bruit, No LAD, Without JVD or thyroid abnormality Respiratory: Clear to auscultation bilaterally, Normal air movement Cardiovascular: Regular rate/rhythm, Normal S1 S2 Gastrointestinal: Normal bowel sounds, No tenderness Musculoskeletal: No tenderness, Contractures Integumentary: No rashes Neurological: Sensation intact, Abnormal speech, Abnormal strength, Abnormal tone - Studies Laboratory Data (last 24 hrs) 11/25/21 12:50: Sodium Cancelled, Potassium Cancelled, BUN Cancelled, Creatinine Cancelled, Glucose Cancelled 11/25/21 12:50: PT 18.2 H, INR 1.64, APTT 41.7 H 11/25/21 12:50: Sodium 139, Potassium 3.9, BUN 38 H, Creatinine 1.13, Glucose 13 5 H, Total Bilirubin 0.3, AST 46 H, ALT 48, Alkaline Phosphatase 136 H 11/25/21 12:50: WBC 5.9 D, Hgb 7.9 L, Hct 25.0 L, Plt Count 273 D Microbiology Data (last 24 hrs): 11/25/21 13:11 Nasopharnyx Influenza Type A Antigen Screen - Final 11/25/21 13:11 Nasopharnyx Influenza Type B Antigen Screen - Final Assessment and Plan - Problems (Diagnosis) (1) UTI (urinary tract infection) Current Visit: Yes Status: Acute Qualifiers: Urinary tract infection type: acute cystitis Hematuria presence: with hematuria Qualified Code(s): N30.01 - Acute cystitis with hematuria (2) Acute anemia Current Visit: Yes Status: Acute (3) Fever Onset Date: 02/17/16 Current Visit: Yes Status: Acute Qualifiers: Fever type: due to other condition Qualified Code(s): R50.81 - Fever presenting with conditions classified elsewhere (4) Hemiparesis 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 -2 units PRBC ordered for anemia. Patient has chronic anemia but is below his baseline and is on chemotherapy for MDS. Monitor CBC. -Continue tylenol as needed for fever. -Blood and urine cultures sent. -Reconcile and continue home medications. -SCDs for VTE ppx Discharge Plan: Home Plan to discharge in: 48 Hours - Advance Directives Does patient have a Living Will: No Does patient have a Durable POA for Healthcare: No - Code Status/Comfort Care Code Status Assessed: Yes (Full) Critical Care: No Time Spent Managing Pts Care (In Minutes): 50
[2021-11-25] MEDS ORDERED: ACETAMINOPHEN 500 MG TAB PO PRN (18:01)
[2021-11-25] MEDS ORDERED: ONDANSETRON 4 MG/2 ML VIAL IV PRN (18:01)
[2021-11-25 18:15] VITALS: BMI 20.9
[2021-11-25] MEDS: LACOSAMIDE 50 MG TABLET PO SCH (21:33)
[2021-11-25] MEDS ORDERED: LACOSAMIDE 50 MG TABLET ONE (21:35)
[2021-11-25] MEDS: PIPER TAZO 3.375 GM in NA CHLORIDE 0.9% 100 ML IV SCH (22:30)
[2021-11-26] MEDS: PIPER TAZO 3.375 GM in NA CHLORIDE 0.9% 100 ML IV SCH ×2 (01:00→09:00)
[2021-11-26 02:32] VITALS: O2SAT 99
[2021-11-26 04:24] LABS: Absolute Lymphocytes (CBC) 1.3 K/uL (0.7-4.9); Hematocrit 27.5 % (39.6-49.0); Lymphocytes % 20.5 % (15.3-44.8); MPV 7.2 fL (7.6-11.3); RBC Red Blood Cell Count 3.61 M/uL (4.33-5.43)
[2021-11-26 04:37] LABS: Potassium 3.5 mmol/L (3.5-5.1)
[2021-11-26 07:35] VITALS: BP 140/64; TEMP 98.6
[2021-11-26] MEDS ORDERED: LACOSAMIDE 50 MG TABLET ONE (07:58)
[2021-11-26] MEDS ORDERED: NA CHLORIDE 0.9% 100 ML ONE (07:59)
[2021-11-26] MEDS ORDERED: PIPERACIL/TAZO 3.375 GM VIAL IV ONE (07:59)
[2021-11-26] MEDS: LACOSAMIDE 50 MG TABLET PO SCH (09:00)
--- NOTE | 2021-11-26 10:45 | P.DS ---
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 Patient was noted to be febrile during triage at 101.5 and slightly tachycardic but normotensive. Workup revealed UTI, hgb 7.9, hct 25. He was given Tylenol, Zosyn, Protonix in the ED. 2 units of PRBC ordered. Patient is nonverbal and cannot answer questions but is alert and in no apparent distress during my assessment. ED provider wishes to admit patient for further evaluation and treatment. Allergies ciprofloxacin Allergy (Verified 12/15/15 22:39) UNKNOWN Home medications list reviewed: Yes Home Medications: Lacosamide [Vimpat*] 200 mg PO BID 10/08/18 Levetiracetam [Keppra] 500 mg PO BID 10/08/18 Multivit-Min/Folic/Vit K/Lycop [Men's 50 Plus Multivitamin Tab] 1 each PO DAILY 10/08/18 PHENobarbitaL [Phenobarbital*] 64.8 mg PO BEDTIME 10/08/18 Simvastatin 20 mg PO BEDTIME 10/08/18 Topiramate 50 mg PO BEDTIME 10/08/18 Zonisamide [Zonegran] 100 mg PO DAILY 10/08/18 carisoprodoL [Soma*] 350 mg PO BID PRN 10/08/18 Apixaban [Eliquis *] 1 tab PO BID 10/30/18 Ferrous Gluconate [Iron] 240 mg PO BID 10/30/18 Amoxicillin/Potassium Clav [Augmentin 500-125 Tablet] 1 each PO BID #14 tablet 11/02/18 Metoprolol Tartrate [Lopressor*] 12.5 mg PO BID #60 tab 11/02/18 - Past Medical/Surgical History Diabetic: No -: CVA with deficits on right side -: HTN -: Pulmonary embolism -: Seizures -: 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 He received 2 unit PRBC for his history of MDS. His hemoglobin improved from 7.9-9.1. Patient initial tachycardia subsequently improved. He was also noted with UTI with high urine bacteria and leukocyturia. He was started on empiric antibiotics with Augmentin. He remained afebrile during hospitalization. He will be discharged home today to continue antibiotic regimen for 7 days. If urine culture grow any resistant bacteria patient will be called to adjust antibiotics. His blood culture shows no growth to date. Of note during hospitalization patient mental status also subsequently improved. has been taking care of patient and declined option of home health help - Physical Exam General: Alert, In no apparent distress HEENT: Atraumatic, Normocephalic, Sclerae nonicteric Neck: Supple, 2+ carotid pulse no bruit, No LAD, Without JVD or thyroid abnormality Respiratory: Clear to auscultation bilaterally, Normal air movement Cardiovascular: Regular rate/rhythm, Normal S1 S2 Gastrointestinal: Normal bowel sounds, No tenderness Musculoskeletal: No tenderness, Contractures Integumentary: No rashes Neurological: Sensation intact, Abnormal speech, Abnormal strength, Abnormal tone Vital Signs/Physical Exam: Temp Pulse Resp BP Pulse Ox 98.6 F 80 18 140/64 95 11/26/21 07:31 11/26/21 07:31 11/26/21 07:31 11/26/21 07:31 11/26/21 07:31 Laboratory Data at Discharge: WBC 6.1 K/uL (4.3-10.9) 11/26/21 04:05 Hgb 9.0 g/dL (13.6-17.9) L 11/26/21 04:05 Hct 27.5 % (39.6-49.0) L 11/26/21 04:05 Plt Count 228 K/uL (152-406) 11/26/21 04:05 PT 18.2 SECONDS (9.5-12.5) H 11/25/21 12:50 INR 1.64 11/25/21 12:50 APTT 41.7 SECONDS (24.3-36.9) H 11/25/21 12:50 Sodium 138 mmol/L (136-145) 11/26/21 04:05 Potassium 3.5 mmol/L (3.5-5.1) 11/26/21 04:05 BUN 34 mg/dL (7-18) H 11/26/21 04:05 Creatinine 0.97 mg/dL (0.55-1.3) 11/26/21 04:05 Glucose 95 mg/dL (74-106) 11/26/21 04:05 Magnesium 2.0 mg/dL (1.8-2.4) 11/26/21 04:05 Total Bilirubin 0.3 mg/dL (0.2-1.0) 11/25/21 12:50 AST 46 U/L (15-37) H 11/25/21 12:50 ALT 48 U/L (12-78) 11/25/21 12:50 Alkaline Phosphatase 136 U/L (45-117) H 11/25/21 12:50 Home Medications: Lacosamide [Vimpat*] 200 mg PO BID 10/08/18 Levetiracetam [Keppra] 500 mg PO BID 10/08/18 Multivit-Min/Folic/Vit K/Lycop [Men's 50 Plus Multivitamin Tab] 1 each PO DAILY 10/08/18 PHENobarbitaL [Phenobarbital*] 64.8 mg PO BEDTIME 10/08/18 Simvastatin 20 mg PO BEDTIME 10/08/18 Topiramate 50 mg PO BEDTIME 10/08/18 Zonisamide [Zonegran] 100 mg PO DAILY 10/08/18 carisoprodoL [Soma*] 350 mg PO BID PRN 10/08/18 Apixaban [Eliquis *] 5 tab PO BID 10/30/18 Ferrous Gluconate [Iron] 240 mg PO BID 10/30/18 Amoxicillin/Potassium Clav [Augmentin 500-125 Tablet] 1 each PO BID #14 tablet 11/02/18 Metoprolol Tartrate [Lopressor*] 25 mg PO BID 11/25/21 Diet: Low sodium Activity: Ad leisa Followup: Sheldon Sanchez DO [Primary Care Provider] - Time spent managing pt's care (in minutes): 35
--- NOTE | 2021-11-26 18:00 | EKG ---
Test Date: 2021-11-25 Test Time: 12:49:25 Mechanical Project Engineer: CINDY MEASUREMENT RESULTS: Intervals: Rate: 116 AK: 152 QRSD: 84 QT: 322 QTc: 447 [place]: P: 52 AK: 152 QRS: 11 T: 46 INTERPRETIVE STATEMENTS: Sinus tachycardia Nonspecific T wave abnormality Abnormal ECG Compared to ECG 10/29/2018 12:24:28 T-wave abnormality now present Electronically Signed On 11-26-21 17:57:45 CDT by Giovany Herman
== END 2021-11-26 14:35 | disposition home or self-care (01) ==
LOC: ER 12:11 → ERHOLD 16:13 → INTOOBSV 16:13 → OBSVTOIN 16:13
PROVIDERS: ADMIT Internal Medicine; ATTEND Internal Medicine
PROC: 30233N1 Transfusion of Nonautologous Red Blood Cells into Peripheral Vein, Percutaneous Approach (ICD-10-PCS; principal; 2021-11-25)
DX: N30.01 Acute cystitis with hematuria (principal); D50.9 Iron deficiency anemia, unspecified; G93.41 Metabolic encephalopathy; D46.9 Myelodysplastic syndrome, unspecified; I69.951 Hemiplegia and hemiparesis following unspecified cerebrovascular disease affecting right dominant side; I10 Essential (primary) hypertension; E78.5 Hyperlipidemia, unspecified; I95.9 Hypotension, unspecified; G40.909 Epilepsy, unspecified, not intractable, without status epilepticus; E78.00 Pure hypercholesterolemia, unspecified; Z86.12 Personal history of poliomyelitis; Z86.718 Personal history of other venous thrombosis and embolism; Z86.711 Personal history of pulmonary embolism; Z79.01 Long term (current) use of anticoagulants; Z79.899 Other long term (current) drug therapy; Z88.1 Allergy status to other antibiotic agents; Z82.49 Family history of ischemic heart disease and other diseases of the circulatory system; Z80.9 Family history of malignant neoplasm, unspecified
CPT/HCPCS: 96365; 96361; 93005; 87040 ×2; 87088; 85025 ×2; 87086; 80048; 36415; 86900; 83735; 86850; 87205 ×2; 85610; 86901; 82947; 83605; 85730; 87077 ×2; 87186 ×2; 84484; 80053; 87804 ×2; 71045; 96375; 99285; 36430; U0003; J1200; J2543 ×3; C9113; G0378 ×2; P9016 ×2; J7040; J7030; 81003; 81015

== ENCOUNTER 2023-05-15 19:00 | Inpatient (IN) | payer OTHER ==
--- OUTSIDE RECORDS SUMMARY | 2023-05-15 19:12 | XMS REPORT | Continuity of Care Document ---
:1945 Author Organization [facility] t Address [address] [place] [address] Care Team Providers Name Role Phone Sheldon Sanchez Attending Clinician Unavailable Mio Jay Attending Clinician Payers Payer Name Policy Type Policy Number Effective Date Expiration Date S tristin MEDICAID MC [id number] [facility] MEDICARE MB [id number] [facility] MEDICAID MC [id number] [facility] MEDICARE MB [id number] [facility] MEDICARE MB [id number] [facility] MEDICAID MC [id number] [facility] MEDICAID MC [id number] [facility] MEDICARE MB [id number] [facility] MEDICAID MC [id number] [facility] MEDICARE MB [id number] [facility] Problems Condition Condition Condition Status Onset Resolution Last Treating Co mments Source Name Details Category Date Date Treatment Clinician Date Hypotensio Hypotensio Disease Active C HI St n n 02-23 [facility] 00 Center Essential Essential Disease Recurre [facility] I [facility] hypertensi hypertensi nce 02-22 Dilcia kes on with on with 00:00: Medical goal blood goal blood 00 Ce nter pressure pressure less than less than 140/90 140/90 Acute Acute Disease Recurre [facility] encephalop encephalop nce 02-21 Dilcia kes athy athy 00:00: Medical 00 Center Status Status Disease Recurre [facility] epilepticu epilepticu nce 02-18 Dilcia kes s s 00:00: Medical 00 Tiger [id number] Leukopenia Problem Com mon , Spirit unspecifie - [facility] d type [facility] 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 Medica l jugular jugular Center vein vein Anemia of Anemia of Problem Com mon chronic other Spirit disease chronic - CHI disease [facility] Iron Iron Problem Common deficiency deficiency Sp courtney anemia due anemia due - CHI to chronic to chronic St blood loss blood loss [facility] [id number] Swallowing Problem Co mmon dysfunctio Spirit n [facility] [id number] Metabolic Problem Comm on encephalop Spirit athy [facility] Seasonal Seasonal Problem Commo n allergy allergies [facility] Sinus Sinus Problem Common problem problem [facility] Seizure Seizures Problem Common [facility] [id number] Long-term Problem Com mon (current) Spirit use of - CHI anticoagul St ants, INR [facility] goal Medical 2.0-3.0 Center Decreased Other Problem Common blood decreased Spirit leucocyte white [facility] number blood cell St (WBC) [facility] count [facility] [id number] History of Problem Co mmon pulmonary Spirit embolism [facility] [id number] History of Problem Co mmon CVA Spirit (cerebrova - [facility] scular St accident) [facility] Stroke Stroke Problem Common [facility] [id number] Seizure Problem Commo n disorder Spirit [facility] [id number] History of Problem Co mmon poliomyeli Spirit tis [facility] [id number] Iron Problem Common deficiency Spirit anemia, - CHI unspecifie St d iron [facility] deficiency Medica l anemia Center type [id number] +5th digit Problem Co mmon eff Spirit 04/02/20*St - CHI age 5 chronic [facility] kidney Medical disease Center High High Problem Common cholestero cholestero Sp courtney l l - CHI [facility] [id number] Wheelchair Problem Co mmon confinemen Spirit t - CHI [facility] [id number] 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 - CHI right side St as late kes effect of Medical cerebrovas Center cular accident (CVA) [id number] History 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 [facility] Chronic Chronic Problem Common anemia anemia Spirit - CHI [facility] [id number] Stage 3a Problem Comm on chronic Spirit kidney - CHI disease [facility] 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 13:44:30 l (disorder) (disorder) He rmann Active Problem 05/14/2023 [facility] Hypertensi Hypertens Problem Active 2023-05-14 Memoria ve rene 13:44:30 l disorder, disorder, Herm clovis systemic systemic arterial arterial (disorder) (disorder) Active Problem 05/14/2023 [facility] Hyperlipid Hyperlipi Problem Active 2023-05-14 Memoria emia demia 13:44:30 l (disorder) (disorder) He rmann Active Problem 05/14/2023 [facility] 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 13:44:30 l with with Prim impairment impairment of of consciousn consciousn ess ess (disorder) (disorder) Active Problem 05/14/2023 [facility] Pulmonary Pulmonary Problem Active 2023-05-14 Memoria embolism embolism 13:44:30 l (disorder) (disorder) He rmann Active Problem 05/14/2023 [facility] Allergies, Adverse Reactions, Alerts Allergy Allergy Status Severity Reaction(s) Onset Inactive Treating Comm ents Source Name Type Date Date Clinician Ciproflo Propensi Active Other (See 2016-[address] xacin ty to Comments) 8-19 clots per Luke s adverse 00:00: family Medical reaction Center s No Known No Known Active Memori a Medicati Medicati l on on Ramin Allergie Allergie s s Social History Social Habit Start Date Stop Date Quantity Comments Source History of Tobacco Common Spirit - Use [facility] Sexual orientation [facility] Alcohol intake 2016-03-09 2016-03-09 Current [facility] 00:00:00 00:00:00 non-drinker of Medical Ce nter alcohol (finding) Sex Assigned At [birth year] [facility] 00:00:00 00:00:00 Medical Center Smoking Status Start Date Stop Date Source Never smoked tobacco [facility] Medications Ordered Filled Start Stop Current Ordering Indication Dosage Frequency Signature Comments Components Source Medication Medication Date Date Medication? Clinician (SIG) Name Name PHENobarbit Yes 64.8 mg = M emoria al 64.8 mg 9-19 1 tab, PO, l oral tablet 21:00: Daily, # He rmann 00 30 tab, 3 Refill(s), Pharmacy: [id number] topiramate Yes = 1 tab, Mem oria 50 mg oral 6-12 PO, l tablet 18:13: Bedtime, # Etelvina nn 00 90 tab, 2 Refill(s), Pharmacy: [facility] Vimpat 200 Yes 200 mg = 1 M emoria mg oral 6-12 tab, PO, l tablet 18:13: BID, X 30 Stephen n 00 day, # 60 tab, 5 Refill(s), Pharmacy: [facility] levETIRAcet Yes = 1 tab, Me moria am 500 mg 5-10 PO, BID, # l oral tablet 17:30: 180 tab, 2 Ramin 00 Refill(s), Pharmacy: [facility] zonisamide Yes = 1 cap, Mem oria 100 mg oral 4-11 PO, Daily, l capsule 17:31: # 90 Ramin 00 unknown unit, 2 Refill(s), Pharmacy: [facility] Vimpat 200 2021-07 Yes 200 mg = 1 M emoria mg oral 2-16 tab, PO, l tablet 19:14: BID, # 180 Etelvina nn 00 tab, 1 Refill(s), Pharmacy: [facility] Vimpat 200 2021-07 Yes 200 mg = 1 M emoria mg oral 0-20 tab, PO, l tablet 19:25: BID, # 60 Stephen n 00 tab, 5 Refill(s), Pharmacy: [facility], 180.34, cm, 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, 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, 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, kg, 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, Weight zonisamide 2021-07 Yes = 1 cap, Mem oria 100 mg oral 0-12 PO, Daily, l capsule 23:05: # 90 Ramin 00 unknown unit, 1 Refill(s), Pharmacy: [facility], 180.34, cm, 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, kg, 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, Weight topiramate Yes = 1 tab, Mem oria 50 mg oral 3-25 PO, l tablet 22:14: Bedtime, # Etelvina nn 00 90 tab, 2 Refill(s), Pharmacy: [facility] #[id number], 180.34, cm, 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, 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, 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, kg, 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, Weight topiramate 2019- Yes 50 mg = 1 Me moria 50 mg oral 1-06 tab, PO, l tablet 16:14: Bedtime, # Etelvina nn 00 30 tab, 6 Refill(s), Pharmacy: [facility] #[id number], 180.34, cm, 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, 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, 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, kg, 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, Weight lacosamide 2019- Yes 200 mg = 1 M emoria 200 MG Oral 1-06 tab, PO, l Tablet 16:13: BID, # 60 Stephen n [Vimpat] 00 tab, 5 Refill(s), Pharmacy: [facility] #[id number], 180.34, cm, 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, 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, 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, kg, 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, Weight PHENobarbit 2019-07 Yes See Memori a al 64.8 mg 1-06 Instructio l oral tablet 16:13: ns, TAKE 1 Prim 00 TABLET BY MOUTH DAILY., # 30 tab, 5 Refill(s), Pharmacy: [facility] #[id number], 180.34, cm, 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, 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, 74.091, kg, 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, Weight zonisamide 2019-0 Yes 100 mg = 1 M emoria 100 mg oral 5-06 cap, PO, l capsule 14:53: Daily, # Stephen n 00 90 cap, 3 Refill(s), Pharmacy: [facility] #[id number] Levetiracet 2020-0 Yes See Memori a am 500 MG 5-06 Instructio l Oral Tablet 14:53: ns, TAKE 1 Ramin 00 TABLET BY MOUTH TWICE DAILY, # 180 tab, 6 Refill(s), Pharmacy: [facility] #[id number] topiramate 2020-0 Yes 50 mg = 1 Me moria 50 mg oral 5-06 tab, PO, l tablet 14:52: Bedtime, # Etelvina nn 00 30 tab, 6 Refill(s), Pharmacy: [facility] #[id number] PHENobarbit Yes See Memori a al 64.8 mg 5-06 Instructio l oral tablet 14:52: ns, TAKE 1 Ramin 00 TABLET BY MOUTH DAILY., # 30 tab, 5 Refill(s), Pharmacy: [facility] #[id number] lacosamide Yes 200 mg = 1 M emoria 200 MG Oral 5-06 tab, PO, l Tablet 14:51: BID, # 60 Stephen n [Vimpat] 00 tab, 5 Refill(s), Pharmacy: [facility] #[id number] PHENobarbit No See Memori a al 64.8 mg 4-06 Instructio l oral tablet 17:38: ns, # 30 He rmann 14 tab, Refill(s) 5, TAKE 1 TABLET BY MOUTH DAILY., Pharmacy: [facility] #[id number] topiramate 2018-07 Yes 50 mg = 1 Me moria 50 mg oral -07 tab, PO, l tablet 16:45: Bedtime, # Etelvina nn 16 30 tab, 6 Refill(s), Pharmacy: [facility] #[id number] zonisamide 2018-07 Yes 100 mg = 1 M emoria 100 mg oral -07 cap, PO, l capsule 16:44: Daily, # Stephen n 55 90 cap, 3 Refill(s), Pharmacy: [facility] #[id number] PHENobarbit 2018-07 Yes 64.8 mg = M emoria al 64.8 mg -07 1 tab, PO, l oral tablet 16:44: Daily, # He rmann 40 30 tab, 5 Refill(s) Levetiracet 2018-07 Yes See Memori a am 500 MG 1-07 Instructio l Oral Tablet 16:44: ns, TAKE 1 Prim 36 TABLET BY MOUTH TWICE DAILY, # 180 tab, 6 Refill(s), Pharmacy: [facility] #[id number] lacosamide 2018-07 Yes 200 mg = 1 M emoria 200 MG Oral 1-07 tab, PO, l Tablet 16:44: BID, # 60 Stephen n [Vimpat] 31 tab, 5 Refill(s) Metoprolol Metoprolol 2018-07 Yes Sheldon 1 tablet Common Tartrate Tartrate 0-31 Sanchez with food S pirit 00:00: - [facility] 00 [facility] lacosamide No 200 mg = 1 M emoria 200 MG Oral 9-23 tab, PO, l Tablet 17:21: BID, # 60 Stephen hu [Vimpat] 58 tab, 2 Refill(s[facility] Sheldon 1 Common ne ne 9-12 Sanchez applicatio Spirit Acetonide Acetonide 00:00: n to - C HI 00 affected [facility] Triamcinolo Triamcinolo No 1{appli BID Triamcinol ne ne 9-12 cation_ one Acetonide Acetonide 00:00: to_affe Acetonide 0.5 % 0.5 % 00 cted_ar 0.5 % ea} Triamcinolo Triamcinolo No 1{appli BID Triamcinol ne ne 9-12 cation_ one Acetonide Acetonide 00:00: to_affe Acetonide 0.5 % 0.5 % 00 cted_ar 0.5 % ea} Triamcinolo Triamcinolo 2018- No 1{appli BID Triamcinol ne ne 9-12 cation_ one Acetonide Acetonide 00:00: to_affe Acetonide 0.5 % 0.5 % 00 cted_ar 0.5 % ea} Triamcinolo Triamcinolo 2018- No 1{appli BID Triamcinol ne ne 9-12 cation_ one Acetonide Acetonide 00:00: to_affe Acetonide 0.5 % 0.5 % 00 cted_ar 0.5 % ea} Triamcinolo Triamcinolo 2018- No 1{appli BID Triamcinol ne ne 9-12 cation_ one Acetonide Acetonide 00:00: to_affe Acetonide 0.5 % 0.5 % 00 cted_ar 0.5 % ea} Triamcinolo Triamcinolo 2019- No 1{appli BID Triamcinol ne ne 9-12 cation_ one Acetonide Acetonide 00:00: to_affe Acetonide 0.5 % 0.5 % 00 cted_ar 0.5 % ea} Triamcinolo Triamcinolo No 1{appli BID Triamcinol ne ne 9-12 cation_ one Acetonide Acetonide 00:00: to_affe Acetonide 0.5 % 0.5 % 00 cted_ar 0.5 % ea} Triamcinolo Triamcinolo No 1{appli BID Triamcinol ne ne 9-12 cation_ one Acetonide Acetonide 00:00: to_affe Acetonide 0.5 % 0.5 % 00 cted_ar 0.5 % ea} topiramate No 50 mg = 1 Me moria 50 mg oral 6-12 tab, PO, l tablet 20:49: Bedtime, # Etelvina nn 59 30 tab, 6 Refill(s), Pharmacy: [facility] PHENobarbit Yes 64.8 mg = M emoria al 64.8 mg 5-07 1 tab, PO, l oral tablet 15:14: Daily, # eJre dinero 50 30 tab, 5 Refill(s) Levetiracet Yes See Memori a am 500 MG 5-07 Instructio l Oral Tablet 15:14: ns, TAKE 1 Prim 35 TABLET BY MOUTH TWICE DAILY, # 180 tab, 6 Refill(s), Pharmacy: [facility] lacosamide Yes 200 mg = 1 M emoria 200 MG Oral 5-07 tab, PO, l Tablet 15:14: BID, # 60 Stephen n [Vimpat] 32 tab, 5 Refill(s) metoprolol Yes 12.5 mg, Mem oria tartrate 5-07 PO, BID, 0 l 14:58: Refill(s) Prim 00 zonisamide Yes 100 mg = 1 M emoria 100 mg oral 1-11 cap, PO, l capsule 15:16: Daily, # Stephen n 41 90 cap, 3 Refill(s), Pharmacy: [facility] Levetiracet 2017-07 No See Memori a am 500 MG 1-07 Instructio l Oral Tablet 21:44: ns, TAKE 1 Ramin 15 TABLET BY MOUTH TWICE DAILY, # 180 tab, 6 Refill(s), Pharmacy: [facility] lacosamide 2017-07 No 200 mg = 1 M emoria 200 MG Oral -07 tab, PO, l Tablet 21:44: BID, # 60 Stephen n [Vimpat] 08 tab, 5 Refill(s) PHENobarbit 2017-07 No 64.8 mg = M emoria al 64.8 mg 07-09 1 tab, PO, l oral tablet 21:44: Daily, # He rmann 00 30 tab, 5 Refill(s) topiramate 2017-07 Yes 50 mg = 1 Me moria 50 mg oral -07 tab, PO, l tablet 21:44: Bedtime, # Etelvina nn 00 30 tab, 6 Refill(s), Pharmacy: [facility] zonisamide 2017-07 No 100 mg = 1 M emoria 100 mg oral 07-09 cap, PO, l capsule 21:44: Daily, X Stephen n 00 30 day, # 30 cap, 6 Refill(s), Pharmacy: [facility] lacosamide 2017-07 No 200 mg = 1 M emoria 200 MG Oral 0-15 tab, PO, l Tablet 19:06: BID, # 60 Stephen n [Vimpat] 48 tab, 3 Refill(s), called to pharmacy simvastatin Yes 20 mg = 1 M emoria 20 mg oral 3-20 tab, PO, l tablet 15:35: Bedtime, # Etelvina nn 00 30 tab, 1 Refill(s) carisoprodo Yes 350 mg = 1 Memoria l 350 mg 3-20 tab, PO, l oral tablet 15:35: TID, PRN He rmann 00 Muscle Spasms, # 42 tab, 0 Refill(s) Eliquis 5 2018- Yes 5 mg, PO, Mem oria mg oral 3-20 Q12H, 0 l tablet 15:32: Refill(s) Stephen n 00 apixaban 2016-0 Yes 5mg Q.5D Take [address] (ELIQUIS) 5 9-07 tablet (5 Cathy es mg Tab 00:00: mg total) Medica l tablet 00 by mouth 2 Center (two) times daily. lisinopril 2016-0 Yes 10mg QD Take 1 [facility] S t (PRINIVIL,Z 03-09 tablet (10 Dilcia kes ESTRIL) 10 00:00: mg total) Me dical MG tablet 00 by mouth Center daily. lacosamide Yes 200mg Q.5D Take [address] 200 mg Tab 03-09 tablet [facility] 00:[facility]: (200 mg Medical 00 total) by Center mouth 2 (two) times daily. levETIRAcet Yes 2000mg Q.5D Take [address] am (KEPPRA) 03-09 mLs (2,000 Dilcia kes 500 mg/5 mL 00:00: mg total) M edical (5 mL) Soln 00 by mouth 2 Ce nter oral (two) solution times daily. Topiramate Topiramate Yes Sheldon 1 tablet Common Sanchez [facility] Stool Stool Yes Sheldon 1 capsule Common Softener Softener Sanchez as needed S pirit [facility] Keppra Keppra Yes Sheldon 1 tablet Commo n [facility] Simvastatin Simvastatin Yes Sheldon 1 tablet Common Sanchez in the Spirit evening [facility] Zonisamide Zonisamide Yes Sheldon 1 capsule Common Sanchez Spirit [facility] Eliquis Eliquis Yes Sheldon 1 tablet Com mon Sanchez Spirit [facility] Phenobarbit Phenobarbit Yes Sheldon 1 tablet Common al al Sanchez [facility] Centrum Centrum Yes Sheldon as Common Silver Silver Sanchez directed Spirit 50+Men 50+Men [facility] Iron 27 Iron 27 Yes Sheldon 1 tablet Com mon Sanchez with water Spirit or juice - CHI between [facility] Levetiracet Levetiracet Yes Sheldon 1 tablet Common am am Sanchez [facility] Vimpat Vimpat Yes Sheldon 1 tablet Commo n [facility] Stool Stool No 1{capsu BID Stool Softener Softener le_as_n Softener 100 MG 100 MG eeded} 100 MG Keppra 500 Keppra 500 No 1{table BID Keppra 500 MG MG t} MG Metoprolol Metoprolol No 1{table BID Metoprolol Tartrate 25 Tartrate 25 t_with_ Tartrate MG MG food} 25 MG levETIRAcet levETIRAcet No 1{table BID levETIRAce am 500 MG am 500 MG t} steen 500 MG Simvastatin Simvastatin No 1{table QD Simvastati 20 MG 20 MG t_in_th n 20 MG e_eveni ng} Zonisamide Zonisamide No 1{capsu QD Zonisamide 100 MG 100 MG le} 100 MG Iron 27 240 Iron 27 240 No BID Iron 27 (27 Fe) MG (27 Fe) MG 240 (27 Fe) MG Simvastatin Simvastatin No Simvastati 20 MG 20 MG n 20 MG Eliquis 5 Eliquis 5 No 1{table BID Eliquis 5 MG MG t} MG Metoprolol Metoprolol No Metoprolol Tartrate 25 Tartrate 25 Tartrate MG MG 25 MG Topiramate Topiramate No 1{table QD Topiramate 50 MG 50 MG t} 50 MG Centrum Centrum No Centrum Silver Silver Silver 50+Men - 50+Men - 50+Men - Vimpat 200 Vimpat 200 No 1{table BID Vimpat 200 MG MG t} MG PHENobarbit PHENobarbit No 1{table QD PHENobarbi al 64.8 MG al 64.8 MG t} hiwot 64.8 MG Simvastatin Simvastatin No 1{table QD Simvastati 20 MG 20 MG t_in_th n 20 MG e_eveni ng} Eliquis 5 Eliquis 5 No 1{table BID Eliquis 5 MG MG t} MG Iron 27 240 Iron 27 240 No BID Iron 27 (27 Fe) MG (27 Fe) MG 240 (27 Fe) MG Stool Stool No 1{capsu BID Stool Softener Softener le_as_n Softener 100 MG 100 MG eeded} 100 MG Simvastatin Simvastatin No Simvastati 20 MG 20 MG n 20 MG Topiramate Topiramate No 1{table QD Topiramate 50 MG 50 MG t} 50 MG PHENobarbit PHENobarbit No 1{table QD PHENobarbi al 64.8 MG al 64.8 MG t} hiwot 64.8 MG Centrum Centrum No Centrum Silver Silver Silver 50+Men - 50+Men - 50+Men - Zonisamide Zonisamide No 1{capsu QD Zonisamide 100 MG 100 MG le} 100 MG Metoprolol Metoprolol No 1{table BID Metoprolol Tartrate 25 Tartrate 25 t_with_ Tartrate MG MG food} 25 MG Vimpat 200 Vimpat 200 No 1{table BID Vimpat 200 MG MG t} MG Metoprolol Metoprolol No Metoprolol Tartrate 25 Tartrate 25 Tartrate MG MG 25 MG Keppra 500 Keppra 500 No 1{table BID Keppra 500 MG MG t} MG levETIRAcet levETIRAcet No 1{table BID levETIRAce am 500 MG am 500 MG t} steen 500 MG Simvastatin Simvastatin No 1{table QD Simvastati 20 MG 20 MG t_in_th n 20 MG e_eveni ng} Eliquis 5 Eliquis 5 No 1{table BID Eliquis 5 MG MG t} MG Iron 27 240 Iron 27 240 No BID Iron 27 (27 Fe) MG (27 Fe) MG 240 (27 Fe) MG Stool Stool No 1{capsu BID Stool Softener Softener le_as_n Softener 100 MG 100 MG eeded} 100 MG Simvastatin Simvastatin No Simvastati 20 MG 20 MG n 20 MG Topiramate Topiramate No 1{table QD Topiramate 50 MG 50 MG t} 50 MG PHENobarbit PHENobarbit No 1{table QD PHENobarbi al 64.8 MG al 64.8 MG t} hiwot 64.8 MG Centrum Centrum No Centrum Silver Silver Silver 50+Men - 50+Men - 50+Men - Zonisamide Zonisamide No 1{capsu QD Zonisamide 100 MG 100 MG le} 100 MG Metoprolol Metoprolol No 1{table BID Metoprolol Tartrate 25 Tartrate 25 t_with_ Tartrate MG MG food} 25 MG Vimpat 200 Vimpat 200 No 1{table BID Vimpat 200 MG MG t} MG Metoprolol Metoprolol No Metoprolol Tartrate 25 Tartrate 25 Tartrate MG MG 25 MG Keppra 500 Keppra 500 No 1{table BID Keppra 500 MG MG t} MG levETIRAcet levETIRAcet No 1{table BID levETIRAce am 500 MG am 500 MG t} steen 500 MG PHENobarbit PHENobarbit No 1{table QD PHENobarbi al 64.8 MG al 64.8 MG t} hiwot 64.8 MG Centrum Centrum No Centrum Silver Silver Silver 50+Men - 50+Men - 50+Men - Stool Stool No 1{capsu BID Stool Softener Softener le_as_n Softener 100 MG 100 MG eeded} 100 MG Iron 27 240 Iron 27 240 No BID Iron 27 (27 Fe) MG (27 Fe) MG 240 (27 Fe) MG Vimpat 200 Vimpat 200 No 1{table BID Vimpat 200 MG MG t} MG Topiramate Topiramate No 1{table QD Topiramate 50 MG 50 MG t} 50 MG Eliquis 5 Eliquis 5 No 1{table BID Eliquis 5 MG MG t} MG levETIRAcet levETIRAcet No 1{table BID levETIRAce am 500 MG am 500 MG t} steen 500 MG Metoprolol Metoprolol No 1{table BID Metoprolol Tartrate 25 Tartrate 25 t_with_ Tartrate MG MG food} 25 MG Zonisamide Zonisamide No 1{capsu QD Zonisamide 100 MG 100 MG le} 100 MG Metoprolol Metoprolol No Metoprolol Tartrate 25 Tartrate 25 Tartrate MG MG 25 MG Keppra 500 Keppra 500 No 1{table BID Keppra 500 MG MG t} MG Simvastatin Simvastatin No Simvastati 20 MG 20 MG n 20 MG PHENobarbit PHENobarbit No 1{table QD PHENobarbi al 64.8 MG al 64.8 MG t} hiwot 64.8 MG Centrum Centrum No Centrum Silver Silver Silver 50+Men - 50+Men - 50+Men - Stool Stool No 1{capsu BID Stool Softener Softener le_as_n Softener 100 MG 100 MG eeded} 100 MG Iron 27 240 Iron 27 240 No BID Iron 27 (27 Fe) MG (27 Fe) MG 240 (27 Fe) MG Vimpat 200 Vimpat 200 No 1{table BID Vimpat 200 MG MG t} MG Topiramate Topiramate No 1{table QD Topiramate 50 MG 50 MG t} 50 MG Eliquis 5 Eliquis 5 No 1{table BID Eliquis 5 MG MG t} MG levETIRAcet levETIRAcet No 1{table BID levETIRAce am 500 MG am 500 MG t} steen 500 MG Metoprolol Metoprolol No 1{table BID Metoprolol Tartrate 25 Tartrate 25 t_with_ Tartrate MG MG food} 25 MG Zonisamide Zonisamide No 1{capsu QD Zonisamide 100 MG 100 MG le} 100 MG Metoprolol Metoprolol No Metoprolol Tartrate 25 Tartrate 25 Tartrate MG MG 25 MG Keppra 500 Keppra 500 No 1{table BID Keppra 500 MG MG t} MG Simvastatin Simvastatin No Simvastati 20 MG 20 MG n 20 MG Vimpat 200 Vimpat 200 No 1{table BID Vimpat 200 MG MG t} MG Eliquis 5 Eliquis 5 No 1{table BID Eliquis 5 MG MG t} MG Iron 27 240 Iron 27 240 No BID Iron 27 (27 Fe) MG (27 Fe) MG 240 (27 Fe) MG Centrum Centrum No Centrum Silver Silver Silver 50+Men - 50+Men - 50+Men - Stool Stool No 1{capsu BID Stool Softener Softener le_as_n Softener 100 MG 100 MG eeded} 100 MG levETIRAcet levETIRAcet No 1{table BID levETIRAce am 500 MG am 500 MG t} steen 500 MG Zonisamide Zonisamide No 1{capsu QD Zonisamide 100 MG 100 MG le} 100 MG Keppra 500 Keppra 500 No 1{table BID Keppra 500 MG MG t} MG Simvastatin Simvastatin No Simvastati 20 MG 20 MG n 20 MG Topiramate Topiramate No 1{table QD Topiramate 50 MG 50 MG t} 50 MG Metoprolol Metoprolol No Metoprolol Tartrate 25 Tartrate 25 Tartrate MG MG 25 MG PHENobarbit PHENobarbit No 1{table QD PHENobarbi al 64.8 MG al 64.8 MG t} hiwot 64.8 MG Vimpat 200 Vimpat 200 No 1{table BID Vimpat 200 MG MG t} MG Metoprolol Metoprolol No 1{table BID Metoprolol Tartrate 25 Tartrate 25 t_with_ Tartrate MG MG food} 25 MG Simvastatin Simvastatin No 1{table QD Simvastati 20 MG 20 MG t_in_th n 20 MG e_eveni ng} PHENobarbit PHENobarbit No 1{table QD PHENobarbi al 64.8 MG al 64.8 MG t} hiwot 64.8 MG Zonisamide Zonisamide No 1{capsu QD Zonisamide 100 MG 100 MG le} 100 MG Topiramate Topiramate No 1{table QD Topiramate 50 MG 50 MG t} 50 MG levETIRAcet levETIRAcet No 1{table BID levETIRAce am 500 MG am 500 MG t} steen 500 MG Eliquis 5 Eliquis 5 No 1{table BID Eliquis 5 MG MG t} MG Vimpat 200 Vimpat 200 No 1{table BID Vimpat 200 MG MG t} MG Metoprolol Metoprolol No 1{table BID Metoprolol Tartrate 25 Tartrate 25 t_with_ Tartrate MG MG food} 25 MG Simvastatin Simvastatin No 1{table QD Simvastati 20 MG 20 MG t_in_th n 20 MG e_eveni ng} PHENobarbit PHENobarbit No 1{table QD PHENobarbi al 64.8 MG al 64.8 MG t} hiwot 64.8 MG Zonisamide Zonisamide No 1{capsu QD Zonisamide 100 MG 100 MG le} 100 MG Topiramate Topiramate No 1{table QD Topiramate 50 MG 50 MG t} 50 MG levETIRAcet levETIRAcet No 1{table BID levETIRAce am 500 MG am 500 MG t} steen 500 MG Eliquis 5 Eliquis 5 No 1{table BID Eliquis 5 MG MG t} MG Vimpat 200 Vimpat 200 No 1{table BID Vimpat 200 MG MG t} MG Eliquis 5 Eliquis 5 No 1{table BID Eliquis 5 MG MG t} MG Metoprolol Metoprolol No Metoprolol Tartrate 25 Tartrate 25 Tartrate MG MG 25 MG Simvastatin Simvastatin No Simvastati 20 MG 20 MG n 20 MG Zonisamide Zonisamide No 1{capsu QD Zonisamide 100 MG 100 MG le} 100 MG Topiramate Topiramate No 1{table QD Topiramate 50 MG 50 MG t} 50 MG levETIRAcet levETIRAcet No 1{table BID levETIRAce am 500 MG am 500 MG t} steen 500 MG PHENobarbit PHENobarbit No 1{table QD PHENobarbi al 64.8 MG al 64.8 MG t} hiwot 64.8 MG Simvastatin Simvastatin No 1{table QD Simvastati 20 MG 20 MG t_in_th n 20 MG e_eveni ng} Eliquis 5 Eliquis 5 No 1{table BID Eliquis 5 MG MG t} MG PHENobarbit PHENobarbit No 1{table QD PHENobarbi al 64.8 MG al 64.8 MG t} hiwot 64.8 MG Metoprolol Metoprolol No Metoprolol Tartrate 25 Tartrate 25 Tartrate MG MG 25 MG Vimpat 200 Vimpat 200 No 1{table BID Vimpat 200 MG MG t} MG Metoprolol Metoprolol No 1{table BID Metoprolol Tartrate 25 Tartrate 25 t_with_ Tartrate MG MG food} 25 MG Zonisamide Zonisamide No 1{capsu QD Zonisamide 100 MG 100 MG le} 100 MG levETIRAcet levETIRAcet No 1{table BID levETIRAce am 500 MG am 500 MG t} steen 500 MG Topiramate Topiramate No 1{table QD Topiramate 50 MG 50 MG t} 50 MG Simvastatin Simvastatin No Simvastati 20 MG 20 MG n 20 MG Simvastatin Simvastatin No 1{table QD Simvastati 20 MG 20 MG t_in_th n 20 MG e_eveni ng} Eliquis 5 Eliquis 5 No 1{table BID Eliquis 5 MG MG t} MG PHENobarbit PHENobarbit No 1{table QD PHENobarbi al 64.8 MG al 64.8 MG t} hiwot 64.8 MG Metoprolol Metoprolol No Metoprolol Tartrate 25 Tartrate 25 Tartrate MG MG 25 MG Vimpat 200 Vimpat 200 No 1{table BID Vimpat 200 MG MG t} MG Metoprolol Metoprolol No 1{table BID Metoprolol Tartrate 25 Tartrate 25 t_with_ Tartrate MG MG food} 25 MG Zonisamide Zonisamide No 1{capsu QD Zonisamide 100 MG 100 MG le} 100 MG levETIRAcet levETIRAcet No 1{table BID levETIRAce am 500 MG am 500 MG t} steen 500 MG Topiramate Topiramate No 1{table QD Topiramate 50 MG 50 MG t} 50 MG Simvastatin Simvastatin No Simvastati 20 MG 20 MG n 20 MG Metoprolol Metoprolol No 1{table BID Metoprolol Tartrate 25 Tartrate 25 t_with_ Tartrate MG MG food} 25 MG Metoprolol Metoprolol No Metoprolol Tartrate 25 Tartrate 25 Tartrate MG MG 25 MG Simvastatin Simvastatin No Simvastati 20 MG 20 MG n 20 MG Eliquis 5 Eliquis 5 No Eliquis 5 MG MG MG levETIRAcet levETIRAcet No 1{table BID levETIRAce am 500 MG am 500 MG t} steen 500 MG Zonisamide Zonisamide No 1{capsu QD Zonisamide 100 MG 100 MG le} 100 MG Vimpat 200 Vimpat 200 No 1{table BID Vimpat 200 MG MG t} MG Eliquis 5 Eliquis 5 No 1{table BID Eliquis 5 MG MG t} MG PHENobarbit PHENobarbit No 1{table QD PHENobarbi al 64.8 MG al 64.8 MG t} hiwot 64.8 MG Simvastatin Simvastatin No 1{table QD Simvastati 20 MG 20 MG t_in_th n 20 MG e_eveni ng} Topiramate Topiramate No 1{table QD Topiramate 50 MG 50 MG t} 50 MG Metoprolol Metoprolol No 1{table BID Metoprolol Tartrate 25 Tartrate 25 t_with_ Tartrate MG MG food} 25 MG Metoprolol Metoprolol No Metoprolol Tartrate 25 Tartrate 25 Tartrate MG MG 25 MG Simvastatin Simvastatin No Simvastati 20 MG 20 MG n 20 MG Eliquis 5 Eliquis 5 No Eliquis 5 MG MG MG levETIRAcet levETIRAcet No 1{table BID levETIRAce am 500 MG am 500 MG t} steen 500 MG Zonisamide Zonisamide No 1{capsu QD Zonisamide 100 MG 100 MG le} 100 MG Vimpat 200 Vimpat 200 No 1{table BID Vimpat 200 MG MG t} MG Eliquis 5 Eliquis 5 No 1{table BID Eliquis 5 MG MG t} MG PHENobarbit PHENobarbit No 1{table QD PHENobarbi al 64.8 MG al 64.8 MG t} hiwot 64.8 MG Simvastatin Simvastatin No 1{table QD Simvastati 20 MG 20 MG t_in_th n 20 MG e_eveni ng} Topiramate Topiramate No 1{table QD Topiramate 50 MG 50 MG t} 50 MG Eliquis 5 Eliquis 5 No Eliquis 5 MG MG MG Metoprolol Metoprolol No Metoprolol Tartrate 25 Tartrate 25 Tartrate MG MG 25 MG levETIRAcet levETIRAcet No 1{table BID levETIRAce am 500 MG am 500 MG t} steen 500 MG Vimpat 200 Vimpat 200 No 1{table BID Vimpat 200 MG MG t} MG Simvastatin Simvastatin No Simvastati 20 MG 20 MG n 20 MG PHENobarbit PHENobarbit No 1{table QD PHENobarbi al 64.8 MG al 64.8 MG t} hiwot 64.8 MG Zonisamide Zonisamide No 1{capsu QD Zonisamide 100 MG 100 MG le} 100 MG Topiramate Topiramate No 1{table QD Topiramate 50 MG 50 MG t} 50 MG Vimpat 200 Vimpat 200 No 1{table BID Vimpat 200 MG MG t} MG Metoprolol Metoprolol No 1{table BID Metoprolol Tartrate 25 Tartrate 25 t_with_ Tartrate MG MG food} 25 MG PHENobarbit PHENobarbit No 1{table QD PHENobarbi al 64.8 MG al 64.8 MG t} hiwot 64.8 MG Eliquis 5 Eliquis 5 No 1{table BID Eliquis 5 MG MG t} MG levETIRAcet levETIRAcet No 1{table BID levETIRAce am 500 MG am 500 MG t} steen 500 MG Simvastatin Simvastatin No Simvastati 20 MG 20 MG n 20 MG Simvastatin Simvastatin No 1{table QD Simvastati 20 MG 20 MG t_in_th n 20 MG e_eveni ng} Eliquis 5 Eliquis 5 No Eliquis 5 MG MG MG Topiramate Topiramate No 1{table QD Topiramate 50 MG 50 MG t} 50 MG Zonisamide Zonisamide No 1{capsu QD Zonisamide 100 MG 100 MG le} 100 MG Metoprolol Metoprolol No Metoprolol Tartrate 25 Tartrate 25 Tartrate MG MG 25 MG levETIRAcet levETIRAcet No 1{table BID levETIRAce am 500 MG am 500 MG t} steen 500 MG Topiramate Topiramate No 1{table QD Topiramate 50 MG 50 MG t} 50 MG Vimpat 200 Vimpat 200 No 1{table BID Vimpat 200 MG MG t} MG Metoprolol Metoprolol No 1{table BID Metoprolol Tartrate 25 Tartrate 25 t_with_ Tartrate MG MG food} 25 MG Simvastatin Simvastatin No Simvastati 20 MG 20 MG n 20 MG Metoprolol Metoprolol No Metoprolol Tartrate 25 Tartrate 25 Tartrate MG MG 25 MG Multivitami Multivitami No Multivitam n n in Zonisamide Zonisamide No 1{capsu QD Zonisamide 100 MG 100 MG le} 100 MG Eliquis 5 Eliquis 5 No Eliquis 5 MG MG MG PHENobarbit PHENobarbit No 1{table QD PHENobarbi al 64.8 MG al 64.8 MG t} hiwot 64.8 MG levETIRAcet levETIRAcet No 1{table BID levETIRAce am 500 MG am 500 MG t} steen 500 MG Topiramate Topiramate No 1{table QD Topiramate 50 MG 50 MG t} 50 MG Vimpat 200 Vimpat 200 No 1{table BID Vimpat 200 MG MG t} MG Metoprolol Metoprolol No 1{table BID Metoprolol Tartrate 25 Tartrate 25 t_with_ Tartrate MG MG food} 25 MG Simvastatin Simvastatin No Simvastati 20 MG 20 MG n 20 MG Metoprolol Metoprolol No Metoprolol Tartrate 25 Tartrate 25 Tartrate MG MG 25 MG Multivitami Multivitami No Multivitam n n in Zonisamide Zonisamide No 1{capsu QD Zonisamide 100 MG 100 MG le} 100 MG Eliquis 5 Eliquis 5 No Eliquis 5 MG MG MG PHENobarbit PHENobarbit No 1{table QD PHENobarbi al 64.8 MG al 64.8 MG t} hiwot 64.8 MG Keppra 500 Keppra 500 No 1{table BID Keppra 500 MG MG t} MG Topiramate Topiramate No 1{table QD Topiramate 50 MG 50 MG t} 50 MG PHENobarbit PHENobarbit No 1{table QD PHENobarbi al 64.8 MG al 64.8 MG t} hiwot 64.8 MG Vimpat 200 Vimpat 200 No 1{table BID Vimpat 200 MG MG t} MG Zonisamide Zonisamide No 1{capsu QD Zonisamide 100 MG 100 MG le} 100 MG Simvastatin Simvastatin No 1{table QD Simvastati 20 MG 20 MG t_in_th n 20 MG e_eveni ng} Centrum Centrum No Centrum Silver Silver Silver 50+Men - 50+Men - 50+Men - Metoprolol Metoprolol No Metoprolol Tartrate 25 Tartrate 25 Tartrate MG MG 25 MG Stool Stool No 1{capsu BID Stool Softener Softener le_as_n Softener 100 MG 100 MG eeded} 100 MG Eliquis 5 Eliquis 5 No 1{table BID Eliquis 5 MG MG t} MG Iron 27 240 Iron 27 240 No BID Iron 27 (27 Fe) MG (27 Fe) MG 240 (27 Fe) MG levETIRAcet levETIRAcet No 1{table BID levETIRAce am 500 MG am 500 MG t} steen 500 MG Stool Stool No 1{capsu BID Stool Softener Softener le_as_n Softener 100 MG 100 MG eeded} 100 MG Zonisamide Zonisamide No 1{capsu QD Zonisamide 100 MG 100 MG le} 100 MG Eliquis 5 Eliquis 5 No 1{table BID Eliquis 5 MG MG t} MG Metoprolol Metoprolol No Metoprolol Tartrate 25 Tartrate 25 Tartrate MG MG 25 MG Metoprolol Metoprolol No 1{table BID Metoprolol Tartrate 25 Tartrate 25 t_with_ Tartrate MG MG food} 25 MG Simvastatin Simvastatin No 1{table QD Simvastati 20 MG 20 MG t_in_th n 20 MG e_eveni ng} levETIRAcet levETIRAcet No 1{table BID levETIRAce am 500 MG am 500 MG t} steen 500 MG PHENobarbit PHENobarbit No 1{table QD PHENobarbi al 64.8 MG al 64.8 MG t} hiwot 64.8 MG Centrum Centrum No Centrum Silver Silver Silver 50+Men - 50+Men - 50+Men - Vimpat 200 Vimpat 200 No 1{table BID Vimpat 200 MG MG t} MG Keppra 500 Keppra 500 No 1{table BID Keppra 500 MG MG t} MG Simvastatin Simvastatin No Simvastati 20 MG 20 MG n 20 MG Topiramate Topiramate No 1{table QD Topiramate 50 MG 50 MG t} 50 MG Iron 27 240 Iron 27 240 No BID Iron 27 (27 Fe) MG (27 Fe) MG 240 (27 Fe) MG Immunizations Ordered Filled Immunization Date Status Comments [facility] e Immunization Name Name FluAD FluAD 2021-09-07 [facility]pleted [facility] - [facility] FluAD FluAD 2021-09-07 Completed [facility] 16:32:00 - [facility] FluAD FluAD 2021-09-07 Completed [facility] 16[facility]32:00 - [facility] FluAD FluAD 2021-09-07 Completed [facility] 16:32:00 - [facility] FluAD FluAD 2021-09-07 Completed [facility] 16[facility]32:00 - [facility] FluAD FluAD 2021-09-07 Completed [facility] 16:32:00 - [facility] FluAD FluAD 2021-09-07 Completed [facility] 16[facility]32:00 - [facility] FluAD FluAD 2021-09-07 Completed [facility] 16:32:00 - [facility] FluAD FluAD 2021-09-07 Completed [facility] 16:32:00 - [facility] Moderna COVID-19 Moderna COVID-19 2021-06-02 Completed [facility] 11:33:00 - [facility] Moderna COVID-19 Moderna COVID-19 2021-06-02 Completed [facility] 11:33:00 - [facility] Moderna COVID-19 Moderna COVID-19 2021-06-02 Completed [facility] 11:33:00 - [facility] Moderna COVID-19 Moderna COVID-19 2021-06-02 Completed [facility] 11:33:00 - [facility] Moderna COVID-19 Moderna COVID-19 2021-06-02 Completed [facility] 11:33:00 - [facility] Moderna COVID-19 Moderna COVID-19 2021-06-02 Completed [facility] Vacc[facility] 11:33:00 - [facility] Moderna COVID-19 Moderna COVID-19 2021-06-02 Completed [facility] Vacc[facility] 11:33:00 - [facility] Moderna COVID-19 Moderna COVID-19 2021-06-02 Completed [facility] 11:33:00 - [facility] Moderna COVID-19 Moderna COVID-19 2021-06-02 Completed [facility] 11:33:00 - [facility] Moderna COVID-19 Moderna COVID-19 2021-06-02 Completed [facility] 11:33:00 - [facility] Moderna COVID-19 Moderna COVID-19 2021-06-02 Completed [facility] Vacc[facility] 11:33:00 - [facility] Moderna COVID-19 Moderna COVID-19 2021-06-02 Completed [facility] Vacc[facility] 11:33:00 - [facility] Moderna COVID-19 Moderna COVID-19 2021-06-02 Completed [facility] Vacc[facility] 11:33:00 - [facility] Moderna COVID-19 Moderna COVID-19 2021-06-02 Completed [facility] Vacc[facility] 11:33:00 - [facility] Pfizer COVID-19 Pfizer COVID-19 2020-08-20 [facility] 11:41:00 - [facility] Pfizer COVID-19 Pfizer COVID-19 2020-08-20 Completed [facility] 11:41:00 [facility] Pfizer COVID-19 Pfizer COVID-19 2020-08-20 Completed [facility] 11:41:00 [facility] Pfizer COVID-19 Pfizer COVID-19 2020-08-20 Completed [facility] 11:41:00 - [facility] Pfizer COVID-19 Pfizer COVID-19 2020-08-20 Completed [facility] 11:41:00 - [facility] Pfizer COVID-19 Pfizer COVID-19 2020-08-20 Completed [facility] 11:41:00 [facility] Pfizer COVID-19 Pfizer COVID-19 2020-08-20 Completed [facility] 11:41:00 - [facility] Pfizer COVID-19 Pfizer COVID-19 2020-08-20 Completed [facility] 11:41:00 - [facility] Pfizer COVID-19 Pfizer COVID-19 2020-08-20 Completed [facility] 11:41:00 [facility] Pfizer COVID-19 Pfizer COVID-19 2020-08-20 Completed [facility] 11:41:00 - [facility] Pfizer COVID-19 Pfizer COVID-19 2020-08-20 Completed [facility] 11:41:00 - [facility] Pfizer COVID-19 Pfizer COVID-19 2020-08-20 Completed [facility] 11:41:00 - [facility] Pfizer COVID-19 Pfizer COVID-19 2020-08-20 Completed [facility] 11:41:00 [facility] Pfizer COVID-19 Pfizer COVID-19 2020-08-20 Completed [facility] 11:41:00 [facility] Pfizer COVID-19 Pfizer COVID-19 2020-07-30 Completed [facility] 11:40:00 [facility] Pfizer COVID-19 Pfizer COVID-19 2020-07-30 Completed [facility] 11:40:00 [facility] Pfizer COVID-19 Pfizer COVID-19 2020-07-30 Completed [facility] 11:40:00 [facility] Pfizer COVID-19 Pfizer COVID-19 2020-07-30 Completed [facility] Vacc[facility] 11:40:00 [facility] Pfizer COVID-19 Pfizer COVID-19 2020-07-30 Completed [facility] 11:40:00 - [facility] Pfizer COVID-19 Pfizer COVID-19 2020-07-30 Completed [facility] 11:40:00 - [facility] Pfizer COVID-19 Pfizer COVID-19 2020-07-30 Completed [facility] 11:40:00 - [facility] Pfizer COVID-19 Pfizer COVID-19 2020-07-30 Completed [facility] 11:40:00 - [facility] Pfizer COVID-19 Pfizer COVID-19 2020-07-30 Completed [facility] 11:40:00 - [facility] Pfizer COVID-19 Pfizer COVID-19 2020-07-30 Completed [facility] 11:40:00 - [facility] Pfizer COVID-19 Pfizer COVID-19 2020-07-30 Completed [facility] 11:40:00 - [facility] Pfizer COVID-19 Pfizer COVID-19 2020-07-30 Completed [facility] 11:40:00 - [facility] Pfizer COVID-19 Pfizer COVID-19 2020-07-30 [facility]pleted [facility] 11:40:00 - [facility] Pfizer COVID-19 Pfizer COVID-19 2020-07-30 [facility]pleted [facility] 11:40:00 - [facility] FluAD FluAD 2020-04-16 Completed [facility] 14:31:00 - [facility] FluAD FluAD 2020-04-16 Completed [facility] 14:31:00 - [facility] FluAD FluAD 2020-04-16 Completed [facility] 14[facility]31:00 [facility] FluAD FluAD 2020-04-16 Completed [facility] 14:31:00 - [facility] FluAD FluAD 2020-04-16 Completed [facility] 14:31:00 - [facility] FluAD FluAD 2020-04-16 Completed [facility] 14:31:00 - [facility] FluAD FluAD 2020-04-16 Completed [facility] 14:31:00 - [facility] FluAD FluAD 2020-04-16 Completed [facility] 14:31: - [facility] FluAD FluAD 2020-04-16 [facility] 14:: [facility] FluAD FluAD 2020-04-16 Com[facility] 14:: [facility] FluAD FluAD 2020-04-16 Com[facility] 14:: [facility] FluAD FluAD 2020-04-16 Com[facility] 14:: [facility] FluAD FluAD 2020-04-16 Completed [facility] 14:: - [facility] FluAD FluAD 2020-04-16 Completed [facility] 14:: [facility] FluAD FluAD 2020-04-16 Completed [facility] 14:: [facility] FluAD FluAD 2020-04-16 Completed [facility] 14:: [facility] FluAD FluAD 2020-04-16 Completed [facility] 14:: [facility] Pfizer COVID-19 Pfizer COVID-19 Unknown Completed [facility] Vaccine Vaccine [facility] Pfizer COVID-19 Pfizer COVID-19 Unknown Completed [facility] Vaccine Vaccine [facility] Moderna COVID-19 Moderna COVID-19 Unknown Completed [facility] Vaccine Vaccine [facility] FluAD FluAD Unknown Completed [facility] FluAD FluAD Unknown Completed [facility] Pfizer COVID-19 Pfizer COVID-19 Unknown Completed [facility] Vaccine Vaccine [facility] Pfizer COVID-19 Pfizer COVID-19 Unknown Completed [facility] Vaccine Vaccine [facility] Moderna COVID-19 Moderna COVID-19 Unknown Completed [facility] Vaccine Vaccine [facility] FluAD FluAD Unknown Completed [facility] FluAD FluAD Unknown Completed [facility] Vital Signs Vital Name Observation Time Observation Value Comments Source height 2022-09-09 10:10:00 71.00 [in_i] [facility] weight 2022-09-09 10:10:00 138.0 [lb_av] [facility] temperature 2022-09-09 10:10:00 98.2 [degF] [facility] bmi 2022-09-09 10:10:00 19.24 kg/m2 [facility] oximetry 2022-09-09 10:10:00 95 % [facility] respiratory rate 2022-09-09 10:10:00 17 /min [facility] blood pressure 2022-09-09 10:10:00 132 mm[Hg] [facility] - systolic [facility] blood pressure 2022-09-09 10:10:00 72 mm[Hg] [facility] - diastolic [facility] height 2022-09-09 10:20:00 71.00 [in_i] [facility] weight 2022-09-09 10:20:00 138 [lb_av] [facility] temperature 2022-09-09 10:20:00 98.2 [degF] [facility] bmi 2022-09-09 10:20:00 19.24 kg/m2 [facility] oximetry 2022-09-09 10:20:00 95 % [facility] respiratory rate 2022-09-09 10:20:00 17 /min [facility] blood pressure 2022-09-09 10:20:00 132 mm[Hg] [facility] - systolic [facility] blood pressure 2022-09-09 10:20:00 72 mm[Hg] [facility] - diastolic [facility] height 2022-05-10 10:20:00 71.00 [in_i] [facility] weight 2022-05-10 10:20:00 138 [lb_av] [facility] temperature 2022-05-10 10:20:00 97.2 [degF] [facility] bmi 2022-05-10 10:20:00 19.24 kg/m2 [facility] oximetry 2022-05-10 10:20:00 94 % [facility] respiratory rate 2022-05-10 10:20:00 16 /min [facility] blood pressure 2022-05-10 10:20:00 114 mm[Hg] [facility] - systolic [facility] blood pressure 2022-05-10 10:20:00 55 mm[Hg] [facility] - diastolic [facility] height 2022-01-07 10:40:00 71.00 [in_i] [facility] weight 2022-01-07 10:40:00 138.0 [lb_av] [facility] temperature 2022-01-07 10:40:00 98.4 [degF] [facility] bmi 2022-01-07 10:40:00 19.24 kg/m2 [facility] oximetry 2022-01-07 10:40:00 65 % [facility] respiratory rate 2022-01-07 10:40:00 15 /min [facility] blood pressure 2022-01-07 10:40:00 136 mm[facility] blood pressure 2022-01-07 10:40:00 59 mm[Hg] [facility] - diastolic [facility] height 2021-12-03 11:50:00 71.00 [in_i] [facility] weight 2021-12-03 11:50:00 138 [lb_av] [facility] temperature 2021-12-03 11:50:00 98 [degF] [facility] bmi 2021-12-03 11:50:00 19.24 kg/m2 [facility] blood pressure 2021-12-03 11:50:00 127 mm[Hg] [facility] - systolic [facility] blood pressure 2021-12-03 11:50:00 67 mm[Hg] [facility] - diastolic [facility] height 2021-09-07 15:20:00 71.00 [in_i] [facility] weight 2021-09-07 15:20:00 138.0 [lb_av] [facility] temperature 2021-09-07 15:20:00 98.1 [degF] [facility] bmi 2021-09-07 15:20:00 19.24 kg/m2 [facility] oximetry 2021-09-07 15:20:00 98 % [facility] respiratory rate 2021-09-07 15:20:00 17 /min [facility] blood pressure 2021-09-07 15:20:00 137 mm[Hg] [facility] - systolic [facility] blood pressure 2021-09-07 15:20:00 70 mm[Hg] [facility] - diastolic [facility] height 2021-09-07 16:20:00 71.00 [in_i] [facility] weight 2021-09-07 16:20:00 138 [lb_av] [facility] temperature 2021-09-07 16:20:00 98.1 [degF] [facility] bmi 2021-09-07 16:20:00 19.24 kg/m2 [facility] oximetry 2021-09-07 16:20:00 98 % [facility] respiratory rate 2021-09-07 16:20:00 17 /min [facility] blood pressure 2021-09-07 16:20:00 137 mm[Hg] [facility] Center - systolic [facility] blood pressure 2021-09-07 16:20:00 70 mm[Hg] [facility] - diastolic [facility] height 2021-05-24 09:40:00 71.00 [in_i] Common [facility] weight 2021-05-24 09:40:00 138.0 [lb_av] [facility] temperature 2021-05-24 09:40:00 97.7 [degF] [facility] bmi 2021-05-24 09:40:00 19.24 kg/m2 [facility] oximetry 2021-05-24 09:40:00 95 % [facility] respiratory rate 2021-05-24 09:40:00 16 /min Comm on [facility] blood pressure 2021-05-24 09:40:00 132 mm[Hg] Common [facility] - systolic [facility] blood pressure 2021-05-24 09:40:00 76 mm[Hg] Common [facility] - diastolic [facility] Systolic (mm Hg) 2023-05-11 15:54:00 David rial Prim Diastolic (mm Hg) 2023-05-11 15:54:00 Mem orial [facility] Heart Rate 2023-05-11 15:54:00 [facility] Systolic (mm Hg) 2022-05-11 16:08:00 David rial Prim Diastolic (mm Hg) 2022-05-11 16:08:00 Mem orial Prim Heart Rate 2022-05-11 16:08:00 [facility] Systolic (mm Hg) 2020-05-08 15:56:00 David rial Prim Diastolic (mm Hg) 2020-05-08 15:56:00 Mem orial [facility]amin Heart Rate 2020-05-08 15:56:00 [facility] Respitory Rate 2020-05-08 15:56:00 Memori al [facility] Height 2020-05-08 15:56:00 180.34 cm [facility] Weight 2020-05-08 15:56:00 [facility] BMI Calculated 2020-05-08 15:56:00 Mem[facility] Prim Systolic (mm Hg) 2019-05-09 16:07:00 David rial Ramin Diastolic (mm Hg) 2019-05-09 16:07:00 Mem orial Ramin Heart Rate 2019-05-09 16:07:00 [facility] Respitory Rate 2019-05-09 16:07:00 Memori al [facility]amin Height 2019-05-09 16:07:00 175.26 cm [facility] Weight 2019-05-09 16:07:00 [facility] BMI Calculated 2019-05-09 16:07:00 Mem[facility] al Prim BMI Calculated 2018-11-06 14:49:00 [facility] Height 2018-11-06 14:49:00 175.26 cm [facility] Respitory Rate 2018-11-06 14:49:00 Memori al Prim Heart Rate 2018-11-06 14:49:00 [facility] Systolic (mm Hg) 2018-11-06 14:49:00 David rial Ramin Diastolic (mm Hg) 2018-11-06 14:49:00 Mem orial Prim Weight 2018-11-06 14:49:00 [facility] Height 2018-05-09 21:15:00 175.26 cm [facility] Weight 2018-05-09 21:15:00 [facility] BMI Calculated 2018-05-09 21:15:00 Mem[facility] Prim Systolic (mm Hg) 2018-05-09 21:15:00 David rial Prim Diastolic (mm Hg) 2018-05-09 21:15:00 Mem orial Prim Heart Rate 2018-05-09 21:15:00 [facility] Procedures This patient has no known procedures. Encounters Start End Encounter Admission Attending Care Care Encounter Source Date/Time Date/Time Type Type Clinicians Facility Department ID 2023-05-15 Outpatient Sanchez, STLMLC [facility] [id number] Common 11:54:00 Sheldon 58694 [facility] 2022-05-06 Outpatient Sanchez, STLMLC STLC [id number] Common 10:30:01 Sheldon 36854 [facility] 2021-11-26 Outpatient Sanchez, STLMLC STLC [id number] Common 16:44:00 Sheldon [facility] 2021-09-06 [facility] [id number] Common 11:37:00 Sheldon [facility] 2021-08-03 Outpatient Sanchez, STLMLC STLMLC [id number] Common 13:38:01 Sheldon [facility] 2021-07-28 Outpatient Sanchez, STLMLC STLMLC [id number] Common 14:19:15 Sheldon 82637 [facility] 2021-07-28 Outpatient Sanchez, STLMLC STLMLC [id number] Common 13:47:30 Sheldon 05261 [facility] 2021-07-28 Outpatient Sanchez, STLMLC STLMLC [id number] Common 12:53:49 Sheldon 91950 [facility] 2021-07-28 Outpatient Sanchez, STLMLC STLMLC [id number] Common 12:22:30 Sheldon 73500 [facility] 2021-07-28 Outpatient Sanchez, STLMLC STLMLC [id number] Common 11:53:43 Sheldon 60810 [facility] 2021-07-28 Outpatient Sanchez, STLMLC STLMLC [id number] Common 11:53:10 Sheldon 03328 [facility] 2021-07-28 Outpatient Sanchez, STLMLC STLMLC [id number] Common 11:37:14 Sheldon 33790 [facility] 2021-07-28 Outpatient Sanchez, STLMLC STLMLC [id number] Common 11:17:26 Sheldon 53879 [facility] 2021-07-28 Outpatient Sanchez, STLMLC STLMLC [id number] Common 11:17:06 Sheldon 08010 [facility] 2024-05-16 2024-05-16 Outpatient MHIE MHIE [id number] [facility] 10:00:00 10:00:00 12 emely Faustin 2023-05-11 2023-05-12 Outpatient MHIE MNA [id number] [facility] 16:00:00 05:59:59 Neurology 11 emely Faustin 2023-05-11 2023-05-11 Outpatient CONG Jay [id number] 10:00:00 23:59:59 Mio Nevin López 2023-05-11 2023-05-11 Outpatient MHIE MHIE [id number] [facility] 10:00:00 10:00:00 11 emely Faustin 2022-09-09 2022-09-09 OFFICE STLMLC STLMLC [id number] Co mmon 00:00:00 00:00:00 VISIT [facility] ESTAB PT - CHI LEVEL 4 [facility] 2022-09-09 2022-09-09 SUB ANNUAL STLMLC STLMLC [id number] Common 00:00:00 00:00:00 MCR [facility] WELLNESS - CHI VISIT [facility] 2022-05-11 2022-05-12 Outpatient nullFlavo MNA [id number] [facility] 16:00:00 05:59:59 r Neurology 10 emely Faustin 2022-05-11 2022-05-11 Outpatient EVIN JayMISCHER MHMISCHER [id number] 10:00:00 23:59:59 Mio Jhonatan López 2022-05-11 2022-05-11 Outpatient MHIE MHIE [id number] [facility] 10:00:00 10:00:00 10 emely Faustin 2022-05-10 2022-05-10 OFFICE STLMLC STLMLC [id number] Co mmon 00:00:00 00:00:00 VISIT [facility] ESTAB PT - CHI LEVEL 4 [facility] 2022-05-06 2022-05-06 (TEL) STLMLC STLMLC [id number] Co mmon 00:00:00 00:00:00 [facility] - [facility] 2022-01-07 2022-01-07 OFFICE STLMLC STLMLC [id number] Co mmon 00:00:00 00:00:00 VISIT Spirit ESTAB PT - CHI LEVEL 4 [facility] 2022-01-07 2022-01-07 (TEL) STLMLC STLMLC [id number] Co mmon 00:00:00 00:00:00 [facility] - [facility] 2021-12-03 2021-12-03 (EST. STLMLC STLMLC [id number] Co mmon 00:00:00 00:00:00 VIDEO) EST Spi rit VIRTUAL - CHI VIDEO [facility] 2021-12-01 2021-12-01 (TEL) STLMLC STLMLC [id number] Co mmon 00:00:00 00:00:00 [facility] 2021-11-26 2021-11-26 (TEL) STLMLC STLMLC [id number] Co mmon 00:00:00 00:00:00 [facility] 2021-11-02 2021-11-03 Between nullFlavo MNA [id number] [facility] 16:18:00 16:18:00 Visit r Neurology 06 l [facility] 2021-11-02 2021-11-03 Outpatient MHMISCHER MHMISCHER [id number] 11:18:00 11:18:00 06 2021-09-07 2021-09-07 OFFICE STLMLC STLMLC [id number] Co mmon 00:00:00 00:00:00 VISIT [facility] ESTAB PT - CHI LEVEL 4 [facility] 2021-09-07 2021-09-07 SUB ANNUAL STLMLC STLMLC [id number] Common 00:00:00 00:00:00 MCR [facility] WELLNESS - CHI VISIT [facility] 2021-09-02 2021-09-02 (TEL) STLMLC STLMLC [id number] Co mmon 00:00:00 00:00:00 [facility] 2021-06-09 2021-06-09 (TEL) STLMLC STLMLC [id number] Co mmon 00:00:00 00:00:00 [facility] 2021-06-04 2021-06-04 (TEL) STLMLC STLMLC [id number] Co mmon 00:00:00 00:00:00 [facility] 2021-06-02 2021-06-02 (COVID STLMLC STLMLC [id number] Co mmon 00:00:00 00:00:00 Inj) COVID Spi rit Injection - [facility] 2021-06-02 2021-06-02 (TEL) STLMLC STLMLC [id number] Co mmon 00:00:00 00:00:00 Spirit [facility] 2021-05-24 2021-05-24 OFFICE STLMLC STLMLC [id number] Co mmon 00:00:00 00:00:00 VISIT [facility] 4 [facility] 2021-05-11 2021-05-12 Outpatient nullFlavo MNA [id number] [facility] 15:45:00 05:59:59 r Neurology 09 l Alecia Faustin 2021-05-11 2021-05-11 Outpatient CONG Jay MISCHER [id number] 09:45:00 23:59:59 Mio 09 Rene 2021-05-11 2021-05-11 Outpatient MHIE MHIE [id number] [facility] 09:45:00 09:45:00 09 emely Faustin 2021-03-11 2021-03-11 (TEL) STLMLC STLMLC [id number] Co mmon 00:00:00 00:00:00 [facility] 2021-01-08 2021-01-08 (TEL) STLMLC STLMLC [id number] Co mmon 00:00:00 00:00:00 [facility] 2020-10-19 2020-10-19 Outpatient STLMLC STLMLC [id number] Common 00:00:00 00:00:00 [facility] 2020-07-23 2020-07-23 Outpatient STLMLC STLMLC [id number] Common 00:00:00 00:00:00 [facility] 2020-07-21 2020-07-21 Outpatient STLMLC STLMLC [id number] Common 00:00:00 00:00:00 [facility] 2020-07-10 2020-07-10 Outpatient STLMLC STLMLC [id number] Common 00:00:00 00:00:00 [facility] 2020-05-08 2020-05-09 Outpatient nullFlavo MNA [id number] [facility] 15:45:00 05:59:59 r Neurology 08 l Alecia Faustin 2020-05-08 2020-05-08 Outpatient SHIKHA JaySCHER MHMISCHER [id number] 09:45:00 23:59:59 Mio 08 Rene 2020-05-08 2020-05-08 Ambulatory nullFlavo MNA [id number] [facility] 15:45:00 15:45:00 Pre-Reg r Neurology 07 l Alecia Bailonann 2020-05-08 2020-05-08 Outpatient MHIE MHIE [id number] [facility] 09:45:00 09:45:00 07 l Ramin 2020-05-08 2020-05-08 Outpatient MHIE MHIE [id number] [facility] 09:45:00 09:45:00 08 emely Faustin 2020-05-08 2020-05-08 Outpatient [facility] [id number] 09:45:00 09:45:00 Mio López 2020-04-22 2020-04-22 Outpatient STLMLC STLMLC [id number] Common 00:00:00 00:00:00 [facility] 2020-04-16 2020-04-16 Outpatient STLMLC STLMLC [id number] Common 00:00:00 00:00:00 [facility] 2020-04-10 2020-04-10 Outpatient STLMLC STLMLC [id number] Common 00:00:00 00:00:00 [facility] 2020-04-09 2020-04-09 Outpatient STLMLC STLMLC [id number] Common 00:00:00 00:00:00 [facility] 2020-03-30 2020-03-30 Outpatient STLMLC STLMLC [id number] Common 00:00:00 00:00:00 [facility] 2020-02-12 2020-02-12 [facility] [id number] Common 15:30:00 15:30:[address] [facility] [facility] [address] [facility] 2020-01-07 2020-01-07 [facility] [id number] Common 09:30:00 09:30:[address] [facility] [facility] 2019-11-26 2019-11-26 [facility] [id number] Common 10:50:00 10:50:[address] [facility] [facility] 2019-11-06 2019-11-07 Outpatient nullFlavo MNA [id number] [facility] 14:45:00 04:59:59 r Neurology 06 l Alecia Faustin 2019-11-06 2019-11-06 Outpatient Krell, MHMISCHER MHMISCHER [id number] 09:45:00 23:59:59 Mio 06 Rene 2019-11-06 2019-11-06 Outpatient MHIE MHIE [id number] [facility] 09:45:00 09:45:00 06 l Ramin 2019-11-05 2019-11-05 Ambulatory nullFlavo MNA [id number] [facility] 15:00:00 15:00:00 Pre-Reg r Neurology 05 l Alecia Faustin 2019-11-05 2019-11-05 Outpatient MHIE MHIE [id number] [facility] 10:00:00 10:00:00 05 l Ramin 2019-11-05 2019-11-05 Outpatient Pierre, MHMISCHER MHMISCHER [id number] 10:00:00 10:00:00 Mio 05 Rene 2019-11-05 2019-11-05 [facility] [id number] Common 09:35:00 09:35:[address] [facility] [facility] 2019-10-07 2019-10-07 [facility] [id number] Common 14:30:00 14:30:[address] [facility] 2019-08-22 2019-08-22 [facility] [id number] Common 08:12:00 08:12:[address] [facility] [facility] 2019-08-12 2019-08-12 [facility] [id number] Common 16:46:00 16:46:[address] [facility] [facility] 2019-06-17 2019-06-17 [facility] [id number] Common 09:27:00 09:27:[address] [facility] [facility] 2019-06-13 2019-06-13 Out[facility] [id number] Common 09:45:00 09:45:[address] [facility] [facility] 2019-05-09 2019-05-10 Outpatient nullFlavo MNA [id number] [facility] 16:00:00 05:59:59 r Neurology 04 l Alecia Faustin 2019-05-09 2019-05-09 Outpatient Krechristian, MHMISCHER MHMISCHER [id number] 10:00:00 23:59:59 Mio Kenzie López 2019-05-09 2019-05-09 Outpatient MHIE MHIE [id number] [facility] 10:00:00 10:00:00 04 emely Faustin 2019-05-02 2019-05-02 [facility] [id number] Common 10:14:00 10:14:[address] [facility] 2019-05-02 2019-05-02 Out[facility] [id number] Common 08:30:00 08:30:[address] [facility] 2019-04-19 2019-04-19 Out[facility] [id number] Common 11:53:00 11:53:[address] [facility] [address] [facility] 2019-03-07 2019-03-07 Out[facility] [id number] Common 14:00:00 14:00:[address] [facility] [address] [facility] 2018-11-06 2018-11-07 Outpatient nullFlavo MNA [id number] [facility] 15:15:00 04:59:59 r Neurology 03 l Sutterailyn Bailonann 2018-11-06 2018-11-06 Outpatient Pierre, MHMISCHER MHMISCHER [id number] 10:15:00 23:59:59 Mio Too López 2018-11-06 2018-11-06 Outpatient MHIE MHIE [id number] [facility] 10:15:00 10:15:00 03 emely Prim 2018-07-12 2018-07-14 Phone nullFlavo MNA [id number] [facility] 21:55:00 05:59:59 Message r Neurology 04 l [facility] 2018-07-12 2018-07-13 Outpatient MHMISCHER MHMISCHER [id number] 15:55:00 23:59:59 04 2018-06-05 2018-06-07 Phone nullFlavo MNA [id number] [facility] 22:38:00 05:59:59 Message r Neurology 03 emely Faustin 2018-06-05 2018-06-06 Outpatient MHMISCHER MHMISCHER [id number] 16:38:00 23:59:59 03 2018-05-09 2018-05-10 Outpatient nullFlavo MNA [id number] [facility] 20:45:00 05:59:59 r Neurology 02 emely Faustin 2018-05-09 2018-05-09 Outpatient Pierre, MHMISCHER MHMISCHER [id number] 14:45:00 23:59:59 Mio Bryant López 2018-05-09 2018-05-09 Outpatient MHIE MHIE [id number] [facility] 14:45:00 14:45:00 02 emely BailonPrim 2018-04-16 2018-04-18 Phone nullFlavo MNA [id number] [facility] 19:03:00 04:59:59 Message r Neurology 02 emely Faustin 2018-04-16 2018-04-18 Phone nullFlavo MNA [id number] [facility] 18:49:00 04:59:59 Message r Neurology 01 emely Faustin 2018-04-16 2018-04-18 Phone nullFlavo MNA [id number] [facility] 18:42:00 04:59:59 Message r Neurology 00 emely Faustin 2018-04-16 2018-04-17 Outpatient MHMISCHER MHMISCHER [id number] 14:03:00 23:59:59 02 2018-04-16 2018-04-17 Outpatient MHMISCHER MHMISCHER [id number] 13:49:00 23:59:59 01 2018-04-16 2018-04-17 Outpatient MHMISCHER MHMISCHER [id number] 13:42:00 23:59:59 00 2017-09-25 2017-09-25 Outpatient MHIE MHIE [id number] [facility] 10:00:00 10:00:00 01 emely Faustin 2017-09-19 2017-09-19 Outpatient MHIE MHIE [id number] [facility] 09:45:00 09:45:00 00 emely Faustin Results Test Description Test Time Test Comments Results Result Comments Source PATHOLOGIST SMEAR REVIEW 2023-01-05 00:00:00 Test Item Value Reference Range Interpretation Comme nts BASOPHILS (test code = 0.3 % 45451-3) DIAGNOSIS: (test code = (NOTE) 51136-7) COMMENTS (test code = (NOTE) 94162-9) EOSINOPHILS (test code = 4.3 % 99052-1) HEMATOCRIT (test code = 28.0 % See_Comment L [Au tomated message] The ) system which [employer] nerated this result transmit pari reference range: 40.0-51. 0 %. The reference range was not used to interpret th is result as normal/abnormal . HEMOGLOBIN (test code = 8.5 G/DL See_Comment L [Au tomated message] The 8) system which [employer] nerated this result transmit pari reference range: 13.5-17. 0 G/DL. The reference range was not used to interpret th is result as normal/abnormal . LYMPHOCYTES (test code = 50.2 % 62604-3) MCH (test code = 26387-3) 22.8 PG See_Comment L [ Automated message] The system which [employer] nerated this result transmit pari reference range: 25.0-33. 0 PG. The reference range was not used to interpret th is result as normal/abnormal . MCHC (test code = 75485-4) 30.4 G/DL See_Comment L [Automated message] The system which [employer] nerated this result transmit pari reference range: 31.0-36. 0 G/DL. The reference range was not used to interpret th is result as normal/abnormal . MCV (test code = 84881-7) 75.1 fL See_Comment L [ Automated message] The system which [employer] nerated this result transmit pari reference range: 80.0-99. 0 fL. The reference range was not used to interpret th is result as normal/abnormal . MICROSCOPIC DESCRIPTION: (NOTE) (test code = 39922-1) MONOCYTES (test code = 13.0 % 09515-3) NEUTROPHILS (test code = 32.2 % 02944-2) NUCLEATED RBCS (test code = 0.0 /100 WBC'S See_Comment [Automated message] The 79376-5) system which [employer] nerated this result transmit pari reference range: 0.0 /100 WBC'S. The reference range was not used to interpret th is result as normal/abnormal . PATHOLOGIST: (test code = (NOTE) 36219-6) PLATELET COUNT (test code = 212 K/UL See_Comment [Automated message] The 71971-2) system which [employer] nerated this result transmit pari reference range: 130-400 K/UL. The reference range was not used to interpret th is result as normal/abnormal . RBC (test code = 68993-4) 3.73 M/UL See_Comment L [ Automated message] The system which [employer] nerated this result transmit pari reference range: 4.50-6.1 0 M/UL. The reference range was not used to interpret th is result as normal/abnormal . RDW (test code = 06807-5) 16.6 % See_Comment H [ Automated message] The system which [employer] nerated this result transmit pari reference range: 11.5-15. 0 %. The reference range was not used to interpret th is result as normal/abnormal . WBC (test code = 75396-7) 3.0 K/UL See_Comment L [ Automated message] The system which [employer] nerated this result transmit pari reference range: 3.5-11.0 K/UL. The reference range was not used to interpret th is result as normal/abnormal . LIPID PANEL WITH REFLEX DIRECT [id number] 00:00:00 Test Item Value Reference Range Interpretation Comments CALC LDL CHOL (test 99 MG/DL See_Comment [Automa pari message] code = 22143-9) The system [facility] generated this result transmit pari reference range : <100 MG/DL. The reference range was not used to interpret this result as normal/abnormal . CHOLESTEROL (test code 167 MG/DL See_Comment [Aut omated message] = 3-3) The system [facility] generated this result transmit pari reference range : <200 MG/DL. The reference range was not used to interpret this result as normal/abnormal . HDL CHOLESTEROL (test 54 MG/DL See_Comment [Auto mated message] code = 5-9) The system [facility] generated this result transmit pari reference range : >39 MG/DL. The refe rence range was not u sed to interpret th is result as normal/abnormal . RISK RATIO LDL/HDL 1.83 RATIO See_Comment [Automat ed message] (test code = 69361-9) The sy stem which generated this result transmit pari reference range : <3.55 RATIO. Th e reference range was not used to interpret this result as normal/abnormal . TRIGLYCERIDES (test 57 MG/DL See_Comment [Automa pari message] code = 2571-8) The system [employer] generated this result transmit pari reference range : <150 MG/DL. The reference range was not used to interpret this result as normal/abnormal . COMPREHENSIVE METABOLIC [id number] 00:00:00 Test Item Value Reference Range Interpretation Comments ALBUMIN (test code = 4.2 G/DL See_Comment [Autom ated message] 1751-7) The system [employer] generated this result transmit pari reference range : 3.5-5.2 G/DL. T he reference range was not used to interpret this result as normal/abnormal . ALKALINE PHOSPHATASE 166 U/L See_Comment H [Autom ated message] (test code = 6768-6) The sys tem which generated this result transmit pari reference range : 40-125 U/L. The reference range was not used to interpret this result as normal/abnormal . BILIRUBIN, TOTAL <0.2 MG/DL See_Comment [Automated message] (test code = 1975-2) The sys tem which generated this result transmit pari reference range : <=1.2 MG/DL. Th e reference range was not used to interpret this result as normal/abnormal . BUN (test code = 49 MG/DL See_Comment H [Automated message] 3094-0) The system [employer] generated this result transmit pari reference range : 8-23 MG/DL. The reference range was not used to interpret this result as normal/abnormal . CALCIUM (test code = 9.3 MG/DL See_Comment [Autom ated message] 70435-7) The system [employer] generated this result transmit pari reference range : 8.5-10.5 MG/DL. The reference range was not used to interpret this result as normal/abnormal . CALC A/G RATIO (test 1.1 RATIO See_Comment [Autom ated message] code = 1759-0) The system [employer] generated this result transmit pari reference range : 1.0-2.6 RATIO. The reference range was not used to interpret this result as normal/abnormal . CALC BUN/CREAT (test 48 RATIO See_Comment H [Autom ated message] code = 3097-3) The system [facility] generated this result transmit pari reference range : 6-28 RATIO. The reference range was not used to interpret this result as normal/abnormal . CALC GLOBULIN (test 3.7 G/DL See_Comment [Automa pari message] code = 75876-9) The system [facility] generated this result transmit pari reference range : 1.9-3.7 G/DL. T he reference range was not used to interpret this result as normal/abnormal . CARBON DIOXIDE (test 22 MEQ/L See_Comment [Autom ated message] code = 1963-8) The system [facility] generated this result transmit pari reference range : 19-31 MEQ/L. Th e reference range was not used to interpret this result as normal/abnormal . CHLORIDE (test code 105 MEQ/L See_Comment [Automa pari message] = 4045-0) The system [facility] generated this result transmit pari reference range : 95-107 MEQ/L. T he reference range was not used to interpret this result as normal/abnormal . CREATININE (test 1.02 MG/DL See_Comment [Automated message] code = 2160-0) The system [facility] generated this result transmit pari reference range : 0.80-1.40 MG/DL . The reference range was not used to interpret this result as normal/abnormal . eGFR (2020 CKD-EPI) 77 ML/MIN/1.73 See_Comment [Auto mated message] (test code = The system [facility] 03670-4) generated this result transmit pari reference range : >60 ML/MIN/1.73. Th e reference range was not used to interpret this result as normal/abnormal . GLUCOSE (test code = 83 MG/DL See_Comment [Autom ated message] 1558-6) The system [facility] generated this result transmit pari reference range : 70-99 MG/DL. Th e reference range was not used to interpret this result as normal/abnormal . POTASSIUM (test code 5.0 MEQ/L See_Comment [Autom ated message] = 2713-3) The system [facility] generated this result transmit pari reference range : 3.5-5.4 MEQ/L. The reference range was not used to interpret this result as normal/abnormal . PROTEIN, TOTAL (test 7.9 G/DL See_Comment [Autom ated message] code = 2885-2) The system [facility] generated this result transmit pari reference range : 6.1-8.3 G/DL. T he reference range was not used to interpret this result as normal/abnormal . AST (test code = 18 U/L See_Comment [Automated message] 1920-8) The system [email or web address] generated this result transmit pari reference range : 9-50 U/L. The reference range was not used to interpret this result as normal/abnormal . ALT (test code = 13 U/L See_Comment [Automated message] 1742-6) The system [employer] generated this result transmit pari reference range : 5-50 U/L. The reference range was not used to interpret this result as normal/abnormal . SODIUM (test code = 139 MEQ/L See_Comment [Automa pari message] 1181-2) The system [email or web address] generated this result transmit pari reference range : 133-146 MEQ/L. The reference range was not used to interpret this result as normal/abnormal .
--- NOTE | 2023-05-15 20:02 | RAD REPORT ---
EXAM DESCRIPTION: [facility] Single View05/15/2023 7:48 pm CLINICAL HISTORY: Cough COMPARISON: 2021 FINDINGS: Subsegmental atelectasis or scarring within right lung base. There has been development mild patchy left lung opacities suspicious for pneumonia. Heart is mildly enlarged
--- NOTE | 2023-05-15 20:05 | RAD REPORT ---
EXAM DESCRIPTION: CT - Head Brain Wo Cont - 05/15/2023 7:50 pm CLINICAL HISTORY: Alteration of awareness/confusion COMPARISON: 2017 TECHNIQUE: Computed axial tomography of the head was obtained. IV contrast was not requested. All CT scans are performed using dose optimization technique as appropriate and may include automated exposure control or mA/KV adjustment according to patient size. FINDINGS: An intracranial bleed is not seen No hydrocephalus No extra-axial fluid collection is noted. 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 Cerebellar atrophy Sphenoid sinusitis IMPRESSION: No acute intracranial abnormality is seen If patient's symptoms persist MRI of the brain would be recommended
[2023-05-15 20:40] LABS: Absolute Lymphocytes (CBC) 0.9 K/uL (0.7-4.9); Lymphocytes % 22.6 % (15.3-44.8); MCV 72.8 fL (80-100); MPV 7.8 fL (7.6-11.3); Platelets 367 thou/uL (152-406); RBC Red Blood Cell Count 3.02 M/uL (4.33-5.43)
[2023-05-15] MEDS ORDERED: ACETAMINOPHEN 650MG/RECT SUPP PR ONE (20:51)
[2023-05-15] MEDS ORDERED: CEFTRIAXONE 2000 MG/VIAL ONE (20:51)
[2023-05-15] MEDS ORDERED: AZITHROMYCIN 500 MG INJ IVPB ONE (20:52)
[2023-05-15 20:55] LABS: Protime INR 1.85
[2023-05-15 20:59] LABS: Albumin 2.6 g/dL (3.4-5.0); Bilirubin Total 0.5 mg/dL (0.2-1.0); Protein, Total 9.5 g/dL (6.4-8.2); Troponin High Sensitivity 55.1 pg/mL (<58.9)
[2023-05-15 21:18] LABS: Specific Gravity 1.015 (1.005-1.030); Urine Bacteria None Seen /HPF (<20); Urine Bilirubin NEGATIVE (Negative); Urine Blood Negative (Negative); Urine Clarity Turbid (Clear); Urine Color Yellow (Yellow); Urine Crystals Unidentified Few /HPF (None Seen); Urine Glucose NEGATIVE (Negative); Urine Mucus Slight /HPF (None Seen); Urine Protein 2+ (Negative); Urine Urobilinogen Normal (Normal)
--- NOTE | 2023-05-15 21:32 | EDPHYS ---
[facility] Name: Jairo Samson Age: 77 yrs Sex: Male : 1945 Arrival Date: 05/15/2023 Time: 19:00 Bed 5 Private MD: Daniel [facility] ED Physician Phillip Carroll HPI: 05/15 19:25 This 77 yrs old Black Male presents to ER via Wheelchair with complaints of Weakness, cp Altered Mental Status. 19:25 The patient presents with decreased responsiveness. Onset: The symptoms/episode cp began/occurred yesterday. Possible causes: sepsis. 19:25 Associated signs and symptoms: Pertinent positives: weakness. Current symptoms: In the cp emergency department the patient's symptoms are unchanged from the initial presentation, despite EMS interventions. Patient's baseline: Neuro: alert and fully oriented, Motor: right-sided weakness, left-sided weakness, Ambulation: unable to walk, uses wheelchair, The patient has a previous history of CVA. Unable to obtain HPI due to altered mental status. Historical: - Allergies: 19:14 Cipro; vc1 - PMHx: 19:14 CVA; DVT; Hyperlipidemia; Hypertension; PE; Polio; Seizures; vc1 - Immunization history:: Client reports receiving the 2nd dose of the Covid vaccine. - Social history:: Smoking status: Patient denies any tobacco usage or history of. ROS: 19:30 Constitutional: Positive for fever, poor PO intake, cp 19:30 Neuro: Positive for altered mental status, weakness, cp 19:30 Unable to obtain ROS due to altered mental status, Exam: 19:35 Constitutional: The patient appears in no acute distress, alert, awake, cp non-diaphoretic, well developed, well nourished, obviously ill, 19:35 Head/Face: Normocephalic, atraumatic. cp 19:35 Eyes: Periorbital structures: appear normal, Conjunctiva: normal, no exudate, no injection, Sclera: no appreciated abnormality, Lids and lashes: appear normal, bilaterally, 19:35 ENT: External ear(s): are unremarkable, Nose: is normal, Mouth: Lips: dry, Oral mucosa: dry, Posterior pharynx: Airway: no evidence of obstruction, patent, 19:35 Neck: ROM/movement: Meningeal signs: are not present, nuchal rigidity, is not appreciated, 19:35 Chest/axilla: Inspection: normal, Palpation: is normal, no crepitus, no tenderness, 19:35 Cardiovascular: Rate: tachycardic, Rhythm: regular, Edema: is not appreciated, JVD: is not appreciated, 19:35 Respiratory: the patient does not display signs of respiratory distress, Respirations: labored breathing, is not present, shallow respirations, that is mild, Breath sounds: bronchial sounds, that are mild, are heard diffusely, 19:35 Abdomen/GI: Inspection: abdomen appears normal, Bowel sounds: active, all quadrants, Palpation: abdomen is soft and non-tender, in all quadrants, 19:35 Neuro: Orientation: Not oriented to person, place, situation, Mentation: slow to respond, Motor: the patient is contracted, 21:50 ECG was reviewed by the Attending Physician. cp Vital Signs: 19:14 BP 143 / 112; Pulse 144; Resp 23; Temp 102.8; Pulse Ox 96% ; vc1 20:59 BP 125 / 71; Pulse 129; Resp 21; Pulse Ox 96% on R/A; lg3 21:49 BP 122 / 75; Pulse 113; Resp 20; Temp 99(O); Pulse Ox 100% on R/A; lg3 21:54 Temp 99(O); lg3 23:05 BP 117 / 68; Pulse 105; Resp 19 S; Pulse Ox 100% on R/A; lg3 NIH Stroke Scale Scores: 20:13 NIHSS Score: 32 lg3 MDM: 19:17 Patient medically screened. cp 20:00 Differential Diagnosis: CVA, electrolyte abnormality, pneumonia, seizure, sepsis, cp volume depletion. 21:35 Data reviewed: vital signs, nurses notes, lab test result(s), EKG, radiologic studies, cp CT scan, plain films. 21:35 Consideration of Admission/Observation Patient was admitted/placed on observation. cp Management of patient was discussed with the following: Hospitalist: Elyssa Barker [employer], will admit after discussion. Independent interpretation of the following test(s) in the Emergency Department EKG: See my EKG interpretation above. 05/15 19:23 Order name: Blood Culture Adult (2) 05/15 19:23 Order name: CBC with Diff; Complete Time: 20:51 cp 05/15 20:51 Interpretation: Normal except: WBC 4.00; RBC 3.02; HGB 7.1; HCT 22.0; MCV 72.8; MCH cp 23.5; BASO% 1.4. 05/15 19:23 Order name: CMP; Complete Time: 21:07 cp 05/15 21:07 Interpretation: Normal except: NA 148; CL 117; GLUC 139; BUN 50; CRE 1.42; GFR 52; AST cp 55; ALK 131; TP 9.5; ALB 2.6; GLOB 6.9; A/G 0.4. 05/15 19:23 Order name: Lactate w/ 2H reflex if indic.; Complete Time: 21:07 cp 05/15 21:08 Interpretation: Within normal limits: LAC 1.6. cp 05/15 19:23 Order name: Protime (+inr); Complete Time: 21:07 cp 05/15 21:07 Interpretation: Abnormal: PT 20.4. cp 05/15 19:23 Order name: Ptt, Activated; Complete Time: 21:07 cp 05/15 21:08 Interpretation: Abnormal: PTT 42.3. cp 05/15 19:23 Order name: Urinalysis w/ reflexes cp 05/15 19:23 Order name: Influenza Screen (a \T\ B); Complete Time: 21:07 cp 05/15 19:23 Order name: COVID-19 SARS RT PCR; Complete Time: 21:22 cp 05/15 19:23 Order name: Troponin High Sensitivity; Complete Time: 21:07 cp 05/15 21:08 Interpretation: Within normal limits: Troponin HS 55.1. cp 05/15 19:23 Order name: BNP; Complete Time: 21:07 cp 05/15 21:07 Interpretation: Abnormal: NT PRO-BNP 1056. cp 05/15 20:18 Order name: Urinalysis W/Microscopic; Complete Time: 21:22 cp 05/15 21:23 Interpretation: Normal except: [facility] Turbid; UPROT 2+; UESTR 25; URBC 5-10. cp 05/15 20:47 Order name: Glucose, Ancillary Testing; Complete Time: 20:51 EDMS 05/15 22:09 Order name: BB Add On EDMS 05/15 22:09 Order name: Type and Screen EDMS 05/15 22:09 Order name: CBC with Automated Diff EDMS 05/15 22:09 Order name: Comprehensive Metabolic Panel EDNM 05/15 22:09 Order name: Magnesium EDNM 05/15 22:09 Order name: Phosphorus EDNM 05/15 22:09 Order name: Troponin High Sensitivity EDNM 05/15 22:09 Order name: Troponin High Sensitivity EDNM 05/15 22:09 Order name: Troponin High Sensitivity [facility] 05/15 19:23 Order name: CT Head Brain wo Cont; Complete Time: 20:51 cp 05/15 19:23 Order name: Chest Single View XRAY; Complete Time: 20:51 cp 05/15 19:23 Order name: EKG; Complete Time: 19:24 cp 05/15 22:09 Order name: CONS Physician Consult EDNM 05/15 19:23 Order name: Accucheck; Complete Time: 20:32 cp 05/15 19:23 Order name: Cardiac monitoring; Complete Time: 20:12 cp 05/15 19:23 Order name: EKG - Nurse/Tech; Complete Time: 20:12 cp 05/15 19:23 Order name: IV Saline Lock - Large Bore; Complete Time: 20:32 cp 05/15 19:23 Order name: Labs collected and sent; Complete Time: 20:32 cp 05/15 19:23 Order name: O2 Per Protocol; Complete Time: 20:32 cp 05/15 19:23 Order name: O2 Sat Monitoring; Complete Time: 20:32 cp 05/15 19:23 Order name: Vital Signs; Complete Time: 21:04 cp 05/15 20:18 Order name: Matthews; Complete Time: 20:58 cp 05/15 21:39 Order name: EKG - Nurse/Tech; Complete Time: 21:49 lg3 05/15 21:48 Order name: Recheck VS; Complete Time: 21:53 snw EC:50 Rate is 113 beats/min. Rhythm is regular. TN interval is normal. QRS interval is cp normal. QT interval is normal. Interpreted by me. Reviewed by me. Administered Medications: 20:58 Drug: Acetaminophen TN Suppository 975 mg TN once Route: TN; lg3 21:54 Follow up: Temp 99 Oral; Response: No adverse reaction; Marked relief of symptoms; lg3 Temperature is decreased 20:58 Drug: Rocephin IV 2 grams IV at calculated rate once; Given slow IV push per pharmarcy lg3 instructions Route: IV; Rate: calculated rate; Site: left forearm; 23:06 Follow up: Response: No adverse reaction; IV Status: Completed infusion; IV Intake: [id number] 20:58 Drug: Zithromax IVPB 500 mg IVPB once over 1 hrs; mix in 250 mL NS Route: IVPB; Infused lg3 Over: 1 hrs; Site: left forearm; 21:53 Follow up: Response: No adverse reaction; IV Status: Completed infusion; IV Intake: lg3 250ml 21:13 Drug: NS 0.9% IV 1000 ml IV at 1 bolus Per protocol; 1000 mL bolus Route: IV; Rate: 1 lg3 bolus; Site: left forearm; 23:06 Follow up: Response: No adverse reaction; IV Status: Completed infusion; IV Intake: lg3 1000ml Point of Care Testing: Blood Glucose: 21:01 Blood Glucose: 121 mg/dL; lg3 Ranges: Critical Glucose Levels:Adult <50 mg/dl or >400 mg/dl <40 mg/dl or >180 mg/dl Disposition Summary: 05/15/23 21:32 Hospitalization Ordered Notes: Hospitalization Status: Inpatient Admission cp Condition: Serious cp Problem: new cp Symptoms: have improved cp Bed/Room Type: Standard cp Location: Intensive Care Unit(05/15/23 22:06) cp Room Assignment: 1-(05/15/23 23:27) Provider: Nik Fuentes(05/16/23 00:28) cp Diagnosis - Other pneumonia, unspecified organism cp - Sepsis, unspecified organism cp - Altered mental status, unspecified cp Forms: - Medication Reconciliation Form cp - SBAR form cp - Leadership Thank You Letter cp NIH Stroke Scale - NIH Stroke Score Date: 05/15/2023 Time: 20:13 Total Score = 32 10. Dysarthria (speech clarity - read or repeat words) - 2(Severe) 11. Extinction and Inattention (visual/tactile/auditory/spatial/personal) - 2(Profound) 1a. Level of Consciousness (LOC) - 3(Unresponsive) 1b. Level of Consciousness (LOC) (Month \T\ Age) - 2(Neither) 1c. LOC Commands (Open \T\ Closes Eyes/Senior Nurse Manager) - 2(Neither) 2. Best Gaze (Lateral Gaze Paresis) - 0(Normal) 3. Visual Field Loss - 0(No visual loss) 4. Facial Palsy - 1(Minor Paralysis) 5a. Left Arm: Motor (10-second hold) - 4(No movement) 5b. Right Arm: Motor (10-second hold) - 4(No movement) 6a. Left Leg: Motor (5-second hold - always test supine) - 4(No movement) 6b. Right Leg: Motor (5-second hold - always test supine) - 4(No movement) 7. Limb Ataxia (finger/nose \T\ heel/montero - test with eyes open) - Notes: bilateral paralysis 8. Sensory Loss (pinprick arms/legs/face) - 1(Mild to moderate loss) 9. Best Language: Aphasia (description/naming/reading) - 3(Mute, global aphasia) Initials: lg3 Addendum: 05/19/2023 08:26 Co-signature as Attending Physician, Phillip Carroll MD I reviewed the patient's rn care provided by the Advanced Practice Provider and agree with the diagnosis and treatment plan. Signatures: Dispatcher [employer] EDMS Janice Barker, COTTON WEIGHER OPERATOR-C COTTON WEIGHER OPERATOR-Csnw Phillip Carroll MD MD rn Page, Corey, PA PA cp Michelle Decker RN RN cg Courtney Soto RN RN lg3 Kristen Heath RN RN vc1 Corrections: (The following items were deleted from the chart) 05/15 22:06 21:32 Telemetry/MedSurg (Inpatient) cp cp 22:06 21:32 cp cp 23:27 22:06 cp cg 05/16 00:28 05/15 21:32 Janice Barker cp cp
--- NOTE | 2023-05-15 21:32 | ER ---
Nurse's Notes [facility] Name: Jairo Samson Age: 77 yrs Sex: Male : 1945 Arrival Date: 05/15/2023 Time: 19:00 Bed 5 Private MD: Sheldon Sanchez Diagnosis: Other pneumonia, unspecified organism;Sepsis, unspecified organism;Altered mental status, unspecified Presentation: 05/15 19:14 Chief complaint: Spouse and/or significant other states: Yesterday he started acting vc1 different, he's having trouble swallowing and not talking. 19:14 Method Of Arrival: Wheelchair vc1 19:14 Coronavirus screen: Vaccine status: Patient reports receiving the 2nd dose of the covid vc1 vaccine. all but last booster Client denies travel out of the [place] in the last 14 days. fever, Client presents with at least one sign or symptom that may indicate coronavirus-19. Ebola Screen: Patient negative for fever greater than or equal to 101.5 degrees Fahrenheit, and additional compatible Ebola Virus Disease symptoms Patient denies exposure to infectious person. Patient denies travel to an Ebola-affected area in the 21 days before illness onset. No symptoms or risks identified at this time. Initial Sepsis Screen: Does the patient meet any 2 criteria? RR > 20 per min. Temp <36.0*C (96.8*F)) or > 38.3*C (100.9*F). HR > 90 bpm. Yes Does the patient have a suspected source of infection? Yes: Skin breakdown/wound. Risk Assessment: Do you want to hurt yourself or someone else? Patient reports no desire to harm self or others. Onset of symptoms was May 14, 2023. 19:14 Acuity: BIJAL 2 vc1 20:59 An acute neurological deficit is present. The patients blood glucose was checked before lg3 arriving to the hospital and was found to be normal. Triage Assessment: 19:34 The onset of the patients symptoms was more than six hours ago. General: Appears vc1 uncomfortable, ill, Behavior is drowsy. Pain: Unable to use pain scale. Patient is disoriented. EENT: No deficits noted. No signs and/or symptoms were reported regarding the EENT system. Neuro: Reports weakness reports pt weaker than normal and no longer speaking. Cardiovascular: Rhythm is sinus tachycardia. Respiratory: Airway is patent Respiratory effort is even, unlabored, Respiratory pattern is symmetrical, tachypnea. GI: No deficits noted. No signs and/or symptoms were reported involving the gastrointestinal system. : No deficits noted. No signs and/or symptoms were reported regarding the genitourinary system. Derm: Skin temperature is hot. Musculoskeletal: No deficits noted. No signs and/or symptoms reported regarding the musculoskeletal system. Stroke Activation: Symptom onset > 6 hours Physician: Stroke Attending; Name: ; Notified At: ; Arrived At: Physician: Chief Stroke Resident; Name: ; Notified At: ; Arrived At: Physician: Stroke Resident; Name: ; Notified At: ; Arrived At: Physician: ED Attending; Name: ; Notified At: ; Arrived At: Physician: ED Resident; Name: ; Notified At: ; Arrived At: Historical: - Allergies: 19:14 Cipro; vc1 - PMHx: 19:14 CVA; DVT; Hyperlipidemia; Hypertension; PE; Polio; Seizures; vc1 - Immunization history:: Client reports receiving the 2nd dose of the Covid vaccine. - Social history:: Smoking status: Patient denies any tobacco usage or history of. Screenin:13 [facility] ED Fall Risk Assessment (Adult) History of falling in the last 3 months, lg3 including since admission No falls in past 3 months (0 pts) Confusion or Disorientation Yes (5 pts) Intoxicated or Sedated No (0 pts) Impaired Gait Yes (1 pt) Mobility Assist Device Used Yes (1 pt) Altered Elimination Yes (1 pt) Score/Fall Risk Level 3 or more points = High Risk Oriented to surroundings, Maintained a safe environment, Educated pt \T\ family on fall prevention, incl call for assistance when getting out of bed, Assessed \T\ reinforced patient's understanding of fall precautions, Utilized family, sitter, or virtual mica inspector as indicated. Abuse screen: Denies threats or abuse. Denies injuries from another. Nutritional screening: No deficits noted. Tuberculosis screening: No symptoms or risk factors identified. Assessment: 20:13 VAN Scoring: Arm Drift: Flaccid/no antigravity. [place] Swallow Protocol Exclusion lg3 Criteria: Exclusion Criteria Result: Defer \T\ Consult. 21:24 Reassessment: Patient appears in no apparent distress at this time. No changes from lg3 previously documented assessment. Patient and/or family updated on plan of care and expected duration. Pain level reassessed. 23:05 Reassessment: Patient appears in no apparent distress at this time. No changes from lg3 previously documented assessment. Vital Signs: 19:14 BP 143 / 112; Pulse 144; Resp 23; Temp 102.8; Pulse Ox 96% ; vc1 20:59 BP 125 / 71; Pulse 129; Resp 21; Pulse Ox 96% on R/A; lg3 21:49 BP 122 / 75; Pulse 113; Resp 20; Temp 99(O); Pulse Ox 100% on R/A; lg3 21:54 Temp 99(O); lg3 23:05 BP 117 / 68; Pulse 105; Resp 19 S; Pulse Ox 100% on R/A; lg3 NIH Stroke Scale Scores: 20:13 NIHSS Score: 32 lg3 ED Course: 19:03 Patient arrived in ED. mr 19:03 Sheldon Sanchez DO is Private Physician. mr 19:14 Pipo Henriquez PA is PHCP. cp 19:14 Phillip Carroll MD is Attending Physician. cp 19:33 Triage completed. vc1 19:50 Chest Single View XRAY In Process Unspecified. EDMS 19:52 CT Head Brain wo Cont In Process Unspecified. EDMS 20:13 Courtney Soto, RN is Primary Nurse. lg3 20:13 Patient has correct armband on for positive identification. Placed in gown. Bed in low lg3 position. Call light in reach. Side rails up X2. Adult w/ patient. Client placed on continuous cardiac and pulse oximetry monitoring. NIBP monitoring applied. media monitor on. Door closed. Noise minimized. Warm blanket given. Family accompanied patient. 20:13 Arm band placed on right wrist. lg3 20:13 Patient maintains SpO2 saturation greater than 95% on room air. lg3 20:31 BNP Sent. lg3 20:31 Troponin High Sensitivity Sent. lg3 20:31 COVID-19 SARS RT PCR Sent. lg3 20:32 Influenza Screen (a \T\ B) Sent. lg3 20:32 Blood Culture Adult (2) Sent. lg3 20:32 CBC with Diff Sent. lg3 20:32 CMP Sent. lg3 20:32 Lactate w/ 2H reflex if indic. Sent. lg3 20:32 Protime (+inr) Sent. lg3 20:32 Ptt, Activated Sent. lg3 20:39 Inserted saline lock: 22 gauge in left forearm, using aseptic technique. Blood oe collected. 20:58 Urinalysis W/Microscopic Sent. lg3 21:00 Matthews cath inserted, using sterile technique, 16 Fr., by ED staff, balloon inflated, to lg3 gravity drainage, urine specimen collected. 21:31 Janice Barker FNP-C is Hospitalizing Provider. cp 05/16 00:25 No provider procedures requiring assistance completed. Patient admitted, IV remains in lg3 place. 00:27 Primary Nurse role handed off by Courtney Soto RN cp 00:28 Nik Fuentes is Hospitalizing Provider. cp Administered Medications: 05/15 20:58 Drug: Acetaminophen SD Suppository 975 mg SD once Route: SD; lg3 21:54 Follow up: Temp 99 Oral; Response: No adverse reaction; Marked relief of symptoms; lg3 Temperature is decreased 20:58 Drug: Rocephin IV 2 grams IV at calculated rate once; Given slow IV push per pharmarcy lg3 instructions Route: IV; Rate: calculated rate; Site: left forearm; 23:06 Follow up: Response: No adverse reaction; IV Status: Completed infusion; IV Intake: [id number] 20:58 Drug: Zithromax IVPB 500 mg IVPB once over 1 hrs; mix in 250 mL NS Route: IVPB; Infused lg3 Over: 1 hrs; Site: left forearm; 21:53 Follow up: Response: No adverse reaction; IV Status: Completed infusion; IV Intake: lg3 250ml 21:13 Drug: NS 0.9% IV 1000 ml IV at 1 bolus Per protocol; 1000 mL bolus Route: IV; Rate: 1 lg3 bolus; Site: left forearm; 23:06 Follow up: Response: No adverse reaction; IV Status: Completed infusion; IV Intake: lg3 1000ml Medication: 05/16 00:26 VIS not applicable for this client. lg3 Point of Care Testing: Blood Glucose: 05/15 21:01 Blood Glucose: 121 mg/dL; lg3 Ranges: Intake: 21:53 IV: 250ml; Total: 250ml. lg3 23:06 IV: 10ml; Total: 260ml. lg3 23:06 IV: 1000ml; Total: 1260ml. lg3 Outcome: 21:32 Decision to Hospitalize by Provider. cp 05/16 00:25 Admitted to ICU accompanied by nurse, via stretcher, room 1, lg3 Condition: stable Instructed on the need for admit, 00:26 Patient left the ED. lg3 00:31 Patient left the ED. [id number] NIH Stroke Scale - NIH Stroke Score Date: 05/15/2023 Time: 20:13 Total Score = 32 10. Dysarthria (speech clarity - read or repeat words) - 2(Severe) 11. Extinction and Inattention (visual/tactile/auditory/spatial/personal) - 2(Profound) 1a. Level of Consciousness (LOC) - 3(Unresponsive) 1b. Level of Consciousness (LOC) (Month \T\ Age) - 2(Neither) 1c. LOC Commands (Open \T\ Closes Eyes/Maintenance Chief) - 2(Neither) 2. Best Gaze (Lateral Gaze Paresis) - 0(Normal) 3. Visual Field Loss - 0(No visual loss) 4. Facial Palsy - 1(Minor Paralysis) 5a. Left Arm: Motor (10-second hold) - 4(No movement) 5b. Right Arm: Motor (10-second hold) - 4(No movement) 6a. Left Leg: Motor (5-second hold - always test supine) - 4(No movement) 6b. Right Leg: Motor (5-second hold - always test supine) - 4(No movement) 7. Limb Ataxia (finger/nose \T\ heel/montero - test with eyes open) - Notes: bilateral paralysis 8. Sensory Loss (pinprick arms/legs/face) - 1(Mild to moderate loss) 9. Best Language: Aphasia (description/naming/reading) - 3(Mute, global aphasia) Initials: lg3 Signatures: Dispatcher [employer] EDNH Honey Mayorga, Reg Reg mr Pipo Henriquez PA PA cp Bryson, James, RN RN [id number] Clayton Castellanos Lacie, RN RN lg3 Kristen Heath RN RN vc1
[2023-05-16] MEDS ORDERED: NA CHLORIDE 0.9% 250 ML ONE (01:40)
[2023-05-16] MEDS: ALBUTEROL 2.5 MG/3 ML NEB SOL NEB SCH ×4 (01:50→19:50)
[2023-05-16] MEDS: IPRATROPIUM BROM 0.5MG/2.5ML NEB SCH ×5 (01:50→19:50)
[2023-05-16] MEDS: ALBUMIN HUMAN 25% 12.5 GM, FUROSEMIDE 100 MG in NA CHLORIDE 0.9% 40 ML IV SCH ×2 (03:00→08:00)
[2023-05-16] MEDS ORDERED: ALBUMIN HUMAN 25% 50 ML IV ONE (04:49)
[2023-05-16] MEDS ORDERED: FUROSEMIDE 100 MG/10 ML VIAL IV ONE (04:55)
[2023-05-16] MEDS: PIPER TAZO 3.375 GM in NA CHLORIDE 0.9% 100 ML IV SCH ×2 (05:16→17:18)
[2023-05-16] MEDS ORDERED: PIPERACIL/TAZO 3.375 GM VIAL IV ONE (05:27)
[2023-05-16 05:55] LABS: MCV 75.7 fL (80-100); MPV 8.6 fL (7.6-11.3); Platelets 316 thou/uL (152-406); RBC Red Blood Cell Count 3.16 M/uL (4.33-5.43)
--- NOTE | 2023-05-16 06:04 | P.HP ---
Certification for Inpatient With expected LOS: >2 Midnights Patient will require the following post-hospital care: Detention Practitioner: I am a practitioner with admitting privileges, knowledge of patient current condition, hospital course, and medical plan of care. Services: Services provided to patient in accordance with Admission requirements found in Title 42 Section 412.3 of the Code of Federal Regulations Patient History Date of Service: 05/16/23 Reason for admission: Pneumonia History of Present Illness: Mr. Samson is a 77 yo debilitated man that lives with his Sister. She is his caregiver. Mr. Samson is bedridden and get transfers to a motorized wheelchair. He arrived in his chair to the ED slumped over, febrile, with a cough. His Sister states he has been coughing for a few days. He was given a tylenol suppository in the ED. His initial temperature was 103.8 and his heartrate was in the 140s. On assessment pt is sleeping, HR down to 112, temperature down. Sister is at bedside and state she knew he was sick because he stopped talking to her and stopped eating. Mr. Samson is found to be anemic (hgb 7.1) dehydrated with mild fluid overload, with developing left sided pneumonia. We will keep him in ICU for treatment of sepsis with Zosyn. Allergies ciprofloxacin Allergy (Verified 12/15/15 22:39) UNKNOWN Home medications list reviewed: Yes Home Medications: Lacosamide [Vimpat*] 200 mg PO BID 10/08/18 Multivit-Min/Folic/Vit K/Lycop [Men's 50 Plus Multivitamin Tab] 1 each PO DAILY 10/08/18 PHENobarbitaL [Phenobarbital*] 64.8 mg PO BEDTIME 10/08/18 Simvastatin 20 mg PO BEDTIME 10/08/18 Topiramate 50 mg PO BEDTIME 10/08/18 Zonisamide [Zonegran] 100 mg PO DAILY 10/08/18 levETIRAcetam [Keppra] 500 mg PO BID 10/08/18 Apixaban [Eliquis *] 5 tab PO BID 10/30/18 Metoprolol Tartrate [Lopressor*] 25 mg PO BID 11/25/21 - Past Medical/Surgical History Has patient received pneumonia vaccine in the past: Yes Diabetic: No -: 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 - Family History Father -: Hypertension Mother -: Hypertension Brother -: Hypertension Sister -: Hypertension, Cancer - Social History Smoking Status: Never smoker Alcohol use: No CD- Drugs: No Caffeine use: No Place of Residence: Home Review of Systems General: Fever, Chills, Weakness, Malaise Eyes: Unremarkable ENT: Unremarkable Respiratory: Cough Cardiovascular: Unremarkable Gastrointestinal: Unremarkable Genitourinary: Unremarkable Musculoskeletal: Atrophy Integumentary: Other (splitting skin on hands, brace to left wrist) Physical Examination - Vital Signs Temperature: 98.6 F Blood Pressure: 135/81 Pulse: 113 Respirations: 17 Pulse Ox (%): 100 - Physical Exam General: Disheveled, Other (responsive to touch, appears painful) HEENT: Atraumatic, Normocephalic Neck: JVD not distended Respiratory: Diminished Cardiovascular: No edema Capillary refill: <2 Seconds Gastrointestinal: Normal bowel sounds, Tenderness (mid upper abd) Musculoskeletal: Contractures Neurological: Abnormal strength, Abnormal tone Urinary: Matthews catheter External genitalia: Deferred Rectal: Deferred - Studies Laboratory Data (last 24 hrs) 05/15/23 05/15/23 05/15/23 20:20 20:20 20:20 WBC 4.00 L Hgb 7.1 L Hct 22.0 L Plt Count 367 PT 20.4 H INR 1.85 APTT 42.3 H Sodium 148 H Potassium 4.0 BUN 50 H Creatinine 1.42 H Glucose 139 H Total Bilirubin 0.5 AST 55 H ALT 57 Alkaline Phosphatase 131 H Microbiology Data (last 24 hrs): 05/15/23 20:20 Nasopharnyx Influenza Type A Antigen Screen - Final 05/15/23 20:20 Nasopharnyx Influenza Type B Antigen Screen - Final Assessment and Plan - Problems (Diagnosis) (1) Sepsis Current Visit: Yes Status: Acute Plan: Admit to ICU, consult Dr. Castillo. 1 unit prbc, lasix/albumin drip, gentle ivf, Zosyn. Antipyrectics prn. trend labs, await blood culture results Qualifiers: Severe sepsis shock status: without septic shock Discharge Plan: [facility] Plan to discharge in: 72 Hours - Advance Directives Does patient have a Living Will: No Does patient have a Durable POA for Healthcare: No - Code Status/Comfort Care Code Status Assessed: Yes (Full) Critical Care: Yes Time Spent Managing Pts Care (In Minutes): 60
[2023-05-16 06:05] LABS: Albumin 2.5 g/dL (3.4-5.0); Bilirubin Total 0.4 mg/dL (0.2-1.0); Magnesium 2.6 mg/dL (1.6-2.4); Phosphorus 3.1 mg/dL (2.5-4.9)
[2023-05-16] MEDS ORDERED: NA CHLORIDE 0.9% 250 ML IV SCH (07:00)
[2023-05-16] MEDS: INSULIN REGULAR (HUMAN) 100 UNIT/ML SQ SCH ×4 (07:30→21:00)
[2023-05-16] MEDS ORDERED: INFLUENZA VACCINE (for 6+ mo) 0.5 ML DOSE IMVAC ONE (08:00)
[2023-05-16 08:27] LABS: Blood Morphology Comment NOTED (NOT SEEN); Platelet Estimate ADEQ; Platelets, Giant PRESENT
[2023-05-16 08:28] LABS: Rouleau NOTED
[2023-05-16] MEDS ORDERED: ALBUTEROL 2.5 MG/3 ML NEB SOL ONE (08:36)
[2023-05-16] MEDS: levETIRAcetam 500 MG in NA CHLORIDE 0.9% 100 ML IV SCH (09:22)
[2023-05-16] MEDS: D5W 1,000 ML IV SCH ×3 (09:23→23:10)
[2023-05-16] MEDS ORDERED: LEVETIRACETAM 500 MG/5 ML VIAL IV ONE (09:29)
[2023-05-16] MEDS ORDERED: NA CHLORIDE 0.9% 100 ML ONE (09:30)
--- NOTE | 2023-05-16 11:53 | P.CNS ---
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 with his sister and preserved at [facility] according to the sister he quit eating and drinking and is able to ambulate to the bathroom contractures of his extremities currently there is history of fever and cough for the past few days is also tachycardic brought into the hospital with pneumonia and hyponatremia patient is nonverbal sister at the bedside Allergies ciprofloxacin Allergy (Verified 12/15/15 22:39) UNKNOWN Home Medications: Lacosamide [Vimpat*] 200 mg PO BID 10/08/18 Multivit-Min/Folic/Vit K/Lycop [Men's 50 Plus Multivitamin Tab] 1 each PO DAILY 10/08/18 PHENobarbitaL [Phenobarbital*] 64.8 mg PO BEDTIME 10/08/18 Simvastatin 20 mg PO BEDTIME 10/08/18 Topiramate 50 mg PO BEDTIME 10/08/18 Zonisamide [Zonegran] 100 mg PO DAILY 10/08/18 levETIRAcetam [Keppra] 500 mg PO BID 10/08/18 Apixaban [Eliquis *] 5 tab PO BID 10/30/18 Metoprolol Tartrate [Lopressor*] 25 mg PO BID 11/25/21 - Past Medical/Surgical History Diabetic: No -: 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 - Family History Father Medical History: Hypertension Mother Medical History: Hypertension Brother Medical History: Hypertension Sister Medical History: Hypertension, Cancer - Social History Smoking Status: Never smoker Alcohol use: No CD- Drugs: No Caffeine use: No Place of Residence: Home Review of Systems is unable to be obtained Physical Examination Temp Pulse Resp BP Pulse Ox 98.4 F 115 H 17 125/65 100 05/16/23 07:28 05/16/23 10:00 05/16/23 10:00 05/16/23 10:00 05/16/23 10:00 General: Alert, Unresponsive Neck: Supple Respiratory: Crackles/rales Cardiovascular: No edema (Because on the left upper zone), Normal S1 S2 Musculoskeletal: Other (Contracted extremities) Integumentary: No rashes Laboratory Data (last 24 hrs) 05/15/23 05/15/23 05/15/23 20:20 20:20 20:20 WBC 4.00 L Hgb 7.1 L Hct 22.0 L Plt Count 367 PT 20.4 H INR 1.85 APTT 42.3 H Sodium 148 H Potassium 4.0 BUN 50 H Creatinine 1.42 H Glucose 139 H Total Bilirubin 0.5 AST 55 H ALT 57 Alkaline Phosphatase 131 H - Problems (1) Pneumonia Current Visit: Yes Status: Acute Plan: Patient is 77 years of 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
[2023-05-16] MEDS ORDERED: ALBUMIN HUMAN 25% 12.5 GM, FUROSEMIDE 100 MG in NA CHLORIDE 0.9% 40 ML IV SCH (13:00)
--- NOTE | 2023-05-16 13:31 | P.PN ---
Date of Service: 05/16/23 Patient seen and examined. He is awake and responds appropriately to questions. Blood pressure has been stable. He is tachycardic. Chest x-ray shows possible pneumonia UA: no evidence of acute. Source of fever is unclear. Fever possibly secondary to pneumonia. Patient with high risk of aspiration. Plan: Continue antibiotics. Speech therapy consult. Resume home antiseizure medications. D5 water for hypernatremia. Monitor BMP.
[2023-05-16 15:42] LABS: Specific Gravity 1.017 (1.005-1.030); Urine Bacteria <20 /HPF (<20); Urine Bilirubin NEGATIVE (Negative); Urine Blood 1+ (Negative); Urine Clarity Turbid (Clear); Urine Color Yellow (Yellow); Urine Glucose NEGATIVE (Negative); Urine Mucus Slight /HPF (None Seen); Urine Protein 2+ (Negative); Urine RBC 21-50 /HPF (None Seen); Urine Urobilinogen Normal (Normal); Urine pH 5.5 (5.0-7.0)
[2023-05-16] MEDS: APIXABAN 2.5 MG TABLET PO SCH (20:52)
[2023-05-16] MEDS: ATORVASTATIN 10 MG TAB PO SCH (20:53)
[2023-05-16] MEDS: LACOSAMIDE 50 MG TABLET PO SCH (20:53)
[2023-05-16] MEDS: PHENOBARBITAL 30 MG TABLET PO SCH (20:53)
[2023-05-16] MEDS ORDERED: levETIRAcetam 500 MG TAB PO SCH (21:00)
[2023-05-16] MEDS ORDERED: HOME MED 1 EA UNK (Simvastatin [Simvastatin] 20 MG Tablet) PO SCH (21:00)
[2023-05-16 21:17] LABS: Potassium 3.6 mEq/L (3.5-5.1)
[2023-05-17 00:11] VITALS: BMI 18.1
[2023-05-17] MEDS: ALBUTEROL 2.5 MG/3 ML NEB SOL NEB SCH ×5 (02:00→19:58)
[2023-05-17] MEDS: IPRATROPIUM BROM 0.5MG/2.5ML NEB SCH ×4 (02:15→19:58)
[2023-05-17 03:10] LABS: Potassium 3.2 mEq/L (3.5-5.1)
[2023-05-17] MEDS: PIPER TAZO 3.375 GM in NA CHLORIDE 0.9% 100 ML IV SCH ×2 (04:04→16:45)
[2023-05-17] MEDS: INSULIN REGULAR (HUMAN) 100 UNIT/ML SQ SCH ×4 (07:30→20:48)
[2023-05-17] MEDS: KCL 20 MEQ/100 mL IVPB 20 MEQ/100 ML BAG IV SCH ×2 (08:37→13:29)
[2023-05-17] MEDS: LACOSAMIDE 50 MG TABLET PO SCH ×2 (09:00→20:47)
[2023-05-17] MEDS: HOME MED 1 EA UNK (Zonisamide [Zonegran] 100 MG Capsule) PO SCH (09:00)
[2023-05-17] MEDS: APIXABAN 2.5 MG TABLET PO SCH ×2 (09:00→20:48)
[2023-05-17] MEDS: MULTIVIT W/ MINERAL TAB PO SCH (09:00)
[2023-05-17] MEDS: levETIRAcetam 500 MG in NA CHLORIDE 0.9% 100 ML IV SCH (09:37)
[2023-05-17] MEDS: D5W 1,000 ML IV SCH ×4 (09:40→23:00)
--- NOTE | 2023-05-17 11:35 | RAD REPORT ---
EXAM DESCRIPTION: RAD - Barium Swallow Modified - 05/17/2023 11:13 am CLINICAL HISTORY: Aspiration COMPARISON: None. TECHNIQUE: The patient was given liquid, semi-solid and solid forms of barium. Lateral view fluorosc opic imaging was performed in conjunction with speech pathology service. Fluoro time: 1:46 minutes FINDINGS: No jin aspiration. No laryngeal penetration. Pharyngeal residues in the vallecular and p iriform sinuses, cleared with additional swallows. Oral and pharyngeal phase dysphagia. IMPRESSION: No evidence of jin aspiration or laryngeal penetration. Please refer to speech patholo gist's report for additional details.
--- NOTE | 2023-05-17 17:27 | EKG ---
Test Date: 2023-05-15 Test Time: 19:25:12 Criminal Profiler: JOSEFINA MEASUREMENT RESULTS: Intervals: Rate: 141 [place]: 128 QRSD: 102 QT: 370 QTc: 566 [place]: P: 72 [place]: 128 QRS: 19 T: 90 INTERPRETIVE STATEMENTS: Sinus tachycardia Possible Anterior infarct, age undetermined Consider right ventricular involvement in acute inferior infarct Abnormal ECG Compared to ECG 05/15/2023 19:23:32 Myocardial infarct finding still present Electronically Signed On 05-17-23 17:22:19 DEDICATED LOCAL TRUCK DRIVER by Giovany Herman
--- NOTE | 2023-05-17 17:27 | EKG ---
Test Date: 2023-05-15 Test Time: 19:23:32 Food Service Team Member: JOSEFINA MEASUREMENT RESULTS: Intervals: Rate: 142 [place]: 120 QRSD: 104 QT: 366 QTc: 563 [place]: P: 66 [place]: 120 QRS: 20 T: 96 INTERPRETIVE STATEMENTS: Sinus tachycardia Consider right ventricular involvement in acute inferior infarct Abnormal ECG Compared to ECG 11/25/2021 12:49:25 ST (T wave) deviation now present Myocardial infarct finding now present Electronically Signed On 05-17-23 17:22:44 JET MECHANIC by Giovany Herman
--- NOTE | 2023-05-17 17:27 | EKG ---
Test Date: 2023-05-15 Test Time: 21:44:22 Numerical Control Nesting Operator: ROCÍO MEASUREMENT RESULTS: Intervals: Rate: 113 [place]: 154 QRSD: 80 QT: 360 QTc: 493 [place]: P: 38 [place]: 154 QRS: 1 T: 28 INTERPRETIVE STATEMENTS: Sinus tachycardia Minimal voltage criteria for LVH, may be normal variant Nonspecific ST abnormality Abnormal ECG Compared to ECG 05/15/2023 19:25:12 Left ventricular hypertrophy now present ST (T wave) deviation now present Myocardial infarct finding no longer present Myocardial infarct finding no longer present Electronically Signed On 05-17-23 17:21:48 VOCATIONAL TRAINING TEACHER by Giovany Herman
[2023-05-17] MEDS: PHENOBARBITAL 30 MG TABLET PO SCH (20:47)
[2023-05-17] MEDS: ATORVASTATIN 10 MG TAB PO SCH (20:48)
[2023-05-18] MEDS: ALBUTEROL 2.5 MG/3 ML NEB SOL NEB SCH ×4 (02:00→20:00)
[2023-05-18] MEDS: IPRATROPIUM BROM 0.5MG/2.5ML NEB SCH ×4 (03:12→20:33)
[2023-05-18] MEDS: D5W 1,000 ML IV SCH ×5 (03:49→21:14)
[2023-05-18] MEDS: PIPER TAZO 3.375 GM in NA CHLORIDE 0.9% 100 ML IV SCH ×2 (05:17→17:31)
[2023-05-18] MEDS ORDERED: POTASSIUM 25 MEQ EFFERV TAB PO ONE (07:00)
[2023-05-18] MEDS: INSULIN REGULAR (HUMAN) 100 UNIT/ML SQ SCH ×4 (07:30→21:00)
[2023-05-18] MEDS: HOME MED 1 EA UNK (Zonisamide [Zonegran] 100 MG Capsule) PO SCH (09:00)
[2023-05-18] MEDS ORDERED: IPRATROPIUM BROM 0.5MG/2.5ML ONE (09:05)
[2023-05-18] MEDS: MULTIVIT W/ MINERAL TAB PO SCH (09:29)
[2023-05-18] MEDS: APIXABAN 2.5 MG TABLET PO SCH ×2 (09:29→21:15)
[2023-05-18] MEDS: levETIRAcetam 500 MG in NA CHLORIDE 0.9% 100 ML IV SCH (09:29)
[2023-05-18] MEDS: LACOSAMIDE 50 MG TABLET PO SCH ×2 (09:29→21:15)
[2023-05-18] MEDS: PHENOBARBITAL 30 MG TABLET PO SCH (21:14)
[2023-05-18] MEDS: ATORVASTATIN 10 MG TAB PO SCH (21:15)
[2023-05-19] MEDS: D5W 1,000 ML IV SCH ×3 (01:40→08:34)
[2023-05-19] MEDS: ALBUTEROL 2.5 MG/3 ML NEB SOL NEB SCH ×4 (02:00→20:00)
[2023-05-19] MEDS: IPRATROPIUM BROM 0.5MG/2.5ML NEB SCH ×4 (02:30→21:59)
[2023-05-19] MEDS: PIPER TAZO 3.375 GM in NA CHLORIDE 0.9% 100 ML IV SCH ×2 (04:42→16:56)
[2023-05-19] MEDS: INSULIN REGULAR (HUMAN) 100 UNIT/ML SQ SCH ×4 (07:30→21:00)
[2023-05-19] MEDS: HOME MED 1 EA UNK (Zonisamide [Zonegran] 100 MG Capsule) PO SCH (08:29)
[2023-05-19] MEDS: MULTIVIT W/ MINERAL TAB PO SCH (08:29)
[2023-05-19] MEDS: APIXABAN 2.5 MG TABLET PO SCH ×2 (08:29→21:24)
[2023-05-19] MEDS: LACOSAMIDE 50 MG TABLET PO SCH ×2 (08:29→21:23)
[2023-05-19] MEDS: levETIRAcetam 500 MG in NA CHLORIDE 0.9% 100 ML IV SCH (08:30)
[2023-05-19 09:27] LABS: Potassium 3.3 mEq/L (3.5-5.1)
[2023-05-19] MEDS: ACETAMINOPHEN 650MG/RECT SUPP PR PRN ×2 (14:46→21:27)
[2023-05-19] MEDS: PHENOBARBITAL 30 MG TABLET PO SCH (21:23)
[2023-05-19] MEDS: ATORVASTATIN 10 MG TAB PO SCH (21:24)
[2023-05-19] MEDS: ENSURE ENLIVE 237 ML CAN PO SCH (21:24)
[2023-05-20] MEDS: IPRATROPIUM BROM 0.5MG/2.5ML NEB SCH ×4 (01:49→21:20)
[2023-05-20] MEDS: ALBUTEROL 2.5 MG/3 ML NEB SOL NEB SCH ×4 (01:50→20:00)
[2023-05-20] MEDS: PIPER TAZO 3.375 GM in NA CHLORIDE 0.9% 100 ML IV SCH ×2 (05:57→16:21)
[2023-05-20] MEDS: INSULIN REGULAR (HUMAN) 100 UNIT/ML SQ SCH ×4 (07:30→21:00)
[2023-05-20] MEDS: levETIRAcetam 500 MG in NA CHLORIDE 0.9% 100 ML IV SCH (08:45)
[2023-05-20] MEDS: APIXABAN 2.5 MG TABLET PO SCH ×2 (08:45→20:47)
[2023-05-20] MEDS: MULTIVIT W/ MINERAL TAB PO SCH (08:45)
[2023-05-20] MEDS: LACOSAMIDE 50 MG TABLET PO SCH ×2 (08:45→20:47)
[2023-05-20] MEDS: ENSURE ENLIVE 237 ML CAN PO SCH ×2 (08:45→20:47)
[2023-05-20] MEDS: HOME MED 1 EA UNK (Zonisamide [Zonegran] 100 MG Capsule) PO SCH (08:46)
[2023-05-20] MEDS: ACETAMINOPHEN 650MG/RECT SUPP PR PRN (16:10)
[2023-05-20] MEDS: ATORVASTATIN 10 MG TAB PO SCH (20:47)
[2023-05-20] MEDS: PHENOBARBITAL 30 MG TABLET PO SCH (20:47)
[2023-05-20] MEDS: TOPIRAMATE 25 MG TAB PO SCH (21:00)
[2023-05-20] MEDS ORDERED: TOPIRAMATE 25 MG TAB ONE (21:19)
[2023-05-21] MEDS: IPRATROPIUM BROM 0.5MG/2.5ML NEB SCH ×4 (02:00→19:30)
[2023-05-21] MEDS: ALBUTEROL 2.5 MG/3 ML NEB SOL NEB SCH ×2 (02:00→08:00)
[2023-05-21] MEDS: PIPER TAZO 3.375 GM in NA CHLORIDE 0.9% 100 ML IV SCH ×2 (05:36→18:46)
[2023-05-21] MEDS: INSULIN REGULAR (HUMAN) 100 UNIT/ML SQ SCH ×4 (07:30→21:00)
--- NOTE | 2023-05-21 08:24 | RAD REPORT ---
EXAM DESCRIPTION: RAD - Chest Single View - 05/21/2023 6:51 am CLINICAL HISTORY: pneumonia Chest pain. COMPARISON: <Comparisons> FINDINGS: Portable technique limits examination quality. The lungs are significantly underinflated. Left lung interstitial lung opacities appear mildly improv ed since 05/15/2023 study. The heart is upper limit normal in size. Tortuous thoracic aorta. IMPRESSION: Mild improvement in left lung aeration since comparative study.
[2023-05-21] MEDS: HOME MED 1 EA UNK (Zonisamide [Zonegran] 100 MG Capsule) PO SCH (09:00)
[2023-05-21] MEDS: levETIRAcetam 500 MG in NA CHLORIDE 0.9% 100 ML IV SCH (09:10)
[2023-05-21] MEDS: APIXABAN 2.5 MG TABLET PO SCH ×2 (09:11→21:59)
[2023-05-21] MEDS: MULTIVIT W/ MINERAL TAB PO SCH (09:11)
[2023-05-21] MEDS: LACOSAMIDE 50 MG TABLET PO SCH ×2 (09:11→21:59)
[2023-05-21] MEDS: ENSURE ENLIVE 237 ML CAN PO SCH ×2 (09:12→21:00)
[2023-05-21 10:10] LABS: Albumin 1.8 g/dL (3.4-5.0); Bilirubin Total 1.1 mg/dL (0.2-1.0); Magnesium 1.9 mg/dL (1.6-2.4); Phosphorus 2.8 mg/dL (2.5-4.9); Potassium 2.8 mEq/L (3.5-5.1); Protein, Total 7.2 g/dL (6.4-8.2)
[2023-05-21 11:53] LABS: Hematocrit 19.7 % (39.6-49.0); MCV 73.6 fL (80-100); MPV 9.6 fL (7.6-11.3); Platelets 420 thou/uL (152-406); RBC Red Blood Cell Count 2.67 M/uL (4.33-5.43)
[2023-05-21 12:21] LABS: Dohle Bodies PRESENT; Platelet Estimate ADEQ
[2023-05-21 12:23] LABS: Anisocytosis 1+; Blood Morphology Comment NOTED (NOT SEEN); Hypochromasia 2+; Rouleau NOTED; Target Cells 1+
[2023-05-21] MEDS ORDERED: POTASSIUM 25 MEQ EFFERV TAB PO ONE (12:30)
[2023-05-21] MEDS ORDERED: NA CHLORIDE 0.9% 250 ML ONE ×2 (14:56→22:49)
[2023-05-21] MEDS ORDERED: METOPROLOL TARTRATE 5 MG/5 ML INJ IV STA ×2 (16:28→17:10)
[2023-05-21] MEDS: ACETAMINOPHEN 325 MG TABLET PO PRN (17:01)
[2023-05-21] MEDS ORDERED: FUROSEMIDE 20 MG/ 2ML VIAL IV ONE (18:52)
[2023-05-21] MEDS: TOPIRAMATE 25 MG TAB PO SCH (21:59)
[2023-05-21] MEDS: ATORVASTATIN 10 MG TAB PO SCH (21:59)
[2023-05-21] MEDS: PHENOBARBITAL 30 MG TABLET PO SCH (22:06)
[2023-05-22] MEDS: IPRATROPIUM BROM 0.5MG/2.5ML NEB SCH ×4 (01:00→20:38)
[2023-05-22] MEDS: PIPER TAZO 3.375 GM in NA CHLORIDE 0.9% 100 ML IV SCH ×2 (05:45→16:20)
[2023-05-22] MEDS ORDERED: ALBUMIN HUMAN 25% 50 ML IV SCH (06:00)
--- NOTE | 2023-05-22 06:10 | P.PN ---
Date of Service: 05/17/23 Subjective Chart has been reviewed. Taken over care for hospitalist. Patient clinically doing well with no new complaints. Physical Examination - Vital Signs Reviewed - Physical Exam General: Disheveled, Other (responsive to touch, appears painful) Respiratory: Diminished Cardiovascular: No edema Gastrointestinal: Normal bowel sounds, Tenderness (mid upper abd) Musculoskeletal: Contractures Neurological: Abnormal strength, Abnormal tone Urinary: Matthews catheter Assessment and Plan - Problems (Diagnosis) (1) Sepsis Current Visit: Yes Status: Acute Plan: Admit to ICU, consult Dr. Castillo. 1 unit prbc, lasix/albumin drip, gentle ivf, Zosyn. Antipyrectics prn. trend labs, await blood culture results (2) CVA with left-sided contractures Current Visit: Yes Status: Acute Plan: Continue with antiplatelet therapy and statin therapy. (3) HTN Current Visit: Yes Status: Acute Plan: Strict blood pressure control (4) Sepizure disorder Current Visit: Yes Status: Acute Plan: Continue antiepileptics (5) Pulmonary embolism Current Visit: Yes Status: Acute Plan: Continue anticoagulation (6) h/o of polio Current Visit: Yes Status: Acute Plan: Supportive care Discharge Plan: Assisted Plan to discharge in: 72 Hours - Advance Directives Does patient have a Living Will: No Does patient have a Durable POA for Healthcare: No - Code Status/Comfort Care Code Status Assessed: Yes (Full) Critical Care: NO Time Spent Managing Pts Care (In Minutes): 30
[2023-05-22 06:17] LABS: Hematocrit 26.4 % (39.6-49.0); MCV 75.9 fL (80-100); MPV 8.9 fL (7.6-11.3); Platelets 453 thou/uL (152-406); RBC Red Blood Cell Count 3.48 M/uL (4.33-5.43)
[2023-05-22 06:50] LABS: Albumin 1.8 g/dL (3.4-5.0); Bilirubin Total 1.1 mg/dL (0.2-1.0); Phosphorus 2.6 mg/dL (2.5-4.9); Protein, Total 7.4 g/dL (6.4-8.2); Thyroid Stimulating Hormone 1.03 uIU/mL (0.358-3.740)
[2023-05-22 06:57] LABS: Potassium 2.6 mEq/L (3.5-5.1)
[2023-05-22] MEDS ORDERED: POTASSIUM 25 MEQ EFFERV TAB PO ONE ×2 (06:57→12:18)
--- NOTE | 2023-05-22 07:24 | P.PN ---
Date of Service: 05/18/23 Subjective Patient continues to show improvement. Patient eating a little bit better. Overall patient's clinical condition is stable. Physical Examination - Vital Signs Reviewed - Physical Exam General: Disheveled, Other (responsive to touch, appears painful) Respiratory: Diminished Cardiovascular: No edema Gastrointestinal: Normal bowel sounds, Tenderness (mid upper abd) Musculoskeletal: Contractures Neurological: Abnormal strength, Abnormal tone Urinary: Matthews catheter Assessment and Plan - Problems (Diagnosis) (1) Sepsis Current Visit: Yes Status: Acute Plan: Admit to ICU, consult Dr. Castillo. 1 unit prbc, lasix/albumin drip, gentle ivf, Zosyn. Antipyrectics prn. trend labs, await blood culture results (2) CVA with left-sided contractures Current Visit: Yes Status: Acute Plan: Continue with antiplatelet therapy and statin therapy. (3) HTN Current Visit: Yes Status: Acute Plan: Strict blood pressure control (4) Sepizure disorder Current Visit: Yes Status: Acute Plan: Continue antiepileptics (5) Pulmonary embolism Current Visit: Yes Status: Acute Plan: Continue anticoagulation (6) h/o of polio Current Visit: Yes Status: Acute Plan: Supportive care Discharge Plan: Snf Plan to discharge in: 72 Hours - Advance Directives Does patient have a Living Will: No Does patient have a Durable POA for Healthcare: No - Code Status/Comfort Care Code Status Assessed: Yes (Full) Critical Care: NO Time Spent Managing Pts Care (In Minutes): 30
--- NOTE | 2023-05-22 07:26 | P.PN ---
Date of Service: 05/19/23 Subjective Patient is slowly improving. Patient's sister stays with him next to his bed and gives me most of his information day-to-day. Patient without any new changes but not eating as well. She does not seem overly anxious to take him home because she does most of his daily care. She does not want him to go to a nursing facility. Physical Examination - Vital Signs Reviewed - Physical Exam General: Disheveled, Other (responsive to touch, appears painful) Respiratory: Diminished Cardiovascular: No edema Gastrointestinal: Normal bowel sounds, Tenderness (mid upper abd) Musculoskeletal: Contractures Neurological: Abnormal strength, Abnormal tone Urinary: Matthews catheter Assessment and Plan - Problems (Diagnosis) (1) Sepsis Current Visit: Yes Status: Acute Plan: Continue with IV antibiotic therapy. Continue with nutrition; speech therapy has cleared the patient for diet which is a pured diet. Continue with antibiotic therapy. Supportive care with hydration. (2) CVA with left-sided contractures Current Visit: Yes Status: Acute Plan: Continue with antiplatelet therapy and statin therapy. (3) HTN Current Visit: Yes Status: Acute Plan: Strict blood pressure control (4) Seizure disorder Current Visit: Yes Status: Acute Plan: Continue antiepileptics (5) Pulmonary embolism Current Visit: Yes Status: Acute Plan: Continue anticoagulation (6) h/o of polio Current Visit: Yes Status: Acute Plan: Supportive care Discharge Plan: Custodial Plan to discharge in: 72 Hours - Advance Directives Does patient have a Living Will: No Does patient have a Durable POA for Healthcare: No - Code Status/Comfort Care Code Status Assessed: Yes (Full) Critical Care: NO Time Spent Managing Pts Care (In Minutes): 30
--- NOTE | 2023-05-22 07:27 | P.PN ---
Date of Service: 05/20/23 Subjective Patient continues to improve with no new changes. Patient denies any new complaints. Clinical symptoms are stable. Physical Examination - Vital Signs Reviewed - Physical Exam General: Disheveled, Other (responsive to touch, appears painful) Respiratory: Diminished Cardiovascular: No edema Gastrointestinal: Normal bowel sounds, Tenderness (mid upper abd) Musculoskeletal: Contractures Neurological: Abnormal strength, Abnormal tone Urinary: Matthews catheter Assessment and Plan - Problems (Diagnosis) (1) Sepsis Current Visit: Yes Status: Acute Plan: Continue with supportive care. Continue with antibiotics. Repeat chest x-ray shows pneumonia has improved. Repeat labs in the morning. (2) CVA with left-sided contractures Current Visit: Yes Status: Acute Plan: Continue with antiplatelet therapy and statin therapy. (3) HTN Current Visit: Yes Status: Acute Plan: Strict blood pressure control (4) Seizure disorder Current Visit: Yes Status: Acute Plan: Continue antiepileptics (5) Pulmonary embolism Current Visit: Yes Status: Acute Plan: Continue anticoagulation (6) h/o of polio Current Visit: Yes Status: Acute Plan: Supportive care Discharge Plan: Skilled Nursing Plan to discharge in: 72 Hours - Advance Directives Does patient have a Living Will: No Does patient have a Durable POA for Healthcare: No - Code Status/Comfort Care Code Status Assessed: Yes (Full) Critical Care: NO Time Spent Managing Pts Care (In Minutes): 30
--- NOTE | 2023-05-22 07:28 | P.PN ---
Date of Service: 05/21/23 Subjective Patient's hemoglobin dropped down into the 6.5 range. Transfusing 2 units of packed red blood cells. Patient's respiratory status has improved. Oxygen saturations are 99%. Chest x-ray with significant improvement. Anticipate discharge home if hemoglobin remains stable. Physical Examination - Vital Signs Reviewed - Physical Exam General: Disheveled, Other (responsive to touch, appears painful) Respiratory: Diminished Cardiovascular: No edema Gastrointestinal: Normal bowel sounds, Tenderness (mid upper abd) Musculoskeletal: Contractures Neurological: Abnormal strength, Abnormal tone Urinary: Matthews catheter Assessment and Plan - Problems (Diagnosis) (1) Sepsis Current Visit: Yes Status: Acute Plan: Continue plan of care as mentioned below: Continue with supportive care. Continue with antibiotics. Repeat chest x-ray shows pneumonia has improved. Repeat labs in the morning. (2) CVA with left-sided contractures Current Visit: Yes Status: Acute Plan: Continue with antiplatelet therapy and statin therapy. (3) Anemia of chronic disease Current Visit: Yes Status: Acute Plan: Transfused 2 units of packed red blood cells (4) Seizure disorder Current Visit: Yes Status: Acute Plan: Continue antiepileptics (5) Pulmonary embolism Current Visit: Yes Status: Acute Plan: Continue anticoagulation (6) h/o of polio Current Visit: Yes Status: Acute Plan: Supportive care Discharge Plan: Assisted Plan to discharge in: 72 Hours - Advance Directives Does patient have a Living Will: No Does patient have a Durable POA for Healthcare: No - Code Status/Comfort Care Code Status Assessed: Yes (Full) Critical Care: NO Time Spent Managing Pts Care (In Minutes): 30
[2023-05-22] MEDS: INSULIN REGULAR (HUMAN) 100 UNIT/ML SQ SCH ×4 (07:30→21:00)
[2023-05-22 07:56] LABS: Platelet Estimate ADEQ
[2023-05-22 07:57] LABS: Anisocytosis SLIGHT; Blood Morphology Comment NOTED (NOT SEEN)
[2023-05-22] MEDS ORDERED: METHYLPREDNISOLONE 125 MG INJ IV ONE (08:00)
[2023-05-22] MEDS: ENSURE ENLIVE 237 ML CAN PO SCH ×2 (08:27→21:17)
[2023-05-22] MEDS: APIXABAN 2.5 MG TABLET PO SCH ×2 (08:27→21:16)
[2023-05-22] MEDS: MULTIVIT W/ MINERAL TAB PO SCH (08:27)
[2023-05-22] MEDS: LACOSAMIDE 50 MG TABLET PO SCH ×2 (08:27→21:16)
[2023-05-22] MEDS: HOME MED 1 EA UNK (Zonisamide [Zonegran] 100 MG Capsule) PO SCH (08:28)
[2023-05-22] MEDS: levETIRAcetam 500 MG in NA CHLORIDE 0.9% 100 ML IV SCH (08:28)
[2023-05-22] MEDS ORDERED: METHYLPREDNISOLONE 125 MG INJ IV SCH (14:00)
--- NOTE | 2023-05-22 17:02 | P.PN ---
Subjective Date of Service: 05/22/23 Chief Complaint: Pneumonia Subjective: No new changes Patient seen with spouse at bedside. Patient appears lethargic and fatigued. Continue supportive care. Review of Systems is unable to be obtained (Patient does not respond to verbal commands.) Physical Examination - Vital Signs Temperature: 98.7 F Blood Pressure: 99/57 Pulse: 113 Respirations: 16 Pulse Ox (%): 97 - Physical Exam General: Disheveled, Other (Patient not responding to verbal commands.) HEENT: Atraumatic Neck: Supple, JVD not distended, No Thyromegaly Respiratory: Normal air movement, Diminished Cardiovascular: No edema, Regular rate/rhythm, Normal S1 S2 Capillary refill: <2 Seconds Gastrointestinal: Normal bowel sounds, Soft and benign Musculoskeletal: No clubbing, Contractures Integumentary: No rashes, No breakdown, No erythema Neurological: Other, Abnormal strength, Abnormal tone Lymphatics: No axilla or inguinal lymphadenopathy Assessment And Plan - Plan Assessment and Plan Interval history. 05/22/2023. Patient unable to respond to verbal commands. Patient had blood transfusion. Hemoglobin trending up and stable. Continue antibiotics. We will repeat chest x-ray in a.m. Potassium being replaced. Patient is a hard stick. We will continue to monitor potassium levels. -- DVT prophylaxis with Eliquis. - Problems (Diagnosis) (1) Sepsis Current Visit: Yes Status: Acute Plan: Continue plan of care as mentioned below: Continue with supportive care. Continue with antibiotics. Repeat chest x-ray shows pneumonia has improved. Repeat labs in the morning. (2) CVA with left-sided contractures Current Visit: Yes Status: Acute Plan: Continue with antiplatelet therapy and statin therapy. (3) Anemia of chronic disease Current Visit: Yes Status: Acute Plan: Transfused 2 units of packed red blood cells (4) Seizure disorder Current Visit: Yes Status: Acute Plan: Continue antiepileptics (5) Pulmonary embolism Current Visit: Yes Status: Acute Plan: Continue anticoagulation (6) h/o of polio Current Visit: Yes Status: Acute Plan: Supportive care Discharge Plan: [facility] Discharge Plan: Home Plan to discharge in: Greater than 2 days - Code Status/Comfort Care Code Status Assessed: Yes Physician Review: Patient Assessed, Agree with Above Assessment and Plan Critical Care: No
[2023-05-22] MEDS: PHENOBARBITAL 30 MG TABLET PO SCH (21:15)
[2023-05-22] MEDS: ATORVASTATIN 10 MG TAB PO SCH (21:16)
[2023-05-22] MEDS: TOPIRAMATE 25 MG TAB PO SCH (21:16)
[2023-05-23] MEDS: IPRATROPIUM BROM 0.5MG/2.5ML NEB SCH ×5 (02:00→19:05)
[2023-05-23] MEDS: PIPER TAZO 3.375 GM in NA CHLORIDE 0.9% 100 ML IV SCH ×2 (04:55→16:33)
[2023-05-23 07:21] LABS: Hematocrit 27.7 % (39.6-49.0); MCV 76.6 fL (80-100); MPV 8.6 fL (7.6-11.3); Platelets 492 thou/uL (152-406); RBC Red Blood Cell Count 3.61 M/uL (4.33-5.43)
[2023-05-23] MEDS: INSULIN REGULAR (HUMAN) 100 UNIT/ML SQ SCH ×4 (07:30→21:00)
[2023-05-23 07:32] LABS: Potassium 3.2 mEq/L (3.5-5.1)
--- NOTE | 2023-05-23 08:03 | RAD REPORT ---
EXAM DESCRIPTION: RAD - Chest Single View - 05/23/2023 4:40 am CLINICAL HISTORY: Pneumonia Chest pain. COMPARISON: Chest Single View dated 05/21/2023; Chest Single View dated 05/15/2023; Chest Single Vie w dated 11/25/2021; Chest Single View dated 11/01/2018 FINDINGS: Portable technique limits examination quality. When accounting for mild differences in technique and patient positioning, no significant change is s een in the aeration of the lungs since 05/21/2023. Cardiac size remains mildly prominent. Tortuous th oracic aorta.
[2023-05-23 08:46] LABS: Anisocytosis 1+; Blood Morphology Comment NOTED (NOT SEEN); Platelet Estimate INCR; Platelets, Giant FEW PRESENT
[2023-05-23 08:47] LABS: Target Cells 2+
[2023-05-23] MEDS: ENSURE ENLIVE 237 ML CAN PO SCH ×2 (09:00→21:00)
[2023-05-23] MEDS: HOME MED 1 EA UNK (Zonisamide [Zonegran] 100 MG Capsule) PO SCH (09:00)
[2023-05-23] MEDS: levETIRAcetam 500 MG in NA CHLORIDE 0.9% 100 ML IV SCH (09:46)
[2023-05-23] MEDS: APIXABAN 2.5 MG TABLET PO SCH ×2 (09:47→21:47)
[2023-05-23] MEDS: LACOSAMIDE 50 MG TABLET PO SCH ×2 (09:47→21:48)
[2023-05-23] MEDS: MULTIVIT W/ MINERAL TAB PO SCH (09:47)
[2023-05-23] MEDS ORDERED: POTASSIUM 25 MEQ EFFERV TAB PO ONE ×3 (10:35→16:26)
[2023-05-23 15:43] LABS: Potassium 3.1 mEq/L (3.5-5.1)
--- NOTE | 2023-05-23 16:17 | P.PN ---
Subjective Date of Service: 05/23/23 Chief Complaint: Pneumonia Subjective: No new changes Patient seen with spouse at bedside. Patient more alert than yesterday. Continue supportive care. Review of Systems is unable to be obtained (Patient not responding to verbal commands.) Physical Examination - Vital Signs Temperature: 97.1 F Blood Pressure: 167/94 Pulse: 107 Respirations: 16 Pulse Ox (%): 100 - Physical Exam General: Alert, Oriented x1, Cooperative HEENT: Atraumatic, PERRLA, EOMI Neck: Supple, JVD not distended Respiratory: Clear to auscultation bilaterally, Normal air movement Cardiovascular: No edema, Regular rate/rhythm, Normal S1 S2 Capillary refill: <2 Seconds Gastrointestinal: Normal bowel sounds, Soft and benign, No tenderness Musculoskeletal: No clubbing, No tenderness Integumentary: No rashes, No tenderness/swelling Neurological: Normal tone, Normal affect Lymphatics: No axilla or inguinal lymphadenopathy Assessment And Plan - Plan Assessment and Plan Interval history. 05/23/23 Patient more alert than yesterday. Hemoglobin remained stable and improving. Potassium levels continues to be low. Replete as needed. Continue antibiotics. Chest x-ray does not indicate any significant change compared to findings of 05/21/2023. Continue antibiotics. --DVT prophylaxis with Eliquis. 05/22/2023. Patient unable to respond to verbal commands. Patient had blood transfusion. Hemoglobin trending up and stable. Continue antibiotics. We will repeat chest x-ray in a.m. Potassium being replaced. Patient is a hard stick. We will continue to monitor potassium levels. -- DVT prophylaxis with Eliquis. - Problems (Diagnosis) (1) Sepsis Current Visit: Yes Status: Acute Plan: Continue plan of care as mentioned below: Continue with supportive care. Continue with antibiotics. Repeat chest x-ray shows pneumonia has improved. Repeat labs in the morning. (2) CVA with left-sided contractures Current Visit: Yes Status: Acute Plan: Continue with antiplatelet therapy and statin therapy. (3) Anemia of chronic disease Current Visit: Yes Status: Acute Plan: Transfused 2 units of packed red blood cells (4) Seizure disorder Current Visit: Yes Status: Acute Plan: Continue antiepileptics (5) Pulmonary embolism Current Visit: Yes Status: Acute Plan: Continue anticoagulation (6) h/o of polio Current Visit: Yes Status: Acute Plan: Supportive care Discharge Plan: Jail Discharge Plan: Home Plan to discharge in: Greater than 2 days - Code Status/Comfort Care Code Status Assessed: Yes Physician Review: Patient Assessed, Agree with Above Assessment and Plan Critical Care: No
[2023-05-23] MEDS: ATORVASTATIN 10 MG TAB PO SCH (21:47)
[2023-05-23] MEDS: PHENOBARBITAL 30 MG TABLET PO SCH (21:47)
[2023-05-23] MEDS: TOPIRAMATE 25 MG TAB PO SCH (21:47)
[2023-05-23] MEDS: POTASSIUM 25 MEQ EFFERV TAB PO SCH (21:48)
[2023-05-24] MEDS: IPRATROPIUM BROM 0.5MG/2.5ML NEB SCH ×4 (01:25→19:17)
[2023-05-24] MEDS: PIPER TAZO 3.375 GM in NA CHLORIDE 0.9% 100 ML IV SCH ×3 (04:41→20:18)
[2023-05-24] MEDS: INSULIN REGULAR (HUMAN) 100 UNIT/ML SQ SCH ×4 (07:30→20:19)
[2023-05-24 08:54] LABS: Potassium 4.7 mEq/L (3.5-5.1)
[2023-05-24] MEDS: HOME MED 1 EA UNK (Zonisamide [Zonegran] 100 MG Capsule) PO SCH (09:00)
[2023-05-24] MEDS: ENSURE ENLIVE 237 ML CAN PO SCH ×2 (09:00→21:00)
[2023-05-24] MEDS: LACOSAMIDE 50 MG TABLET PO SCH ×2 (09:34→20:18)
[2023-05-24] MEDS: POTASSIUM 25 MEQ EFFERV TAB PO SCH ×2 (09:34→20:19)
[2023-05-24] MEDS: APIXABAN 2.5 MG TABLET PO SCH ×2 (09:35→20:19)
[2023-05-24] MEDS: MULTIVIT W/ MINERAL TAB PO SCH (09:35)
[2023-05-24] MEDS: levETIRAcetam 500 MG in NA CHLORIDE 0.9% 100 ML IV SCH (09:35)
[2023-05-24] MEDS: ACETAMINOPHEN 325 MG TABLET PO PRN ×2 (12:47→21:20)
--- NOTE | 2023-05-24 18:27 | RAD REPORT ---
EXAM DESCRIPTION: CT - Thorax Wo Con CLINICAL HISTORY: Chest pain Pneumonia COMPARISON: Thorax Wo Con dated 02/16/2016; Chest Single View dated 05/23/2023 FINDINGS: Mild opacities are present in the right lung base which may represent atelectasis or a sma ll infiltrate. The lungs are otherwise clear. Trace right pleural effusion. No pneumothorax. No axillary, mediastinal or hilar adenopathy. No concerning bony finding. No gross upper abdominal finding. All CT scans are performed using dose optimization technique as appropriate and may include automated exposure control or mA/KV adjustment according to patient size. IMPRESSION: Mild infiltrate or atelectasis in the right lung base noted.
[2023-05-24] MEDS: PHENOBARBITAL 30 MG TABLET PO SCH (20:18)
[2023-05-24] MEDS: TOPIRAMATE 25 MG TAB PO SCH (20:18)
[2023-05-24] MEDS: ATORVASTATIN 10 MG TAB PO SCH (20:19)
--- NOTE | 2023-05-24 23:17 | P.PN ---
Subjective Date of Service: 05/24/23 Chief Complaint: Pneumonia Subjective: No new changes Patient seen with family at bedside. No signs and symptoms of distress symptoms reported. Continue supportive care. Review of Systems is unable to be obtained (Patient unable to respond to commands) Physical Examination - Vital Signs Temperature: 100.1 F Blood Pressure: 134/79 Pulse: 111 Respirations: 18 Pulse Ox (%): 98 - Physical Exam General: Alert, Oriented x1, Cooperative HEENT: Atraumatic, PERRLA, EOMI Neck: Supple, JVD not distended Respiratory: Normal air movement Cardiovascular: No edema, Regular rate/rhythm, Normal S1 S2 Capillary refill: <2 Seconds Gastrointestinal: Normal bowel sounds, Soft and benign, No tenderness Musculoskeletal: No clubbing, No tenderness Integumentary: No rashes Neurological: Normal tone, Normal affect Lymphatics: No axilla or inguinal lymphadenopathy Assessment And Plan - Plan Interval history. 05/24/23 Patient seen at bedside. Patient noted with low-grade fever. Patient heart rate and respiration noted to be elevated. Infectious disease MD consulted. Will await further recommendations from infectious disease. Blood cultures and urine cultures pending. Continue antibiotics. Matthews catheter DC'd. Patient able to void after a couple of hours. Continue supportive care. 05/23/23 Patient more alert than yesterday. Hemoglobin remained stable and improving. Potassium levels continues to be low. Replete as needed. Continue antibiotics. Chest x-ray does not indicate any significant change compared to findings of 05/21/2023. Continue antibiotics. --DVT prophylaxis with Eliquis. 05/22/2023. Patient unable to respond to verbal commands. Patient had blood transfusion. Hemoglobin trending up and stable. Continue antibiotics. We will repeat chest x-ray in a.m. Potassium being replaced. Patient is a hard stick. We will continue to monitor potassium levels. -- DVT prophylaxis with Eliquis. - Problems (Diagnosis) (1) Sepsis Current Visit: Yes Status: Acute Plan: Continue plan of care as mentioned below: Continue with supportive care. Continue with antibiotics. Repeat chest x-ray shows pneumonia has improved. Repeat labs in the morning. (2) CVA with left-sided contractures Current Visit: Yes Status: Acute Plan: Continue with antiplatelet therapy and statin therapy. (3) Anemia of chronic disease Current Visit: Yes Status: Acute Plan: Transfused 2 units of packed red blood cells (4) Seizure disorder Current Visit: Yes Status: Acute Plan: Continue antiepileptics (5) Pulmonary embolism Current Visit: Yes Status: Acute Plan: Continue anticoagulation (6) h/o of polio Current Visit: Yes Status: Acute Plan: Supportive care Discharge Plan: Long-Term Discharge Plan: Home Plan to discharge in: 48 Hours - Code Status/Comfort Care Code Status Assessed: Yes Physician Review: Patient Assessed, Agree with Above Assessment and Plan Critical Care: No
[2023-05-25 01:11] LABS: Specific Gravity 1.014 (1.005-1.030); Urine Bacteria None Seen /HPF (<20); Urine Bilirubin NEGATIVE (Negative); Urine Blood 2+ (Negative); Urine Clarity Turbid (Clear); Urine Color Light-Yellow (Yellow); Urine Glucose NEGATIVE (Negative); Urine Protein 1+ (Negative); Urine RBC 21-50 /HPF (None Seen); Urine Urobilinogen Normal (Normal); Urine pH 5.5 (5.0-7.0)
[2023-05-25] MEDS: IPRATROPIUM BROM 0.5MG/2.5ML NEB SCH ×4 (01:17→20:27)
[2023-05-25] MEDS: INSULIN REGULAR (HUMAN) 100 UNIT/ML SQ SCH ×4 (07:30→20:11)
--- NOTE | 2023-05-25 07:39 | P.CNS ---
Date of Consult: 05/25/23 Reason for Consult: sepsis Chief Complaint: Pneumonia History of Present Illness: Patient is a 77-year-old male with a past medical history of CVA, hypertension, pulmonary embolism, seizure disorder with complaints of fever and cough. Patient was admitted for sepsis secondary to pneumonia and started on Zosyn . currently day 10 inpatient, infectious disease was consulted. Allergies ciprofloxacin Allergy (Verified 12/15/15 22:39) UNKNOWN Home medications list reviewed: Yes Home Medications: Lacosamide [Vimpat*] 200 mg PO BID 10/08/18 Multivit-Min/Folic/Vit K/Lycop [Men's 50 Plus Multivitamin Tab] 1 each PO DAILY 10/08/18 PHENobarbitaL [Phenobarbital*] 64.8 mg PO BEDTIME 10/08/18 Simvastatin 20 mg PO BEDTIME 10/08/18 Topiramate 50 mg PO BEDTIME 10/08/18 Zonisamide [Zonegran] 100 mg PO DAILY 10/08/18 levETIRAcetam [Keppra] 500 mg PO BID 10/08/18 Apixaban [Eliquis *] 5 tab PO BID 10/30/18 Metoprolol Tartrate [Lopressor*] 25 mg PO BID 11/25/21 - Past Medical/Surgical History Diabetic: No -: 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 - Family History Father Medical History: Hypertension Mother Medical History: Hypertension Brother Medical History: Hypertension Sister Medical History: Hypertension, Cancer - Social History Smoking Status: Never smoker Alcohol use: No CD- Drugs: No Caffeine use: No Place of Residence: Home Review of Systems is unable to be obtained (nonverbal) Physical Examination Temp Pulse Resp BP Pulse Ox 98.9 F 110 H 18 108/65 97 05/25/23 04:00 05/25/23 04:00 05/25/23 04:00 05/25/23 04:00 05/25/23 04:00 General: In no apparent distress, Other (nonverbal) HEENT: Atraumatic Respiratory: Normal air movement, Diminished, Other (unlabored respirations on room air. ) Cardiovascular: Regular rate/rhythm, Edema (bilateral foot 1+ ) Gastrointestinal: Normal bowel sounds, Soft and benign Musculoskeletal: Contractures Integumentary: No rashes Laboratory data -Reviewed Microbiology data -Reviewed Imagings Data: -Reviewed Conclusions/Impression: Problem list Sepsis secondary to pneumonia Anemia of chronic disease Seizure disorder CVA Pulmonary embolism Sepsis secondary to pneumonia -Blood cultures 05/15: Staph capitis in 1 of 4 bottles. Likely a contaminant - XR Chest 05/15: "Subsegmental atelectasis or scarring within right lung base. There has been development mild patchy left lung opacities suspicious for pneumonia. Heart is mildly enlarged." - On Zosyn IV (started 05/16-) - CT Chest wo contrast 05/24: "Mild infiltrate or atelectasis in the right lung base noted." Recommendations -Patient spiked fever to 101 F yesterday. Repeat blood culture, urinalysis were obtained. Urinalysis not suggestive of urinary tract infection. Follow-up with final blood culture results. Concern for possible aspiration pneumonia. -Continue Zosyn for now -Monitor WBC and fever trends -Pressure offloading measures -Aspiration precautions Case discussed with Eleonora Brar
[2023-05-25] MEDS: ENSURE ENLIVE 237 ML CAN PO SCH ×2 (09:00→20:12)
[2023-05-25] MEDS: HOME MED 1 EA UNK (Zonisamide [Zonegran] 100 MG Capsule) PO SCH (09:00)
[2023-05-25] MEDS: POTASSIUM 25 MEQ EFFERV TAB PO SCH ×2 (09:08→20:11)
[2023-05-25] MEDS: levETIRAcetam 500 MG in NA CHLORIDE 0.9% 100 ML IV SCH (09:08)
[2023-05-25] MEDS: PIPER TAZO 3.375 GM in NA CHLORIDE 0.9% 100 ML IV SCH ×2 (09:08→20:10)
[2023-05-25] MEDS: LACOSAMIDE 50 MG TABLET PO SCH ×2 (09:08→20:11)
[2023-05-25] MEDS: MULTIVIT W/ MINERAL TAB PO SCH (09:08)
[2023-05-25] MEDS: APIXABAN 2.5 MG TABLET PO SCH ×2 (09:09→20:11)
--- NOTE | 2023-05-25 12:42 | P.PN ---
Subjective Date of Service: 05/25/23 Chief Complaint: Pneumonia Subjective: No new changes Physical Examination - Vital Signs Temperature: 99.2 F Blood Pressure: 139/72 Pulse: 120 Respirations: 18 Pulse Ox (%): 120 - Physical Exam General: Alert HEENT: Atraumatic Neck: Supple Respiratory: Normal air movement Cardiovascular: Regular rate/rhythm, Normal S1 S2 Gastrointestinal: Soft and benign Assessment And Plan - Plan Assessment And Plan - Plan Interval history. 05/25/23 Patient was seen by infectious disease specialist and there was no additional recommendation except follow-up blood culture. Repeat blood cultures done. Fever spike noted again earlier today. Will continue Zosyn for management of suspected aspiration pneumonia. Will follow cultures for further recommendation. 05/24/23 Patient seen at bedside. Patient noted with low-grade fever. Patient heart rate and respiration noted to be elevated. Infectious disease MD consulted. Will await further recommendations from infectious disease. Blood cultures and urine cultures pending. Continue antibiotics. Matthews catheter DC'd. Patient able to void after a couple of hours. Continue supportive care. 05/23/23 Patient more alert than yesterday. Hemoglobin remained stable and improving. Potassium levels continues to be low. Replete as needed. Continue antibiotics. Chest x-ray does not indicate any significant change compared to findings of 05/21/2023. Continue antibiotics. --DVT prophylaxis with Eliquis. 05/22/2023. Patient unable to respond to verbal commands. Patient had blood transfusion. Hemoglobin trending up and stable. Continue antibiotics. We will repeat chest x-ray in a.m. Potassium being replaced. Patient is a hard stick. We will continue to monitor potassium levels. -- DVT prophylaxis with Eliquis. - Problems (Diagnosis) (1) Sepsis Current Visit: Yes Status: Acute Plan: Continue plan of care as mentioned below: Continue with supportive care. Continue with antibiotics. Repeat chest x-ray shows pneumonia has improved. Repeat labs in the morning. (2) CVA with left-sided contractures Current Visit: Yes Status: Acute Plan: Continue with antiplatelet therapy and statin therapy. (3) Anemia of chronic disease Current Visit: Yes Status: Acute Plan: Transfused 2 units of packed red blood cells (4) Seizure disorder Current Visit: Yes Status: Acute Plan: Continue antiepileptics (5) Pulmonary embolism Current Visit: Yes Status: Acute Plan: Continue anticoagulation (6) h/o of polio Current Visit: Yes Status: Acute Plan: Supportive care Discharge Plan: Group Home Discharge Plan: Home Plan to discharge in: 48 Hours - Code Status/Comfort Care Code Status Assessed: Yes Physician Review: Patient Assessed, Agree with Above Assessment and Plan Critical Care: No Physician Review: Patient Assessed, Agree with Above Assessment and Plan
[2023-05-25] MEDS: TOPIRAMATE 25 MG TAB PO SCH (20:11)
[2023-05-25] MEDS: ATORVASTATIN 10 MG TAB PO SCH (20:11)
[2023-05-25] MEDS: PHENOBARBITAL 30 MG TABLET PO SCH (20:15)
[2023-05-26] MEDS: IPRATROPIUM BROM 0.5MG/2.5ML NEB SCH ×5 (01:25→19:03)
[2023-05-26] MEDS: INSULIN REGULAR (HUMAN) 100 UNIT/ML SQ SCH ×4 (07:30→20:42)
--- NOTE | 2023-05-26 07:56 | P.PN ---
Date of Service: 05/26/23 Chief Complaint: Pneumonia Subjective: Physical Examination Temp Pulse Resp BP Pulse Ox 99.2 F 106 H 18 113/71 99 05/26/23 04:00 05/26/23 04:00 05/26/23 04:00 05/26/23 04:00 05/26/23 04:00 General: In no apparent distress. HEENT: Atraumatic Respiratory: Normal air movement, Diminished, Other (unlabored respirations on room air. ) Cardiovascular: Regular rate/rhythm, Edema (bilateral foot 1+ ) Gastrointestinal: Normal bowel sounds, Soft and benign Musculoskeletal: Contractures Integumentary: No rashes Laboratory data -Reviewed Microbiology data -Reviewed Imagings Data: -Reviewed Medications List: Reviewed Assessment and Plan Problem list Sepsis secondary to pneumonia Anemia of chronic disease Seizure disorder CVA Pulmonary embolism Severe PCM Sepsis secondary to pneumonia -Blood cultures 05/15: Staph capitis in 1 of 4 bottles. Likely a contaminant - XR Chest 05/15: "Subsegmental atelectasis or scarring within right lung base. There has been development mild patchy left lung opacities suspicious for pneumonia. Heart is mildly enlarged." - On Zosyn IV (started 05/16-) -Patient spiked fever to 101 F on 05/24. Repeat blood culture, urinalysis were obtained. Urinalysis not suggestive of urinary tract infection. Concern for possible aspiration pneumonia. - CT Chest wo contrast 05/24: "Mild infiltrate or atelectasis in the right lung base noted." - Repeat blood cultures 05/24: no growth to date Recommendations -Continue Zosyn for now. Repeat chest XR tomorrow then consider discontinuation of antibiotics and continue to monitor the patient for worsening signs/symptoms of infection. -Monitor WBC and fever trends -Pressure offloading measures -Aspiration precautions - Supplemental nutrition - Renally dose medications. Case discussed with Eleonora Brar
[2023-05-26] MEDS: LACOSAMIDE 50 MG TABLET PO SCH ×2 (08:56→20:39)
[2023-05-26] MEDS: POTASSIUM 25 MEQ EFFERV TAB PO SCH ×2 (08:57→20:39)
[2023-05-26] MEDS: ENSURE ENLIVE 237 ML CAN PO SCH ×2 (08:57→20:43)
[2023-05-26] MEDS: PIPER TAZO 3.375 GM in NA CHLORIDE 0.9% 100 ML IV SCH ×2 (08:57→20:45)
[2023-05-26] MEDS: MULTIVIT W/ MINERAL TAB PO SCH (08:57)
[2023-05-26] MEDS: APIXABAN 2.5 MG TABLET PO SCH ×2 (08:57→20:43)
[2023-05-26] MEDS: levETIRAcetam 500 MG in NA CHLORIDE 0.9% 100 ML IV SCH (08:57)
[2023-05-26] MEDS: HOME MED 1 EA UNK (Zonisamide [Zonegran] 100 MG Capsule) PO SCH (09:00)
[2023-05-26 10:48] LABS: Hematocrit 24.2 % (39.6-49.0); MCV 75.9 fL (80-100); MPV 8.4 fL (7.6-11.3); Platelets 537 thou/uL (152-406); RBC Red Blood Cell Count 3.19 M/uL (4.33-5.43)
[2023-05-26 11:04] LABS: Albumin 1.6 g/dL (3.4-5.0); Bilirubin Total 0.8 mg/dL (0.2-1.0); Potassium 3.5 mEq/L (3.5-5.1); Protein, Total 7.4 g/dL (6.4-8.2)
[2023-05-26 11:52] LABS: Blood Morphology Comment NOT SEEN (NOT SEEN); Platelet Estimate INCR; Platelets, Giant PRESENT
--- NOTE | 2023-05-26 15:32 | P.PN ---
Subjective Date of Service: 05/26/23 Chief Complaint: Pneumonia Subjective: No new changes, Improving (no more fever spike.) Physical Examination - Vital Signs Temperature: 99.5 F Blood Pressure: 149/85 Pulse: 122 Respirations: 18 Pulse Ox (%): 98 - Physical Exam General: Alert HEENT: Atraumatic Neck: Supple Respiratory: Normal air movement Cardiovascular: Regular rate/rhythm, Normal S1 S2 Gastrointestinal: Soft and benign Musculoskeletal: No swelling Assessment And Plan - Plan Assessment And Plan - Plan Interval history. 05/25/23 Patient was seen by infectious disease specialist and there was no additional recommendation except follow-up blood culture. Repeat blood cultures done. Fever spike noted again earlier today. Will continue Zosyn for management of suspected aspiration pneumonia. Will follow cultures for further recommendation. 05/24/23 Patient seen at bedside. Patient noted with low-grade fever. Patient heart rate and respiration noted to be elevated. Infectious disease MD consulted. Will await further recommendations from infectious disease. Blood cultures and urine cultures pending. Continue antibiotics. Matthews catheter DC'd. Patient able to void after a couple of hours. Continue supportive care. 05/23/23 Patient more alert than yesterday. Hemoglobin remained stable and improving. Potassium levels continues to be low. Replete as needed. Continue antibiotics. Chest x-ray does not indicate any significant change compared to findings of 05/21/2023. Continue antibiotics. --DVT prophylaxis with Eliquis. 05/22/2023. Patient unable to respond to verbal commands. Patient had blood transfusion. Hemoglobin trending up and stable. Continue antibiotics. We will repeat chest x-ray in a.m. Potassium being replaced. Patient is a hard stick. We will continue to monitor potassium levels. -- DVT prophylaxis with Eliquis. - Problems (Diagnosis) (1) Sepsis Current Visit: Yes Status: Acute Plan: Continue plan of care as mentioned below: Continue with supportive care. Continue with antibiotics. Repeat chest x-ray shows pneumonia has improved. Repeat labs in the morning. ID recs noted. (2) CVA with left-sided contractures Current Visit: Yes Status: Acute Plan: Continue with antiplatelet therapy and statin therapy. (3) Anemia of chronic disease Current Visit: Yes Status: Acute Plan: Transfused 2 units of packed red blood cells (4) Seizure disorder Current Visit: Yes Status: Acute Plan: Continue antiepileptics (5) Pulmonary embolism Current Visit: Yes Status: Acute Plan: Continue anticoagulation (6) h/o of polio Current Visit: Yes Status: Acute Plan: Supportive care Discharge Plan: [facility] Discharge Plan: Home Plan to discharge in: 48 Hours - Code Status/Comfort Care Code Status Assessed: Yes Physician Review: Patient Assessed, Agree with Above Assessment and Plan Critical Care: No time taken is 25 min. Physician Review: Patient Assessed, Agree with Above Assessment and Plan
[2023-05-26] MEDS: PHENOBARBITAL 30 MG TABLET PO SCH (20:40)
[2023-05-26] MEDS: TOPIRAMATE 25 MG TAB PO SCH (20:41)
[2023-05-26] MEDS: ATORVASTATIN 10 MG TAB PO SCH (20:41)
[2023-05-27] MEDS: IPRATROPIUM BROM 0.5MG/2.5ML NEB SCH ×2 (01:49→08:00)
[2023-05-27] MEDS: INSULIN REGULAR (HUMAN) 100 UNIT/ML SQ SCH ×4 (07:30→21:00)
[2023-05-27] MEDS: PIPER TAZO 3.375 GM in NA CHLORIDE 0.9% 100 ML IV SCH ×2 (08:35→21:44)
[2023-05-27] MEDS: levETIRAcetam 500 MG in NA CHLORIDE 0.9% 100 ML IV SCH (08:35)
[2023-05-27] MEDS: MULTIVIT W/ MINERAL TAB PO SCH (08:36)
[2023-05-27] MEDS: APIXABAN 2.5 MG TABLET PO SCH ×2 (08:36→21:45)
[2023-05-27] MEDS: POTASSIUM 25 MEQ EFFERV TAB PO SCH ×2 (08:36→21:46)
[2023-05-27] MEDS: HOME MED 1 EA UNK (Zonisamide [Zonegran] 100 MG Capsule) PO SCH (08:37)
[2023-05-27] MEDS: LACOSAMIDE 50 MG TABLET PO SCH ×2 (08:37→21:45)
[2023-05-27] MEDS: ENSURE ENLIVE 237 ML CAN PO SCH ×2 (09:00→21:49)
--- NOTE | 2023-05-27 10:34 | RAD REPORT ---
EXAM DESCRIPTION: RAD - Chest Single View - 05/27/2023 6:46 am CLINICAL HISTORY: pneumonia Chest pain. COMPARISON: Chest Single View dated 05/23/2023; Chest Single View dated 05/21/2023; Chest Single Vie w dated 05/15/2023; Chest Single View dated 11/25/2021 FINDINGS: Portable technique limits examination quality. Patient positioning mildly limits evaluation. Mild atelectasis is suspected in both lung bases. The l ungs are otherwise clear. The heart is mildly enlarged with a tortuous thoracic aorta.
[2023-05-27] MEDS ORDERED: IPRATROPIUM BROM 0.5MG/2.5ML NEB PRN (10:43)
[2023-05-27 16:31] LABS: Specific Gravity 1.014 (1.005-1.030); Urine Bacteria None Seen /HPF (<20); Urine Bilirubin NEGATIVE (Negative); Urine Blood Trace (Negative); Urine Clarity Clear (Clear); Urine Color Light-Yellow (Yellow); Urine Glucose NEGATIVE (Negative); Urine Protein 1+ (Negative); Urine RBC <5 /HPF (None Seen); Urine Urobilinogen Normal (Normal)
[2023-05-27] MEDS: ATORVASTATIN 10 MG TAB PO SCH (21:45)
[2023-05-27] MEDS: TOPIRAMATE 25 MG TAB PO SCH (21:45)
[2023-05-27] MEDS: PHENOBARBITAL 30 MG TABLET PO SCH (21:46)
[2023-05-28] MEDS: INSULIN REGULAR (HUMAN) 100 UNIT/ML SQ SCH ×4 (07:30→21:00)
--- NOTE | 2023-05-28 07:44 | P.PN ---
Subjective Date of Service: 05/28/23 (Hospitalist) Chief Complaint: Altered mental status hyponatremia Subjective: Improving (Patient is improving he is doing well alert responsive cooperative sister at the bedside drinking a lot of fluids complaining of some diarrhea) Review of Systems General: Weakness Gastrointestinal: Diarrhea Physical Examination - Vital Signs Temperature: 98.4 F Blood Pressure: 158/86 Pulse: 103 Respirations: 16 Pulse Ox (%): 99 - Physical Exam General: Alert, Oriented x2, Cooperative Respiratory: Clear to auscultation bilaterally, Diminished Cardiovascular: No edema, Normal S1 S2 Assessment And Plan - Current Problems (Diagnosis) (1) Dehydration Current Visit: No Status: Active Plan: Patient is 77 years of age admitted with altered mental status hyponatremia he is doing much better as far as his mental status is concerned there is no evidence of active ongoing sepsis slight fever on admission all all his cultures are negative chest x-ray no obvious pneumonia can DC Zosyn for now discharge planning vital signs are stable discharge planning for tomorrow Physician Review: Patient Assessed, Agree with Above Assessment and Plan
[2023-05-28] MEDS: ENSURE ENLIVE 237 ML CAN PO SCH ×2 (09:00→21:59)
[2023-05-28] MEDS: POTASSIUM 25 MEQ EFFERV TAB PO SCH ×2 (09:16→21:58)
[2023-05-28] MEDS: APIXABAN 2.5 MG TABLET PO SCH ×2 (09:17→21:59)
[2023-05-28] MEDS: LACOSAMIDE 50 MG TABLET PO SCH ×2 (09:17→21:59)
[2023-05-28] MEDS: MULTIVIT W/ MINERAL TAB PO SCH (09:18)
[2023-05-28] MEDS: levETIRAcetam 500 MG in NA CHLORIDE 0.9% 100 ML IV SCH (09:18)
[2023-05-28] MEDS: HOME MED 1 EA UNK (Zonisamide [Zonegran] 100 MG Capsule) PO SCH (09:19)
[2023-05-28] MEDS ORDERED: PHENOBARBITAL 30 MG TABLET PO SCH (21:00)
[2023-05-28] MEDS: TOPIRAMATE 25 MG TAB PO SCH (21:58)
[2023-05-28] MEDS: ATORVASTATIN 10 MG TAB PO SCH (21:59)
--- NOTE | 2023-05-29 05:55 | P.PN ---
Date of Service: 05/29/23 Subjective Physical Examination - Vital Signs Reviewed Physical Exam: Vitals: reviewed GEN: Alert, orientedx2, NAD HEENT: Normal conjunctiva, sclera anicteric CV: Regular rate & rhythm, no edema Pulm: Nonlabored respiraitons, diminished ABD: Soft, nontender, nondistended MSK: Contractures Integumentary: No rashes Neuro: Abnormal strength, Abnormal tone Assessment and Plan - Problems (Diagnosis) (1) Sepsis Current Visit: Yes Status: Acute Plan: Continue plan of care as mentioned below: Continue with supportive care. Amrit dc'd 05/27. Repeat chest x-ray shows pneumonia has improved. Repeat labs in the morning. (2) CVA with left-sided contractures Current Visit: Yes Status: Acute Plan: Continue with antiplatelet therapy and statin therapy. (3) Anemia of chronic disease Current Visit: Yes Status: Acute Plan: Transfused 2 units of packed red blood cells (4) Seizure disorder Current Visit: Yes Status: Acute Plan: Continue antiepileptics (5) Pulmonary embolism Current Visit: Yes Status: Acute Plan: Continue anticoagulation (6) h/o of polio Current Visit: Yes Status: Acute Plan: Supportive care Discharge Plan: [facility] Plan to discharge in: 24 hours - Advance Directives Does patient have a Living Will: No Does patient have a Durable POA for Healthcare: No - Code Status/Comfort Care Code Status Assessed: Yes (Full) Critical Care: NO Time Spent Managing Pts Care (In Minutes): 30
[2023-05-29] MEDS: INSULIN REGULAR (HUMAN) 100 UNIT/ML SQ SCH ×2 (07:30→11:30)
[2023-05-29] MEDS: ENSURE ENLIVE 237 ML CAN PO SCH (09:00)
--- NOTE | 2023-05-29 09:05 | P.PN ---
Date of Service: 05/29/23 Chief Complaint: Pneumonia Subjective: Resting comfortably in bed. In no apparent distress. at bedside. No new or worsening complaints at this time. Physical Examination Temp Pulse Resp BP Pulse Ox 98.4 F 110 H 15 145/82 H 99 05/29/23 04:00 05/29/23 04:00 05/29/23 04:00 05/29/23 04:00 05/29/23 04:00 General: In no apparent distress. HEENT: Atraumatic Respiratory: Normal air movement, Diminished. Unlabored respirations on room air. Cardiovascular: Tachycardic. Pedal edema. Gastrointestinal: Normal bowel sounds, Soft and benign Musculoskeletal: Contractures Integumentary: No rashes Laboratory data -Reviewed Microbiology data -Reviewed Imagings Data: -Reviewed Medications List: Reviewed Assessment and Plan Problem list Sepsis secondary to pneumonia Anemia of chronic disease Seizure disorder CVA Pulmonary embolism Severe PCM Sepsis secondary to pneumonia -Blood cultures 05/15: Staph capitis in 1 of 4 bottles. Likely a contaminant - XR Chest 05/15: "Subsegmental atelectasis or scarring within right lung base. There has been development mild patchy left lung opacities suspicious for pneumonia. Heart is mildly enlarged." - Previously on Zosyn (05/16-) -Patient spiked fever to 101 F on 05/24. Repeat blood culture, urinalysis were obtained. Urinalysis not suggestive of urinary tract infection. Concern for possible aspiration pneumonia. - CT Chest wo contrast 05/24: "Mild infiltrate or atelectasis in the right lung base noted." - Repeat blood cultures 05/24: no growth to date - XR Chest 05/27: "Patient positioning mildly limits evaluation. Mild atelectasis is suspected in both lung bases. The lungs are otherwise clear. The heart is mildly enlarged with a tortuous thoracic aorta." - Zosyn discontinued 05/27 Recommendations Off antibiotics since 05/27. Afebrile 48 hours. Leukocytosis resolved. -Monitor WBC and fever trends -Pressure offloading measures -Aspiration precautions - Supplemental nutrition - Renally dose medications. Case discussed with Eleonora Brar
[2023-05-29] MEDS: LACOSAMIDE 50 MG TABLET PO SCH (09:10)
[2023-05-29] MEDS: levETIRAcetam 500 MG in NA CHLORIDE 0.9% 100 ML IV SCH (09:10)
[2023-05-29] MEDS: POTASSIUM 25 MEQ EFFERV TAB PO SCH (09:11)
[2023-05-29] MEDS: APIXABAN 2.5 MG TABLET PO SCH (09:12)
[2023-05-29] MEDS: HOME MED 1 EA UNK (Zonisamide [Zonegran] 100 MG Capsule) PO SCH (09:12)
[2023-05-29] MEDS: MULTIVIT W/ MINERAL TAB PO SCH (09:12)
[2023-05-29 12:57] VITALS: O2SAT 98
[2023-05-29 13:02] VITALS: BP 131/92; TEMP 97
[2023-05-29] MEDS ORDERED: IPRATROPIUM BROM 0.5MG/2.5ML NEB PRN (15:00)
== END 2023-05-29 17:00 | disposition home health service (06) | DRG 871 ==
LOC: ER 19:00 → ERHOLD 21:50 → 3RD-ICU 23:30 → 2ND 05-16 16:45
PROVIDERS: ADMIT Internal Medicine; ATTEND Hospitalist
PROC: 30233N1 Transfusion of Nonautologous Red Blood Cells into Peripheral Vein, Percutaneous Approach (ICD-10-PCS; principal; 2023-05-16)
DX: A41.9 Sepsis, unspecified organism (principal); E43 Unspecified severe protein-calorie malnutrition; J69.0 Pneumonitis due to inhalation of food and vomit; E87.1 Hypo-osmolality and hyponatremia; I69.354 Hemiplegia and hemiparesis following cerebral infarction affecting left non-dominant side; Z68.1 Body mass index [BMI] 19.9 or less, adult; E86.0 Dehydration; G14 Postpolio syndrome; E78.00 Pure hypercholesterolemia, unspecified; D63.8 Anemia in other chronic diseases classified elsewhere; G40.909 Epilepsy, unspecified, not intractable, without status epilepticus; I10 Essential (primary) hypertension; Z88.1 Allergy status to other antibiotic agents; Z11.52 Encounter for screening for COVID-19; Z74.01 Bed confinement status; Z79.01 Long term (current) use of anticoagulants; Z90.49 Acquired absence of other specified parts of digestive tract; Z79.899 Other long term (current) drug therapy; Z86.718 Personal history of other venous thrombosis and embolism; Z86.711 Personal history of pulmonary embolism
CPT/HCPCS: 36415; 36430; 51702; 70450; 71045; 71250; 74230; 80048; 80053; 81001; 82607; 82947; 83540; 83605; 83735; 83880; 84100; 84132; 84145; 84439; 84443; 84484; 85025; 85610; 85730; 86850; 86900; 86901; 86920; 86922; 87040; 87077; 87086; 87088; 87186; 87205; 87635; 87804; 92526; 92610; 92611; 93005; 96365; 96366; 96368; 99285; J0696; J1940; J1953; J2543; J2930; J3480; J7050; J7613; J7644; P9016; P9047

== ENCOUNTER → 2023-07-15 | Emergency (ER) | payer OTHER ==
[~2023-07-15] MED LIST: NA CHLORIDE 0.9% 250 ML ONE
[2023-07-15 13:16] LABS: Absolute Lymphocytes (CBC) 1.4 K/uL (0.7-4.9); Hematocrit 19.5 % (39.6-49.0); Lymphocytes % 33.1 % (15.3-44.8); MCV 77.6 fL (80-100); MPV 7.8 fL (7.6-11.3); Platelets 395 thou/uL (152-406); RBC Red Blood Cell Count 2.51 M/uL (4.33-5.43)
[2023-07-15 13:21] LABS: Potassium 4.2 mEq/L (3.5-5.1)
[2023-07-15 15:42] LABS: Anisocytosis 1+; Blood Morphology Comment NOTED (NOT SEEN); Hypochromasia 2+; Platelet Estimate ADEQ; Target Cells 2+; White Blood Cell Scan OK (OK)
--- NOTE | 2023-07-15 17:14 | ER ---
Nurse's Notes [facility] Name: Jairo Samson Age: 78 yrs Sex: Male : 1945 Arrival Date: 07/15/2023 Time: 10:30 Bed 2 Private MD: Diagnosis: Anemia, unspecified Presentation: 07/15 11:09 Coronavirus screen: At this time, the client does not indicate any symptoms associated nj1 with coronavirus-19. Ebola Screen: No symptoms or risks identified at this time. Risk Assessment: Do you want to hurt yourself or someone else? Patient reports no desire to harm self or others. Onset of symptoms was July 15, 2023. 11:09 Method Of Arrival: Wheelchair [facility] 11:09 Acuity: BIJAL 3 [facility] 11:12 Chief complaint: Sister states he had blood work done , received a phone call [facility] today with results: Hgb 6.5. Last blood transfusion done in May. 11:17 Initial Sepsis Screen: Does the patient meet any 2 criteria? HR > 90 bpm. No. Patient's [facility] initial sepsis screen is negative. Does the patient have a suspected source of infection? No. Patient's initial sepsis screen is negative. Triage Assessment: 11:15 General: Appears in no apparent distress. Behavior is unresponsive. AT BASELINE. Pain: bp Unable to use pain scale. Does not appear to understand pain scale. 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 - Social history:: Smoking status: Patient denies any tobacco usage or history of. Screenin:38 [facility] ED Fall Risk Assessment (Adult) History of falling in the last 3 months, bp including since admission No falls in past 3 months (0 pts). Abuse screen: Denies threats or abuse. Denies injuries from another. Nutritional screening: No deficits noted. Tuberculosis screening: No symptoms or risk factors identified. Assessment: 12:37 General: FAMILY REQUESTING PARTICULAR STAFF FOR PIV PLACEMENT. MD INFORMED. bp 15:00 Reassessment: PT CONSENTED FOR PRBC TRANSFUSION BY FAMILY. PT PLACED ON NIBP AND bp CONTINUOUS SPO2. Vital Signs: 11:17 BP 123 / 75; Pulse 94; Resp 18; Temp 98.2(TE); Pulse Ox 99% ; Weight 74.39 kg; Height 5 nj1 ft. 9 in. ; 15:00 BP 125 / 77; Pulse 92; Resp 15; Temp 97.4; Pulse Ox 100% ; bp 16:43 BP 127 / 82; Pulse 92; Resp 18; Pulse Ox 100% on R/A; ld1 17:48 BP 128 / 83; Pulse 95; Resp 16; Pulse Ox 100% ; ld1 11:17 Body Mass Index 24.22 (74.39 kg, 175.26 cm) nj1 ED Course: 10:33 Patient arrived in ED. ts1 10:39 Kathryn Hull FNP-C is [facility]. kb 10:39 Pipo Salcedo MD is Attending Physician. kb 11:11 Triage completed. nj1 11:12 Arm band placed on. nj1 11:32 Mark Patterson, RN is Primary Nurse. bp 12:38 Patient has correct armband on for positive identification. Bed in low position. Call bp light in reach. 14:00 Inserted saline lock: 20 gauge in left forearm, using aseptic technique. Blood bp collected. 17:48 No provider procedures requiring assistance completed. IV discontinued. ld1 Administered Medications: No medications were administered Medication: 17:48 VIS not applicable for this client. ld1 Outcome: 17:13 Discharge ordered by . kb 17:48 Discharged to home via wheelchair, with family, ld1 17:48 Condition: stable 17:48 Discharge instructions given to patient, Instructed on discharge instructions, follow up and referral plans. Demonstrated understanding of instructions, follow-up care, 17:49 Patient left the ED. ld1 Signatures: Kathryn Hull FNP-C FNP-Ckb Peltier, Brian, RN RN bp Cathy Santos RN RN ld1 Keyla Sainz RN RN nj1 Chantale Verduzco PAS PAS ts1 Corrections: (The following items were deleted from the chart) 11:14 11:09 Chief complaint: Patient states: Routine blood work done . Hgb 6.5, nj1 denies active bleeding. nj1
--- NOTE | 2023-07-15 17:14 | EDPHYS ---
Physician Documentation [facility] Name: Jairo Samson Age: 78 yrs Sex: Male : 1945 Arrival Date: 07/15/2023 Time: 10:30 Bed 2 Private MD: ED Physician Pipo Salcedo HPI: 07/15 18:50 This 78 yrs old Black Male presents to ER via Wheelchair with complaints of Abnormal kb Lab Results. 18:50 Pt is a 78 year old male who was brought in for anemia. Family states pt has chronic kb anemia and has to get transfusions at times. [facility] pt had routine blood work done 3 days ago. PCP called and told them to bring pt to the ER for a transfusion because Hgb is 6.5.. Family denies any active bleeding. . 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 - Social history:: Smoking status: Patient denies any tobacco usage or history of. ROS: 18:48 Constitutional: Negative for fever, chills, and weight loss, kb 18:48 Unable to obtain ROS due to patient's inability to understand questions, Exam: 18:49 Constitutional: This is a well developed, well nourished patient who is awake, alert, kb and in no acute distress. ENT: Moist Mucous membranes Cardiovascular: Regular rate Respiratory: Respirations even and unlabored. No increased work of breathing. Abdomen/GI: Soft, non-tender. No distention 18:49 Neuro: Exam negative for acute changes, Vital Signs: 11:17 BP 123 / 75; Pulse 94; Resp 18; Temp 98.2(TE); Pulse Ox 99% ; Weight 74.39 kg; Height 5 nj1 ft. 9 in. ; 15:00 BP 125 / 77; Pulse 92; Resp 15; Temp 97.4; Pulse Ox 100% ; bp 16:43 BP 127 / 82; Pulse 92; Resp 18; Pulse Ox 100% on R/A; ld1 17:48 BP 128 / 83; Pulse 95; Resp 16; Pulse Ox 100% ; ld1 11:17 Body Mass Index 24.22 (74.39 kg, 175.26 cm) nj1 MDM: 10:39 Patient medically screened. kb 18:49 Differential Diagnosis anemia, GI bleed, electrolyte abnormality. Data reviewed: vital kb signs, nurses notes. Consideration of Admission/Observation Escalation of care including admission/observation considered. admission considered, but family requests transfusion and discharge from the ED. Historians other than the Patient: Family Member: daughter. Counseling: I had a detailed discussion with the patient and/or guardian regarding the historical points, exam findings, and any diagnostic results supporting the discharge/admit diagnosis, lab results, the need for outpatient follow up, a family practitioner, to return to the emergency department if symptoms worsen or persist or if there are any questions or concerns that arise at home. 07/15 10:50 Order name: Type And Screen kb 07/15 10:50 Order name: CBC with Diff; Complete Time: 15:49 kb 07/15 10:50 Order name: Basic Metabolic Panel; Complete Time: 13:34 kb 07/15 13:21 Order name: Bb Add On eb 07/15 13:24 Order name: Packed RBC Leukored [facility] 07/15 14:50 Order name: CBC Smear Scan; Complete Time: 15:49 [facility] 07/15 10:50 Order name: IV Start; Complete Time: 13:07 kb Administered Medications: No medications were administered Disposition Summary: 07/15/23 17:13 Discharge Ordered Notes: Location: Home kb Condition: Stable kb Diagnosis - Anemia, unspecified kb Followup: kb - With: Emergency Department - When: As needed - Reason: Worsening of condition Followup: kb - With: Private Physician - When: 2 - 3 days - Reason: Recheck today's complaints, Continuance of care, Re-evaluation by your physician Discharge Instructions: - Discharge Summary Sheet kb - Anemia kb - Blood Transfusion, Adult, Care After, [id number] kb Forms: - Medication Reconciliation Form kb - Thank You Letter kb - Antibiotic Education kb - Prescription Opioid Use kb - Patient Portal Instructions kb - Leadership Thank You Letter kb Signatures: Dispatcher [employer] EDKathryn Hudson, ROSEMARY-C ROSEMARY-Keyla Lamar RN RN nj1 Corrections: (The following items were deleted from the chart) 18:50 18:49 Constitutional: This is a well developed, well nourished patient who is awake, kb alert, and in no acute distress. ENT: Moist Mucous membranes Cardiovascular: Regular rate Respiratory: Respirations even and unlabored. No increased work of breathing. Talking in full sentences Abdomen/GI: Soft, non-tender. No distention kb
[2023-07-15 19:35] VITALS: TEMP 97.4; O2SAT 100
[2023-07-15 19:49] VITALS: BP 128/83
== END ==
LOC: ER 10:30
PROC: 30233N1 Transfusion of Nonautologous Red Blood Cells into Peripheral Vein, Percutaneous Approach (ICD-10-PCS; principal; 2023-07-15)
DX: D64.9 Anemia, unspecified (principal); I10 Essential (primary) hypertension; Z88.1 Allergy status to other antibiotic agents
CPT/HCPCS: 85025; 80048; 36415; 86900; 86850; 86901; 86920; 99283; 36430; P9016; J7050

== ENCOUNTER 2024-02-27 12:57 | Inpatient (IN) | payer OTHER ==
[2024-02-27 13:15] LABS: Absolute Lymphocytes (CBC) 2.7 K/uL (0.7-4.9); Absolute Monocytes 0.2 K/uL (0.1-1.3); Absolute Neutrophil 1.6 K/uL (1.8-8.0); Basophils % 0.8 % (0-1.3); Eosinophils % 0.6 % (0-4.4); Hematocrit 29.4 % (39.6-49.0); Hemoglobin 9.3 g/dL (13.6-17.9); Lymphocytes % 60.5 % (15.3-44.8); MCHC 31.5 g/dL (32.0-36.0); MPV 9.3 fL (7.6-11.3); Monocytes % 3.7 % (3.3-12.3); Neutrophils % 34.4 % (41.7-73.7); Nucleated Red Blood Cells % 0.1 % (0-0); Platelets 158 thou/uL (152-406); RBC Red Blood Cell Count 4.03 M/uL (4.33-5.43); Red Cell Distribution Width 15.4 % (12.1-15.2)
[2024-02-27 13:18] LABS: PT Prothrombin Time 15.8 SECONDS (9.4-12.5); Protime INR 1.43
[2024-02-27 14:04] LABS: ALT/SGPT 28 U/L (16-61); AST/SGOT 22 U/L (15-37); Albumin 3.1 g/dL (3.4-5.0); Albumin/Globulin Ratio 0.5 (1.1-1.8); Alkaline Phosphatase 147 U/L (45-117); Anion Gap 9.3 mEq/L (5.0-15.0); BUN Blood Urea Nitrogen 71 mg/dL (7-18); Bicarbonate 21 mEq/L (21-32); Bilirubin Total 0.2 mg/dL (0.2-1.0); Globulin 5.7 g/dL (2.3-3.5); Glomerular Filtration Rate 48 ml/min (=/>90); Glucose Level 111 mg/dL (74-106); Magnesium 2.2 mg/dL (1.6-2.4); NT PRO-BNP 381 pg/mL (<450); Potassium 4.3 mEq/L (3.5-5.1); Protein, Total 8.8 g/dL (6.4-8.2); Sodium Level 142 mEq/L (136-145); Troponin High Sensitivity 8.9 pg/mL (<58.9)
[2024-02-27 14:05] LABS: Bilirubin Direct < 0.2 mg/dL (0-0.2)
[2024-02-27 14:31] LABS: Differential Total Cells Count 100; Eosinophils 1 % (0-3); Lymphocytes 41 % (15-42); Monocytes 9 % (0-10); Segmented Neutrophils 48 % (40-80)
[2024-02-27 14:32] LABS: Platelet Estimate ADEQ; Platelets Clumped FEW
[2024-02-27 14:33] LABS: Anisocytosis 2+; Blood Morphology Comment NOTED (NOT SEEN); Hypochromasia 3+; Target Cells 1+
[2024-02-27] MEDS ORDERED: NA CHLORIDE 0.9% 1,000 ML ONE (14:53)
--- NOTE | 2024-02-27 15:01 | RAD REPORT ---
EXAM DESCRIPTION: RAD - Chest Single View - 02/27/2024 2:39 pm CLINICAL HISTORY: unresponsive COMPARISON: Chest Single View dated 05/27/2023; Chest Single View dated 05/23/2023; Chest Single Vie w dated 05/21/2023; Chest Single View dated 05/15/2023 FINDINGS: Lines: None. Lungs: Low lung volumes with elevated right hemidiaphragm and probably underlying atelectasis. . Pleural: No significant pleural effusions or pneumothorax. Cardiac: The heart size is within normal limits. Mediastinum: Within normal limits. Bones: No acute fractures. Other: Lucency in the upper abdomen which is nonspecific. IMPRESSION: Limited by patient positioning. Low lung volumes with likely right basilar atelectasis v ersus pneumonitis. Lucency in the upper abdomen could be secondary to gaseous distension of the colon with interposed co fabiola anterior to the liver. Cannot exclude the presence of free air, however. If there is clinical con cern for intra-abdominal pathology, consider CT for further evaluation.
[2024-02-27] MEDS ORDERED: NA CHLORIDE 0.9% 100 ML ONE (15:42)
--- NOTE | 2024-02-27 15:42 | RAD REPORT ---
EXAM DESCRIPTION: CT - Head Brain Wo Cont - 02/27/2024 3:35 pm CLINICAL HISTORY: Alteration of awareness/confusion COMPARISON: 2019 TECHNIQUE: Computed axial tomography of the head was obtained. IV contrast was not requested. All CT scans are performed using dose optimization technique as appropriate and may include automated exposure control or mA/KV adjustment according to patient size. FINDINGS: An intracranial bleed is not seen The ventricles are normal in caliber No extra-axial fluid collection is noted. Cystic encephalomalacia left cerebrum secondary infarction. Old left cerebellar infarction. Fluid within the sinuses/ mastoids is not seen. IMPRESSION: No acute intracranial abnormality is seen If patient's symptoms persist MRI of the brain would be recommended
[2024-02-27] MEDS ORDERED: PIPERACIL/TAZO 3.375 GM VIAL IV ONE (15:43)
--- NOTE | 2024-02-27 15:58 | RAD REPORT ---
EXAM DESCRIPTION: CT - Chest Abdomen Pelvis W Cont - 02/27/2024 3:35 pm CLINICAL HISTORY: Chest and abdominal pain abnormal chest x-ray COMPARISON: Chest x-ray February 27, 2024 CT chest 2022 TECHNIQUE: Computed axial tomography of the chest, abdomen and pelvis was obtained. 100 cc Isovue-30 0 was administered intravenously. Oral contrast was not requested. This limits evaluation of bowel. All CT scans are performed using dose optimization technique as appropriate and may include automated exposure control or mA/KV adjustment according to patient size. FINDINGS: Elevation the right hemidiaphragm mild basilar atelectasis. Of 2 additional areas of subse gmental atelectasis the left lung. No mediastinal or hilar lymphadenopathy. No pleural effusion. No pericardial effusion. Liver, spleen, pancreas, and adrenals are unremarkable. Bilateral renal cysts The rectum is distended with stool measuring 10 centimeters. It compresses bladder. Moderate amount stool is present throughout colon. Remainder the colon caliber is upper limits normal . : Abuts the right left hemidiaphragm accounting for air-filled structure seen on recent chest x-ray . No evidence of diverticulitis 3.2 centimeter soft tissue structure within the right inguinal canal may represent undescended testic le. Scoliosis IMPRESSION: Rectum is distended measuring 10 centimeters. Fecal impaction is likely present
[2024-02-27 16:03] LABS: Specific Gravity 1.012 (1.005-1.030); Sqamous Epithelial <5 /HPF (None Seen); Urine Bacteria <20 /HPF (<20); Urine Bilirubin NEGATIVE (Negative); Urine Blood Trace (Negative); Urine Clarity Clear (Clear); Urine Color Light-Yellow (Yellow); Urine Culture Reflex Order NOT NEEDED; Urine Glucose NEGATIVE (Negative); Urine Ketones NEGATIVE (Negative); Urine Micro Reflex YN NO BILL MICROSCOPIC; Urine Nitrite NEGATIVE (Negative); Urine Protein TRACE (Negative); Urine Urobilinogen Normal (Normal); Urine WBC <5 /HPF (<5); Urine pH 5.5 (5.0-7.0)
--- NOTE | 2024-02-27 16:13 | EDPHYS ---
Physician Documentation [facility] Name: Jairo Samson Age: 78 yrs Sex: Male : 1945 Arrival Date: 02/27/2024 Time: 12:57 Bed 4 Private MD: ED Physician Henry Sanchez HPI: 02/26 13:29 This 78 yrs old Black Male presents to ER via EMS with complaints of Unresponsive. sp3 13:29 78-year-old male with history of CVA, hyperlipidemia, hypertension, PE, prior polio, sp3 history of seizures now presents to the ED via EMS for chief complaint unresponsiveness and hypotension now resolved. Initially EMS was called due to patient slumping over in wheelchair just after eating at home. EMS arrived to find patient hypotensive with systolic blood pressure in the 40s which responded to short burst epinephrine and IV fluids. On arrival blood pressure in the 170s systolic with heart rate in the 90s and patient at baseline mental status as reported by EMS. History, physical and ROS limited secondary to patient status and nonverbal nature. No reports from EMS of emesis, bleeding or other significant history.. Historical: - Allergies: 13:21 Cipro; tm6 - PMHx: 13:21 CVA; DVT; Hyperlipidemia; Hypertension; PE; Polio; Seizures; tm6 - PSHx: 13:21 Appendectomy; tm6 - Immunization history:: Client reports receiving the 2nd dose of the Covid vaccine. - Infectious Disease History:: Denies. - Social history:: Smoking status: Patient denies any tobacco usage or history of. Patient/guardian denies using alcohol. ROS: 13:30 Unable to obtain ROS due to altered mental status, sp3 Exam: 13:31 Constitutional: This is a well developed, well nourished patient who is awake, alert, sp3 and in no acute distress. Head/Face: Normocephalic, atraumatic. 13:31 Constitutional: The patient appears Patient awake and alert mildly responsive. This is reported as his baseline. The patient has prior deficits from his CVA. Heart rate is regular, lungs are clear, no obvious bleeding or rash noted. Limited physical. 13:33 ECG was reviewed by the Attending Physician. EKG demonstrates normal sinus rhythm at 92 sp3 bpm with slightly leftward axis, normal intervals, normal QRS and ST segments not discernible secondary to artifact. Vital Signs: 13:03 BP 204 / 106; Pulse 95; Resp 20; Temp 97(TE); Pulse Ox 98% on R/A; Weight 61.23 kg; tm6 Height 5 ft. 9 in. ; Pain 0/10; 13:37 BP 183 / 116; Pulse 87; Resp 18; Pulse Ox 97% on R/A; ph 14:20 BP 147 / 83; Pulse 87; Resp 16; Pulse Ox 98% on R/A; ph 15:30 BP 167 / 101; Pulse 94; Resp 16; Pulse Ox 98% on R/A; ph 16:04 BP 189 / 99; Pulse 90; Pulse Ox 100% on R/A; tm6 17:17 BP 182 / 104; Pulse 95; Resp 18; Pulse Ox 98% on R/A; ph 13:03 Body Mass Index 19.94 (61.23 kg, 175.26 cm) tm6 13:03 Pain Scale: Adult tm6 MDM: 13:05 Patient medically screened. sp3 13:32 Data reviewed: vital signs, nurses notes, EMS record, old medical records, lab test sp3 result(s), EKG, radiologic studies. ED course: 78-year-old male with history of CVA, prior deficits now for resolved hypotension/syncope/unresponsive episode. I do not believe patient arrested given his quick turnaround. Currently vital signs are stable with blood pressure actually slightly elevated. Will work patient up with laboratory values, imaging, EKG and general supportive care with probable 23-hour observation at minimum. Final disposition pending workup and patient course.. 02/26 13:06 Order name: Basic Metabolic Panel; Complete Time: 14:36 sp3 02/26 13:06 Order name: CBC with Diff; Complete Time: 14:36 sp3 02/26 13:06 Order name: LFT's; Complete Time: 14:36 sp3 02/26 13:06 Order name: Magnesium; Complete Time: 14:36 sp3 02/26 13:06 Order name: NT PRO-BNP; Complete Time: 14:36 sp3 02/26 13:06 Order name: PT-INR; Complete Time: 14:36 sp3 02/26 13:06 Order name: Troponin HS; Complete Time: 14:36 sp3 02/26 13:06 Order name: Lactate w/ 2H reflex if indic.; Complete Time: 14:36 sp3 02/26 13:06 Order name: Blood Culture Adult (2) sp3 02/26 14:26 Order name: Manual Differential; Complete Time: 14:36 EDMS 02/26 15:24 Order name: UAM; Complete Time: 16:05 sp3 02/26 16:01 Order name: Ghost Lactate-NO COLLECT Timer; Complete Time: 16:05 EDMS 02/26 16:55 Order name: Lactate Sepsis 2 HR Follow-up; Complete Time: 16:57 EDMS 02/26 17:49 Order name: Phenobarbital Level EDMS 02/26 17:49 Order name: CBC with Automated Diff EDMS 02/26 17:49 Order name: CBC with Automated Diff EDMS 02/26 17:49 Order name: CBC with Automated Diff EDMS 02/26 17:49 Order name: CBC with Automated Diff EDMS 02/26 17:49 Order name: Comprehensive Metabolic Panel EDMS 02/26 17:49 Order name: Comprehensive Metabolic Panel EDMS 02/26 17:49 Order name: Comprehensive Metabolic Panel EDMS 02/26 17:49 Order name: Comprehensive Metabolic Panel EDMS 02/26 17:49 Order name: Creatine Phosphokinase EDMS 02/26 17:49 Order name: Creatine Phosphokinase EDMS 02/26 17:49 Order name: Creatine Phosphokinase EDMS 02/26 17:49 Order name: Lipid Profile EDMS 02/26 17:49 Order name: Lipid Profile EDMS 02/26 17:49 Order name: Magnesium EDMS 02/26 17:49 Order name: Magnesium EDMS 02/26 17:49 Order name: Magnesium EDMS 02/26 17:49 Order name: Magnesium EDMS 02/26 17:49 Order name: Phosphorus EDMS 02/26 17:49 Order name: Phosphorus EDMS 02/26 17:49 Order name: Phosphorus EDMS 02/26 17:49 Order name: Phosphorus EDMS 02/26 19:02 Order name: Phenobarbital Level EDMS 02/26 19:02 Order name: Iron EDMS 02/26 19:02 Order name: Ferritin EDMS 02/26 13:06 Order name: XRAY Chest (1 view); Complete Time: 15:07 sp3 02/26 15:09 Order name: CT Chest, Abdomen, Pelvis - W/Contrast; Complete Time: 16:05 3 02/26 15:24 Order name: CT Head Brain wo Cont; Complete Time: 16:05 3 02/26 13:06 Order name: Cardiac monitoring; Complete Time: 13:27 3 02/26 13:06 Order name: EKG - Nurse/Tech; Complete Time: 13:27 3 02/26 13:06 Order name: IV Saline Lock; Complete Time: 13:27 3 02/26 13:06 Order name: Labs collected and sent; Complete Time: 13: 3 02/26 13:06 Order name: O2 Per Protocol; Complete Time: 13:27 3 02/26 13:06 Order name: O2 Sat Monitoring; Complete Time: 13: 3 02/26 13:21 Order name: Labs - recollect needed: recollect green top; Complete Time: 13:49 bd Administered Medications: 14:59 Drug: NS 0.9% IV 1000 ml IV at 1 bolus Per protocol; 1000 mL bolus Route: IV; Rate: 1 tm6 bolus; Site: left antecubital; 16:01 Follow up: Response: No adverse reaction; IV Status: Completed infusion; IV Intake: tm6 1000ml 16:36 Drug: Piperacillin-Tazobactam IVPB 3.375 grams IVPB once over 60 mins; (mix in NS 100 tm6 mL) Route: IVPB; Infused Over: 60 mins; Site: left antecubital; 18:00 Follow up: Response: No adverse reaction; IV Status: Completed infusion; IV Intake: tm6 100ml Disposition Summary: 02/27/24 16:12 Hospitalization Ordered Notes: Hospitalization Status: Inpatient Admission sp3 Provider: Argelia Alvarado sp3 Condition: Stable sp3 Problem: an acute exacerbation sp3 Symptoms: have worsened sp3 Bed/Room Type: Standard sp3 Location: Intensive Care Unit(02/27/24 17:57) bd Room Assignment: 6-(02/27/24 17:57) bd Diagnosis - Hypotensive event, pneumonia, altered mental status resolved sp3 Forms: - Medication Reconciliation Form sp3 - SBAR form sp3 - Leadership Thank You Letter sp3 Critical care time excluding procedures: 16:12 Critical care time: Bedside Care: 10 minutes, Consultation: 10 minutes, Family sp3 Intervention: 10 minutes. Total time: 30 minutes Signatures: Dispatcher [employer] EDMS Danielle Villagran bd Henry Sanchez MD MD sp3 Latrell Noonan RN RN tm6 Corrections: (The following items were deleted from the chart) 13:07 13:06 BASIC METABOLIC PANEL+C.LAB.BRZ ordered. EDMS EDMS 13:07 13:06 CBC+H.LAB.BRZ ordered. EDMS EDMS 13:07 13:06 HEPATIC FUNCTION+C.LAB.BRZ ordered. EDMS EDMS 13:07 13:06 MAGNESIUM+C.LAB.BRZ ordered. EDMS EDMS 13:07 13:06 PROBNP+C.LAB.BRZ ordered. EDMS EDMS 13:07 13:06 PROTIME (+INR)+COAG.LAB.BRZ ordered. EDMS EDMS 13:07 13:06 Troponin High Sensitivity+C.LAB.BRZ ordered. EDMS EDMS 13:07 13:06 LACTATE+C.LAB.BRZ ordered. EDMS EDMS 13:07 13:06 BLOOD CULTURE*+BA.LAB.BRZ ordered. EDMS EDMS 13:07 13:07 Chest Single View+RAD.RAD.BRZ ordered. EDMS EDMS 14:26 13:19 CBC Smear Scan ordered. EDMS EDMS 16:00 15:25 Matthews ordered. sp3 tm6 17:50 16:12 Intensive Care Unit sp3 bd 17:50 16:12 sp3 bd 17:57 17:50 [facility] ER HOLD bd bd 17:57 17:50 ERHOLD- bd bd
--- NOTE | 2024-02-27 16:13 | ER ---
Nurse's Notes [facility] Name: Jairo Samson Age: 78 yrs Sex: Male : 1945 Arrival Date: 02/27/2024 Time: 12:57 Bed 4 Private MD: Diagnosis: Hypotensive event, pneumonia, altered mental status resolved Presentation: 02/26 13:03 Chief complaint: EMS states: patient was eating lunch with his family when he became tm6 unresponsive. Upon EMS arrival, patient was hypotensive and bradycardic. EMS administered 10mcg of epinephrine. Coronavirus screen: Vaccine status: Patient reports receiving the 2nd dose of the covid vaccine. Ebola Screen: Patient negative for fever greater than or equal to 101.5 degrees Fahrenheit, and additional compatible Ebola Virus Disease symptoms Patient denies exposure to infectious person. Patient denies travel to an Ebola-affected area in the 21 days before illness onset. No symptoms or risks identified at this time. Initial Sepsis Screen: Does the patient meet any 2 criteria? No. Patient's initial sepsis screen is negative. Does the patient have a suspected source of infection? No. Patient's initial sepsis screen is negative. Risk Assessment: Do you want to hurt yourself or someone else? Patient reports no desire to harm self or others. Onset of symptoms was February 27, 2024. 13:03 Method Of Arrival: EMS: [facility] 6 13:03 Acuity: BIJAL 3 tm6 Triage Assessment: 13:21 General: Appears uncomfortable, Behavior is cooperative, quiet. Pain: Denies pain. tm6 EENT: No signs and/or symptoms were reported regarding the EENT system. Neuro: Level of Consciousness is awake, alert, Oriented to person. Cardiovascular: Patient's skin is warm and dry. Rhythm is sinus rhythm. Respiratory: Airway is patent Respiratory effort is even, unlabored, Respiratory pattern is regular, symmetrical. GI: No signs and/or symptoms were reported involving the gastrointestinal system. Abdomen is flat, non-distended. : No signs and/or symptoms were reported regarding the genitourinary system. Derm: No signs and/or symptoms reported regarding the dermatologic system. Musculoskeletal: patient contracted d/t past stroke. Historical: - Allergies: 13:21 Cipro; tm6 - PMHx: 13:21 CVA; DVT; Hyperlipidemia; Hypertension; PE; Polio; Seizures; tm6 - PSHx: 13:21 Appendectomy; tm6 - Immunization history:: Client reports receiving the 2nd dose of the Covid vaccine. - Infectious Disease History:: Denies. - Social history:: Smoking status: Patient denies any tobacco usage or history of. Patient/guardian denies using alcohol. Screenin:25 [facility] ED Fall Risk Assessment (Adult) History of falling in the last 3 months, tm6 including since admission No falls in past 3 months (0 pts) Confusion or Disorientation Yes (5 pts) Intoxicated or Sedated No (0 pts) Impaired Gait Yes (1 pt) Mobility Assist Device Used Yes (1 pt) Altered Elimination No (0 pt) Score/Fall Risk Level 3 or more points = High Risk Oriented to surroundings, Maintained a safe environment, Educated pt \\T\\ family on fall prevention, incl call for assistance when getting out of bed. Abuse screen: Denies threats or abuse. Denies injuries from another. Nutritional screening: No deficits noted. Tuberculosis screening: No symptoms or risk factors identified. 19:30 Port Tobacco Swallow Protocol Exclusion Criteria: Unable to remain alert for testing: No NPO tm6 for medical/surgical reason by provider order No Tracheostomy tube present No No thin liquids due to preexisting dysphagia/baseline modified diet thickened liquids No Exclusion Criteria Result: Proceed Brief Cognitive Screen What is your name? Normal, Where are you right now? Normal, What year is it? Normal. Oral Mechanism Examination Facial Symmetry: Normal, Motion: Normal, Lip Closure: Normal, Oral Mechanism Result: Normal. 3 oz Water Swallow Challenge: Pt able to drink all water without stopping, coughing, choking or throat clearing: Yes Result: PASS. Assessment: 13:25 Reassessment: see triage assessment. tm6 14:19 Reassessment: Patient appears in no apparent distress at this time. Patient and/or ph family updated on plan of care and expected duration. Pain level reassessed. 16:04 Reassessment: Patient and/or family updated on plan of care and expected duration. Pain tm6 level reassessed. Patient is alert, oriented x 3, equal unlabored respirations, skin warm/dry/pink. 17:19 Reassessment: Patient appears in no apparent distress at this time. Patient and/or ph family updated on plan of care and expected duration. Pain level reassessed. Patient is alert, oriented x 3, equal unlabored respirations, skin warm/dry/pink. 18:03 Reassessment: attempted to call report to ICU. ICU informed COAT CHECKER that the room was tm6 assigned at 1755 and they do not have to take report until 1825. RN will call back at 1825. 18:32 Reassessment: attempted to call report. ICU said report would have to wait until after tm6 shift change due to needing to life flight another patient. 19:49 Reassessment: report given to receiving nurse EN Morgan. ha1 Vital Signs: 13:03 BP 204 / 106; Pulse 95; Resp 20; Temp 97(TE); Pulse Ox 98% on R/A; Weight 61.23 kg; tm6 Height 5 ft. 9 in. ; Pain 0/10; 13:37 BP 183 / 116; Pulse 87; Resp 18; Pulse Ox 97% on R/A; ph 14:20 BP 147 / 83; Pulse 87; Resp 16; Pulse Ox 98% on R/A; ph 15:30 BP 167 / 101; Pulse 94; Resp 16; Pulse Ox 98% on R/A; ph 16:04 BP 189 / 99; Pulse 90; Pulse Ox 100% on R/A; tm6 17:17 BP 182 / 104; Pulse 95; Resp 18; Pulse Ox 98% on R/A; ph 13:03 Body Mass Index 19.94 (61.23 kg, 175.26 cm) tm6 13:03 Pain Scale: Adult tm6 ED Course: 13:03 Patient arrived in ED. ph 13:05 Henry Sanchez MD is Attending Physician. sp3 13:21 Triage completed. tm6 13:21 Arm band placed on left wrist. EKG completed in triage. Results shown to MD. tm6 13:25 Patient has correct armband on for positive identification. Bed in low position. Call tm6 light in reach. Side rails up X2. Provided Education on: use of call goodrich to family. Client placed on continuous cardiac and pulse oximetry monitoring. NIBP monitoring applied. environmental monitoring technician on. Pulse ox on. NIBP on. Sitter at bedside. Noise minimized. Warm blanket given. Pillow given. 13:25 Maintain EMS IV. Dressing intact. Good blood return noted. Site clean \\T\\ dry. Gauge \\T\\ tm 6 site: 20g LAC. Flushed with 10 mL NS IV is patent. 13:37 Tyra Crowder, RN is Primary Nurse. ph 13:50 Lactate w/ 2H reflex if indic. Sent. ph 13:50 Blood Culture Adult (2) Sent. ph 13:50 Basic Metabolic Panel Sent. ph 13:50 LFT's Sent. ph 13:50 Magnesium Sent. ph 13:50 NT PRO-BNP Sent. ph 13:50 Troponin HS Sent. ph 14:40 XRAY Chest (1 view) In Process Unspecified. EDMS 15:37 CT Chest, Abdomen, Pelvis - W/Contrast In Process Unspecified. EDMS 15:37 CT Head Brain wo Cont In Process Unspecified. EDMS 15:37 Urine collected: clean catch specimen, cloudy. tm3 16:12 Argelia Alvarado MD is Hospitalizing Provider. sp3 17:47 CM met with patient and sister Christy at the bedside in the ED exam room. Patient ane identified by name and . Demographic sheet confirmed. Christy states she is 's primary caregiver. She explains that she bathes, feeds and cares for in their home. She reports the DME in the home includes a hospital bed, wheelchair, and a "roll in shower". No home oxygen or MPOA in place at this time. Christy states has nurse visits twice a week through [facility]. CM reached out to [facility] to confirn service and inform of admission at 1813. Christy states their plan is to for to return home upon discharge. She reports that her and her from [place] will transport Mr. Samson home once he is discharged. Cm team will continue to follow and coordinate care. 19:13 YUMIKO received response from Clau, from [facility], she reports has had services ane through [facility] in the past but is not a current patient of [facility]. Clau states if is in need of services again, a new order and referral will be needed. 20:45 No provider procedures requiring assistance completed. Patient admitted, IV remains in vc1 place. Administered Medications: 14:59 Drug: NS 0.9% IV 1000 ml IV at 1 bolus Per protocol; 1000 mL bolus Route: IV; Rate: 1 tm6 bolus; Site: left antecubital; 16:01 Follow up: Response: No adverse reaction; IV Status: Completed infusion; IV Intake: tm6 1000ml 16:36 Drug: Piperacillin-Tazobactam IVPB 3.375 grams IVPB once over 60 mins; (mix in NS 100 tm6 mL) Route: IVPB; Infused Over: 60 mins; Site: left antecubital; 18:00 Follow up: Response: No adverse reaction; IV Status: Completed infusion; IV Intake: tm6 100ml Medication: 13:25 VIS not applicable for this client. tm6 Intake: 16:01 IV: 1000ml; Total: 1000ml. tm6 18:00 IV: 100ml; Total: 1100ml. tm6 Outcome: 16:12 Decision to Hospitalize by Provider. sp3 20:45 Admitted to ICU accompanied by nurse, via stretcher, room -6, vc1 20:45 Condition: stable 20:46 Patient left the ED. vc1 Signatures: Dispatcher [employer] EDMS Marcio Purvis 3 Tyra Crowder, RN EN Henry Sanchez MD MD 3 Kristen Heath RN RN 1 Krissy Hays RN RN ha1 Latrell Noonan RN RN 6 Maeve Aranda RN RN stanley Corrections: (The following items were deleted from the chart) 14:26 13:50 CBC Smear Scan drawn and sent. [facility] 18:43 18:32 Reassessment: attempted to call report. ICU said report would have to wait until tm6 after shift change tm6
[2024-02-27] MEDS ORDERED: ACETAMINOPHEN 650MG/RECT SUPP PR PRN (17:37)
--- NOTE | 2024-02-27 17:48 | P.HP ---
Certification for Inpatient Patient admitted to: Inpatient With expected LOS: >2 Midnights <Janice Barker - Last Filed: 02/27/24 19:39> Patient History Date of Service: 02/27/24 <Argelia Alvarado - Last Filed: 02/27/24 19:13> Date of Service: 02/27/24 Reason for admission: Syncope and collapse History of Present Illness: Mr. Samson is a 78 yo with past medical history of CVA, DVT, HLD, PE, Htn, Polio and seizure who was found unresponsive. Chart review shows that pt slumped while in the wheel chair after eating at home. Upon EMS arrival, they noticed her systolic BP was in the 40s and was bradycardic. They gave him IVF and epinephrine which improved his BP to 170/90 prior to arrival in the ER. His Sister states this has not happened in the past and it did not appear to be one of his seizures. His vital signs in the ED are stable and his mental status is back to baseline per his family. We will observe him in ICU with tele, neuro checks, and medication level evaluation. His does have some LELE on lab evaluation and we will hydrate him gently and see his response overnight. 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 - Family History Father -: Hypertension Mother -: Hypertension Brother -: Hypertension Sister -: Hypertension, Cancer - Social History Smoking Status: Unknown if ever smoked Alcohol use: No CD- Drugs: No Caffeine use: No Place of Residence: Home <Janice Barker - Last Filed: 02/27/24 19:39> Allergies ciprofloxacin Allergy (Verified 12/15/15 22:39) UNKNOWN Home Medications: Lacosamide [Vimpat*] 200 mg PO BID 10/08/18 Multivit-Min/Folic/Vit K/Lycop [Men's 50 Plus Multivitamin Tab] 1 each PO DAILY 10/08/18 PHENobarbitaL [Phenobarbital*] 64.8 mg PO BEDTIME 10/08/18 Simvastatin 20 mg PO BEDTIME 10/08/18 Topiramate 50 mg PO BEDTIME 10/08/18 Zonisamide [Zonegran] 100 mg PO DAILY 10/08/18 levETIRAcetam [Keppra] 500 mg PO BID 10/08/18 Apixaban [Eliquis *] 5 tab PO BID 10/30/18 Metoprolol Tartrate [Lopressor*] 25 mg PO BID 11/25/21 Amox/K Clav [Augmentin 600 MG/5 ML Susp] 5 ml PO BID #60 ml 05/29/23 Ensure Enlive 237 ml PO BID #60 can 05/29/23 Amox/K Clav [Augmentin 600 MG/5 ML Susp] 5 ml PO BID #70 ml 05/30/23 Review of Systems 10-point ROS is otherwise unremarkable General: As per HPI Cardiovascular: As per HPI Neurological: As per HPI <Janice Barker - Last Filed: 02/27/24 19:39> Physical Examination - Studies Laboratory Data (last 24 hrs) 02/27/24 02/27/24 02/27/24 13:30 13:10 13:10 WBC 4.50 Hgb 9.3 L Hct 29.4 L Plt Count 158 PT 15.8 H INR 1.43 Sodium 142 Potassium 4.3 BUN 71 H Creatinine 1.50 H Glucose 111 H Magnesium 2.2 Total Bilirubin 0.2 AST 22 ALT 28 Alkaline Phosphatase 147 H <Argelia Alvarado - Last Filed: 02/27/24 19:13> - Physical Exam General: Alert, Mild distress, Other (At baseline per report) HEENT: Atraumatic, Normocephalic Neck: Supple Respiratory: Normal air movement Cardiovascular: Normal pulses, Regular rate/rhythm Capillary refill: <2 Seconds Gastrointestinal: Normal bowel sounds Musculoskeletal: Contractures Integumentary: No rashes Neurological: Abnormal speech, Abnormal strength, Abnormal tone, Abnormal affect Lymphatics: No axilla or inguinal lymphadenopathy External genitalia: Deferred Rectal: Deferred - Studies Laboratory Data (last 24 hrs) 02/27/24 02/27/24 02/27/24 13:30 13:10 13:10 WBC 4.50 Hgb 9.3 L Hct 29.4 L Plt Count 158 PT 15.8 H INR 1.43 Sodium 142 Potassium 4.3 BUN 71 H Creatinine 1.50 H Glucose 111 H Magnesium 2.2 Total Bilirubin 0.2 AST 22 ALT 28 Alkaline Phosphatase 147 H <Janice Barker - Last Filed: 02/27/24 19:39> Assessment and Plan Physician Review Additional Text: Pt seen and examined. I agree with the note by the FOOD PRODUCTS SALES REPRESENTATIVE. Pt is a 78 yo with past medical history of CVA, DVT, HLD, PE, Htn, Polio and seizure who was found unresponsive. Chart review shows that pt slumped while in the wheel chair after eating at home. Upon EMS arrival, they noticed her systolic BP was in the 40s. They gave her IVF and epinephrine which improved her BP to 170/90 prior to arrival in the ER. Lab studies show wbc 4.5, Hgb 9.3, K 4.3, Cr 1.5, lactate 2.5,. At bedside, pt is in NAD. He has contracture on both upper extremities. A/P: AMS: Pt slumped after eating at home. EMS recorded systolic BP in the 40s. It improved after IVF and epinephrine. Likely hypotension or hypovolemic shock. BP was 170/90 prior to arrival in the ER. Will continue continue telemetry and ICU level of care. Consulted Cardiology. CT head is unremarkable. LELE: Cr is 1.5. Will continue avoid nephrotoxin and monitor renal function. HLD: statin Htn: Continue home med. Monitor BP Fecal impaction: Per CT abd. It shows 10cm distended rectum. Will likely need disimpaction and laxative. Hx of seizure: continue home med. DVT ppx: SCD Code: full <Argelia Alvarado Edson - Last Filed: 02/27/24 19:13> - Plan Metabolic encephalopathy with lactic acidosis Gentle IVF Monitor and trend Lactate returned to normal Dehydration with LELE with syncope and collapse Gentle IVF Monitor and trend Avoid nephrotoxic medications Iron deficiency anemia Iron and ferritin level IV iron Monitor and trend History of CVA/contractures Neurochecks every 4 Skin protection measures Turn every 2h History of seizures/no change in anticonvulsants Phenobarbital Continue phenobarbital, topiramate, Keppra, Vimpat Hypertension Metoprolol 12.5 mg p.o. twice daily with holding parameters for hypotension/bradycardia Hyperlipidemia Simvastatin 20 mg p.o. nightly VTE/GI prophylaxis - Advance Directives Does patient have a Living Will: Yes Does patient have a Durable POA for Healthcare: No <Janice Barker - Last Filed: 02/27/24 19:39>
[2024-02-27] MEDS ORDERED: SODIUM CHLORIDE 0.9% 10ML INJ IV PRN (17:49)
[2024-02-27] MEDS: METOPROLOL TAR 25 MG TAB PO SCH (18:00)
[2024-02-27] MEDS: ENOXAPARIN 40 MG/0.4 ML SQ SCH (18:00)
[2024-02-27] MEDS: NA CHLORIDE 0.9% 500 ML IV SCH (18:00)
[2024-02-27] MEDS ORDERED: METOPROLOL TAR 25 MG TAB ONE (18:54)
[2024-02-27] MEDS ORDERED: ENOXAPARIN 40 MG/0.4 ML SQ ONE (18:54)
[2024-02-27] MEDS: IPRATROPIUM BROM 0.5MG/2.5ML NEB SCH (19:00)
[2024-02-27 19:02] LABS: Ferritin 1512.8 ng/mL (26-388)
[2024-02-27] MEDS: HYDRALAZINE HCL 20 MG/ML VIAL IV ONE (20:07)
[2024-02-27] MEDS ORDERED: HYDRALAZINE HCL 20 MG/ML VIAL ONE (20:11)
[2024-02-27] MEDS ORDERED: HYDRALAZINE HCL 20 MG/ML VIAL IV PRN (20:12)
--- NOTE | 2024-02-27 20:13 | P.PN ---
Date of Service: 02/27/24 Patient admitted for systolic hypotension, requiring epinephrine; since admission blood pressure has been persistently elevated. Will add IV hydralazine as needed systolic above 170
[2024-02-27] MEDS: PHENOBARBITAL 30 MG TABLET PO SCH (21:00)
[2024-02-27] MEDS: ATORVASTATIN 20 MG TAB PO SCH (22:18)
[2024-02-27] MEDS: levETIRAcetam 500 MG TAB PO SCH (22:18)
[2024-02-27] MEDS: TOPIRAMATE 25 MG TAB PO SCH (22:19)
[2024-02-27] MEDS: LACOSAMIDE 50 MG TABLET PO SCH (22:19)
[2024-02-27] MEDS: ACETAMINOPHEN 325 MG TABLET PO PRN (22:19)
[2024-02-28 05:31] LABS: Hematocrit 29.3 % (39.6-49.0); Hemoglobin 9.3 g/dL (13.6-17.9); MCH 23.1 pg (27.0-35.0); MCHC 31.6 g/dL (32.0-36.0); MCV 73.4 fL (80-100); MPV 9.4 fL (7.6-11.3); Platelets 152 thou/uL (152-406); Red Cell Distribution Width 15.2 % (12.1-15.2)
[2024-02-28 05:42] LABS: Albumin 2.8 g/dL (3.4-5.0); Albumin/Globulin Ratio 0.5 (1.1-1.8); Anion Gap 11.3 mEq/L (5.0-15.0); Bilirubin Total 0.4 mg/dL (0.2-1.0); Globulin 5.1 g/dL (2.3-3.5); Phosphorus 2.7 mg/dL (2.5-4.9); Potassium 4.3 mEq/L (3.5-5.1); Protein, Total 7.9 g/dL (6.4-8.2)
[2024-02-28 06:34] LABS: Band Neutrophils 3 % (0-1); Differential Total Cells Count 100; Lymphocytes 13 % (15-42); Monocytes 10 % (0-10); Segmented Neutrophils 74 % (40-80)
[2024-02-28 06:35] LABS: Anisocytosis 2+; Blood Morphology Comment NOTED (NOT SEEN); Hypochromasia 1+; Microcytosis 2+; Ovalocytes 2+; Platelet Estimate ADEQ; Platelets, Giant FEW PRESENT; Target Cells 1+
[2024-02-28] MEDS: ARFORMOTEROL TARTRATE 15 MCG/2 ML VIAL.NEB NEB SCH (07:37)
[2024-02-28] MEDS: PANTOPRAZOLE 40 MG INJ IVP SCH (08:04)
[2024-02-28] MEDS: SOD FERRIC GLUC COMPLX/SUCROSE 125 MG in NA CHLORIDE 0.9% 100 ML IV SCH (08:04)
[2024-02-28] MEDS: APIXABAN 2.5 MG TABLET PO SCH (08:04)
[2024-02-28] MEDS: ZONISAMIDE 100 MG PO SCH (08:21)
[2024-02-28] MEDS ORDERED: levETIRAcetam 500 MG TAB PO SCH (09:00)
--- NOTE | 2024-02-28 10:49 | P.PN ---
Subjective Date of Service: 02/28/24 Chief Complaint: Syncope and collapse Subjective: Improving (Alert and verbal this am. No voiced complaints) <Alisa Barkerbruno Doll - Last Filed: 02/28/24 10:41> Date of Service: 02/29/24 <Argelia Alvarado Edson - Last Filed: 02/29/24 22:23> Review of Systems 10-point ROS is otherwise unremarkable General: As per HPI Neurological: Other (No complaints of headache, seizure, AMS) <BarkerAlisabruno Doll - Last Filed: 02/28/24 10:41> Physical Examination - Vital Signs Temperature: 98.3 F Blood Pressure: 80/54 Pulse: 127 Respirations: 19 Pulse Ox (%): 94 - Physical Exam General: Alert, Cooperative, Other (Contractured) HEENT: Atraumatic, Normocephalic Neck: Supple Respiratory: Normal air movement Cardiovascular: Normal pulses, Regular rate/rhythm, Other (Tachycardic at 114) Capillary refill: <2 Seconds Gastrointestinal: Normal bowel sounds Musculoskeletal: No swelling, Contractures Integumentary: No rashes Neurological: Normal affect, Abnormal speech, Abnormal strength, Abnormal tone Lymphatics: No axilla or inguinal lymphadenopathy External genitalia: Deferred Rectal: Deferred - Studies Laboratory Data (last 24 hrs) 02/27/24 02/27/24 02/27/24 13:30 13:10 13:10 WBC 4.50 Hgb 9.3 L Hct 29.4 L Plt Count 158 PT 15.8 H INR 1.43 Sodium 142 Potassium 4.3 BUN 71 H Creatinine 1.50 H Glucose 111 H Magnesium 2.2 Total Bilirubin 0.2 AST 22 ALT 28 Alkaline Phosphatase 147 H <Janice Barkerlen - Last Filed: 02/28/24 10:41> Assessment And Plan - Plan Metabolic encephalopathy with lactic acidosis Gentle IVF, given hydralazine and lopressor overnight for hypertension. Pt is much more alert and conversant this am Monitor and trend Lactate returned to normal Dehydration with LELE with syncope and collapse Gentle IVF, 500ml ns bolus given overnight Monitor and trend - Creatinine improved from yesterday 1.5 to 1.37 Avoid nephrotoxic medications Iron deficiency anemia Iron and ferritin level IV iron Monitor and trend History of CVA/contractures Neurochecks every 4 Skin protection measures Turn every 2h History of seizures/no change in anticonvulsants Phenobarbital level within normal limits Continue phenobarbital, topiramate, Keppra, Vimpat Hypertension Metoprolol 12.5 mg p.o. twice daily with holding parameters for hypotension/bradycardia Hyperlipidemia Simvastatin 20 mg p.o. nightly Pt to downgrade from ICU today VTE/GI prophylaxis Time Spent Managing PTS Care (In Minutes): 28 <Janice Barker - Last Filed: 02/28/24 10:41> - Plan Pt seen and examined. I agree with the note by the ROAD FREIGHT BRAKE COUPLER. Will continue IVF and home meds for other chronic medical problems. <Argelia Alvarado - Last Filed: 02/29/24 22:23>
[2024-02-28] MEDS: NA CHLORIDE 0.9% 500 ML IV ONE (14:31)
[2024-02-28] MEDS ORDERED: ATORVASTATIN 10 MG TAB PO SCH (21:00)
[2024-02-28] MEDS ORDERED: TOPIRAMATE 25 MG TAB PO SCH (21:00)
[2024-02-28] MEDS ORDERED: PHENOBARBITAL 64.8 MG PO SCH (21:00)
[2024-02-28] MEDS: ATORVASTATIN 10 MG TAB PO SCH (21:24)
[2024-02-28] MEDS: MIDODRINE HCL 5 MG TABLET PO SCH (22:09)
[2024-02-29 05:42] LABS: Hemoglobin 8.1 g/dL (13.6-17.9); MCH 22.9 pg (27.0-35.0); MCHC 31.1 g/dL (32.0-36.0); MCV 73.6 fL (80-100); MPV 9.4 fL (7.6-11.3); Platelets 136 thou/uL (152-406); RBC Red Blood Cell Count 3.53 M/uL (4.33-5.43); Red Cell Distribution Width 15.8 % (12.1-15.2)
[2024-02-29 06:13] LABS: Albumin 2.2 g/dL (3.4-5.0); Albumin/Globulin Ratio 0.5 (1.1-1.8); Anion Gap 10.9 mEq/L (5.0-15.0); Bilirubin Total 0.4 mg/dL (0.2-1.0); Globulin 4.4 g/dL (2.3-3.5); Phosphorus 3.2 mg/dL (2.5-4.9); Potassium 3.9 mEq/L (3.5-5.1); Protein, Total 6.6 g/dL (6.4-8.2)
[2024-02-29] MEDS: NA CHLORIDE 0.9% 0 ML ONE (07:55)
[2024-02-29] MEDS: SODIUM BICARB 325 MG TAB PO SCH (08:06)
[2024-02-29] MEDS: HYDROCORTISONE SUC 100 MG INJ IV ONE (08:07)
[2024-02-29 09:22] LABS: Anisocytosis 2+; Band Neutrophils 10 % (0-1); Blood Morphology Comment NOTED (NOT SEEN); Burr Cells 2+; Differential Total Cells Count 100; Hypochromasia 1+; Lymphocytes 33 % (15-42); Monocytes 9 % (0-10); Platelet Estimate DECR; Segmented Neutrophils 48 % (40-80); Target Cells 1+
[2024-02-29] MEDS: SOD FERRIC GLUC COMPLX/SUCROSE 125 MG in NA CHLORIDE 0.9% 100 ML IV SCH (09:32)
--- NOTE | 2024-02-29 11:08 | P.PN ---
Subjective Date of Service: 02/29/24 Chief Complaint: Syncope and collapse Pt was sleeping when I saw him. His BP dropped overnight. Pt is getting IVF and midodrine. No other complaints. Review of Systems is unable to be obtained Physical Examination - Vital Signs Temperature: 97.6 F Blood Pressure: 86/59 Pulse: 68 Respirations: 14 Pulse Ox (%): 100 - Physical Exam General: In no apparent distress HEENT: Atraumatic, Normocephalic Neck: Supple, 2+ carotid pulse no bruit Respiratory: Clear to auscultation bilaterally, Normal air movement Cardiovascular: No edema, Normal pulses, Regular rate/rhythm, Normal S1 S2 Capillary refill: <2 Seconds Gastrointestinal: Normal bowel sounds, Soft and benign, Non-distended Musculoskeletal: No clubbing, No swelling, Contractures Integumentary: No rashes, No breakdown, No significant lesion Neurological: Normal strength at 5/5 x4 extr, Abnormal speech Lymphatics: No axilla or inguinal lymphadenopathy Assessment And Plan - Plan Metabolic encephalopathy with lactic acidosis: Improved. Will continue IVF. Lactate is normal. Dehydration with LELE with syncope and collapse: Will continue IVF, avoid nephrotoxins and monitor renal function. Cr is 1.33 <- 1.37 <- 1.5. Continue midodrine. Iron deficiency anemia: Will continue iron infusion. Hgb is 8.1. MCV is 73.6. Monitor H/H. History of CVA/contractures: Will continue neurochecks q4h, skin protection measures and turn every 2h History of seizures/no change in anticonvulsants: Will continue phenobarbital, topiramate, Keppra, Vimpat Hypertension: Will hold Metoprolol due to hypotension Hyperlipidemia: Statin DVT ppx: SCD Code: full Dispo: Pending hospital course.
--- NOTE | 2024-02-29 12:59 | EKG ---
Test Date: 2024-02-27 Test Time: 13:02:43 Stockroom Attendant: JENNIFER MEASUREMENT RESULTS: Intervals: Rate: 92 KS: 142 QRSD: 88 QT: 370 QTc: 457 [place]: P: 75 KS: 142 QRS: -18 T: 52 INTERPRETIVE STATEMENTS: Normal sinus rhythm Moderate voltage criteria for LVH, may be normal variant Nonspecific ST and T wave abnormality Abnormal ECG Compared to ECG 05/27/2023 17:22:27 Left ventricular hypertrophy now present ST (T wave) deviation now present Left-axis deviation no longer present Electronically Signed On 02-29-24 12:56:41 CDT by Juarez Garcia
[2024-02-29 18:25] VITALS: BMI 19.9
[2024-03-01 05:24] LABS: Hematocrit 25.6 % (39.6-49.0); Hemoglobin 7.9 g/dL (13.6-17.9); MCH 22.4 pg (27.0-35.0); MCHC 30.7 g/dL (32.0-36.0); MPV 8.9 fL (7.6-11.3); Platelets 149 thou/uL (152-406); RBC Red Blood Cell Count 3.51 M/uL (4.33-5.43); Red Cell Distribution Width 16.1 % (12.1-15.2)
[2024-03-01 05:33] LABS: Albumin 2.4 g/dL (3.4-5.0); Albumin/Globulin Ratio 0.5 (1.1-1.8); Anion Gap 11.7 mEq/L (5.0-15.0); Bilirubin Total 0.3 mg/dL (0.2-1.0); Globulin 4.7 g/dL (2.3-3.5); Magnesium 2.1 mg/dL (1.6-2.4); Phosphorus 4.3 mg/dL (2.5-4.9); Potassium 3.7 mEq/L (3.5-5.1); Protein, Total 7.1 g/dL (6.4-8.2)
[2024-03-01 08:26] LABS: Anisocytosis 2+; Blood Morphology Comment NOTED (NOT SEEN); Burr Cells 2+; Differential Total Cells Count 100; Eosinophils 1 % (0-3); Hypochromasia 2+; Lymphocytes 28 % (15-42); Microcytosis 1+; Monocytes 8 % (0-10); Platelet Estimate ADEQ; Poikilocytosis 1+; Segmented Neutrophils 62 % (40-80)
[2024-03-01] MEDS: SODIUM BICARB 50 MEQ/50ML VIAL IV ONE (08:32)
[2024-03-01] MEDS: POTASSIUM 25 MEQ EFFERV TAB PO ONE (08:33)
--- NOTE | 2024-03-01 10:15 | P.PN ---
Subjective Date of Service: 03/01/24 Chief Complaint: Syncope and collapse Subjective: Improving (pt with hypotensive episodes, unable to give phenobarb yesterday and have had to hold Metoprolol. Long discussion with his Sister about blood transfusion today. She consents) <Janice Barker - Last Filed: 03/01/24 17:04> Date of Service: 03/02/24 <Argelia Alvarado Edson - Last Filed: 03/02/24 21:47> Review of Systems 10-point ROS is otherwise unremarkable Neurological: Seizures <Janice Barker - Last Filed: 03/01/24 17:04> Physical Examination - Vital Signs Temperature: 97.8 F Blood Pressure: 154/77 Pulse: 77 Respirations: 12 Pulse Ox (%): 100 - Physical Exam General: Alert, In no apparent distress, Oriented x3, Other (Contractured) HEENT: Atraumatic, Normocephalic Neck: Supple Respiratory: Other (Tachypneic) Cardiovascular: No edema Capillary refill: <2 Seconds Gastrointestinal: Normal bowel sounds, Other (Will advance diet today) Musculoskeletal: Contractures Integumentary: No rashes Neurological: Normal affect, Abnormal speech, Abnormal strength Lymphatics: No axilla or inguinal lymphadenopathy Urinary: Other (Declined voiding per urinal with assist) External genitalia: Deferred Rectal: Deferred <Janice Barker - Last Filed: 03/01/24 17:04> Assessment And Plan - Plan Metabolic encephalopathy with lactic acidosis Gentle IVF, given hydralazine and lopressor overnight for hypertension. Pt is much more alert and conversant this am Monitor and trend Lactate returned to normal, however bicarb low, sodium bicarb tabs p.o. given and will continue today 03/01/2024 Dehydration with LELE with syncope and collapse Gentle IVF, 500ml ns bolus given overnight, patient has had serial boluses with recurrent hypotension, will give blood Monitor and trend - Creatinine improved from yesterday 1.5 to 1.37 - 1.3 Avoid nephrotoxic medications Iron deficiency anemia Iron and ferritin level IV iron Monitor and trend Will give blood x 1 unit this a.m. 03/01/2024 History of CVA/contractures Neurochecks every 4 Skin protection measures Turn every 2h History of seizures/no change in anticonvulsants Phenobarbital level within normal limits Continue phenobarbital, topiramate, Keppra, Vimpat Held phenobarbital for sedation with hypotension 02/29/2024, resume phenobarb today 03/01/2024 Hypertension Metoprolol 12.5 mg p.o. twice daily with holding parameters for hypotension/bradycardia 03/01/2024 metoprolol held yesterday and this a.m. Hyperlipidemia Simvastatin 20 mg p.o. nightly VTE/GI prophylaxis Discharge Plan: Home Plan to discharge in: 72 Hours Time Spent Managing PTS Care (In Minutes): 35 <Janice Barker - Last Filed: 03/01/24 17:04> - Plan Pt seen and examined. I agree with the note by the SIGN LETTERER. BP is improving. Will give 1 unit of blood. Will continue home meds for other chronic medical problems. <Argelia Alvarado - Last Filed: 03/02/24 21:47>
--- NOTE | 2024-03-01 10:25 | P.PN ---
Subjective Date of Service: 03/01/24 Chief Complaint: Syncope and collapse Pt was sleeping when I saw him. His BP is better s/p one dose of hydrocortisone. Continue IVF and midodrine. No other complaints. Review of Systems is unable to be obtained Physical Examination - Vital Signs Temperature: 97.8 F Blood Pressure: 154/77 Pulse: 77 Respirations: 12 Pulse Ox (%): 100 - Physical Exam General: Alert, In no apparent distress, Oriented x3 HEENT: Atraumatic, Normocephalic, PERRLA Neck: Supple, 2+ carotid pulse no bruit, JVD not distended Respiratory: Clear to auscultation bilaterally, Normal air movement Cardiovascular: No edema, Normal pulses, Regular rate/rhythm Capillary refill: <2 Seconds Gastrointestinal: Normal bowel sounds, Soft and benign, Non-distended Musculoskeletal: No clubbing, No swelling Integumentary: No rashes, No breakdown, No significant lesion Neurological: Normal gait, Normal speech, Normal strength at 5/5 x4 extr Lymphatics: No axilla or inguinal lymphadenopathy Assessment And Plan - Plan Metabolic encephalopathy with lactic acidosis: Improved. Will continue IVF. Lactate is normal. Dehydration with LELE with syncope and collapse: Will continue IVF, avoid nephrotoxins and monitor renal function. Cr is 1.35<- 1.33 <- 1.37 <- 1.5. Continue midodrine. Iron deficiency anemia: Will continue iron infusion. Hgb is 7.9<- 8.1. MCV is 73.6. Monitor H/H. Will give 1 unit of blood NAGMA: Will give 1 amp of Bicarbonate. Monitor bicarb level ( 15). History of CVA /contractures: Will continue neurochecks q4h, skin protection measures and turn every 2h History of seizures/no change in anticonvulsants: Will continue phenobarbital, topiramate, Keppra, Vimpat Hypotension: Will hold Metoprolol due to hypotension. Continue midodrine. Pt received hydrocortisone on 02/29/24. Hyperlipidemia: Statin DVT ppx: SCD Code: full Dispo: Pending hospital course.
[2024-03-01] MEDS: NA CHLORIDE 0.9% 100 ML ONE ×2 (11:13→18:15)
[2024-03-01] MEDS: METOPROLOL TAR 25 MG TAB PO SCH (18:44)
[2024-03-02] MEDS: HYDROCODONE/APAP 5/325 MG TAB PO ONE (00:50)
[2024-03-02] MEDS ORDERED: ARFORMOTEROL TARTRATE 15 MCG/2 ML VIAL.NEB NEB PRN (06:22)
[2024-03-02] MEDS ORDERED: IPRATROPIUM BROM 0.5MG/2.5ML NEB PRN (06:23)
[2024-03-02 06:55] LABS: Hematocrit 32.9 % (39.6-49.0); Hemoglobin 10.3 g/dL (13.6-17.9); MCH 23.9 pg (27.0-35.0); MCHC 31.4 g/dL (32.0-36.0); MCV 76.2 fL (80-100); MPV 9.4 fL (7.6-11.3); Nucleated RBC Absolute Count 0.1 (0-0); Nucleated Red Blood Cells % 1.3 % (0-0); Platelets 158 thou/uL (152-406); RBC Red Blood Cell Count 4.31 M/uL (4.33-5.43); Red Cell Distribution Width 19.3 % (12.1-15.2)
[2024-03-02 07:10] LABS: Albumin 2.5 g/dL (3.4-5.0); Albumin/Globulin Ratio 0.5 (1.1-1.8); Anion Gap 11.9 mEq/L (5.0-15.0); Bilirubin Total 0.4 mg/dL (0.2-1.0); Globulin 4.7 g/dL (2.3-3.5); Magnesium 1.8 mg/dL (1.6-2.4); Phosphorus 3.2 mg/dL (2.5-4.9); Potassium 3.9 mEq/L (3.5-5.1); Protein, Total 7.2 g/dL (6.4-8.2)
[2024-03-02] MEDS: POTASSIUM 25 MEQ EFFERV TAB PO ONE (08:07)
[2024-03-02] MEDS: MAGNESIUM SULFATE 1 gm IVPB 1 GM/100 ML BAG IV ONE (08:07)
[2024-03-02] MEDS: HYDROCODONE/APAP 5/325 MG TAB PO PRN (08:08)
--- NOTE | 2024-03-02 08:21 | P.DS ---
Admission Date: 02/27/24 Discharge Date: 03/02/24 Reason for Admission: Syncope and collapse Consultations: none Procedures: none Brief History of Present Illness: Mr. Samson is a 78 yo with past medical history of CVA, DVT, HLD, PE, Htn, Polio and seizure who was found unresponsive. Chart review shows that pt slumped while in the wheel chair after eating at home. Upon EMS arrival, they noticed her systolic BP was in the 40s and was bradycardic. They gave him IVF and epinephrine which improved his BP to 170/90 prior to arrival in the ER. His Sister states this has not happened in the past and it did not appear to be one of his seizures. His vital signs in the ED are stable and his mental status is back to baseline per his family. We will observe him in ICU with tele, neuro checks, and medication level evaluation. His does have some LLEE on lab evaluation and we will hydrate him gently and see his response overnight. Hospital Course: Mr. Samson had some labile blood pressures, several fluid boluses were given. His phenobarb was held, metoprolol held, and then midodrine begun. Iron infusion begun. Pt had a blood transfusion for HIREN secondary to continued hypotension. Post blood transfusion, midodrine held and regular medications resumed. This morning he is awake, alert, eating. His left hand is swollen and tender with a history of gout. Hydrocodone helps his discomfort. He is stable for discharge this am. His Sister (CHRISTIANE) is happy with progress and plan of care. Patient is to follow up with his PCP and Hemotologist next week. <Janice Barker - Last Filed: 03/02/24 08:23> Admission Date: 02/27/24 Discharge Date: 03/02/24 Hospital Course: Pt seen and examined. I agree with the note by the COMMUNITY SERVICE OFFICER COORDINATOR. Pt is feeling better. HGb improved to 10.3 s/p blood transfusion. BP has improved. He is stable for discharge. <Argelia Alvarado - Last Filed: 03/02/24 09:58> Disposition: ROUTINE DISCHARGE Discharge Condition: GOOD Vital Signs/Physical Exam: Temp Pulse Resp BP Pulse Ox 97.8 F 75 25 H 122/73 100 03/02/24 07:00 03/02/24 07:00 03/02/24 07:00 03/02/24 07:00 03/02/24 07:00 General: Alert, In no apparent distress, Cooperative, Other (contractured) Neck: Supple Respiratory: Normal air movement Cardiovascular: Normal pulses, Regular rate/rhythm, Normal S1 S2 Gastrointestinal: Normal bowel sounds, Soft and benign Musculoskeletal: Contractures, Other (left hand edema, gout) Integumentary: No rashes, No breakdown Neurological: Abnormal speech, Abnormal tone, Abnormal affect Lymphatics: No axilla or inguinal lymphadenopathy External genitalia: Normal Rectal: No tenderness, Other (+ bowel movements/flatus) Laboratory Data at Discharge: WBC 5.40 thou/uL (4.3-10.9) 03/02/24 06:38 Hgb 10.3 g/dL (13.6-17.9) L D 03/02/24 06:38 Hct 32.9 % (39.6-49.0) L 03/02/24 06:38 Plt Count 158 thou/uL (152-406) 03/02/24 06:38 PT 15.8 SECONDS (9.4-12.5) H 02/27/24 13:10 INR 1.43 02/27/24 13:10 Sodium 144 mEq/L (136-145) 03/02/24 06:38 Potassium 3.9 mEq/L (3.5-5.1) 03/02/24 06:38 BUN 56 mg/dL (7-18) H 03/02/24 06:38 Creatinine 1.30 mg/dL (0.70-1.30) 03/02/24 06:38 Glucose 82 mg/dL (74-106) 03/02/24 06:38 Phosphorus 3.2 mg/dL (2.5-4.9) 03/02/24 06:38 Magnesium 1.8 mg/dL (1.6-2.4) 03/02/24 06:38 Total Bilirubin 0.4 mg/dL (0.2-1.0) 03/02/24 06:38 AST 32 U/L (15-37) 03/02/24 06:38 ALT 31 U/L (16-61) 03/02/24 06:38 Alkaline Phosphatase 110 U/L (45-117) 03/02/24 06:38 Triglycerides 48 mg/dL (<150) 02/28/24 05:01 Cholesterol 150 mg/dL (<200) 02/28/24 05:01 HDL Cholesterol 51 mg/dL (40-60) 02/28/24 05:01 Cholesterol/HDL Ratio 2.94 02/28/24 05:01 <Janice Barker Lavon - Last Filed: 03/02/24 08:23> Vital Signs/Physical Exam: Temp Pulse Resp BP Pulse Ox 97.8 F 79 14 132/85 100 03/02/24 07:00 03/02/24 08:00 03/02/24 08:08 03/02/24 08:00 03/02/24 08:08 Laboratory Data at Discharge: WBC 5.40 thou/uL (4.3-10.9) 03/02/24 06:38 Hgb 10.3 g/dL (13.6-17.9) L D 03/02/24 06:38 Hct 32.9 % (39.6-49.0) L 03/02/24 06:38 Plt Count 158 thou/uL (152-406) 03/02/24 06:38 PT 15.8 SECONDS (9.4-12.5) H 02/27/24 13:10 INR 1.43 02/27/24 13:10 Sodium 144 mEq/L (136-145) 03/02/24 06:38 Potassium 3.9 mEq/L (3.5-5.1) 03/02/24 06:38 BUN 56 mg/dL (7-18) H 03/02/24 06:38 Creatinine 1.30 mg/dL (0.70-1.30) 03/02/24 06:38 Glucose 82 mg/dL (74-106) 03/02/24 06:38 Phosphorus 3.2 mg/dL (2.5-4.9) 03/02/24 06:38 Magnesium 1.8 mg/dL (1.6-2.4) 03/02/24 06:38 Total Bilirubin 0.4 mg/dL (0.2-1.0) 03/02/24 06:38 AST 32 U/L (15-37) 03/02/24 06:38 ALT 31 U/L (16-61) 03/02/24 06:38 Alkaline Phosphatase 110 U/L (45-117) 03/02/24 06:38 Triglycerides 48 mg/dL (<150) 02/28/24 05:01 Cholesterol 150 mg/dL (<200) 02/28/24 05:01 HDL Cholesterol 51 mg/dL (40-60) 02/28/24 05:01 Cholesterol/HDL Ratio 2.94 02/28/24 05:01 <Argelia Alvarado - Last Filed: 03/02/24 09:58> Diet: Regular Activity: Ad leisa <Janice Barkerlen - Last Filed: 03/02/24 08:23> <Argelia Alvarado - Last Filed: 03/02/24 09:58> Home Medications: Lacosamide [Vimpat*] 200 mg PO BID 10/08/18 Multivit-Min/Folic/Vit K/Lycop [Men's 50 Plus Multivitamin Tab] 1 each PO DAILY 10/08/18 PHENobarbitaL [Phenobarbital*] 64.8 mg PO BEDTIME 10/08/18 Simvastatin 20 mg PO BEDTIME 10/08/18 Topiramate 50 mg PO BEDTIME 10/08/18 Zonisamide [Zonegran] 100 mg PO DAILY 10/08/18 levETIRAcetam [Keppra] 500 mg PO BID 10/08/18 Apixaban [Eliquis *] 5 tab PO BID 10/30/18 Metoprolol Tartrate [Lopressor*] 25 mg PO BID 11/25/21 Physician Discharge Instructions: PROBLEM: Syncope GOAL: Clear understanding of disease process INSTRUCTIONS: Mr. Samson had some labile blood pressures, several fluid boluses were given. His phenobarb was held, metoprolol held, and then midodrine begun. Iron infusion begun. Pt had a blood transfusion for HIREN secondary to continued hypotension. Post blood transfusion, midodrine held and regular medications resumed. This morning he is awake, alert, eating. His left hand is swollen and tender with a history of gout. Hydrocodone helps his discomfort. He is stable for discharge this am. His Sister (CHRISTIANE) is happy with progress and plan of care. Patient is to follow up with his PCP and Hemotologist next week. If you have any questions regarding his hospital stay, feel free to call . If symptoms worsen, please go to the ER or call 911. Diet: Regular Activity: Ad leisa DME DME: Date Ordered: Name of Company: [facility] Services Needed: Home Health Name of Company: [facility] Date or Referral: 02/29/24 IMMUNIZATION Influenza Vaccine Indicated: Influenza Vaccine Given: Date Given: Pneumonia Vaccine Indicated: No Pneumonia Vaccine Given: Date Given: Followup: Sheldon Sanchez, DO [Primary Care Provider] -
[2024-03-02 09:33] LABS: Band Neutrophils 3 % (0-1); Differential Total Cells Count 100; Lymphocytes 20 % (15-42); Segmented Neutrophils 67 % (40-80)
[2024-03-02 09:34] LABS: Anisocytosis 2+; Blood Morphology Comment NOTED (NOT SEEN); Eosinophils 1 % (0-3); Hypochromasia 1+; Microcytosis 1+; Monocytes 8 % (0-10); Nucleated Red Blood Cells 1 /100WBC; Platelet Estimate ADEQ; Polychromasia SLIGHT; Target Cells 1+
[2024-03-02 09:35] LABS: Burr Cells 2+
[2024-03-03 07:06] LABS: Anion Gap 11.5 mEq/L (5.0-15.0); Magnesium 1.8 mg/dL (1.6-2.4); Potassium 3.5 mEq/L (3.5-5.1)
[2024-03-03] MEDS: COLCHICINE 0.6 MG TAB PO SCH (08:48)
[2024-03-03] MEDS ORDERED: allopurinoL 100 MG TAB PO SCH (09:00)
[2024-03-03] MEDS: METOPROLOL TAR 25 MG TAB PO SCH (17:19)
[2024-03-04 06:04] LABS: Magnesium 1.6 mg/dL (1.6-2.4)
[2024-03-04] MEDS: MAGNESIUM SULFATE 1 gm IVPB 1 GM/100 ML BAG IV ONE (07:08)
--- NOTE | 2024-03-04 07:38 | P.DS ---
Admission Date: 02/27/24 Discharge Date: 03/04/24 Reason for Admission: Syncope and collapse Brief History of Present Illness: Mr. Samson is a 78 yo with past medical history of CVA, DVT, HLD, PE, Htn, Polio and seizure who was found unresponsive. Chart review shows that pt slumped while in the wheel chair after eating at home. Upon EMS arrival, they noticed her systolic BP was in the 40s and was bradycardic. They gave him IVF and epinephrine which improved his BP to 170/90 prior to arrival in the ER. His Sister states this has not happened in the past and it did not appear to be one of his seizures. His vital signs in the ED are stable and his mental status is back to baseline per his family. We will observe him in ICU with tele, neuro checks, and medication level evaluation. His does have some LELE on lab evaluation and we will hydrate him gently and see his response overnight. - Physical Exam General: Alert, Mild distress, Other (At baseline per report) HEENT: Atraumatic, Normocephalic Neck: Supple Respiratory: Normal air movement Cardiovascular: Normal pulses, Regular rate/rhythm Capillary refill: <2 Seconds Gastrointestinal: Normal bowel sounds Musculoskeletal: Contractures Integumentary: No rashes Neurological: Abnormal speech, Abnormal strength, Abnormal tone, Abnormal affect Lymphatics: No axilla or inguinal lymphadenopathy Hospital Course: Mr. Samson is a 78 yo with past medical history of CVA, DVT, HLD, PE, Htn, Polio and seizure who was found unresponsive. Chart review shows that pt slumped while in the wheel chair after eating at home. Upon EMS arrival, they noticed her systolic BP was in the 40s and was bradycardic. They gave him IVF and epinephrine which improved his BP to 170/90 prior to arrival in the ER. His Sister states this has not happened in the past and it did not appear to be one of his seizures. His vital signs in the ED are stable and his mental status is back to baseline per his family. He is awake alert, tolerating diet, stable to discharge home. Plan to discharge with home health Assessment hypotension likely to secondary to hypovolemic shock, treated with IV boluses, resolved Lactic acidosis, improved with IV fluids, blood cultures, no leukocytosis-result Acute kidney injury with CKD treated with IV fluids-improved Metabolic encephalopathy this with lactic acidosis, treated with IV antibiotics, fall precautions, supportive care-improved Iron deficiency anemia-treated with iron infusion-stable History of CVA with contractures-fall precaution History of seizures, continue phenobarbital, topiramate, Keppra, Vimpat Constipation versus fecal impaction, treated with disimpaction as needed, laxatives-improved History of gout left hand swelling, discharged home on as needed analgesics Hypokalemia trend electrolytes replace as needed Soft minced diet Blood cultures negative no growth in 5 days No leukocytosis Chest x-ray IMPRESSION: Limited by patient positioning. Low lung volumes with likely right basilar atelectasis versus pneumonitis. No evidence of diverticulitis CT of the chest, abdomen 3.2 centimeter soft tissue structure within the right inguinal canal may represent undescended testicle. ScoliosisIMPRESSION: Rectum is distended measuring 10 centimeters. Fecal impaction is likely present Continue home medicines as previously prescribed GOAL: Clear understanding of disease process INSTRUCTIONS: Physician Discharge Instructions: -Follow-up with PCP in 1 to 2 weeks -Please call Dr. Westfall at [phone] if any questions regarding hospital stay -Please call nursing station at [phone] if any nursing or medication questions -Return to the emergency room if symptoms worsen Diet: ADA, low sodium Activity: Fall precautions <Anisa Colunga - Last Filed: 03/05/24 20:42> Admission Date: 02/27/24 Discharge Date: 03/04/24 Hospital Course: Chart has been reviewed. Events of the last 24 hours have been noted. Case discussed with KARYN. I performed a substantial part of the MDM during this patient's care today. I personally made or approved the documented management plan and acknowledge its risk of complications. I agree with the findings and documentation provided in the KARYN's notes Patient is clinically doing better. Blood pressure has improved. Renal function is much better. Patient is clinically doing well and at this time patient is stable for discharge home. <Corrie Westfall - Last Filed: 03/15/24 00:34> [facility] Discharge Condition: GOOD Vital Signs/Physical Exam: Temp Pulse Resp BP Pulse Ox 97.9 F 100 H 22 H 145/70 H 98 03/04/24 04:00 03/04/24 05:25 03/04/24 04:00 03/04/24 05:25 03/04/24 04:00 Laboratory Data at Discharge: WBC 5.40 thou/uL (4.3-10.9) 03/02/24 06:38 Hgb 10.3 g/dL (13.6-17.9) L D 03/02/24 06:38 Hct 32.9 % (39.6-49.0) L 03/02/24 06:38 Plt Count 158 thou/uL (152-406) 03/02/24 06:38 PT 15.8 SECONDS (9.4-12.5) H 02/27/24 13:10 INR 1.43 02/27/24 13:10 Sodium 143 mEq/L (136-145) 03/04/24 05:39 Potassium 3.0 mEq/L (3.5-5.1) L D 03/04/24 05:39 BUN 42 mg/dL (7-18) H 03/04/24 05:39 Creatinine 1.00 mg/dL (0.70-1.30) 03/04/24 05:39 Glucose 92 mg/dL (74-106) 03/04/24 05:39 Uric Acid 8.5 mg/dL (3.5-7.2) H 03/02/24 15:30 Phosphorus 3.2 mg/dL (2.5-4.9) 03/02/24 06:38 Magnesium 1.6 mg/dL (1.6-2.4) 03/04/24 05:39 Total Bilirubin 0.4 mg/dL (0.2-1.0) 03/02/24 06:38 AST 32 U/L (15-37) 03/02/24 06:38 ALT 31 U/L (16-61) 03/02/24 06:38 Alkaline Phosphatase 110 U/L (45-117) 03/02/24 06:38 Triglycerides 48 mg/dL (<150) 02/28/24 05:01 Cholesterol 150 mg/dL (<200) 02/28/24 05:01 HDL Cholesterol 51 mg/dL (40-60) 02/28/24 05:01 Cholesterol/HDL Ratio 2.94 02/28/24 05:01 <Anisa Colunga - Last Filed: 03/05/24 20:42> Vital Signs/Physical Exam: Temp Pulse Resp BP Pulse Ox 99.5 F 106 H 12 159/89 H 99 03/04/24 12:00 03/04/24 12:00 03/04/24 12:00 03/04/24 12:00 03/04/24 12:00 Laboratory Data at Discharge: WBC 5.40 thou/uL (4.3-10.9) 03/02/24 06:38 Hgb 10.3 g/dL (13.6-17.9) L D 03/02/24 06:38 Hct 32.9 % (39.6-49.0) L 03/02/24 06:38 Plt Count 158 thou/uL (152-406) 03/02/24 06:38 PT 15.8 SECONDS (9.4-12.5) H 02/27/24 13:10 INR 1.43 02/27/24 13:10 Sodium 143 mEq/L (136-145) 03/04/24 05:39 Potassium 3.0 mEq/L (3.5-5.1) L D 03/04/24 05:39 BUN 42 mg/dL (7-18) H 03/04/24 05:39 Creatinine 1.00 mg/dL (0.70-1.30) 03/04/24 05:39 Glucose 92 mg/dL (74-106) 03/04/24 05:39 Uric Acid 8.5 mg/dL (3.5-7.2) H 03/02/24 15:30 Phosphorus 3.2 mg/dL (2.5-4.9) 03/02/24 06:38 Magnesium 1.6 mg/dL (1.6-2.4) 03/04/24 05:39 Total Bilirubin 0.4 mg/dL (0.2-1.0) 03/02/24 06:38 AST 32 U/L (15-37) 03/02/24 06:38 ALT 31 U/L (16-61) 03/02/24 06:38 Alkaline Phosphatase 110 U/L (45-117) 03/02/24 06:38 Triglycerides 48 mg/dL (<150) 02/28/24 05:01 Cholesterol 150 mg/dL (<200) 02/28/24 05:01 HDL Cholesterol 51 mg/dL (40-60) 02/28/24 05:01 Cholesterol/HDL Ratio 2.94 02/28/24 05:01 <Corrie Westfall - Last Filed: 03/15/24 00:34> Diet: Regular Activity: Ad leisa Time spent managing pt's care (in minutes): 55 <Anisa Colunga - Last Filed: 03/05/24 20:42> <Corrie Westfall - Last Filed: 03/15/24 00:34> Home Medications: RX: Lacosamide [Vimpat*] 200 mg PO BID 10/08/18 RX: Multivit-Min/Folic/Vit K/Lycop [Men's 50 Plus Multivitamin Tab] 1 each PO DAILY 10/08/18 RX: PHENobarbitaL [Phenobarbital*] 64.8 mg PO BEDTIME 10/08/18 RX: Simvastatin 20 mg PO BEDTIME 10/08/18 RX: Topiramate 50 mg PO BEDTIME 10/08/18 RX: Zonisamide [Zonegran] 100 mg PO DAILY 10/08/18 RX: levETIRAcetam [Keppra] 500 mg PO BID 10/08/18 RX: Apixaban [Eliquis *] 1 tab PO BID 10/30/18 RX: Metoprolol Tartrate [Lopressor*] 25 mg PO BID 11/25/21 RX: Allopurinol 200 mg PO DAILY #60 tab 03/04/24 RX: Colchicine [Colcrys *] 0.6 mg PO BID #14 tab 03/04/24 RX: Hydrocodone 5/APAP 325 [[place] 5/325*] 1 tab PO Q6HP PRN #30 tab 03/04/24 RX: Lacosamide [Vimpat*] 200 mg PO BID #240 tab 03/04/24 RX: Na Bicarb Tab [Sodium Bicarb 325 MG Tab*] 650 mg PO BID #120 tab 03/04/24 New Medications: RX: Allopurinol 200 mg PO DAILY #60 tab RX: Colchicine [Colcrys *] 0.6 mg PO BID #14 tab RX: Hydrocodone 5/APAP 325 [[place] 5/325*] 1 tab PO Q6HP PRN #30 tab PRN Reason: Pain Scale 5-7 (Moderate) RX: Na Bicarb Tab [Sodium Bicarb 325 MG Tab*] 650 mg PO BID #120 tab RX: Lacosamide [Vimpat*] 200 mg PO BID #240 tab Physician Discharge Instructions: PROBLEM: Syncope GOAL: Clear understanding of disease process INSTRUCTIONS: Mr. Samson had some labile blood pressures, several fluid boluses were given. His phenobarb was held, metoprolol held, and then midodrine begun. Iron infusion begun. Pt had a blood transfusion for HIREN secondary to continued hypotension. Post blood transfusion, midodrine held and regular medications resumed. This morning he is awake, alert, eating. His left hand is swollen and tender with a history of gout. Hydrocodone helps his discomfort. He is stable for discharge this am. His Sister (CHRISTIANE) is happy with progress and plan of care. Patient is to follow up with his PCP and Hemotologist next week. If you have any questions regarding his hospital stay, feel free to call . If symptoms worsen, please go to the ER or call [phone]. Diet: Regular - as before Activity: Ad leisa Followup: Sheldon Sanchez, [Primary Care Provider] -
[2024-03-04] MEDS ORDERED: POTASSIUM 25 MEQ EFFERV TAB PO ONE (09:00)
[2024-03-04] MEDS: POTASSIUM 25 MEQ EFFERV TAB PO ONE (09:25)
[2024-03-04 09:52] VITALS: O2SAT 96
[2024-03-04 13:19] VITALS: BP 159/89; TEMP 99.5
== END 2024-03-04 14:22 | disposition home health service (06) | DRG 871 ==
LOC: ER 12:57 → ERHOLD 17:37 → 3RD-ICU 18:22 → 2ND 03-02 15:22
PROVIDERS: ADMIT Hospitalist; ATTEND Hospitalist
PROC: 30233N1 Transfusion of Nonautologous Red Blood Cells into Peripheral Vein, Percutaneous Approach (ICD-10-PCS; principal; 2024-03-01)
DX: R57.1 Hypovolemic shock (principal); G93.41 Metabolic encephalopathy; N17.9 Acute kidney failure, unspecified; E87.20 Acidosis, unspecified; R55 Syncope and collapse; K56.41 Fecal impaction; E86.0 Dehydration; E87.6 Hypokalemia; I95.9 Hypotension, unspecified; I12.9 Hypertensive chronic kidney disease with stage 1 through stage 4 chronic kidney disease, or unspecified chronic kidney disease; N18.9 Chronic kidney disease, unspecified; D63.1 Anemia in chronic kidney disease; D50.9 Iron deficiency anemia, unspecified; M10.9 Gout, unspecified; E78.00 Pure hypercholesterolemia, unspecified; Z88.1 Allergy status to other antibiotic agents; Z79.01 Long term (current) use of anticoagulants; Z90.49 Acquired absence of other specified parts of digestive tract; Z86.73 Personal history of transient ischemic attack (TIA), and cerebral infarction without residual deficits; Z79.899 Other long term (current) drug therapy; Z86.711 Personal history of pulmonary embolism; Z86.718 Personal history of other venous thrombosis and embolism
CPT/HCPCS: 36415; 70450; 71045; 71260; 74177; 80048; 80053; 80061; 80076; 80184; 81001; 82550; 82728; 82947; 83540; 83605; 83735; 83880; 84100; 84484; 84550; 85025; 85610; 86850; 86900; 86901; 86920; 87040; 93005; 94640; 96361; 96365; 96372; 99285; J0360; J1650; J1720; J2470; J2543; J2916; J3475; J7030; J7040; J7605; J7644; P9016; Q9967

== ENCOUNTER 2024-04-08 13:12 | Emergency (ER) | payer OTHER ==
--- NOTE | 2024-04-08 13:41 | RAD REPORT ---
EXAMINATION: CT HEAD WITHOUT CONTRAST CLINICAL INDICATION: Male, 78 years old.STROKE ALERT TECHNIQUE: Axial CT images from the skull base to the vertex without intravenous contrast. Coronal an d sagittal reformatted images were created from the data set. One or more of the following dose reduction techniques were used: Automated exposure control, adjustment of the mA and/or kV according to patient size, and/or iterative reconstruction. Unless otherwise specified, incidental findings do not require dedicated imaging follow-up. [id number]. COMPARISON: 02/27/2024 FINDINGS: INTRACRANIAL: No acute intracranial hemorrhage. No hydrocephalus. No mass effect or midline shift. No significant white matter disease. Remote left MCA territory infarct. Generalized cerebral atrophy. VASCULATURE: No visualized abnormalities in the arteries or dural venous sinuses. SCALP/SKULL: No significant soft tissue or osseous abnormalities. SINUSES: The visualized paranasal sinuses and mastoid air cells are predominantly clear. IMPRESSION: No acute intracranial abnormality. Remote left MCA territory infarct. Conveyed to Dr. Sanchez by Dr. Vazquez at 1338 on 04/08/24
[2024-04-08 14:03] LABS: PT Prothrombin Time 17.1 SECONDS (9.4-12.5); Protime INR 1.55
[2024-04-08 14:06] LABS: Absolute Basophils 0.2 K/uL (0-0.5); Absolute Eosinophils 0.1 K/uL (0-0.5); Absolute Lymphocytes (CBC) 0.7 K/uL (0.7-4.9); Absolute Monocytes 0.6 K/uL (0.1-1.3); Absolute Neutrophil 3.8 K/uL (1.8-8.0); Basophils % 3.9 % (0-1.3); Eosinophils % 1.5 % (0-4.4); Hematocrit 29.7 % (39.6-49.0); Hemoglobin 9.1 g/dL (13.6-17.9); Lymphocytes % 13.3 % (15.3-44.8); MCHC 30.7 g/dL (32.0-36.0); MCV 77.9 fL (80-100); MPV 8.4 fL (7.6-11.3); Monocytes % 11.2 % (3.3-12.3); Neutrophils % 70.1 % (41.7-73.7); Nucleated Red Blood Cells % 0.4 % (0-0); Platelets 232 thou/uL (152-406); RBC Red Blood Cell Count 3.81 M/uL (4.33-5.43); Red Cell Distribution Width 21.9 % (12.1-15.2)
--- NOTE | 2024-04-08 14:19 | RAD REPORT ---
EXAMINATION: CTA NECK CLINICAL INDICATION: Male, 78 years old. code stroke TECHNIQUE: Axial CT images were obtained from the aortic arch to the skull base after intravenous con trast utilizing angiographic protocol with 3D post-processing (maximum intensity projection images, volume rendered images and/or shaded surface rendered images). One or more of the following dose redu ction techniques were used: Automated exposure control, adjustment of the mA and/or kV according to patient size, and/or iterative reconstruction. Unless otherwise specified, incidental findings do not require dedicated imaging follow-up. [id number]. NASCET criteria used. Mild 0-49% stenosis Moderate 50-69% stenosis Severe 70-99% stenosis COMPARISON: No prior exam. FINDINGS: AORTA: The imaged aortic arch is normal. CCA: The common carotid arteries are patent and normal in caliber. ICA/ECA: Bilateral internal and external carotid arteries are patent. There is no significant interna l carotid artery stenosis. Where applicable, degree of stenosis is measured using NASCET-like criteria. VERTEBRAL: The cervical vertebral arteries are patent. Left dominant vertebral artery. SOFT TISSUE: No significant neck soft tissue abnormalities. The visualized lung apices are clear. 3D images confirm these findings. IMPRESSION: No flow-limiting stenosis or dissection identified within the neck.
[2024-04-08 14:21] LABS: Albumin 2.4 g/dL (3.4-5.0); Albumin/Globulin Ratio 0.4 (1.1-1.8); Anion Gap 8.1 mEq/L (5.0-15.0); Bilirubin Direct 0.2 mg/dL (0-0.2); Bilirubin Indirect, Calculated 0.1 mg/dL (0.2-0.8); Bilirubin Total 0.3 mg/dL (0.2-1.0); Globulin 6.3 g/dL (2.3-3.5); Potassium 4.1 mEq/L (3.5-5.1); Protein, Total 8.7 g/dL (6.4-8.2)
--- NOTE | 2024-04-08 14:25 | RAD REPORT ---
EXAMINATION: CTA HEAD CLINICAL INDICATION: Male, 78 years old. STROEK ALERT TECHNIQUE: Axial CT images were obtained through the head after intravenous contrast utilizing angiog raphic protocol with 3D post-processing (maximum intensity projection images, volume rendered images and/or shaded surface rendered images). One or more of the following dose reduction technique s were used: Automated exposure control, adjustment of the mA and/or kV according to patient size, and/or iterative reconstruction. Unless otherwise specified, incidental findings do not require dedic ated imaging follow-up. COMPARISON: No prior exam. FINDINGS: ICA: The petrous, cavernous, and supraclinoid segments of the bilateral internal carotid arteries are without stenosis but there is calcified plaque. The ophthalmic artery origins are visualized and normal. The posterior communicating arteries are patent. ROSCOE: Anterior cerebral arteries are normal bilaterally. The anterior communicating artery is patent. MCA: Motion limited. The right middle cerebral artery is patent. The left middle cerebral is diminuti ve likely as a result of a remote left MCA infarct. SU[employer]: Suboptimally evaluated due to motion. Multifocal stenoses of the left P1 and P2 segment of the p osterior cerebral artery. This is probably chronic Vertebrobasilar: The vertebral arteries are patent. The basilar artery is normal in appearance. 3D images confirm these findings. IMPRESSION: 1. Anterior circulation: Diminutive left middle cerebral artery with sequela of remote left MCA zuleyka tory infarct is probably chronic. No large vessel occlusion. Motion artifact but no aneurysm identified. 2. Posterior circulation: Motion artifact. No occlusion identified. Multifocal stenoses involving the left P1 and P2 segment of the posterior cerebral artery which is probably chronic.
--- NOTE | 2024-04-08 14:49 | ER ---
Nurse's Notes [facility] Name: Jairo Samson Age: 78 yrs Sex: Male : 1945 Arrival Date: 04/08/2024 Time: 13:12 Bed 3 Private MD: Diagnosis: TIA, altered mental status resolved Presentation: 04/08 13:20 Chief complaint: EMS states: toned out EMS for sudden onset right sided facial rs5 droop and slurred speech that started \T\1220. 13:20 Coronavirus screen: At this time, the client does not indicate any symptoms associated rs5 with coronavirus-19. Ebola Screen: No symptoms or risks identified at this time. Initial Sepsis Screen: Does the patient meet any 2 criteria? No. Patient's initial sepsis screen is negative. Does the patient have a suspected source of infection? No. Patient's initial sepsis screen is negative. Risk Assessment: Do you want to hurt yourself or someone else? Patient reports no desire to harm self or others. Onset of symptoms was April 08, 2024. 13:20 Method Of Arrival: EMS: [facility] rs5 13:20 Acuity: BIJAL 2 rs5 13:20 Care prior to arrival: IV initiated. 20 GA, in the right hand. rs5 Triage Assessment: 13:20 General: Appears uncomfortable, Behavior is cooperative. rs5 13:20 Pain: Denies pain. rs5 Historical: - Allergies: 13:27 Cipro; rs5 - PMHx: 13:27 CVA; DVT; Hyperlipidemia; Hypertension; PE; Polio; Seizures; rs5 - PSHx: 13:27 Appendectomy; rs5 - Immunization history:: Adult Immunizations up to date. - Infectious Disease History:: Denies. - Social history:: Smoking status: unknown. Screenin:20 [facility] ED Fall Risk Assessment (Adult) History of falling in the last 3 months, rs5 including since admission No falls in past 3 months (0 pts) Confusion or Disorientation No (0 pts) Intoxicated or Sedated No (0 pts) Impaired Gait Yes (1 pt) Mobility Assist Device Used No (0 pt) Altered Elimination No (0 pt) Score/Fall Risk Level 0 - 2 = Low Risk Oriented to surroundings, Maintained a safe environment. Abuse screen: Denies threats or abuse. Nutritional screening: No deficits noted. Tuberculosis screening: No symptoms or risk factors identified. Assessment: 13:17 General: Appears uncomfortable, Behavior is cooperative. Pain: Denies pain. Neuro: rs5 Level of Consciousness is awake, alert, obeys commands, Oriented to person, place, time, situation, Elementary School Counselor are pt is contracted in all four limbs. unable to assess NIH due to inability to cooperate with assessment . Speech is slurred, Facial droop on right, Pupils are PERRLA. Cardiovascular: Patient's skin is warm and dry. Respiratory: Airway is patent Respiratory effort is even, unlabored, Respiratory pattern is regular, symmetrical. GI: Abdomen is round non-distended, Abd is soft and non tender X 4 quads. : No signs and/or symptoms were reported regarding the genitourinary system. EENT: No signs and/or symptoms were reported regarding the EENT system. Derm: Skin is intact, Skin is dry, Skin is normal, Skin temperature is warm. Musculoskeletal: Range of motion: limited in all extremities. 13:37 Reassessment: Patient and/or family updated on plan of care and expected duration. Pain rs5 level reassessed. Patient is alert, oriented x 3, equal unlabored respirations, skin warm/dry/pink. 14:06 Reassessment: Patient and/or family updated on plan of care and expected duration. Pain rs5 level reassessed. Patient is alert, oriented x 3, equal unlabored respirations, skin warm/dry/pink. 15:11 Reassessment: pt up for discharge, awaiting family for transportation, charge nurse rs5 notified . 15:41 Reassessment: Patient and/or family updated on plan of care and expected duration. Pain rs5 level reassessed. Patient is alert, oriented x 3, equal unlabored respirations, skin warm/dry/pink. 15:55 Reassessment: family at bedside . rs5 Vital Signs: 13:20 BP 112 / 61; Pulse 89; Resp 17; Temp 98(O); Pulse Ox 98% on R/A; rs5 14:01 BP 117 / 66; Pulse 81; Resp 17; Pulse Ox 99% on R/A; rs5 14:01 BP 121 / 67; Pulse 77; Resp 16; Pulse Ox 98% on R/A; rs5 15:01 BP 115 / 63; Pulse 79; Resp 16; Pulse Ox 98% on R/A; rs5 15:41 BP 125 / 64; Pulse 74; Resp 17; Pulse Ox 99% on R/A; rs5 NIH Stroke Scale Scores: 13:18 NIHSS Score: 20 rs5 ED Course: 13:17 Patient arrived in ED. sp3 13:17 Henry Sanchez MD is Attending Physician. sp3 13:20 Patient has correct armband on for positive identification. Placed in gown. Bed in low rs5 position. Call light in reach. Side rails up X2. 13:25 Rod Britton, RN is Primary Nurse. rs5 13:27 Triage completed. rs5 13:32 CT Stroke Brain w/o Contrast In Process Unspecified. EDMS 14:07 No provider procedures requiring assistance completed. rs5 14:10 CT Neck Angio In Process Unspecified. EDMS 14:10 Head angio In Process Unspecified. EDMS 14:39 Accessed peripheral vein via ultrasound, utilizing dynamic ultrasound technique using ss 20G Nexia IV catheter Clean \T\ dry. No blood return. Flushes easily. 14:51 Stroke CXR 1 View In Process Unspecified. EDMS 16:00 Provided Education on: discharge instructions . rs5 16:00 IV discontinued, intact, bleeding controlled, No redness/swelling at site. Pressure rs5 dressing applied. Administered Medications: No medications were administered Medication: 13:48 VIS not applicable for this client. rs5 Outcome: 14:48 Discharge ordered by . sp3 16:00 Patient left the ED. hb 16:00 Discharged to home via wheelchair, with family, rs5 16:00 Condition: stable rs5 16:00 Discharge instructions given to patient, family, Instructed on discharge instructions, follow up and referral plans. Demonstrated understanding of instructions, follow-up care, NIH Stroke Scale - NIH Stroke Score Date: 04/08/2024 Time: 13:18 Total Score = 20 10. Dysarthria (speech clarity - read or repeat words) - 1(Mild to Moderate) 11. Extinction and Inattention (visual/tactile/auditory/spatial/personal) - 0(No abnormality) 1a. Level of Consciousness (LOC) - 0(Alert) 1b. Level of Consciousness (LOC) (Month \T\ Age) - 0(Both) 1c. LOC Commands (Open \T\ Closes Eyes/Commercial Escrow Assistant) - 1(One) 2. Best Gaze (Lateral Gaze Paresis) - 0(Normal) 3. Visual Field Loss - 0(No visual loss) 4. Facial Palsy - 0(Normal) 5a. Left Arm: Motor (10-second hold) - 4(No movement) 5b. Right Arm: Motor (10-second hold) - 4(No movement) 6a. Left Leg: Motor (5-second hold - always test supine) - 4(No movement) 6b. Right Leg: Motor (5-second hold - always test supine) - 4(No movement) 7. Limb Ataxia (finger/nose \T\ heel/montero - test with eyes open) - Notes: pt contracted in all limbs 8. Sensory Loss (pinprick arms/legs/face) - 1(Mild to moderate loss) 9. Best Language: Aphasia (description/naming/reading) - 1(Mild to moderate aphasia) Initials: rs5 Signatures: Dispatcher [employer] Kasey Armas RN RN ss Alexia Real RN RN Henry Sanchez MD MD sp3 Rod Britton RN RN rs5
--- NOTE | 2024-04-08 14:49 | EDPHYS ---
Physician Documentation [facility] Name: Jairo Samson Age: 78 yrs Sex: Male : 1945 Arrival Date: 04/08/2024 Time: 13:12 Bed 3 Private MD: ED Physician Henry Sanchez HPI: 04/08 13:45 This 78 yrs old Black Male presents to ER via EMS with complaints of Slurred Speech. sp3 13:45 78-year-old male with history of CVA, hyperlipidemia, hypertension, PE, prior polio, sp3 history of seizures now presents to the ED via EMS for altered mental status, slurred speech and right-sided facial droop noticed by his . Patient was at his baseline and symptoms started approximately 1 hour prior to arrival. No other symptoms noted. Patient nonverbal at the moment so ROS, history physical limited secondary to this. All history per EMS and family.. Historical: - Allergies: 13:27 Cipro; rs5 - PMHx: 13:27 CVA; DVT; Hyperlipidemia; Hypertension; PE; Polio; Seizures; rs5 - PSHx: 13:27 Appendectomy; rs5 - Immunization history:: Adult Immunizations up to date. - Infectious Disease History:: Denies. - Social history:: Smoking status: unknown. ROS: 13:47 Unable to obtain ROS due to altered mental status, sp3 Exam: 13:47 Constitutional: The patient appears Limited physical exam secondary to baseline polio sp3 baseline CVA and contractures. Right-sided facial droop noted. Patient minimally responsive to verbal stimuli. NIH stroke scale unable to be fully performed. 13:47 Unable to obtain exam due to altered mental status, Vital Signs: 13:20 BP 112 / 61; Pulse 89; Resp 17; Temp 98(O); Pulse Ox 98% on R/A; rs5 14:01 BP 117 / 66; Pulse 81; Resp 17; Pulse Ox 99% on R/A; rs5 14:01 BP 121 / 67; Pulse 77; Resp 16; Pulse Ox 98% on R/A; rs5 15:01 BP 115 / 63; Pulse 79; Resp 16; Pulse Ox 98% on R/A; rs5 15:41 BP 125 / 64; Pulse 74; Resp 17; Pulse Ox 99% on R/A; rs5 NIH Stroke Scale Scores: 13:18 NIHSS Score: 20 rs5 MDM: 13:17 Patient medically screened. sp3 13:48 Data reviewed: vital signs, nurses notes, EMS record, old medical records, lab test sp3 result(s), EKG, radiologic studies. ED course: 78-year-old male with extensive past medical history including polio and CVA now presents with recurrent right-sided facial droop. Initial CT scan of the head negative on code stroke scan. Remainder of workup pending. Differential diagnosis includes CVA, TIA, electrolyte abnormality, or other process.. 14:46 ED course: Patient now back at baseline mental status and laboratory values demonstrate sp3 no significant findings. CT scan is negative. Family wants to take patient home and there is no further intervention indicated in the ED. Vital signs are normal. We will safely discharge patient home at this time.. 04/08 13:19 Order name: Basic Metabolic Panel; Complete Time: 14:25 sp3 04/08 13:19 Order name: CBC with Diff; Complete Time: 15:26 sp3 04/08 13:19 Order name: Hepatic Function; Complete Time: 14:25 sp3 04/08 13:19 Order name: High Sensitivity Troponin; Complete Time: 14:25 sp3 04/08 13:19 Order name: Magnesium; Complete Time: 14:25 sp3 04/08 13:19 Order name: Protime (+inr); Complete Time: 14:25 sp3 04/08 15:21 Order name: Manual Differential; Complete Time: 15:26 EDMS 04/08 13:19 Order name: CT Neck Angio; Complete Time: 14:25 sp3 04/08 13:19 Order name: CT Stroke Brain w/o Contrast; Complete Time: 14:25 sp3 04/08 13:19 Order name: Stroke CXR 1 View; Complete Time: 15:12 sp3 04/08 13:37 Order name: Head angio; Complete Time: 14:28 EDMS 04/08 13:19 Order name: Accucheck; Complete Time: 13:33 sp3 04/08 13:19 Order name: Cardiac monitoring; Complete Time: 13:33 sp3 04/08 13:19 Order name: EKG - Nurse/Tech; Complete Time: 13:33 sp3 04/08 13:19 Order name: IV Saline Lock; Complete Time: 13:33 sp3 04/08 13:19 Order name: Labs collected and sent; Complete Time: 13:33 sp3 04/08 13:19 Order name: NPO; Complete Time: 13:33 sp3 04/08 13:19 Order name: O2 Per Protocol; Complete Time: 13:33 sp3 04/08 13:19 Order name: O2 Sat Monitoring; Complete Time: 13:33 sp3 04/08 13:19 Order name: Stroke Swallow Screen; Complete Time: 14:06 sp3 Administered Medications: No medications were administered Disposition Summary: 04/08/24 14:48 Discharge Ordered Notes: Location: Home sp3 Condition: Stable sp3 Diagnosis - TIA, altered mental status resolved sp3 Followup: sp3 - With: Private Physician - When: Upon discharge from the Emergency Department - Reason: Continuance of care Discharge Instructions: - Discharge Summary Sheet sp3 - Transient Ischemic Attack sp3 Forms: - Medication Reconciliation Form sp3 - Antibiotic Education sp3 - Prescription Opioid Use sp3 - Patient Portal Instructions sp3 - Leadership Thank You Letter sp3 - SBAR form rs5 NIH Stroke Scale - NIH Stroke Score Date: 04/08/2024 Time: 13:18 Total Score = 20 10. Dysarthria (speech clarity - read or repeat words) - 1(Mild to Moderate) 11. Extinction and Inattention (visual/tactile/auditory/spatial/personal) - 0(No abnormality) 1a. Level of Consciousness (LOC) - 0(Alert) 1b. Level of Consciousness (LOC) (Month \T\ Age) - 0(Both) 1c. LOC Commands (Open \T\ Closes Eyes/Truck Operator) - 1(One) 2. Best Gaze (Lateral Gaze Paresis) - 0(Normal) 3. Visual Field Loss - 0(No visual loss) 4. Facial Palsy - 0(Normal) 5a. Left Arm: Motor (10-second hold) - 4(No movement) 5b. Right Arm: Motor (10-second hold) - 4(No movement) 6a. Left Leg: Motor (5-second hold - always test supine) - 4(No movement) 6b. Right Leg: Motor (5-second hold - always test supine) - 4(No movement) 7. Limb Ataxia (finger/nose \T\ heel/montero - test with eyes open) - Notes: pt contracted in all limbs 8. Sensory Loss (pinprick arms/legs/face) - 1(Mild to moderate loss) 9. Best Language: Aphasia (description/naming/reading) - 1(Mild to moderate aphasia) Initials: rs5 Signatures: Dispatcher [employer] EDMS Henry Sanchez MD MD sp3 Rod Britton, RN RN rs5 Corrections: (The following items were deleted from the chart) 13:19 13:19 Neck Angio+CT.RAD.BRZ ordered. EDMS EDMS 13:19 13:19 CT-STROKE BRAIN W/O CONTRAST+CT.RAD.BRZ ordered. EDMS EDMS 13:19 13:19 Chest Single View+RAD.RAD.BRZ ordered. EDMS EDMS
--- NOTE | 2024-04-08 15:03 | RAD REPORT ---
EXAMINATION: ONE VIEW CHEST XR CLINICAL INDICATION: Male, 78 years old.code stroke TECHNIQUE: 1 View, AP supine, X-ray of the chest was performed. [id number]. COMPARISON: 02/27/2024 FINDINGS: Markedly limited evaluation due to patient's positioning. Low lung volumes. Grossly similar appearanc e of the chest from prior. Cardiac silhouette is largely obscured. IMPRESSION: Significantly limited exam but with similar appearance to compared with 02/27/2024.
[2024-04-08 15:23] LABS: Anisocytosis 2+; Atypical Lymphocytes 1 %; Blood Morphology Comment NOTED (NOT SEEN); Differential Total Cells Count 100; Eosinophils 2 % (0-3); Hypochromasia 1+; Lymphocytes 25 % (15-42); Microcytosis 1+; Monocytes 4 % (0-10); Platelet Estimate ADEQ; Poikilocytosis 1+; Segmented Neutrophils 67 % (40-80); Target Cells 1+
[2024-04-08 16:25] VITALS: TEMP 98; O2SAT 98
[2024-04-08 16:26] VITALS: BP 121/67
--- NOTE | 2024-04-09 12:29 | EKG ---
Test Date: 2024-04-08 Test Time: 13:31:14 Senior Chemical Engineer: ARNOLDO MEASUREMENT RESULTS: Intervals: Rate: 81 WV: 152 QRSD: 84 QT: 398 QTc: 462 [place]: P: 48 WV: 152 QRS: -35 T: 44 INTERPRETIVE STATEMENTS: Normal sinus rhythm Left axis deviation Abnormal ECG Compared to ECG 02/27/2024 13:02:43 Left-axis deviation now present Left ventricular hypertrophy no longer present ST (T wave) deviation no longer present Electronically Signed On 04-09-24 12:26:14 CDT by Juarez Garcia
== END 2024-04-08 16:00 | disposition home or self-care (01) ==
LOC: ER 13:12
DX: G45.9 Transient cerebral ischemic attack, unspecified (principal); I10 Essential (primary) hypertension; R29.720 NIHSS score 20; Z86.73 Personal history of transient ischemic attack (TIA), and cerebral infarction without residual deficits; Z86.718 Personal history of other venous thrombosis and embolism
CPT/HCPCS: 93005; 85025; 80048; 36415; 83735; 85610; 80076; 84484; 70496; 70498; 70450; 71045; 99284; Q9967

== ENCOUNTER 2024-07-26 16:59 | Emergency (ER) | payer OTHER ==
--- NOTE | 2024-07-26 18:31 | ER ---
Nurse's Notes [facility] Name: Jairo Samson Age: 79 yrs Sex: Male : 1945 Arrival Date: 07/26/2024 Time: 16:59 Bed 5 Private MD: Diagnosis: Unspecified open wound of unspecified finger without damage to nail, initial encounter Presentation: 07/26 17:08 Chief complaint: trimmed nail too short, used silver nitrate to stop the bleeding, hb now right index fingertip is black. Sent by nurse for evaluation. Coronavirus screen: At this time, the client does not indicate any symptoms associated with coronavirus-19. Ebola Screen: No symptoms or risks identified at this time. Initial Sepsis Screen: Does the patient meet any 2 criteria? No. Patient's initial sepsis screen is negative. Does the patient have a suspected source of infection? No. Patient's initial sepsis screen is negative. Risk Assessment: Do you want to hurt yourself or someone else? Patient reports no desire to harm self or others. Onset of symptoms was July 12, 2024. 17:08 Method Of Arrival: Wheelchair hb 17:08 Acuity: BIJAL 4 hb Historical: - Allergies: 17:16 Cipro; hb - PMHx: 17:16 CVA; Hypertension; Polio; PE; DVT; Hyperlipidemia; Seizures; hb - PSHx: 17:16 Appendectomy; hb - Immunization history:: Adult Immunizations unknown. - Infectious Disease History:: Denies. - Social history:: Smoking status: Patient denies any tobacco usage or history of. Screenin:39 [facility] ED Fall Risk Assessment (Adult) History of falling in the last 3 months, db including since admission No falls in past 3 months (0 pts) Confusion or Disorientation Intoxicated or Sedated Impaired Gait Mobility Assist Device Used Altered Elimination Score/Fall Risk Level 0 - 2 = Low Risk Oriented to surroundings, Maintained a safe environment. Abuse screen: Denies threats or abuse. Denies injuries from another. Nutritional screening: No deficits noted. Tuberculosis screening: No symptoms or risk factors identified. Assessment: 18:39 Reassessment: Patient appears in no apparent distress at this time. Patient and/or db family updated on plan of care and expected duration. Pain level reassessed. Pain:. Vital Signs: 17:08 BP 127 / 76; Pulse 88; Resp 16; Temp 97.4; Pulse Ox 100% ; Weight 74.84 kg; Height 5 hb ft. 9 in. ; Pain 0/10; 17:08 Body Mass Index 24.37 (74.84 kg, 175.26 cm) hb 17:08 Pain Scale: Adult hb ED Course: 17:02 Patient arrived in ED. im 17:03 Hay Bacon MD is Attending Physician. bo1 17:16 Triage completed. hb 17:16 Arm band placed on. hb 18:39 Patient has correct armband on for positive identification. Provided Education on: db DISCHARGE. 18:39 No provider procedures requiring assistance completed. Patient did not have IV access db during this emergency room visit. Administered Medications: No medications were administered Medication: 18:39 VIS not applicable for this client. db Outcome: 18:31 Discharge ordered by . bo1 18:39 Discharged to home via wheelchair, with family, db 18:39 Condition: stable 18:39 Discharge instructions given to family, Instructed on discharge instructions, follow up and referral plans. 18:49 Patient left the ED. hb Signatures: Alexia Real, RN RN Betty Zimmerman, RN RN db Shaina Polanco Hay Bacon MD MD bo1
--- NOTE | 2024-07-26 18:31 | EDPHYS ---
Physician Documentation [facility] Name: Jairo Samson Age: 79 yrs Sex: Male : 1945 Arrival Date: 07/26/2024 Time: 16:59 Bed 5 Private MD: ED Physician Hay Bacon HPI: 07/26 17:56 This 79 yrs old Black Male presents to ER via Wheelchair with complaints of Skin bo1 Sore(s) - on finger. 17:56 Onset: The symptoms/episode began/occurred yesterday. Recent nail clipping by caregiver bo1 - sister yesterday and it was "too short." Pt has since been treated with "silver nitrate" powder as given to the caregiver by Dr Moore (wound care) hx of past treatments for gout trophi. Nurse visit today called Dr Sanchez and referred pt to the ER for a check. Pt is on Eliquis and the finger tip was bleeding and would not stop. It has since stopped with the silver nitrate powder but the end result is a "black scab.". Historical: - Allergies: 17:16 Cipro; hb - PMHx: 17:16 CVA; Hypertension; Polio; PE; DVT; Hyperlipidemia; Seizures; hb - PSHx: 17:16 Appendectomy; hb - Immunization history:: Adult Immunizations unknown. - Infectious Disease History:: Denies. - Social history:: Smoking status: Patient denies any tobacco usage or history of. ROS: 18:01 Constitutional: Negative for fever, chills, and weight loss, pt is in a wheelchair for bo1 the last 17 years 18:01 MS/extremity: Negative for Bleeding or drainage from the right index finger. Nail is intact, 18:01 Skin: Positive for Blackened scab on the FT and para nail area., 18:01 All other systems are negative, Exam: 18:03 Constitutional: This is a elderly mail in no acute distress confined to a W/C. bo1 18:03 Musculoskeletal/extremity: Extremities: the patient is contracted, Areas of the hands and fingers show healed scars. Recent clipping of the right index finger nail being too short and now with a thick blackened scab at the finger tip and without active bleeding, 18:03 Skin: Pt's caregiver has been reassured. Vital Signs: 17:08 BP 127 / 76; Pulse 88; Resp 16; Temp 97.4; Pulse Ox 100% ; Weight 74.84 kg; Height 5 hb ft. 9 in. ; Pain 0/10; 17:08 Body Mass Index 24.37 (74.84 kg, 175.26 cm) hb 17:08 Pain Scale: Adult hb MDM: 17:19 Medical Screening Exam initiated bo1 18:27 Differential Diagnosis Bleed from the cut skin now chemically burned by the silver bo1 nitrate and it will be seen if viability will return after the scab falls off. Data reviewed: vital signs. ED course: Pt's caregiver is reassured. ED course: F/U essential with Dr Daniel LAU. Administered Medications: No medications were administered Disposition Summary: 07/26/24 18:31 Discharge Ordered Notes: Location: Home bo1 Problem: new bo1 Symptoms: are unchanged bo1 Condition: Stable bo1 Diagnosis - Unspecified open wound of unspecified finger without damage to nail, initial bo1 encounter Followup: bo1 - With: Private Physician - When: Upon discharge from the Emergency Department - Reason: Recheck today's complaints, Continuance of care Discharge Instructions: - Discharge Summary Sheet bo1 - Deep Skin Avulsion bo1 Forms: - Medication Reconciliation Form bo1 - Antibiotic Education bo1 - Prescription Opioid Use bo1 - Patient Portal Instructions bo1 - Leadership Thank You Letter bo1 Signatures: Alexia Real, RN RN Betty Zimmerman RN RN db Hay Bacon MD MD bo1
[2024-07-26 22:04] VITALS: BP 127/76; TEMP 97.4; O2SAT 100
== END 2024-07-26 18:49 | disposition home or self-care (01) ==
LOC: ER 16:59
DX: S61.200A Unspecified open wound of right index finger without damage to nail, initial encounter (principal)
CPT/HCPCS: 99282

== ENCOUNTER 2024-08-02 12:53 | Inpatient (IN) | payer OTHER ==
--- NOTE | 2024-08-02 13:59 | RAD REPORT ---
EXAM: Chest Single View HISTORY: COUGH COMPARISON: 04/08/2024 FINDINGS: LUNGS/PLEURA: Significantly limited due to patient positioning and overlapping anatomy. Possible cons olidative airspace disease at the right lung base. Prominence of the pulmonary interstitium. Lung volumes are low. MEDIASTINUM: Not well assessed CARDIAC: Stable size and configuration. UPPER ABDOMEN: Moderate colonic stool. BONES: No acute abnormality. LINES/TUBES/OTHER: N/A IMPRESSION: Significantly limited by patient's positioning. Pulmonary edema may be present as well as some consol idation at the right lung base that could reflect pneumonia or pneumonitis.
[2024-08-02 14:08] LABS: SARS-CoV-2 Antigen CONTROL BLUE LINE VIS/BG OK; SARS-CoV-2 Antigen Rapid Res Negative (Negative)
[2024-08-02 14:27] LABS: Absolute Basophils 0.1 K/uL (0-0.5); Absolute Eosinophils 0.1 K/uL (0-0.5); Absolute Lymphocytes (CBC) 0.3 K/uL (0.7-4.9); Absolute Monocytes 0.2 K/uL (0.1-1.3); Basophils % 1.5 % (0-1.3); Eosinophils % 2.4 % (0-4.4); Hematocrit 28.8 % (39.6-49.0); Hemoglobin 8.9 g/dL (13.6-17.9); Lymphocytes % 6.8 % (15.3-44.8); MCV 77.4 fL (80-100); MPV 9.1 fL (7.6-11.3); Monocytes % 4.5 % (3.3-12.3); Neutrophils % 84.8 % (41.7-73.7); Nucleated RBC Absolute Count 0.1 (0-0); Nucleated Red Blood Cells % 1.1 % (0-0); Platelets 203 thou/uL (152-406); RBC Red Blood Cell Count 3.72 M/uL (4.33-5.43); Red Cell Distribution Width 19.6 % (12.1-15.2)
[2024-08-02 14:36] LABS: PT Prothrombin Time 18.7 SECONDS (9.4-12.5); PTT, Activated Partial Thromb 37.4 SECONDS (24.3-36.9); Protime INR 1.79
[2024-08-02 14:54] LABS: Albumin 2.7 g/dL (3.4-5.0); Albumin/Globulin Ratio 0.5 (1.1-1.8); Bilirubin Total 0.4 mg/dL (0.2-1.0); Globulin 5.4 g/dL (2.3-3.5); Protein, Total 8.1 g/dL (6.4-8.2)
[2024-08-02] MEDS ORDERED: NA CHLORIDE 0.9% 250 ML ONE (15:11)
[2024-08-02] MEDS ORDERED: AZITHROMYCIN 500 MG INJ IVPB ONE (15:11)
[2024-08-02] MEDS ORDERED: CEFTRIAXONE 1000 MG/VIAL ONE (15:11)
[2024-08-02 15:48] LABS: Differential Total Cells Count 100; Segmented Neutrophils 64 % (40-80)
[2024-08-02 15:49] LABS: Eosinophils 18 % (0-3); Lymphocytes 6 % (15-42); Monocytes 12 % (0-10)
[2024-08-02 15:50] LABS: Blood Morphology Comment NOTED (NOT SEEN); Nucleated Red Blood Cells 3 /100WBC; Platelet Estimate ADEQ; Platelets, Giant PRESENT; Target Cells 1+
--- NOTE | 2024-08-02 16:38 | EDPHYS ---
Physician Documentation [facility] Name: Jairo Samson Age: 79 yrs Sex: Male : 1945 Arrival Date: 08/02/2024 Time: 12:53 Bed 18 Private MD: ED Physician Odilon Santos HPI: 08/02 13:14 This 79 yrs old Black Male presents to ER via Wheelchair with complaints of Breathing ms3 Difficulty. 13:14 Jairo Samson, a 79-year-old male, presents to the emergency department with ms3 difficulty breathing that started yesterday. He also reports having congestion. There is no fever, vomiting, or diarrhea reported. Patient's family states he is not as active today. Family confirms he does not have allergies to any medications. . Historical: - Allergies: 13:02 Cipro; ll1 - PMHx: 13:02 CVA; Hyperlipidemia; PE; Polio; DVT; Hypertension; Seizures; ll1 - PSHx: 13:02 Appendectomy; ll1 - Immunization history:: Adult Immunizations up to date. - Infectious Disease History:: Denies. - Social history:: Smoking status: Patient denies any tobacco usage or history of. ROS: 13:14 Constitutional: Negative for fever, and chills. Cardiovascular: Negative for chest ms3 pain, and palpitations. 13:14 Abdomen/GI: Negative for abdominal pain, nausea, vomiting, diarrhea, and constipation, MS/Extremity: Negative for injury and deformity, Skin: Negative for injury, rash, and discoloration, 13:14 Respiratory: Positive for cough, Exam: 13:14 Constitutional: This is a well developed, well nourished patient who is awake, alert, ms3 and in no acute distress. Cardiovascular: Regular rate and rhythm with a normal S1 and S2. No gallops, murmurs, or rubs. Normal PMI, no JVD. No pulse deficits. Respiratory: Lungs have equal breath sounds bilaterally, clear to auscultation and percussion. No rales, rhonchi or wheezes noted. No increased work of breathing, no retractions or nasal flaring. Abdomen/GI: Soft, non-tender, with normal bowel sounds. No distension or tympany. No guarding or rebound. No evidence of tenderness throughout. Skin: Warm, dry with normal turgor. Normal color with no rashes, no lesions, and no evidence of cellulitis. MS/ Extremity: Pulses equal, no cyanosis. Neurovascular intact. Full, normal range of motion. Vital Signs: 13:02 Weight 65.77 kg; Height 5 ft. 9 in. ; ll1 13:02 BP 106 / 66; Pulse 88; Resp 20; Temp 98.2; Pulse Ox 93% on R/A; kj2 14:00 BP 108 / 68; Pulse 82; Resp 18; Pulse Ox 97% on 2 lpm NC; kj2 16:14 BP 113 / 74; Pulse 84; Resp 18; Pulse Ox 96% on 2 lpm NC; kj2 17:15 BP 115 / 74; Pulse 80; Resp 20; Pulse Ox 98% on 2 lpm NC; kj2 18:15 BP 108 / 64; Pulse 84; Resp 18; Pulse Ox 97% on 2 lpm NC; kj2 13:02 Body Mass Index 21.41 (65.77 kg, 175.26 cm) ll1 MDM: 13:13 Medical Screening Exam initiated ms3 13:14 Differential diagnosis: CHF exacerbation, Chronic Obstructive Pulmonary Disease ms3 pneumonia. 17:44 Antibiotic administration: Rocephin and Zithromax given. Data reviewed: vital signs, ms3 nurses notes, lab test result(s), EKG, radiologic studies, and as a result, I will admit patient. Consideration of Admission/Observation Patient was admitted/placed on observation. Management of patient was discussed with the following: Hospitalist: Janice Barker NP and Dr Alexandre. I considered the following discharge prescriptions or medication management in the emergency department Medications were administered in the Emergency Department. See MAR. Independent interpretation of the following test(s) in the Emergency Department EKG: See my EKG interpretation above. Counseling: I had a detailed discussion with the patient and/or guardian regarding the historical points, exam findings, and any diagnostic results supporting the discharge/admit diagnosis, lab results, radiology results, the need for further work-up and treatment in the hospital. ED course: Discussed plan for admission with patient's family. They understand agree with plan. Questions were answered. 08/02 13:07 Order name: Blood Culture Adult (2) ms3 08/02 13:07 Order name: CBC with Diff; Complete Time: 16:33 ms3 08/02 13:07 Order name: Lactate w/ 2H reflex if indic.; Complete Time: 15:04 ms3 08/02 13:07 Order name: Protime (+inr); Complete Time: 15:04 ms3 08/02 13:07 Order name: Ptt, Activated; Complete Time: 15:04 ms3 08/02 13:07 Order name: Urinalysis w/ reflexes ms3 08/02 13:07 Order name: Flu; Complete Time: 15:04 ms3 08/02 13:07 Order name: SARS RAPID; Complete Time: 15:04 ms3 08/02 13:19 Order name: BNP; Complete Time: 15:04 ms3 08/02 13:19 Order name: Troponin High Sensitivity; Complete Time: 15:04 ms3 08/02 13:49 Order name: Glucose, Ancillary Testing; Complete Time: 14:00 EDMS 08/02 14:21 Order name: Comprehensive Metabolic Panel; Complete Time: 15:04 EDMS 08/02 15:50 Order name: Manual Differential; Complete Time: 16:33 EDMS 08/02 17:20 Order name: Basic Metabolic Panel EDMS 08/02 17:20 Order name: Basic Metabolic Panel EDMS 08/02 17:20 Order name: Basic Metabolic Panel EDMS 08/02 17:20 Order name: Basic Metabolic Panel EDMS 08/02 13:07 Order name: Chest Single View XRAY; Complete Time: 14:00 ms3 08/02 17:02 Order name: Thorax Wo Con; Complete Time: 18:11 EDMS 08/02 13:07 Order name: EKG; Complete Time: 13:07 ms3 08/02 13:07 Order name: Accucheck; Complete Time: 13:41 ms3 08/02 13:07 Order name: Cardiac monitoring; Complete Time: 15:28 ms3 08/02 13:07 Order name: EKG - Nurse/Tech; Complete Time: 15:28 ms3 08/02 13:07 Order name: IV Saline Lock - Large Bore; Complete Time: 15:28 ms3 08/02 13:07 Order name: Labs collected and sent; Complete Time: 15:28 ms3 08/02 13:07 Order name: O2 Per Protocol; Complete Time: 15:28 ms3 08/02 13:07 Order name: O2 Sat Monitoring; Complete Time: 15:28 ms3 08/02 13:07 Order name: Vital Signs; Complete Time: 15:28 ms3 Administered Medications: 15:27 Drug: Rocephin IV 1 grams IV at calculated rate once; Given slow IV push per pharmacy kj2 instructions Route: IV; Rate: calculated rate; Site: left jugular; 20:05 Follow up: IV Status: Completed infusion; IV Intake: 10ml kj2 15:27 Drug: AZITHromycin IVPB 500 mg IVPB once over 1 hrs; (mix in 250 mL NS) Route: IVPB; kj2 Infused Over: 1 hrs; Site: left jugular; 20:05 Follow up: IV Status: Completed infusion; IV Intake: 250ml kj2 Disposition Summary: 08/02/24 16:37 Hospitalization Ordered Notes: Hospitalization Status: Inpatient Admission ms3 Provider: Vanna Alexandre ms3 Condition: Stable ms3 Problem: new ms3 Symptoms: are unchanged ms3 Bed/Room Type: Standard ms3 Location: Telemetry/MedSurg (observation)(08/02/24 19:26) Room Assignment: [facility](08/02/24 19:26) Diagnosis - Unspecified bacterial pneumonia ms3 - Shortness of breath ms3 Forms: - Medication Reconciliation Form ms3 - SBAR form ms3 - Leadership Thank You Letter ms3 Signatures: Dispatcher [employer] EDMS Marcella Machado, RN RN ll1 Odilon Santos DO DO ms3 Marialuisa Edwards RN RN kb3 Abby Tolentino RN RN kj2 Mary Hoover Corrections: (The following items were deleted from the chart) 14:20 13:07 COMPREHENSIVE METABOLIC PANEL+C.LAB.BRZ ordered. EDMS EDMS 17:05 16:57 Chest For Pe Angio ordered. EDMS EDMS 18:01 16:37 Telemetry/MedSurg (Inpatient) ms3 kb3 18:01 16:37 ms3 kb3 19:26 18:01 [facility] ER HOLD kb3 hw 19:26 18:01 ERHOLD- kb3 hw
--- NOTE | 2024-08-02 16:38 | ER ---
Nurse's Notes [facility] Name: Jairo Samson Age: 79 yrs Sex: Male : 1945 Arrival Date: 08/02/2024 Time: 12:53 Bed 18 Private MD: Diagnosis: Unspecified bacterial pneumonia;Shortness of breath Presentation: 08/02 13:02 Chief complaint: Patient states: SOB and congestion for 1 day. No known fever. ll1 Coronavirus screen: Client denies travel out of the [place] in the last 14 days. congestion, cough unrelated to allergies, difficulty breathing, shortness of breath, Client presents with at least one sign or symptom that may indicate coronavirus-19. Standard/surgical mask placed on the client. Ebola Screen: Patient denies travel to an Ebola-affected area in the 21 days before illness onset. Initial Sepsis Screen: Does the patient meet any 2 criteria? No. Patient's initial sepsis screen is negative. Does the patient have a suspected source of infection? No. Patient's initial sepsis screen is negative. Risk Assessment: Do you want to hurt yourself or someone else? Patient reports no desire to harm self or others. Onset of symptoms was August 02, 2024. 13:02 Method Of Arrival: Wheelchair ll1 13:02 Acuity: BIJAL 3 ll1 Triage Assessment: 13:03 General: Appears in no apparent distress. Behavior is calm, cooperative, appropriate ll1 for age. Pain: Denies pain. EENT: Parent/caregiver reports the patient having nasal congestion. Respiratory: Onset: The symptoms/episode began/occurred today, the patient has mild shortness of breath Parent/caregiver reports the patient having shortness of breath. 13:05 Respiratory: Reports shortness of breath at rest. kj2 Historical: - Allergies: 13:02 Cipro; ll1 - PMHx: 13:02 CVA; Hyperlipidemia; PE; Polio; DVT; Hypertension; Seizures; ll1 - PSHx: 13:02 Appendectomy; ll1 - Immunization history:: Adult Immunizations up to date. - Infectious Disease History:: Denies. - Social history:: Smoking status: Patient denies any tobacco usage or history of. Screenin:[address] [facility] ED Fall Risk Assessment (Adult) History of falling in the last 3 months, kj2 including since admission No falls in past 3 months (0 pts) Confusion or Disorientation No (0 pts) Intoxicated or Sedated No (0 pts) Impaired Gait Yes (1 pt) Mobility Assist Device Used Yes (1 pt) Altered Elimination No (0 pt) Score/Fall Risk Level 0 - 2 = Low Risk Maintained a safe environment, Hourly rounding (assess needs \T\ fall precautionary measures) done. Abuse screen: Denies threats or abuse. Denies injuries from another. Nutritional screening: No deficits noted. Tuberculosis screening: No symptoms or risk factors identified. Assessment: 13:03 General: Appears. kj2 14:00 Reassessment: Patient appears in no apparent distress at this time. Patient and/or kj2 family updated on plan of care and expected duration. Pain level reassessed. Patient is alert, oriented x 3, equal unlabored respirations, skin warm/dry/pink. 15:00 Reassessment: Patient appears in no apparent distress at this time. Patient and/or kj2 family updated on plan of care and expected duration. Pain level reassessed. Patient is alert, oriented x 3, equal unlabored respirations, skin warm/dry/pink. 16:14 Reassessment: Patient appears in no apparent distress at this time. Patient and/or kj2 family updated on plan of care and expected duration. Pain level reassessed. Patient is alert, oriented x 3, equal unlabored respirations, skin warm/dry/pink. 17:15 Reassessment: Patient appears in no apparent distress at this time. Patient and/or kj2 family updated on plan of care and expected duration. Pain level reassessed. Patient is alert, oriented x 3, equal unlabored respirations, skin warm/dry/pink. Cardiovascular: Rhythm is. Respiratory: Airway is patent Respiratory effort is unlabored. 18:15 Reassessment: Patient appears in no apparent distress at this time. Patient and/or kj2 family updated on plan of care and expected duration. Pain level reassessed. Patient is alert, oriented x 3, equal unlabored respirations, skin warm/dry/pink. 20:04 Respiratory: Breath sounds are clear. kj2 Vital Signs: 13:02 Weight 65.77 kg; Height 5 ft. 9 in. ; ll1 13:02 BP 106 / 66; Pulse 88; Resp 20; Temp 98.2; Pulse Ox 93% on R/A; kj2 14:00 BP 108 / 68; Pulse 82; Resp 18; Pulse Ox 97% on 2 lpm NC; kj2 16:14 BP 113 / 74; Pulse 84; Resp 18; Pulse Ox 96% on 2 lpm NC; kj2 17:15 BP 115 / 74; Pulse 80; Resp 20; Pulse Ox 98% on 2 lpm NC; kj2 18:15 BP 108 / 64; Pulse 84; Resp 18; Pulse Ox 97% on 2 lpm NC; kj2 13:02 Body Mass Index 21.41 (65.77 kg, 175.26 cm) ll1 ED Course: 12:54 Patient arrived in ED. ra3 12:56 Odilon Santos DO is Attending Physician. ms3 12:57 Abby Tolentino, EN is Primary Nurse. kj2 13:00 Arm band placed on Patient placed in an exam room, on a stretcher. kj2 13:03 Triage completed. ll1 13:05 Patient has correct armband on for positive identification. Bed in low position. Call kj2 light in reach. Side rails up X 1. Adult w/ patient. Provided Education on: call light. 13:30 Urinalysis w/ reflexes Sent. kj2 13:56 Chest Single View XRAY In Process Unspecified. EDMS 16:37 Vanna Alexandre is Hospitalizing Provider. ms3 17:39 Thorax Wo Con In Process Unspecified. EDMS 19:40 No provider procedures requiring assistance completed. Accessed 20 gauge left jugular kj2 inserted, by Dr Santos. 08/03 00:00 Patient admitted, IV remains in place. kj2 Administered Medications: 08/02 15:27 Drug: Rocephin IV 1 grams IV at calculated rate once; Given slow IV push per pharmacy kj2 instructions Route: IV; Rate: calculated rate; Site: left jugular; 20:05 Follow up: IV Status: Completed infusion; IV Intake: 10ml kj2 15:27 Drug: AZITHromycin IVPB 500 mg IVPB once over 1 hrs; (mix in 250 mL NS) Route: IVPB; kj2 Infused Over: 1 hrs; Site: left jugular; 20:05 Follow up: IV Status: Completed infusion; IV Intake: 250ml kj2 Medication: 19:39 VIS not applicable for this client. kj2 Intake: 20:05 IV: 250ml; Total: 250ml. kj2 20:05 IV: 10ml; Total: 260ml. kj2 Outcome: 16:37 Decision to Hospitalize by Provider. ms3 08/03 00:00 Admitted to Tele accompanied by tech, via stretcher, kj2 Condition: stable Instructed on the need for admit, 00:01 Patient left the ED. kj2 Signatures: Dispatcher [employer] EDMarcella Robles, RN RN ll1 Odilon Santos, DO ms3 Helen Chavira ra3 Abby Tolentino, RN RN kj2
[2024-08-02] MEDS ORDERED: ACETAMINOPHEN 325 MG TABLET PO PRN (17:14)
[2024-08-02] MEDS ORDERED: ACETAMINOPHEN 500 MG TAB PO PRN (17:14)
[2024-08-02] MEDS ORDERED: ONDANSETRON 4 MG/2 ML VIAL IV PRN (17:14)
[2024-08-02] MEDS ORDERED: HYDROCODONE/APAP 5/325 MG TAB PO PRN (17:21)
--- NOTE | 2024-08-02 18:04 | RAD REPORT ---
EXAMINATION: CT CHEST WITHOUT CONTRAST CLINICAL INDICATION: Male, 79 years old. Rule out pneumonia on chest x-ray TECHNIQUE: Routine CT scan of the chest without intravenous contrast. One or more of the following do se reduction techniques were used: Automated exposure control, adjustment of the mA and/or kV according to patient size, and/or iterative reconstruction. Unless otherwise specified, incidental fi ndings do not require dedicated imaging follow-up. [id number]. COMPARISON: 05/24/2023 FINDINGS: LOWER NECK: Visualized thyroid gland and soft tissues are normal. LUNGS AND AIRWAYS: Chronic consolidative airspace disease present in the right lower lobe. Motion art ifact. . PLEURA: Trace right pleural effusion. MEDIASTINUM AND LYMPH NODES: No mediastinal mass or fluid collection. Normal size mediastinal, hilar, and axillary lymph nodes. THORACIC AORTA: No thoracic aortic aneurysm. PULMONARY ARTERIES: Caliber is within normal limits. HEART: Normal heart size. Coronary arterial calcifications are present.No significant pericardial eff usion. OSSEOUS STRUCTURES AND CHEST WALL: Multilevel degenerative changes. No acute fracture. UPPER ABDOMEN: No acute abnormalities.Cholelithiasis. Partially imaged renal lesions, some of which a re low attenuation and others are intermediate attenuation that are nonspecific. IMPRESSION: Mild consolidative airspace disease at the right lower lobe is similar to prior CTs and may reflect s carring. No convincing evidence of a superimposed acute pneumonia.
[2024-08-02] MEDS: ATORVASTATIN 10 MG TAB PO SCH (21:00)
[2024-08-02] MEDS: PHENOBARBITAL 30 MG TABLET PO SCH (21:00)
[2024-08-02] MEDS: SODIUM BICARB 325 MG TAB PO SCH (21:00)
[2024-08-02] MEDS: APIXABAN 2.5 MG TABLET PO SCH (21:00)
[2024-08-02] MEDS: LACOSAMIDE 50 MG TABLET PO SCH (21:00)
[2024-08-02] MEDS: METOPROLOL TAR 25 MG TAB PO SCH (21:00)
[2024-08-02] MEDS: levETIRAcetam 500 MG TAB PO SCH (21:00)
[2024-08-02] MEDS: TOPIRAMATE 25 MG TAB PO SCH (21:00)
[2024-08-02 21:23] LABS: Specific Gravity 1.015 (1.005-1.030); Sqamous Epithelial None Seen /HPF (None Seen); Urine Bacteria None Seen /HPF (<20); Urine Bilirubin NEGATIVE (Negative); Urine Blood Negative (Negative); Urine Clarity Clear (Clear); Urine Color Light-Yellow (Yellow); Urine Crystals Unidentified Few /HPF (None Seen); Urine Culture Reflex Order NOT NEEDED; Urine Glucose NEGATIVE (Negative); Urine Ketones NEGATIVE (Negative); Urine Microscopic Reflex YN ORDER UMIC; Urine Mucus Slight /HPF (None Seen); Urine Nitrite NEGATIVE (Negative); Urine Protein 1+ (Negative); Urine RBC <5 /HPF (None Seen); Urine Urobilinogen Normal (Normal); Urine WBC <5 /HPF (<5)
[2024-08-02] MEDS ORDERED: PHENOBARBITAL 30 MG TABLET PO ONE (22:16)
[2024-08-02] MEDS ORDERED: ATORVASTATIN 10 MG TAB ONE (22:17)
[2024-08-02] MEDS ORDERED: levETIRAcetam 500 MG TAB ONE (22:17)
[2024-08-02] MEDS ORDERED: METOPROLOL TAR 25 MG TAB ONE (22:17)
[2024-08-02] MEDS ORDERED: LACOSAMIDE 50 MG TABLET ONE (22:31)
[2024-08-03 00:07] VITALS: BMI 17.7
[2024-08-03 06:48] LABS: Anion Gap 10.9 mEq/L (5.0-15.0); Potassium 3.9 mEq/L (3.5-5.1)
[2024-08-03] MEDS: ALBUTEROL 2.5 MG/3 ML NEB SOL NEB SCH (07:00)
[2024-08-03] MEDS: ZONISAMIDE 100 MG PO SCH (09:00)
[2024-08-03] MEDS: allopurinoL 100 MG TAB PO SCH (09:15)
[2024-08-03] MEDS: D5W 1,000 ML IV SCH (09:18)
[2024-08-03] MEDS: METRONIDAZOLE 500mg IVPB 500 MG/100 ML BAG IV SCH (11:39)
[2024-08-03] MEDS: CEFTRIAXONE 1,000 MG in NA CHLORIDE 0.9% 50 ML IVPB SCH (14:13)
--- NOTE | 2024-08-03 14:13 | P.HP ---
Certification for Inpatient With expected LOS: >2 Midnights Practitioner: I am a practitioner with admitting privileges, knowledge of patient current condition, hospital course, and medical plan of care. Services: Services provided to patient in accordance with Admission requirements found in Title 42 Section 412.3 of the Code of Federal Regulations Patient History Date of Service: 08/02/24 Reason for admission: Respiratory distress History of Present Illness: This is 79 years old gentleman with complex medical problem including debilitating CVA and poliomyelitis, DVT/PE on apixaban, refractory seizure disorder, CKD, chronic anemia, bedridden status, nonverbal who lives home with his sister, brought to emergency room for evaluation of respiratory distress for 1 day. Upon arrival at emergency room he is borderline hypoxia, 90% on room air, improved to 93% on 2 L nasal cannula, chest x-ray on the emergency room suspected infiltration in right lower lobe, possible pneumonia or atelectasis. The patient received ceftriaxone, azithromycin 1 dose and being admitted on general medical floor. Allergies ciprofloxacin Allergy (Verified 12/15/15 22:39) UNKNOWN Home Medications: Lacosamide [Vimpat*] 200 mg PO BID 10/08/18 PHENobarbitaL [Phenobarbital*] 64.8 mg PO BEDTIME 10/08/18 Simvastatin 20 mg PO BEDTIME 10/08/18 Topiramate 50 mg PO BEDTIME 10/08/18 Zonisamide [Zonegran] 100 mg PO DAILY 10/08/18 levETIRAcetam [Keppra] 500 mg PO BID 10/08/18 Apixaban [Eliquis *] 5 mg PO BID 10/30/18 Metoprolol Tartrate [Lopressor*] 12.5 mg PO BID 11/25/21 Allopurinol 200 mg PO DAILY #60 tab 03/04/24 - Past Medical/Surgical History Has patient received pneumonia vaccine in the past: Yes Diabetic: No -: 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 - Family History Father -: Hypertension Mother -: Hypertension Brother -: Hypertension Sister -: Hypertension, Cancer - Social History Smoking Status: Never smoker Alcohol use: No CD- Drugs: No Caffeine use: No Place of Residence: Home Review of Systems is unable to be obtained Physical Examination - Vital Signs Temperature: 98.3 F Blood Pressure: 99/60 Pulse: 76 Respirations: 18 Pulse Ox (%): 100 - Physical Exam Other Physical/Emotional Findings: - Physical Exam. General: Emaciated, not acutely ill looking, in no apparent distress,. HEENT: Normocephalic, atraumat ic, nonicteric sclera, nonanemic conjunctive. Neck: Supple, without JVD or goiter or thyroid mass. Respiratory: Normal breathing effort, clear to auscultation bilaterally, no crackles no wheezing or rhonchi. Cardiovascular: Regular rate and rhythm, S1, S2 normal, no murmur no gallop. Gastrointestinal: Normal bowel sounds, nondistended, nontender, No ascites, , No masses, no hepatosplenomegaly. 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 Integumentary: No rashes, petechia, suspected lesions. Lymphatics: No axilla or cervical lymphadenopathy. Neurology; alert awake, nonverbal, does not follow any command . - Studies Laboratory Data (last 24 hrs) 08/02/24 08/02/24 08/02/24 14:00 14:00 14:00 WBC 4.80 Hgb 8.9 L Hct 28.8 L Plt Count 203 PT 18.7 H INR 1.79 APTT 37.4 H Sodium 147 H Potassium 4.0 BUN 88 H Creatinine 1.44 H Glucose 99 Total Bilirubin 0.4 AST 30 ALT 38 Alkaline Phosphatase 126 H 08/02/24 13:07 WBC Hgb Hct Plt Count PT INR APTT Sodium Cancelled Potassium Cancelled BUN Cancelled Creatinine Cancelled Glucose Cancelled Total Bilirubin Cancelled AST Cancelled ALT Cancelled Alkaline Phosphatase Cancelled Microbiology Data (last 24 hrs): 08/02/24 13:10 Nasopharnyx Influenza Type A Antigen Screen - Final 08/02/24 13:10 Nasopharnyx Influenza Type B Antigen Screen - Final Imagings Data: Chest x-ray personally reviewed, suspected infiltration in both lower lung field Assessment and Plan - Plan This is 79 years old gentleman, minimal conscious status, bedridden status with multiple comorbidity including debilitating CVA, poliomyelitis, DVT/PE on apixaban, intractable seizure disorder on multiple anticonvergent, CKD, chronic anemia who was brought to emergency room for respiratory distress by his sister who lived with him and being admitted on general medical floor #1 mild respiratory distress #2 suspected pneumonia on chest x-ray with no sepsis anemia with #3 anemia of chronic disease #4 CKD stage III #5 mild hypernatremia due to free water depletion I will obtain a CT of the chest without contrast, no clinical suspicion for PE since patient is on apixaban, I will continue on empiric antibiotic with ceftriaxone, azithromycin, supplemental oxygen to keep saturation of oxygen over 90%, bronchodilator. - Advance Directives Does patient have a Living Will: No Does patient have a Durable POA for Healthcare: No
--- NOTE | 2024-08-03 14:23 | P.PN ---
Subjective Date of Service: 08/03/24 Chief Complaint: Respiratory distress Subjective: No new changes Patient family is asking for diet, the sister at bedside states that patient is eating by mouth at home with occasional episode of choking. Review of Systems is unable to be obtained Physical Examination - Vital Signs Temperature: 98.3 F Blood Pressure: 99/60 Pulse: 76 Respirations: 18 Pulse Ox (%): 100 - Physical Exam Other Physical/Emotional Findings: - Physical Exam. General: Emaciated, not acutely ill looking, in no apparent distress,. HEENT: Normocephalic, atraumatic, nonicteric sclera, nonanemic conjunctive. Neck: Supple, without JVD or goiter or thyroid mass. Respiratory: Normal breathing effort, clear to auscultation bilaterally, no crackles no wheezing or rhonchi. Cardiovascular: Regular rate and rhythm, S1, S2 normal, no murmur no gallop. Gastrointestinal: Normal bowel sounds, nondistended, nontender, No ascites, , No masses, no hepatosplenomegaly. 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 Integumentary: No rashes, petechia, suspected lesions. Lymphatics: No axilla or cervical lymphadenopathy. Neurology; alert awake, nonverbal, does not follow any command . - Studies Laboratory Data (last 24 hrs) 08/02/24 08/02/24 08/02/24 14:00 14:00 14:00 WBC 4.80 Hgb 8.9 L Hct 28.8 L Plt Count 203 PT 18.7 H INR 1.79 APTT 37.4 H Sodium 147 H Potassium 4.0 BUN 88 H Creatinine 1.44 H Glucose 99 Total Bilirubin 0.4 AST 30 ALT 38 Alkaline Phosphatase 126 H 08/02/24 13:07 WBC Hgb Hct Plt Count PT INR APTT Sodium Cancelled Potassium Cancelled BUN Cancelled Creatinine Cancelled Glucose Cancelled Total Bilirubin Cancelled AST Cancelled ALT Cancelled Alkaline Phosphatase Cancelled Microbiology Data (last 24 hrs): 08/02/24 13:10 Nasopharnyx Influenza Type A Antigen Screen - Final 08/02/24 13:10 Nasopharnyx Influenza Type B Antigen Screen - Final Assessment And Plan - Plan This is 79 years old gentleman, minimal conscious status, bedridden status with multiple comorbidity including debilitating CVA, poliomyelitis, DVT/PE on apixaban, intractable seizure disorder on multiple anticonvergent, CKD, chronic anemia who was brought to emergency room for respiratory distress by his sister who lived with him and being admitted on general medical floor #1 community-acquired pneumonia, suspected aspiration pneumonia with no sepsis CT of chest personally reviewed consolidation in the right lower lobe, history of occasional choking at home, patient sister insists on oral feeding, I will order oral diet with aspiration precaution, request swallow evaluation by speech therapy, change antibiotics to ceftriaxone and metronidazole, supplemental oxygen by nasal cannula, #2 anemia of chronic disease on apixaban Hemoglobin stable around 9, no clinical bleeding, iron study reviewed, consistent with anemia of chronic disease #4 CKD stage III Serum creatinine stable, normokalemia, bicarb 19 #5 mild hypernatremia due to free water depletion I will start D5 infusion, recheck electrolytes tomorrow morning DVT prophylaxis; apixaban Disposition; plan to discharge home in a few days .
[2024-08-03] MEDS ORDERED: AZITHROMYCIN IV 500 MG in NA CHLORIDE 0.9% 250 ML IVPB SCH (15:00)
[2024-08-04 07:24] LABS: Anion Gap 7.9 mEq/L (5.0-15.0); Potassium 3.9 mEq/L (3.5-5.1)
[2024-08-04] MEDS: ZONISAMIDE 100 MG PO SCH (07:51)
--- NOTE | 2024-08-04 11:33 | P.PN ---
Subjective Date of Service: 08/04/24 Chief Complaint: Respiratory distress Subjective: No new changes He is nonverbal, on communicable, his sister at bedside stated he is tolerating oral diet well without any choking episode, no respiratory distress, no productive cough Review of Systems is unable to be obtained Physical Examination - Vital Signs Temperature: 97.8 F Blood Pressure: 112/66 Pulse: 72 Respirations: 16 Pulse Ox (%): 100 - Physical Exam Other Physical/Emotional Findings: - Physical Exam. General: Emaciated, not acutely ill looking, in no apparent distress,. HEENT: Normocephalic, atraumatic, nonicteric sclera, nonanemic conjunctive. Neck: Supple, without JVD or goiter or thyroid mass. Respiratory: Normal breathing effort, clear to auscultation bilaterally, no crackles no wheezing or rhonchi. Cardiovascular: Regular rate and rhythm, S1, S2 normal, no murmur no gallop. Gastrointestinal: Normal bowel sounds, nondistended, nontender, No ascites, , No masses, no hepatosplenomegaly. 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 Integumentary: No rashes, petechia, suspected lesions. Lymphatics: No axilla or cervical lymphadenopathy. Neurology; minimal conscious status, nonverbal, does not follow any command . Assessment And Plan - Plan This is 79 years old gentleman, minimal conscious status, bedridden status with multiple comorbidity including debilitating CVA, poliomyelitis, DVT/PE on apixaban, intractable seizure disorder on multiple anticonvergents, CKD, chronic anemia who was brought to emergency room for respiratory distress by his sister who lived with him and being admitted on general medical floor #1 community-acquired pneumonia, suspected aspiration pneumonia with no sepsis CT of chest consolidation in the right lower lobe, history of occasional choking at home, patient sister insists on oral feeding, continue on oral diet with aspiration precaution, swallow evaluation by speech therapy ordered, keep on ceftriaxone and metronidazole, supplemental oxygen by nasal cannula, I would recommend a PEG tube placement for nutrition and hydration but her sister does seem to be interested. #2 anemia of chronic disease on apixaban Hemoglobin stable around 9, no clinical bleeding, iron study reviewed, consistent with anemia of chronic disease #4 LELE on CKD stage III due to dehydration Serum creatinine trending down with IV fluid #5 mild hypernatremia due to free water depletion Responding to D5 infusion, continue D5 infusion at 75 mL/h, repeat BMP tomorrow morning #6 cachexia due to debilitating CVA DVT prophylaxis; apixaban Disposition; plan to discharge home early next week. .
[2024-08-05 08:09] LABS: Anion Gap 8.8 mEq/L (5.0-15.0); Potassium 3.8 mEq/L (3.5-5.1)
[2024-08-05] MEDS: allopurinoL 100 MG TAB PO ONE (11:17)
[2024-08-06 08:19] VITALS: BP 102/69; TEMP 98.2
[2024-08-06] MEDS: allopurinoL 100 MG TAB PO SCH (08:20)
[2024-08-06 09:03] VITALS: O2SAT 98
[2024-08-06] MEDS ORDERED: allopurinoL 100 MG TAB PO ONE (10:53)
--- NOTE | 2024-08-06 12:26 | EKG ---
Test Date: 2024-08-02 Test Time: 15:05:35 Optometric Aide: MARCIE MEASUREMENT RESULTS: Intervals: Rate: 88 MO: 158 QRSD: 90 QT: 372 QTc: 450 [place]: P: 23 MO: 158 QRS: -34 T: 59 INTERPRETIVE STATEMENTS: Normal sinus rhythm Left axis deviation Voltage criteria for left ventricular hypertrophy Abnormal ECG Compared to ECG 04/08/2024 13:31:14 Left ventricular hypertrophy now present Electronically Signed On 08-06-24 12:19:49 DBA MANAGER by Juarez Garcia
== END 2024-08-06 12:15 | disposition home or self-care (01) | DRG 178 ==
LOC: ER 12:53 → ERHOLD 17:14 → 4TH 20:23
PROVIDERS: ADMIT Internal Medicine; ATTEND Hospitalist
DX: J69.0 Pneumonitis due to inhalation of food and vomit (principal); E87.0 Hyperosmolality and hypernatremia; N17.9 Acute kidney failure, unspecified; Z68.1 Body mass index [BMI] 19.9 or less, adult; R64 Cachexia; I12.9 Hypertensive chronic kidney disease with stage 1 through stage 4 chronic kidney disease, or unspecified chronic kidney disease; N18.30 Chronic kidney disease, stage 3 unspecified; D63.1 Anemia in chronic kidney disease; E78.00 Pure hypercholesterolemia, unspecified; Z88.1 Allergy status to other antibiotic agents; Z90.49 Acquired absence of other specified parts of digestive tract; Z79.01 Long term (current) use of anticoagulants; Z86.711 Personal history of pulmonary embolism; Z74.01 Bed confinement status; Z86.73 Personal history of transient ischemic attack (TIA), and cerebral infarction without residual deficits; Z79.899 Other long term (current) drug therapy; Z86.718 Personal history of other venous thrombosis and embolism
CPT/HCPCS: 36415; 71045; 71250; 80048; 80053; 81001; 82947; 83605; 83880; 84484; 85025; 85610; 85730; 87040; 87804; 87807; 87811; 92610; 93005; 94640; 96365; 96366; 96368; 99285; J0696; J7050; J7613

== ENCOUNTER 2024-08-19 06:58 | Emergency (ER) | payer OTHER ==
[2024-08-19 07:54] LABS: Specific Gravity 1.014 (1.005-1.030); Sqamous Epithelial None Seen /HPF (None Seen); Urine Bacteria None Seen /HPF (<20); Urine Bilirubin NEGATIVE (Negative); Urine Blood 3+ (Negative); Urine Clarity Extremely Turbid (Clear); Urine Color Light-Yellow (Yellow); Urine Culture Reflex Order REFLEXED; Urine Glucose NEGATIVE (Negative); Urine Ketones NEGATIVE (Negative); Urine Micro Reflex YN NO BILL MICROSCOPIC; Urine Nitrite NEGATIVE (Negative); Urine Protein TRACE (Negative); Urine RBC >50 /HPF (None Seen); Urine Urobilinogen Normal (Normal)
[2024-08-19 08:21] LABS: Hematocrit 29.7 % (39.6-49.0); Hemoglobin 9.1 g/dL (13.6-17.9); MCH 24.2 pg (27.0-35.0); MCHC 30.7 g/dL (32.0-36.0); MCV 78.7 fL (80-100); Nucleated Red Blood Cells % 0.7 % (0-0); Platelets 327 thou/uL (152-406); RBC Red Blood Cell Count 3.77 M/uL (4.33-5.43); Red Cell Distribution Width 20.8 % (12.1-15.2)
[2024-08-19 08:26] LABS: Albumin 2.6 g/dL (3.4-5.0); Albumin/Globulin Ratio 0.5 (1.1-1.8); Anion Gap 7.6 mEq/L (5.0-15.0); Bilirubin Total 0.3 mg/dL (0.2-1.0); Protein, Total 7.6 g/dL (6.4-8.2)
[2024-08-19 08:27] LABS: Potassium 4.6 mEq/L (3.5-5.1)
--- NOTE | 2024-08-19 09:54 | RAD REPORT ---
EXAMINATION: CT Abdomen Pelvis Wo Contrast CLINICAL INDICATION: Male, 79 years old. HEMATURIA TECHNIQUE: CT abdomen and pelvis was performed, without IV contrast, as per department protocol. Axia l, sagittal and coronal reconstructions were obtained. One or more of the following dose reduction techniques were used: Automated exposure control, adjustment of the mA and kV according to the patien t size, and iterative reconstruction. Unless otherwise specified, incidental findings do not require dedicated imaging follow-up. COMPARISON: 02/16/2016 FINDINGS: The lack of intravenous contrast limits the sensitivity of this exam for evaluation of solid visceral organs, vascular structures, and retroperitoneum. LOWER CHEST: Elevation of the right hemidiaphragm. Segmental right middle lobe and to lesser extent r ight lower lobe airspace opacification, could reflect atelectasis. Trace layering right pleural effusion. LIVER: Normal in size and contour. No focal lesion. BILIARY SYSTEM: Gallbladder not significantly distended, containing dependent 2.4 cm calculus along t he body. No evidence of intra or extrahepatic biliary ductal dilation. SPLEEN: Normal size. No focal lesion. PANCREAS: No mass, ductal dilation, or inna-pancreatic fluid. ADRENALS: Normal; no mass. KIDNEYS AND URETERS: Numerous bilateral cortical hypoattenuating lesions mild posterior fluid density , not well characterized but suggestive of cysts, largest measuring 3.4 cm along the right renal midpole. Other smaller lesions show intrinsic hyperdensity largest along the left renal midpole measu ring 1.3 cm, suggesting hemorrhagic cysts. Normal size and contour otherwise. No hydronephrosis. URINARY BLADDER: Normal contour. GASTROINTESTINAL TRACT: No evidence of bowel obstruction, significant free fluid, free air or abscess . Mild wall thickening in the region of the anal canal, nonspecific. Large stool burden throughout the colon. APPENDIX: Normal appendix. LYMPH NODES: No lymphadenopathy. MUSCULOSKELETAL: No acute or suspicious osseous abnormality. Scattered degenerative changes with mode rate levoconvex scoliotic deformity along the thoracolumbar junction. ADDITIONAL FINDINGS: Nonspecific mild fat stranding throughout the retroperitoneum. Mild diffuse body wall edema.. IMPRESSION: Nonspecific wall thickening in the region of the anal canal, could reflect inflammation. Large stool burden throughout the colon. Nonspecific mild fat stranding in the mesentery. Mild body wall edema. Please correlate clinically fo r fluid overload. No radiopaque renal calculi or hydroureteronephrosis. Incidentally noted bilateral renal cortical les ions suggestive of cysts. Cholelithiasis. No other acute or suspicious abnormalities. Incidental findings as above.
[2024-08-19 09:57] LABS: Anisocytosis 2+; Atypical Lymphocytes 2 %; Band Neutrophils 2 % (0-1); Blood Morphology Comment NOTED (NOT SEEN); Burr Cells FEW; Differential Total Cells Count 100; Eosinophils 2 % (0-3); Lymphocytes 59 % (15-42); Microcytosis 1+; Monocytes 7 % (0-10); Platelet Estimate ADEQ; Segmented Neutrophils 28 % (40-80); Target Cells 2+
--- NOTE | 2024-08-19 10:06 | EDPHYS ---
[facility] Name: Jairo Samson Age: 79 yrs Sex: Male : 1945 Arrival Date: 08/19/2024 Time: 06:58 Bed 5 Private MD: ED Physician Brett Arredondo HPI: 08/19 07:37 This 79 yrs old Black Male presents to ER via Ambulatory with complaints of Penile Pain.rt 07:37 Patient presents to the ED with pain to the penis starting last night. Denies any rt testicular pain. Denies abdominal pain, nausea, vomiting. The sister states that the tip of the right index finger has been blackened for the past week. He denies any pain to that region. Denies fever, chills, other acute complaints, symptoms are moderate in severity, no other aggravating or alleviating factors.. Historical: - Allergies: 07:15 Cipro; ss - PMHx: 07:15 CVA; DVT; Polio; PE; Hypertension; Hyperlipidemia; Seizures; ss - PSHx: 07:15 Appendectomy; ss - Immunization history:: Adult Immunizations unknown. - Infectious Disease History:: Denies. - Family history:: not pertinent. - Social history:: Smoking status: unknown. ROS: 07:37 Constitutional: Negative for fever, chills, and weight loss, Cardiovascular: Negative rt for chest pain, palpitations, and edema, Respiratory: Negative for shortness of breath, cough, wheezing, and pleuritic chest pain, Abdomen/GI: Negative for abdominal pain, nausea, vomiting, diarrhea, and constipation, 07:37 : Positive for penile pain, Negative for testicular pain Exam: 07:37 Constitutional: This is a well developed, well nourished patient who is awake, alert, rt and in no acute distress. Head/Face: Normocephalic, atraumatic. Chest/axilla: Normal chest wall appearance and motion. Nontender with no deformity. No lesions are appreciated. Cardiovascular: Regular rate and rhythm with a normal S1 and S2. No gallops, murmurs, or rubs. Normal PMI, no JVD. No pulse deficits. Respiratory: Lungs have equal breath sounds bilaterally, clear to auscultation and percussion. No rales, rhonchi or wheezes noted. No increased work of breathing, no retractions or nasal flaring. Abdomen/GI: Soft, non-tender, with normal bowel sounds. No distension or tympany. No guarding or rebound. No evidence of tenderness throughout. 07:37 : External genitalia within normal limits, no testicular, inguinal swelling, penile lesions, 07:37 Musculoskeletal/extremity: Parent dry gangrene over the distal phalanx of the right index finger, no tenderness, skin is otherwise normal.. Vital Signs: 07:17 BP 132 / 79; Pulse 70; Pulse Ox 98% on R/A; rs6 08:25 Resp 18; Temp 97.5; ph 08:26 Pulse 67; ph 09:07 BP 124 / 70; Pulse 68; Resp 18; Pulse Ox 100% on R/A; ph 10:37 BP 132 / 64; Pulse 67; Resp 18; Temp 97.2; Pulse Ox 98% on R/A; ph MDM: 07:06 Medical Screening Exam initiated rt 10:27 Differential diagnosis: UTI, kidney stone. Data reviewed: vital signs, nurses notes, rt lab test result(s), radiologic studies. Consideration of Admission/Observation Escalation of care including admission/observation considered. Stable vital signs, unremarkable labs, likely UTI as the etiology of the symptoms, CT scan is negative for acute findings. 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 He will be followed up at wound care on Monday. Does not require admission at this time.. Management of patient was discussed with the following: Operations Research Scientist: Discussed with Dr. Moore, will follow-up patient on Monday.. Independent interpretation of the following test(s) in the Emergency Department CT Scan: My interpretation is Large stool burden seen on my interpretation of CT scan images. Care significantly affected by the following chronic conditions: CVA, postpolio syndrome. Counseling: I had a detailed discussion with the patient and/or guardian regarding the historical points, exam findings, and any diagnostic results supporting the discharge/admit diagnosis, lab results, radiology results, the need for further work-up and treatment in the hospital. Counseling: I had a detailed discussion with the patient and/or guardian regarding the need for outpatient follow up. 08/19 07:14 Order name: CBC with Diff; Complete Time: 09:58 rt 08/19 07:14 Order name: CMP; Complete Time: 08:56 rt 08/19 07:14 Order name: UAM; Complete Time: 08:56 rt 08/19 07:58 Order name: Urine Culture EDMS 08/19 08:32 Order name: Manual Differential; Complete Time: 09:58 EDMS 08/19 09:01 Order name: CT Abd/Pelvis - Without Contrast; Complete Time: 09:58 rt Administered Medications: 10:37 Drug: Mupirocin Topical Ointment 2 % 1 application Topical once Route: Topical; Site: ph affected area; 10:37 Follow up: Response: No adverse reaction; Medication administered at discharge. ph Disposition Summary: 08/19/24 10:05 Discharge Ordered Notes: Location: Home rt Problem: new rt Symptoms: have improved rt Condition: Stable rt Diagnosis - UTI/ Urinary tract infection, site not specified rt - Constipation rt - Dry gangrene of right index finger rt Followup: rt - With: Wagner Moore MD - When: 08/21/2024 - Reason: Discharge Instructions: - Discharge Summary Sheet rt - Constipation, Adult rt - Urinary Tract Infection, Adult rt Forms: - Medication Reconciliation Form rt - Antibiotic Education rt - Prescription Opioid Use rt - Patient Portal Instructions rt - Leadership Thank You Letter rt Prescriptions: - Miralax 17 gram Oral powder in packet - take 1 packet ORAL route daily as needed for constipation; 7 packet; Refills: rt 0, Product Selection Permitted - mupirocin 2 % Topical ointment - apply 1 application TOPICAL route 3 times per day; 1 Each; Refills: 0, Product rt Selection Permitted - cefpodoxime 200 mg Oral tablet - take 1 tablet ORAL route every 12 hours with food; 14 tablet; Refills: 0, rt Product Selection Permitted Signatures: Dispatcher [employer] EDMS Kasey Calvillo RN RN ss Tyra Crowder RN RN ph Brett Arredondo MD MD rt Corrections: (The following items were deleted from the chart) 07:14 07:14 CBC+H.LAB.BRZ ordered. EDMS EDMS 07:14 07:14 COMPREHENSIVE METABOLIC PANEL+C.LAB.BRZ ordered. EDMS EDMS 07:14 07:14 Urinalysis W/Microscopic+U.LAB.BRZ ordered. EDMS EDMS
--- NOTE | 2024-08-19 10:06 | ER ---
Nurse's Notes [facility] Name: Jairo Samson Age: 79 yrs Sex: Male : 1945 Arrival Date: 08/19/2024 Time: 06:58 Bed 5 Private MD: Diagnosis: UTI/ Urinary tract infection, site not specified;Constipation;Dry gangrene of right index finger Presentation: 08/19 07:13 Chief complaint: Parent and/or Guardian states: Sister states, "he started complaining ss of genital pain this morning." Sister would also like finger to be evaluated and the tip has been discolored for the past week. Coronavirus screen: Client denies travel out of the [place] in the last 14 days. Ebola Screen: Patient denies exposure to infectious person. Patient denies travel to an Ebola-affected area in the 21 days before illness onset. Initial Sepsis Screen: Does the patient meet any 2 criteria? No. Patient's initial sepsis screen is negative. Does the patient have a suspected source of infection? No. Patient's initial sepsis screen is negative. Risk Assessment: Do you want to hurt yourself or someone else? Patient reports no desire to harm self or others. Onset of symptoms is unknown. 07:13 Method Of Arrival: Ambulatory ss 07:13 Acuity: BIJAL 3 ss Historical: - Allergies: 07:15 Cipro; ss - PMHx: 07:15 CVA; DVT; Polio; PE; Hypertension; Hyperlipidemia; Seizures; ss - PSHx: 07:15 Appendectomy; ss - Immunization history:: Adult Immunizations unknown. - Infectious Disease History:: Denies. - Family history:: not pertinent. - Social history:: Smoking status: unknown. Screenin:10 [facility] ED Fall Risk Assessment (Adult) History of falling in the last 3 months, ph including since admission No falls in past 3 months (0 pts) Confusion or Disorientation Yes (5 pts) Intoxicated or Sedated No (0 pts) Impaired Gait Yes (1 pt) Mobility Assist Device Used Yes (1 pt) Altered Elimination Yes (1 pt) Score/Fall Risk Level 3 or more points = High Risk Oriented to surroundings, Maintained a safe environment, Used ambulatory aids as needed (educated on \\T\\ assisted with). Abuse screen: Denies threats or abuse. Denies injuries from another. Nutritional screening: No deficits noted. Tuberculosis screening: No symptoms or risk factors identified. Assessment: 08:11 General: Appears in no apparent distress. comfortable, Behavior is cooperative, ph appropriate for age, quiet. Pain: Complains of pain in pelvis. Neuro: Level of Consciousness is awake, alert, obeys commands, Oriented to person, place, situation. Cardiovascular: Capillary refill < 3 seconds in bilateral fingers Patient's skin is warm and dry. Respiratory: Airway is patent Respiratory effort is even, unlabored. : Reports penile pain. Derm: Skin is pink, warm \\T\\ dry. 08:12 Derm: tip of R index finger blackened w/ no drainage noted. ph 10:37 Reassessment: No changes from previously documented assessment. Patient and/or family ph updated on plan of care and expected duration. Pain level reassessed. Vital Signs: 07:17 BP 132 / 79; Pulse 70; Pulse Ox 98% on R/A; rs6 08:25 Resp 18; Temp 97.5; ph 08:26 Pulse 67; ph 09:07 BP 124 / 70; Pulse 68; Resp 18; Pulse Ox 100% on R/A; ph 10:37 BP 132 / 64; Pulse 67; Resp 18; Temp 97.2; Pulse Ox 98% on R/A; ph ED Course: 07:00 Patient arrived in ED. mr 07:03 Brett Arredondo MD is Attending Physician. rt 07:15 Triage completed. ss 07:15 Arm band placed on left wrist. ss 07:23 Tyra Crowder, RN is Primary Nurse. ph 07:40 UAM Sent. ph 07:44 Initial lab(s) drawn, by me, sent to lab. ph 07:59 Accessed peripheral vein via ultrasound, utilizing dynamic ultrasound technique using ss 20G Nexia IV catheter ,sterile technique, per hospital protocol. Clean \\T\\ dry. Dressing intact. Good blood return. Flushes easily. L forearm . 08:10 Patient has correct armband on for positive identification. Bed in low position. Call ph light in reach. Side rails up X2. Pulse ox on. NIBP on. Door closed. Noise minimized. Warm blanket given. Pillow given. 09:26 CT Abd/Pelvis - Without Contrast In Process Unspecified. EDMS 09:48 Provided Education on: labs, meds. ko1 09:48 No provider procedures requiring assistance completed. ko1 10:05 Wagner Moore MD is Referral Physician. rt 10:38 IV discontinued, intact, bleeding controlled, No redness/swelling at site. Pressure ph dressing applied. Administered Medications: 10:37 Drug: Mupirocin Topical Ointment 2 % 1 application Topical once Route: Topical; Site: ph affected area; 10:37 Follow up: Response: No adverse reaction; Medication administered at discharge. ph Medication: 08:12 VIS not applicable for this client. ph Outcome: 10:05 Discharge ordered by MD. rt 10:38 Discharged to home via wheelchair, with family, ph 10:38 Condition: good :38 Discharge instructions given to family, Instructed on discharge instructions, follow up and referral plans. medication usage, Demonstrated understanding of instructions, follow-up care, medications, Prescriptions given X 3, :38 Patient left the ED. ph Signatures: Dispatcher [employer] EDMS Mukesh Honey, Reg Reg mr Kasey Calvillo RN RN ss Tyra Crowder RN RN ph Emma Braun RN RN ko1 Brett Arredondo MD MD rt Brett Owens rs6 Corrections: (The following items were deleted from the chart) 08:26 08:25 Pulse 18bpm; Temp 97.5F; ph ph
[2024-08-19] MEDS ORDERED: MUPIROCIN 2% OINT 22GM TUBE TOP ONE (10:24)
[2024-08-19 10:46] VITALS: BP 132/64; TEMP 97.2; O2SAT 98
== END 2024-08-19 10:38 | disposition home or self-care (01) ==
LOC: ER 06:58
DX: N39.0 Urinary tract infection, site not specified (principal); K59.00 Constipation, unspecified; I96 Gangrene, not elsewhere classified; I10 Essential (primary) hypertension; Z86.73 Personal history of transient ischemic attack (TIA), and cerebral infarction without residual deficits
CPT/HCPCS: 36415; 74176; 80053; 81001; 85025; 87086; 87088; 99284